=== PATIENT | male | born 1950 | race Caucasian/White ===

== ENCOUNTER 2017-11-21 16:00 | Outpatient (RCR) | payer MEDICARE, SELFPAY ==
[2017-11-21 16:22] LABS: Prothrombin Time Fingerstick 32.5 SEC (11.9-14.4)
== END 2017-12-06 23:59 ==
LOC: INT LAB 16:00
PROVIDERS: Family Provider Family Medicine Geriatric Medicine; PCP Family Medicine Geriatric Medicine; Visit Provider Internal Medicine Cardiovascular Disease
DX: I48.1 Persistent atrial fibrillation (principal)
CPT/HCPCS: 36416; 85610

== ENCOUNTER → 2017-12-12 09:43 | Outpatient (CLI) | payer MEDICARE, SELFPAY ==
[2017-12-12 09:12] VITALS: BP 140/84; BMI 40.6
[2017-12-12 11:41] LABS: AST(SGOT) 22 U/L (15-37); Alanine Aminotransfer ALT/SGPT 34 U/L (16-61); Albumin, Serum 3.6 g/dL (3.2-5.0); Alkaline Phosphatase 107 U/L (45-117); Bilirubin, Direct 0.21 mg/dL (0.00-0.30); Cholesterol 143 mg/dL (200); Globulin 3.5 g/dL (2.2-4.2); High Density Lipoprotein 30 mg/dL; Protein, Total 7.1 g/dL (6.4-8.2); Triglycerides 153 mg/dL; Very Low Density Lipoprotein 31 mg/dL (5-40)
== END ==
PROVIDERS: Family Provider Family Medicine Geriatric Medicine; PCP Family Medicine Geriatric Medicine; Visit Provider Internal Medicine Cardiovascular Disease
DX: I10 Essential (primary) hypertension (principal); I73.9 Peripheral vascular disease, unspecified
CPT/HCPCS: 36415; 80061; 80076

== ENCOUNTER → 2017-12-26 15:26 | Outpatient (CLI) | payer MEDICARE, SELFPAY ==
[2017-12-26 16:36] LABS: Absolute Neutrophil Count 4.7 X10^3/uL (2.0-7.7); Basophil# 0.04 X10^3/uL; Basophil% 0.4 % (0-1); Eosinophil# 0.38 X10^3/uL; Eosinophils% 4.2 % (0-5); Hematocrit 49.4 % (40-54); Hemoglobin 16.5 g/dl (13.0-16.5); Lymphocyte % 34.1 % (19-41); Mean Corp Hgb Conc 33.4 g/gl (32-36); Mean Corpuscular Hgb 29.6 pg (27.0-32.0); Mean Corpuscular Volume 88.5 fL (80-94); Mean Platelet Vol. 12.5 fl (6.2-12.0); Monocyte# 0.88 X10^3/uL; Monocyte% 9.7 % (0-10); Neutrophil # 4.66 X10^3/uL (2.7-7.7); Neutrophil % 51.2 % (47-70); Platelet Count 139 K/mm3 (150-450); RBC Distribution Width CV 14.9 % (11.6-14.6); RBC Distribution Width SD 47.9 fl (35.1-43.9); Red Blood Count 5.58 M/mm3 (4.6-6.2); White Blood Count 9.1 K/mm3 (4.4-11.0)
[2017-12-26 16:37] LABS: POSITIVE COUNT NO; POSITIVE DIFFERENTIAL NO; POSITIVE MORPHOLOGY NO
[2017-12-26 16:49] LABS: AST(SGOT) 20 U/L (15-37); Alanine Aminotransfer ALT/SGPT 38 U/L (16-61); Albumin, Serum 3.6 g/dL (3.2-5.0); Alkaline Phosphatase 115 U/L (45-117); Anion Gap 7 (5-15); BUN 17 mg/dL (7-18); BUN/Creat Ratio 13.8 RATIO (10-20); Calcium,Total 8.8 mg/dL (8.5-10.1); Chloride 102 mmol/L (98-107); Creatinine, Serum 1.23 mg/dL (0.70-1.30); EST Glomerular Filtration Rate 62 mL/min (>60); Est Glom Filt Rate - Afr Amer 75 mL/min (>60); Globulin 3.6 g/dL (2.2-4.2); Glucose 121 mg/dL (74-106); PSA,Total - Annual Screen 3.09 ng/mL (0.00-4.00); Potassium 3.4 mmol/L (3.5-5.1); Protein, Total 7.2 g/dL (6.4-8.2); Sodium Level 141 mmol/L (136-145); Thyroid Stim Hormone (TSH) 1.88 uIU/mL (0.358-3.74)
[2017-12-28 16:56] LABS: Hep C Antibodies <0.1 s/co ratio (0.0-0.9)
== END ==
PROVIDERS: Family Provider Family Medicine Geriatric Medicine; PCP Family Medicine Geriatric Medicine; Visit Provider Family Medicine Geriatric Medicine
DX: I10 Essential (primary) hypertension (principal); M10.9 Gout, unspecified; Z12.5 Encounter for screening for malignant neoplasm of prostate; Z13.89 Encounter for screening for other disorder
CPT/HCPCS: 36415; 80053; 84153; 84443; 84550; 85025; 86803; G0103

== ENCOUNTER → 2017-12-29 12:53 | Outpatient (CLI) | payer MEDICARE, SELFPAY ==
[2017-12-12 09:12] VITALS: BP 140/84; BMI 40.6
--- NOTE | 2017-12-29 12:55 | ECHOD_ITS ---
Reason For Study: Afib Procedure This was a 2D Doppler, Color Flow transthoracic echocardiogram. Exam performed in department. Left Ventricle Normal LV size. The estimated ejection fraction is 60 %. Left ventricular systolic function is normal. No evidence for diastolic dysfunction. No regional wall motion abnormalities noted. Right Ventricle Normal RV size. Normal systolic function. Atria The left atrium is severely enlarged. The right atrium is mildly enlarged. Mitral Valve Normal mitral valve. Mild (1+) eccentric mitral valve insufficiency. Tricuspid Valve Normal tricuspid valve. Mild (1+) tricuspid valve insufficiency. Pulmonary artery systolic pressure is 26 mmHg. Aortic Valve Trisinus/trileaflet aortic valve. Mild (1+) eccentric aortic valve insufficiency. Pulmonic Valve Normal pulmonic valve. Great Vessels Mildly dilated aortic root. The pulmonary artery is normal size. The inferior vena cava is not dilated. A possible thrombus is noted in IVC. Pericardium/Pleural No pericardial effusion. MMode/2D Measurements & Calculations LVIDd: 5.5 cm IVSd: 1.6 cm Ao root diam: 4.1 cm LVIDs: 3.6 cm LVPWd: 1.7 cm LA dimension: 5.4 cm RVDd: 3.5 cm FS: 35.1 % LAV(MOD-bp): 228.2 ml LA A4 area: 50.6 cm2 RA A4 area: 23.6 cm2 LAV(MOD-bp) Indexed: 87.1 ml/m2 LAV(MOD-sp2): 208.0 ml LAV(MOD-sp4): 232.6 ml Doppler Measurements & Calculations MV E max jeramie: 79.0 cm/sec Lat Peak E' Jeramie: 11.0 cm/sec Med Peak E' Jeramie: 7.2 cm/sec E/E' lat: 7.2 E/E' med: 10.9 Ao V2 max: 125.7 cm/sec LV V1 max: 103.2 cm/sec TR max jeramie: 232.5 cm/sec Ao max P.4 mmHg LV V1 max P.4 mmHg TR max P.7 mmHg Ao V2 mean: 92.1 cm/sec Ao mean P.7 mmHg Ao V2 VTI: 23.0 cm Interpretation Summary No evidence for diastolic dysfunction. Normal LV size. The estimated ejection fraction is 60 %. The left atrium is severely enlarged. Pulmonary artery systolic pressure is 26 mmHg. The inferior vena cava is not dilated A possible thrombus is noted in IVC- pt on anticoagulation Ordering Physician: [place] Referring Physician: Vasiliy Cantu Chi Performed By: Medina Carrera, KAYLA, RVT
== END ==
PROVIDERS: Family Provider Family Medicine Geriatric Medicine; PCP Family Medicine Geriatric Medicine; Visit Provider Internal Medicine Cardiovascular Disease
DX: I48.1 Persistent atrial fibrillation (principal)
CPT/HCPCS: 93306

== ENCOUNTER 2018-01-03 15:21 | Outpatient (RCR) | payer MEDICARE, SELFPAY ==
[2017-09-15 11:59] VITALS: BMI 38.5
[2017-09-18 19:40] VITALS: BP 176/102
[2018-01-03 15:36] LABS: Prothrombin Time Fingerstick 25.4 SEC (11.9-14.4)
== END 2018-01-03 23:59 ==
LOC: INT LAB 15:21
PROVIDERS: Family Provider Family Medicine Geriatric Medicine; PCP Family Medicine Geriatric Medicine; Visit Provider Internal Medicine Cardiovascular Disease
DX: I48.1 Persistent atrial fibrillation (principal)
CPT/HCPCS: 36416; 85610

== ENCOUNTER → 2018-01-15 15:54 | Outpatient (CLI) | payer MEDICARE, SELFPAY ==
[2018-01-15 17:20] LABS: Anion Gap 7 (5-15); BUN 19 mg/dL (7-18); BUN/Creat Ratio 15.1 RATIO (10-20); Calcium,Total 9.1 mg/dL (8.5-10.1); Chloride 102 mmol/L (98-107); Creatinine, Serum 1.26 mg/dL (0.70-1.30); EST Glomerular Filtration Rate 61 mL/min (>60); Est Glom Filt Rate - Afr Amer 73 mL/min (>60); Glucose 92 mg/dL (74-106); Potassium 3.5 mmol/L (3.5-5.1); Sodium Level 142 mmol/L (136-145)
== END ==
PROVIDERS: Family Provider Family Medicine Geriatric Medicine; PCP Family Medicine Geriatric Medicine; Visit Provider Family Medicine Geriatric Medicine
DX: E87.6 Hypokalemia (principal)
CPT/HCPCS: 36415; 80048

== ENCOUNTER 2018-01-18 10:06 | Outpatient (RCR) | payer MEDICARE, SELFPAY ==
[2018-01-18 10:36] LABS: Prothrombin Time Fingerstick 28.4 SEC (11.9-14.4)
== END 2018-02-03 23:59 ==
LOC: INT LAB 10:06
PROVIDERS: Family Provider Family Medicine Geriatric Medicine; PCP Family Medicine Geriatric Medicine; Visit Provider Internal Medicine Cardiovascular Disease
DX: I48.1 Persistent atrial fibrillation (principal)
CPT/HCPCS: 36416; 85610

== ENCOUNTER 2018-02-09 16:02 | Outpatient (RCR) | payer MEDICARE, SELFPAY ==
[2018-02-09 16:16] LABS: Prothrombin Time Fingerstick 28.7 SEC (11.9-14.4)
== END 2018-03-05 23:59 ==
LOC: INT LAB 16:02
PROVIDERS: Family Provider Family Medicine Geriatric Medicine; PCP Family Medicine Geriatric Medicine; Visit Provider Internal Medicine Cardiovascular Disease
DX: I48.1 Persistent atrial fibrillation (principal); I82.220 Acute embolism and thrombosis of inferior vena cava
CPT/HCPCS: 36416; 85610

== ENCOUNTER 2018-03-19 14:36 | Outpatient (RCR) | payer MEDICARE, SELFPAY ==
[2018-03-19 15:01] LABS: Prothrombin Time Fingerstick 21.5 SEC (11.9-14.4)
== END 2018-04-05 23:59 ==
LOC: INT LAB 14:36
PROVIDERS: Family Provider Family Medicine Geriatric Medicine; PCP Family Medicine Geriatric Medicine; Visit Provider Internal Medicine Cardiovascular Disease
DX: I48.91 Unspecified atrial fibrillation (principal); I82.220 Acute embolism and thrombosis of inferior vena cava
CPT/HCPCS: 36416; 85610

== ENCOUNTER → 2018-03-19 14:57 | Outpatient (CLI) | payer MEDICARE, SELFPAY ==
--- NOTE | 2018-03-19 15:05 | RAD_ITS ---
STUDY: X-RAY - LUMBAR SPINE REASON FOR EXAM: Male, 68 years old. Low back pain. TECHNIQUE: 3 view(s) of the lumbar spine were obtained. COMPARISON: None FINDINGS: Normal lumbar lordosis. There is no substantial scoliosis. There is a normal alignment of the vertebrae. There is multilevel endplate spondylosis of the lumbar vertebrae. There is multi-level degenerative disc disease with multi-level disc space narrowing. There is no demonstrated fracture. The soft tissue structures are unremarkable. RAD/Lumbar Spine 2 or 3 Views IMPRESSION: Degenerative changes of the spine, as detailed above. Electronically Signed: Bob Richards MD at 16:28 EDT , Service support ,
== END ==
PROVIDERS: Family Provider Family Medicine Geriatric Medicine; PCP Family Medicine Geriatric Medicine; Visit Provider Family Medicine Geriatric Medicine
DX: M54.5 Low back pain (principal); I48.91 Unspecified atrial fibrillation; I82.220 Acute embolism and thrombosis of inferior vena cava
CPT/HCPCS: 36416; 72100; 85610

== ENCOUNTER 2018-04-17 16:17 | Outpatient (RCR) | payer MEDICARE, SELFPAY ==
[2018-04-17 16:55] LABS: Prothrombin Time Fingerstick 33.9 SEC (11.9-14.4)
== END 2018-05-05 23:59 ==
LOC: INT LAB 16:17
PROVIDERS: Family Provider Family Medicine Geriatric Medicine; PCP Family Medicine Geriatric Medicine; Visit Provider Internal Medicine Cardiovascular Disease
DX: I48.1 Persistent atrial fibrillation (principal); I82.220 Acute embolism and thrombosis of inferior vena cava
CPT/HCPCS: 36416; 85610

== ENCOUNTER 2018-05-29 15:50 | Outpatient (RCR) | payer MEDICARE, SELFPAY ==
[2018-05-29 16:51] LABS: Prothrombin Time Fingerstick 33.3 SEC (11.9-14.4)
== END 2018-06-05 23:59 ==
LOC: INT LAB 15:50
PROVIDERS: Family Provider Family Medicine Geriatric Medicine; PCP Family Medicine Geriatric Medicine; Visit Provider Internal Medicine Cardiovascular Disease
DX: I48.1 Persistent atrial fibrillation (principal); I82.220 Acute embolism and thrombosis of inferior vena cava
CPT/HCPCS: 36416; 85610

== ENCOUNTER → 2018-06-19 13:50 | Outpatient (CLI) | payer MEDICARE, SELFPAY | PROVIDERS: Family Provider Family Medicine Geriatric Medicine; PCP Family Medicine Geriatric Medicine; Visit Provider Internal Medicine Cardiovascular Disease | DX: I48.2 Chronic atrial fibrillation (principal); I82.220 Acute embolism and thrombosis of inferior vena cava; Z79.01 Long term (current) use of 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s | CPT/HCPCS: 93306 ==

== ENCOUNTER 2018-07-02 15:36 | Outpatient (RCR) | payer MEDICARE, SELFPAY ==
[2018-07-02 17:26] LABS: Absolute Lymphocyte Count 2.09 X10^3/ul (0.83-4.51); Absolute Neutrophil Count 5.8 X10^3/uL (2.0-7.7); Basophil# 0.04 X10^3/uL; Basophil% 0.4 % (0-1); Eosinophil# 0.36 X10^3/uL; Eosinophils% 3.9 % (0-5); Hematocrit 50.3 % (40-54); Hemoglobin 16.7 g/dl (13.0-16.5); Lymphocyte # 2.09 X10^3/ul (4.0); Lymphocyte % 22.4 % (19-41); Mean Corp Hgb Conc 33.2 g/gl (32-36); Mean Corpuscular Hgb 30.1 pg (27.0-32.0); Mean Corpuscular Volume 90.8 fL (80-94); Mean Platelet Vol. 11.9 fl (6.2-12.0); Monocyte# 1.01 X10^3/uL; Monocyte% 10.8 % (0-10); Neutrophil % 62.1 % (47-70); Platelet Count 134 K/mm3 (150-450); RBC Distribution Width CV 14.7 % (11.6-14.6); RBC Distribution Width SD 48.9 fl (35.1-43.9); Red Blood Count 5.54 M/mm3 (4.6-6.2); White Blood Count 9.3 K/mm3 (4.4-11.0)
[2018-07-02 17:27] LABS: POSITIVE COUNT NO; POSITIVE DIFFERENTIAL NO; POSITIVE MORPHOLOGY NO
[2018-07-02 17:50] LABS: Vitamin D,25 Hydroxy 29.4 ng/mL (29.95-100.01)
[2018-07-02 17:53] LABS: ALB/GLOB Ratio 1.1 RATIO (0.9-2.4); AST(SGOT) 22 U/L (15-37); Alanine Aminotransfer ALT/SGPT 43 U/L (16-61); Albumin, Serum 3.8 g/dL (3.2-5.0); Alkaline Phosphatase 119 U/L (45-117); Anion Gap 9 (5-15); BUN 19 mg/dL (7-18); BUN/Creat Ratio 16.7 RATIO (10-20); Calcium,Total 9.1 mg/dL (8.5-10.1); Chloride 104 mmol/L (98-107); Creatinine, Serum 1.14 mg/dL (0.70-1.30); EST Glomerular Filtration Rate 68 mL/min (>60); Est Glom Filt Rate - Afr Amer 82 mL/min (>60); Globulin 3.6 g/dL (2.2-4.2); Glucose 74 mg/dL (74-106); Potassium 3.2 mmol/L (3.5-5.1); Protein, Total 7.4 g/dL (6.4-8.2); Sodium Level 141 mmol/L (136-145); Thyroid Stim Hormone (TSH) 1.35 uIU/mL (0.358-3.74); Uric Acid 5.7 mg/dL (3.5-7.2)
== END 2018-07-06 23:59 ==
LOC: INT LAB 15:36
PROVIDERS: Family Provider Family Medicine Geriatric Medicine; PCP Family Medicine Geriatric Medicine; Visit Provider Internal Medicine Cardiovascular Disease
DX: I48.91 Unspecified atrial fibrillation (principal); I82.220 Acute embolism and thrombosis of inferior vena cava; E55.9 Vitamin D deficiency, unspecified; I10 Essential (primary) hypertension; M10.9 Gout, unspecified
CPT/HCPCS: 36415; 36416; 80053; 82306; 84443; 84550; 85025; 85610

== ENCOUNTER → 2018-07-24 15:51 | Outpatient (CLI) | payer MEDICARE, SELFPAY ==
[2018-07-24 16:59] LABS: Anion Gap 9 (5-15); BUN 17 mg/dL (7-18); BUN/Creat Ratio 13.7 RATIO (10-20); Calcium,Total 9.1 mg/dL (8.5-10.1); Chloride 102 mmol/L (98-107); Creatinine, Serum 1.24 mg/dL (0.70-1.30); EST Glomerular Filtration Rate 62 mL/min (>60); Est Glom Filt Rate - Afr Amer 75 mL/min (>60); Glucose 66 mg/dL (74-106); Potassium 3.5 mmol/L (3.5-5.1); Sodium Level 142 mmol/L (136-145)
== END ==
PROVIDERS: Family Provider Family Medicine Geriatric Medicine; PCP Family Medicine Geriatric Medicine; Visit Provider Family Medicine Geriatric Medicine
DX: E87.6 Hypokalemia (principal)
CPT/HCPCS: 36415; 80048

== ENCOUNTER 2018-09-05 12:33 | Outpatient (RCR) | payer MEDICARE, SELFPAY ==
[2018-08-07 16:06] LABS: Prothrombin Time Fingerstick 39.2 SEC (11.9-14.4)
[2018-08-14 17:03] LABS: International Normalized Ratio 3.1
[2018-08-29 16:35] LABS: Prothrombin Time Fingerstick 42.1 SEC (11.9-14.4)
[2018-08-29 17:36] LABS: Prothrombin Time (Protime)PT. 30.9 SECONDS (11.7-14.9)
[2018-09-05 12:45] LABS: Prothrombin Time Fingerstick 31.3 SEC (11.9-14.4)
== END 2018-09-05 23:59 ==
LOC: INT LAB 12:33
PROVIDERS: Family Provider Family Medicine Geriatric Medicine; PCP Family Medicine Geriatric Medicine; Visit Provider Internal Medicine Cardiovascular Disease
DX: I48.91 Unspecified atrial fibrillation (principal); I82.220 Acute embolism and thrombosis of inferior vena cava; I10 Essential (primary) hypertension
CPT/HCPCS: 36415; 36416; 80048; 85610

== ENCOUNTER → 2018-09-05 13:10 | Outpatient (CLI) | payer MEDICARE, SELFPAY ==
[2018-09-05 15:02] LABS: Anion Gap 7 (5-15); BUN 19 mg/dL (7-18); BUN/Creat Ratio 15.6 RATIO (10-20); Calcium,Total 9.1 mg/dL (8.5-10.1); Chloride 103 mmol/L (98-107); Creatinine, Serum 1.22 mg/dL (0.70-1.30); EST Glomerular Filtration Rate 63 mL/min (>60); Est Glom Filt Rate - Afr Amer 76 mL/min (>60); Glucose 168 mg/dL (74-106); Potassium 3.6 mmol/L (3.5-5.1); Sodium Level 140 mmol/L (136-145)
== END ==
PROVIDERS: Family Provider Family Medicine Geriatric Medicine; PCP Family Medicine Geriatric Medicine; Visit Provider Family Medicine Geriatric Medicine
DX: I10 Essential (primary) hypertension (principal)
CPT/HCPCS: 36415; 36416; 80048; 85610

== ENCOUNTER 2018-10-31 16:21 | Outpatient (RCR) | payer MEDICARE, SELFPAY ==
[2018-10-12 17:01] LABS: Prothrombin Time Fingerstick 27.6 SEC (11.9-14.4)
[2018-10-31 16:46] LABS: Prothrombin Time Fingerstick 28.4 SEC (11.9-14.4)
== END 2018-11-05 23:59 ==
LOC: INT LAB 16:21
PROVIDERS: Family Provider Family Medicine Geriatric Medicine; PCP Family Medicine Geriatric Medicine; Referring Provider Internal Medicine Cardiovascular Disease; Visit Provider Internal Medicine Cardiovascular Disease
DX: I48.91 Unspecified atrial fibrillation (principal); I82.220 Acute embolism and thrombosis of inferior vena cava
CPT/HCPCS: 36416; 85610

== ENCOUNTER 2018-11-28 16:06 | Outpatient (RCR) | payer MEDICARE, SELFPAY ==
[2017-12-12 09:12] VITALS: BMI 40.6
[2018-11-29 08:46] LABS: Prothrombin Time Fingerstick 24.9 SEC (11.9-14.4)
--- OUTSIDE RECORDS SUMMARY | 2019-01-30 18:37 | XMS RPT_ITS ---
:1950 Author Organization OHIP Support Name Relationship Address Phone IRASEMA WINSTON Unavailable [address] + [place] [address] R Unavailable Unavailable Unavailable TISH, IRASEMA Unavailable Unavailable + TISH, IRASEMA Unavailable [address] + [place] [address] R Unavailable Unavailable Unavailable TISH, IRASEMA Unavailable [address] + [place] [address] R Unavailable Unavailable Unavailable TISH, IRASEMA Unavailable [address] + [place] [address] R Unavailable Unavailable Unavailable TISH, IRASEMA Unavailable [address] + [place] [address] R Unavailable Unavailable Unavailable TISH, IRASEMA Unavailable [address] + [place] [address] R Unavailable Unavailable Unavailable TISH, IRASEMA Unavailable [address] + [place] [address] R Unavailable Unavailable Unavailable TISH, IRASEMA Unavailable [address] + [place] [address] R Unavailable Unavailable Unavailable TISH, IRASEMA Unavailable [address] + [place] [address] R Unavailable Unavailable Unavailable TISH, IRASEMA Unavailable Unavailable + TISH IRASEMA Unavailable [address] + [place] [address] R Unavailable Unavailable Unavailable TISH, IRASEMA Unavailable [address] + [place] [address] R Unavailable Unavailable Unavailable TISH, IRASEMA Unavailable [address] + [place] [address] R Unavailable Unavailable Unavailable TISH, IRASEMA Unavailable [address] + [place] [address] R Unavailable Unavailable Unavailable TISH, IRASEMA Unavailable Unavailable + IRASEMA WINSTON Unavailable [address] + [place] [address] R Unavailable Unavailable Unavailable IRASEMA WINSTON Unavailable [address] + [place] [address] R Unavailable Unavailable Unavailable IRASEMA WINSTON Unavailable [address] + [place] [address] R Unavailable Unavailable Unavailable IRASEMA WINSTON Unavailable [address] + [place] [address] R Unavailable Unavailable Unavailable IRASEMA WINSTON Unavailable [address] + [place] [address] R Unavailable Unavailable Unavailable IRASEMA WINSTON Unavailable [address] + [place] [address] R Unavailable Unavailable Unavailable IRASEMA WINSTON Unavailable [address] + [place] [address] R Unavailable Unavailable Unavailable IRASEMA WINSTON Unavailable [address] + [place] [address] R Unavailable Unavailable Unavailable IRASEMA WINSTON Unavailable [address] + [place] [address] R Unavailable Unavailable Unavailable IRASEMA WINSTON Unavailable [address] + [place] [address] R Unavailable Unavailable Unavailable Care Team Providers Name Role Phone Karolina, Hankamer Attending Unavailable Karolina, Hankamer Referring Unavailable Pepe, Vasiliy Chi Primary Care Unavailable Karolina, Hankamer Attending Unavailable Pepe, Vasiliy Chi Referring Unavailable Pepe, Vasiliy Chi Primary Care Unavailable Karolina, Hankamer Attending Unavailable Karolina, Hankamer Referring Unavailable Pepe, Vasiliy Chi Primary Care Unavailable Karolina, Los Attending Unavailable Karolina, Hankamer Referring Unavailable Pepe, Vasiliy Chi Primary Care Unavailable Karolina, Los Attending Unavailable Karolina, Los Referring Unavailable Pepe, Vasiliy Chi Primary Care Unavailable Pepe, Vasiliy Chi Attending Unavailable Peep, Vasiliy Chi Primary Care Unavailable Pepe, Vasiliy Chi Attending Unavailable Pepe, Vasiliy Chi Primary Care Unavailable Madeline Iqbal Attending Unavailable Karolina, Los Attending Unavailable Karolina, Hankamer Referring Unavailable Pepe, Vasiliy Chi Primary Care Unavailable Karolina, Los Attending Unavailable Karolina, Hankamer Referring Unavailable Karolina, Hankamer Attending Unavailable Karolina, Los Referring Unavailable Pepe, Vasiliy Chi Primary Care Unavailable Karolina, Hankamer Attending Unavailable Karolina, Hankamer Referring Unavailable Pepe, Vasiliy Chi Primary Care Unavailable Pepe, Vasiliy Chi Attending Unavailable Pepe, Vasiliy Chi Referring Unavailable Pepe, Vasiliy Chi Primary Care Unavailable Karolina, Los Attending Unavailable Karolina, Hankamer Referring Unavailable Pepe, Vasiliy Chi Primary Care Unavailable Karolina, Hankamer Attending Unavailable Karolina, Hankamer Referring Unavailable Pepe, Vasiliy Chi Primary Care Unavailable Karolina, Hankamer Attending Unavailable Karolina, Los Referring Unavailable Pepe, Vasiliy Chi Primary Care Unavailable Karolina, Los Attending Unavailable Karolina, Los Referring Unavailable Pepe, Vasiliy Chi Primary Care Unavailable Karolina, Hankamer Attending Unavailable Karolina, Los Referring Unavailable Pepe, Vasiliy Chi Primary Care Unavailable Karolina, Hankamer Attending Unavailable Karolina, Los Referring Unavailable Pepe, Vasiliy Chi Attending Unavailable Pepe, Vasiliy Chi Primary Care Unavailable Pepe, Vasiliy Chi Attending Unavailable Pepe, Vasiliy Chi Primary Care Unavailable Pepe, Vasiliy Chi Attending Unavailable Karolina, Hankamer Attending Unavailable Karolina, Los Referring Unavailable Pepe, Vasiliy Chi Primary Care Unavailable PALAFOX, SELAM W Attending Unavailable PALAFOX, SELAM W Referring Unavailable *SELF, REFERRED Primary Care Unavailable PALAFOX, SELAM W Attending Unavailable *SELF, REFERRED Referring Unavailable *SELF, REFERRED Primary Care Unavailable PALAFOX, SELAM W Attending Unavailable PALAFOX, SELAM W Referring Unavailable *SELF, REFERRED Primary Care Unavailable PROBLEMS PROBLEMS DATE TYPE CONDITION / CODE ATTENDING STATUS SOURCE 11/28/2018 Unknown I48.91 - Karolina, Lso Active [place] Unspecified atrial Community fibrillation / Hospital I48.91(ICD-10) Repository 09/05/2018 Unknown I10 - Essential Pepe, Vasiliy Chi Active [place] (primary) Community hypertension / Hospital I10(ICD-10) Repository 07/07/2018 Unknown E55.9 - Vitamin D Karolina, Hankamer Active [facility] deficiency, Community unspecified / Hospital E55.9(ICD-10) Repository 06/06/2018 Unknown I48.1 - Persistent Karolina, Los Active [facility] atrial Community fibrillation / Hospital I48.1(ICD-10) Repository 03/19/2018 Unknown M54.5 - Low back Pepe, Vasiliy Chi Active [place] pain / Community M54.5(ICD-10) Hospital Repository 12/26/2017 Unknown M10.9 - Gout, Pepe, Vasiliy Chi Active [place] unspecified / Community M10.9(ICD-10) Hospital Repository 12/26/2017 Unknown Z12.5 - Encounter Pepe, Vasiliy Chi Active [place] for screening for Community malignant neoplasm Hospital of prostate / Repository Z12.5(ICD-10) 12/26/2017 Unknown Z13.89 - Encounter Pepe, Vasiliy Chi Active [facility] for screening for Community other disorder / Hospital Z13.89(ICD-10) Repository 12/12/2017 Unknown 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, Hankamer Active [facility]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 [address] PROTIME W/INR Collected: 10/31/2018 Status: F Source: [place] FINGERSTICK 4:34 PM [facility] [place] [place] REPOSITORY TYPE CODE TESTS RESULT OUT OF REFERENCE UNITS RANGE LAB L9200.1001 11.9-14.4 SEC High PROTIME ISTAT 28.4 Result Comment: Reference Range 11.9 - 14.4 LAB L9200.2000 Normal INR ISTAT 2.50 Result Comment: Critical Value > 3.5 Performed By: #### L9200.0000 #### [facility] [address] [facility] [place] [address] PROTIME W/INR Collected: 10/12/2018 Status: F Source: [place] FINGERSTICK 4:57 PM [facility] [place] [place] REPOSITORY TYPE CODE TESTS RESULT OUT OF REFERENCE UNITS RANGE LAB L9200.1001 11.9-14.4 SEC High PROTIME ISTAT 27.6 Result Comment: Reference Range 11.9 - 14.4 LAB L9200.2000 Normal INR ISTAT 2.40 Result Comment: Critical Value > 3.5 Performed By: #### L9200.0000 #### [facility] [address] [place] [address] BASIC METABOLIC Collected: 09/05/2018 Status: F Source: [facility] PROFILE (BMP) 1:11 PM [facility] [place], [place] REPOSITORY TYPE CODE TESTS RESULT OUT OF RANGE REFERENCE UNITS LAB L501.0100 74-106 mg/dL High GLU 168 Result Comment: Fasting Glucose result greater than or equal to 126 mg/dL suggests DIABETES MELLITUS per A.D.A. criteria. Please note revised GLUCOSE reference range effective 2017. LAB L501.1000 7-18 mg/dL High BUN 19 LAB L501.1100 0.70-1.30 mg/dL Normal CREAT,SERUM 1.22 Result Comment: The validity of the calculated GFR AND GFRAA in patients over 70 years has not been determined. Clinical correlation is essential. LAB L501.1110 >60 mL/min Normal EST GFR 63 Result Comment: Non- GFR Calc LAB L501.1115 >60 mL/min Normal EST GFR - AA 76 Result Comment: GFR Calc LAB L501.1300 10-20 RATIO Normal BUN/CRE 15.6 LAB L501.2200 8.5-10.1 mg/dL CA Normal 9.1 LAB L501.5300 136-145 mmol/L NA Normal 140 LAB L501.5600 3.5-5.1 mmol/L K Normal 3.6 LAB L501.5900 98-107 mmol/L CL Normal 103 LAB L501.6100 21.0-32.0 mmol/L Normal CO2 30.0 LAB L501.6200 5-15 Normal GAP 7 Performed By: #### L500.2500 #### [facility] [address] [place], [place], [address] PROTIME W/INR Collected: 09/05/2018 Status: F Source: [place] FINGERSTICK 12:41 PM [facility] [place] [place] REPOSITORY TYPE CODE TESTS RESULT OUT OF REFERENCE UNITS RANGE LAB L9200.1001 11.9-14.4 SEC High PROTIME ISTAT 31.3 Result Comment: Reference Range 11.9 - 14.4 LAB L9200.2000 Normal INR ISTAT 2.70 Result Comment: Critical Value > 3.5 Performed By: #### L9200.0000 #### [facility] [address] [facility] [place] [address] PROTHROMBIN TIME W/INR Collected: 08/29/2018 Status: F Source: [place] 4:29 PM [facility] [place] [place] REPOSITORY TYPE CODE TESTS RESULT OUT OF RANGE REFERENCE UNITS LAB L300.4150 11.7-14.9 SECONDS High PROTIME 30.9 LAB L300.4200 Normal INR 3.0 Performed By: #### L300.3900 #### [facility] [address] [place] [address]. [place], [address] PROTIME W/INR Collected: 08/29/2018 Status: F Source: [place] FINGER[place]ICK 4:24 PM [facility] [place] [place] REPOSITORY TYPE CODE TESTS RESULT OUT OF REFERENCE UNITS RANGE LAB L9200.1001 11.9-14.4 SEC High PROTIME ISTAT 42.1 Result Comment: Reference Range 11.9 - 14.4 LAB L9200.2000 High alert INR ISTAT 3.70 Result Comment: Critical Value > 3.5 Performed By: #### L9200.0000 #### [facility] [address] [place] [address]. [place] [address] PROTHROMBIN TIME W/INR Collected: 08/14/2018 Status: F Source: [place] 3:37 PM [facility] [place] [place] REPOSITORY TYPE CODE TESTS RESULT OUT OF RANGE REFERENCE UNITS LAB L300.4150 11.7-14.9 SECONDS High PROTIME 32.0 LAB L300.4200 Normal INR 3.1 Performed By: #### L300.3900 #### [facility] [facility] [place], [address] PROTIME W/INR Collected: 08/07/2018 Status: F Source: [place] FINGER[place] 3:49 PM [facility] [place] [place] REPOSITORY TYPE CODE TESTS RESULT OUT OF REFERENCE UNITS RANGE LAB L9200.1001 11.9-14.4 SEC High PROTIME ISTAT 39.2 Result Comment: Reference Range 11.9 - 14.4 LAB L9200.2000 Normal INR ISTAT 3.50 Result Comment: Critical Value > 3.5 Performed By: #### L9200.0000 #### [facility] [address] [place] [address] BASIC METABOLIC Collected: 07/24/2018 Status: F Source: [place] PROFILE (BMP) 3:52 PM [facility] [place] [place] REPOSITORY TYPE CODE TESTS RESULT OUT OF RANGE REFERENCE UNITS LAB L501.0100 74-106 mg/dL Low GLU 66 Result Comment: Please note revised GLUCOSE reference range effective 2017. LAB L501.1000 7-18 mg/dL Normal BUN 17 LAB L501.1100 0.70-1.30 mg/dL Normal CREAT,SERUM 1.24 Result Comment: The validity of the calculated GFR AND GFRAA in patients over 70 years has not been determined. Clinical correlation is essential. LAB L501.1110 >60 mL/min Normal EST GFR 62 Result Comment: Non- GFR Calc LAB L501.1115 >60 mL/min Normal EST GFR - AA 75 Result Comment: GFR Calc LAB L501.1300 10-20 RATIO Normal BUN/CRE 13.7 LAB L501.2200 8.5-10.1 mg/dL CA Normal 9.1 LAB L501.5300 136-145 mmol/L NA Normal 142 LAB L501.5600 3.5-5.1 mmol/L K Normal 3.5 LAB L501.5900 98-107 mmol/L CL Normal 102 LAB L501.6100 21.0-32.0 mmol/L Normal CO2 31.0 LAB L501.6200 5-15 Normal GAP 9 Performed By: #### L500.2500 #### [facility] [address] [place], [place], [address] CBC W/DIFF, AUTOMATED Collected: 07/02/2018 Status: F Source: [place] 4:53 PM [facility] [place] [place] REPOSITORY TYPE CODE TESTS RESULT OUT OF RANGE REFERENCE UNITS LAB L100.1000 4.4-11.0 K/mm3 Normal WBC 9.3 LAB L100.1200 4.6-6.2 M/mm3 Normal RBC 5.54 LAB L100.1300 13.0-16.5 g/dl High HGB 16.7 LAB L100.1400 40-54 % Normal HCT 50.3 LAB L100.1500 80-94 fL Normal MCV 90.8 LAB L100.1600 27.0-32.0 pg Normal MCH 30.1 LAB L100.1700 32-36 g/gl Normal MCHC 33.2 LAB L100.1810 11.6-14.6 % High RDW CV 14.7 LAB L100.1820 35.1-43.9 fl High RDW SD 48.9 LAB L100.1900 150-450 K/mm3 Low PLT 134 LAB L100.2000 6.2-12.0 fl Normal MPV 11.9 LAB L100.2100 47-70 % Normal NEUT% 62.1 LAB L100.2200 19-41 % Normal LY% 22.4 LAB L100.2300 0-10 % High MONO% 10.8 LAB L100.2400 0-5 % Normal EO% 3.9 LAB L100.2500 0-1 % Normal BASO% 0.4 LAB L100.2550 0.0-0.9 % Normal IM GRAN % 0.400 Result Comment: IG% - Immature Granulocytes (promyelocytes, myelocytes and metamyelocytes) > 1% indicates that a LEFT SHIFT is Present. LAB L100.2620 2.0-7.7 X10 3/uL Normal Absolute Neut 5.8 LAB L100.2720 0.83-4.51 X10 3/ul Normal Absolute Lymph 2.09 Performed By: #### L100.0100 #### [facility] [address] [place], [address] VITAMIN D,25 HYDROXY Collected: 07/02/2018 Status: F Source: [place] 4:53 PM [facility] [place] [place] REPOSITORY TYPE CODE TESTS RESULT OUT OF REFERENCE UNITS RANGE LAB L506.1000 29.95-100.01 ng/mL Low Vitamin D 29.4 25-OH Result Comment: Vitamin D 25(OH) Status Range Deficiency <20 ng/mL (50nmol/L) Insuffciency 20 - 30 ng/mL (50 - 75 nmol/L) Sufficiency 30 - 100 ng/mL (75 - 250 nmol/L) Toxicity >100 ng/mL (>250 nmol/L) Performed By: #### L506.1000 #### [facility] [address] [place], [address] COMPREHENSIVE METABOLIC Collected: 07/02/2018 Status: F Source: [place] MANN 4:53 PM [facility] [place] [place] REPOSITORY TYPE CODE TESTS RESULT OUT OF RANGE REFERENCE UNITS LAB L501.0100 74-106 mg/dL Normal GLU 74 Result Comment: Please note revised GLUCOSE reference range effective 2017. LAB L501.1000 7-18 mg/dL High BUN 19 LAB L501.1100 0.70-1.30 mg/dL Normal CREAT,SERUM 1.14 Result Comment: The validity of the calculated GFR AND GFRAA in patients over 70 years has not been determined. Clinical correlation is essential. LAB L501.1110 >60 mL/min Normal EST GFR 68 Result Comment: Non- GFR Calc LAB L501.1115 >60 mL/min Normal EST GFR - AA 82 Result Comment: GFR Calc LAB L501.1300 10-20 RATIO Normal BUN/CRE 16.7 LAB L501.1500 6.4-8.2 g/dL T Normal PROT 7.4 LAB L501.1800 3.2-5.0 g/dL Normal ALB 3.8 LAB L501.1950 2.2-4.2 g/dL Normal GLOB 3.6 LAB L501.2000 0.9-2.4 RATIO Normal A/G 1.1 LAB L501.2200 8.5-10.1 mg/dL CA Normal 9.1 LAB L501.4100 15-37 U/L Normal AST 22 LAB L501.4305 45-117 U/L High ALK P 119 LAB L501.4405 16-61 U/L Normal ALT 43 LAB L501.4600 0.20-1.00 mg/dL T Normal BILI 0.90 LAB L501.5300 136-145 mmol/L NA Normal 141 LAB L501.5600 3.5-5.1 mmol/L Low K 3.2 LAB L501.5900 98-107 mmol/L CL Normal 104 LAB L501.6100 21.0-32.0 mmol/L Normal CO2 28.0 LAB L501.6200 5-15 Normal GAP 9 Performed By: #### L500.4050, L501.1400, L501.9520 #### [facility] [address] [place], [address] URIC ACID Collected: 07/02/2018 Status: F Source: [place] 4:53 PM [facility] [place] [place] REPOSITORY TYPE CODE TESTS RESULT OUT OF RANGE REFERENCE UNITS LAB L501.1400 3.5-7.2 mg/dL Normal URIC 5.7 Result Comment: The drugs N-Acetylcysteine and Metamizole may falsely depress this assay. Performed By: #### L500.4050, L501.1400, L501.9520 #### [facility] [address] [place], [address] THYROID STIM HORMONE Collected: 07/02/2018 Status: F Source: [place] (TSH) 4:53 PM [facility] [place] [place] REPOSITORY TYPE CODE TESTS RESULT OUT OF RANGE REFERENCE UNITS LAB L501.9520 0.358-3.74 uIU/mL Normal TSH 1.35 Performed By: #### L500.4050, L501.1400, L501.9520 #### [facility] [place], [address] PROTIME W/INR Collected: 07/02/2018 Status: F Source: ANIA FINGERSTICK 3:45 PM [facility] [place] [place] REPOSITORY TYPE CODE TESTS RESULT OUT OF REFERENCE UNITS RANGE LAB L9200.1001 11.9-14.4 SEC High PROTIME ISTAT 34.0 Result Comment: Reference Range 11.9 - 14.4 LAB L9200.2000 Normal INR ISTAT 3.00 Result Comment: Critical Value > 3.5 Performed By: #### L9200.0000 #### [facility] [address] [place] [address] ECHOCARDIOGRAM COMPLETE Observed: 06/19/2018 Status: F Source: [place] 5:12 PM [facility] [place] [place] REPOSITORY [facility] Cardiovascular Services [address] [place], [place] [address] [address] Echo Complete 06/19/18 1353 MR#: [id number] Acct: [id number] Name: NARCISO WINSTON Rep #: [id number] : 1950 68 From: Los Turcios MD Attending Dr: Karolina WALDRON,Los Status: REG CLI Ordering Dr: Los Turcios MD Date: 06/19/18 Location: [facility] Sex: M C Admitted: Reason For Study: emboli Procedure This was a 2D Doppler, Color Flow transthoracic echocardiogram. The study was technically difficult. Exam performed in department. Left Ventricle Mildly dilated left ventricle. Left ventricular systolic function is normal. The estimated ejection fraction is 55 %. Unable to assess diastolic dysfunction due to arrhythmia. No regional wall motion abnormalities noted. Right Ventricle Normal RV size. Normal systolic function. Atria The left atrium is severely enlarged. The right atrium is moderately enlarged. Mitral Valve Normal mitral valve. Mild (1+) eccentric mitral valve insufficiency. Tricuspid Valve Normal tricuspid valve. Mild tricuspid valve insufficiency. Pulmonary artery systolic pressure is 30 mmHg. Aortic Valve Normal aortic valve. Trivial aortic valve insufficiency. Pulmonic Valve The pulmonic valve is not well visualized. Great Vessels Mildly dilated aortic root. The pulmonary artery is normal size. Normal inferior vena cava. cannot exclude small throbus improved from before. Pericardium/Pleural No pericardial effusion. MMode/2D Measurements AND Calculations LVIDd: 5.7 cm IVSd: 1.6 cm Ao root diam: 4.1 cm LVIDs: 3.9 cm LVPWd: 1.7 cm LA dimension: 5.7 cm RVDd: 3.9 cm FS: 31.3 % LAV(MOD-bp): 237.7 ml LA A4 area: 51.6 cm2 RA A4 area: 27.3 cm2 LAV(MOD-bp) Indexed: 90.8 ml/m2 LAV(MOD-sp2): 217.1 ml LAV(MOD-sp4): 257.1 ml Doppler Measurements AND Calculations MV E max jeramie: 77.0 cm/sec Ao V2 max: 127.4 cm/sec LV V1 max: 91.1 cm/sec Ao max P.5 mmHg LV V1 max P.3 mmHg PA V2 max: 75.4 cm/sec TR max jeramie: 260.7 cm/sec TR max P.2 mmHg Interpretation Summary Mildly dilated left ventricle. Left ventricular systolic function is normal. The estimated ejection fraction is 55 %. Unable to assess diastolic dysfunction due to arrhythmia. Mild tricuspid valve insufficiency. Pulmonary artery systolic pressure is 30 mmHg. Ordering Physician: Los Turcios Referring Physician: Vasiliy Cantu Chi Performed By: Katie Saunders, KAYLA, RVT 06/19/181710 Date Los Turcios MD CC: Los Turcios MD; Vasiliy Cantu MD Date Dictated: 06/19/18 1353 Date Transcribed: 06/19/181710 Wallpaperer: Signed PROTIME W/INR Collected: 05/29/2018 Status: F Source: [place]IA FINGERSTICK 4:11 PM [facility] [place] [place] REPOSITORY TYPE CODE TESTS RESULT OUT OF REFERENCE UNITS RANGE LAB L9200.1001 11.9-14.4 SEC High PROTIME ISTAT 33.3 Result Comment: Reference Range 11.9 - 14.4 LAB L9200.2000 Normal INR ISTAT 2.90 Result Comment: Critical Value > 3.5 Performed By: #### L9200.0000 #### [facility] [address] [place] [address] PROTIME W/INR Collected: 04/17/2018 Status: F Source: ANIA FINGERSTICK 4:28 PM [facility] [place] [place] REPOSITORY TYPE CODE TESTS RESULT OUT OF REFERENCE UNITS RANGE LAB L9200.1001 11.9-14.4 SEC High PROTIME ISTAT 33.9 Result Comment: Reference Range 11.9 - 14.4 LAB L9200.1999 Normal INR ISTAT 3.00 Result Comment: Critical Value > 3.5 Performed By: #### L9200.0000 #### [facility] [address] [place] [address] LUMBAR SPINE 2 OR 3 Observed: 03/19/2018 Status: F Source: ANIA VIEWS 3:00 PM [facility] [place] [place] REPOSITORY [facility] Imaging Services [address] [place] [address] Lumbar Spine 2 or 3 Views MR#: [id number] Acct: [id number] Name: NARCISO WINSTON Rep #: [id number] : 1950 M 68 From: Bob Richards MD PCP: Vasiliy Cantu MD, Chi Status: REG CLI Study: Lumbar Spine 2 or 3 Views Date of Exam: 03/19/18 Exam# [id number] Ordering Dr: Vasiliy Cantu MD STUDY: X-RAY - LUMBAR SPINE REASON FOR EXAM: Male, 68 years old. Low back pain. TECHNIQUE: 3 view(s) of the lumbar spine were obtained. COMPARISON: None FINDINGS: Normal lumbar lordosis. There is no substantial scoliosis. There is a normal alignment of the vertebrae. There is multilevel endplate spondylosis of the lumbar vertebrae. There is multi-level degenerative disc disease with multi-level disc space narrowing. There is no demonstrated fracture. The soft tissue structures are unremarkable. RAD/Lumbar Spine 2 or 3 Views IMPRESSION: Degenerative changes of the spine, as detailed above. Electronically Signed: Bob Richards MD at 16:28 EDT , Service support , CC: Vasiliy Cantu MD Wallpaperer: Signed PROTIME W/INR Collected: 03/19/2018 Status: F Source: ANIA FINGERSTICK 2:53 PM [facility] [place] [place] REPOSITORY TYPE CODE TESTS RESULT OUT OF REFERENCE UNITS RANGE LAB L9200.1001 11.9-14.4 SEC High PROTIME ISTAT 21.5 Result Comment: Reference Range 11.9 - 14.4 LAB L9200.2000 Normal INR ISTAT 1.80 Result Comment: Critical Value > 3.5 Performed By: #### L9200.0000 #### [facility] [address] [place] [address] PROTIME W/INR Collected: 02/09/2018 Status: F Source: ANIA FINGERSTICK 4:10 PM [facility] [place] [place] REPOSITORY TYPE CODE TESTS RESULT OUT OF REFERENCE UNITS RANGE LAB L9200.1001 11.9-14.4 SEC High PROTIME ISTAT 28.7 Result Comment: Reference Range 11.9 - 14.4 LAB L9200.2000 Normal INR ISTAT 2.50 Result Comment: Critical Value > 3.5 Performed By: #### L9200.0000 #### [facility] [address] [place] [address] PROTIME W/INR Collected: 01/18/2018 Status: F Source: ANIA FINGERSTICK 10:29 AM [facility] [place] [place] REPOSITORY TYPE CODE TESTS RESULT OUT OF REFERENCE UNITS RANGE LAB L9200.1001 11.9-14.4 SEC High PROTIME ISTAT 28.4 Result Comment: Reference Range 11.9 - 14.4 LAB L9200.2000 Normal INR ISTAT 2.50 Result Comment: Critical Value > 3.5 Performed By: #### L9200.0000 #### [facility] [address] [place], [place] [address] BASIC METABOLIC Collected: 01/15/2018 Status: F Source: ANIA PROFILE (BMP) 3:55 PM [facility] [place] [place] REPOSITORY TYPE CODE TESTS RESULT OUT OF RANGE REFERENCE UNITS LAB L501.0100 74-106 mg/dL Normal GLU 92 Result Comment: Please note revised GLUCOSE reference range effective 2017. LAB L501.1000 7-18 mg/dL High BUN 19 LAB L501.1100 0.70-1.30 mg/dL Normal CREAT,SERUM 1.26 Result Comment: The validity of the calculated GFR AND GFRAA in patients over 70 years has not been determined. Clinical correlation is essential. LAB L501.1110 >60 mL/min Normal EST GFR 61 Result Comment: Non- GFR Calc LAB L501.1115 >60 mL/min Normal EST GFR - AA 73 Result Comment: GFR Calc LAB L501.1300 10-20 RATIO Normal BUN/CRE 15.1 LAB L501.2200 8.5-10.1 mg/dL CA Normal 9.1 LAB L501.5300 136-145 mmol/L NA Normal 142 LAB L501.5600 3.5-5.1 mmol/L K Normal 3.5 LAB L501.5900 98-107 mmol/L CL Normal 102 LAB L501.6100 21.0-32.0 mmol/L High CO2 33.0 LAB L501.6200 5-15 Normal GAP 7 Performed By: #### L500.2500 #### [facility] [address] [place], [place], [address] PROTIME W/INR Collected: 01/03/2018 Status: F Source: [place] 3:32 PM [facility] [place], [place] REPOSITORY TYPE CODE TESTS RESULT OUT OF REFERENCE UNITS RANGE LAB L9200.1001 11.9-14.4 SEC High PROTIME ISTAT 25.4 Result Comment: Reference Range 11.9 - 14.4 LAB L9200.2000 Normal INR ISTAT 2.20 Result Comment: Critical Value > 3.5 Performed By: #### L9200.0000 #### [facility] Point of Care [address] [place] [address] ECHOCARDIOGRAM COMPLETE Observed: 01/01/2018 Status: F Source: [place] 8:46 AM [facility] [place] REPOSITORY [facility] Cardiovascular Services [address] [place] [address] Echo Complete 12/29/17 1300 MR#: [id number] Acct: [id number] Name: NARCISO WINSTON Rep #: [id number] : 1950 67 From: Los Turcios MD Attending Dr: Los Turcios MD Status: REG CLI Ordering Dr: Los Turcios MD Date: 12/29/17 Location: [facility] Sex: M C Admitted: Reason For Study: Afib Procedure This was a 2D Doppler, Color Flow transthoracic echocardiogram. Exam performed in department. Left Ventricle Normal LV size. The estimated ejection fraction is 60 %. Left ventricular systolic function is normal. No evidence for diastolic dysfunction. No regional wall motion abnormalities noted. Right Ventricle Normal RV size. Normal systolic function. Atria The left atrium is severely enlarged. The right atrium is mildly enlarged. Mitral Valve Normal mitral valve. Mild (1+) eccentric mitral valve insufficiency. Tricuspid Valve Normal tricuspid valve. Mild (1+) tricuspid valve insufficiency. Pulmonary artery systolic pressure is 26 mmHg. Aortic Valve Trisinus/trileaflet aortic valve. Mild (1+) eccentric aortic valve insufficiency. Pulmonic Valve Normal pulmonic valve. Great Vessels Mildly dilated aortic root. The pulmonary artery is normal size. The inferior vena cava is not dilated. A possible thrombus is noted in IVC. Pericardium/Pleural No pericardial effusion. MMode/2D Measurements AND Calculations LVIDd: 5.5 cm IVSd: 1.6 cm Ao root diam: 4.1 cm LVIDs: 3.6 cm LVPWd: 1.7 cm LA dimension: 5.4 cm RVDd: 3.5 cm FS: 35.1 % LAV(MOD-bp): 228.2 ml LA A4 area: 50.6 cm2 RA A4 area: 23.6 cm2 LAV(MOD-bp) Indexed: 87.1 ml/m2 LAV(MOD-sp2): 208.0 ml LAV(MOD-sp4): 232.6 ml Doppler Measurements AND Calculations MV E max jeramie: 79.0 cm/sec Lat Peak E' Jeramie: 11.0 cm/sec Med Peak E' Jeramie: 7.2 cm/sec E/E' lat: 7.2 E/E' med: 10.9 Ao V2 max: 125.7 cm/sec LV V1 max: 103.2 cm/sec TR max jeramie: 232.5 cm/sec Ao max P.4 mmHg LV V1 max P.4 mmHg TR max P.7 mmHg Ao V2 mean: 92.1 cm/sec Ao mean P.7 mmHg Ao V2 VTI: 23.0 cm Interpretation Summary No evidence for diastolic dysfunction. Normal LV size. The estimated ejection fraction is 60 %. The left atrium is severely enlarged. Pulmonary artery systolic pressure is 26 mmHg. The inferior vena cava is not dilated A possible thrombus is noted in IVC- pt on anticoagulation Ordering Physician: Los Turcios Referring Physician: Vasiliy Cantu Chi Performed By: Medina Carrera, KAYLA, RVT 01/01/18 0845 Date Los Turcios MD CC: Los Turcios MD; Vasiliy Cantu MD Date Dictated: 12/29/17 1300 Date Transcribed: 01/01/1845 Wallpaperer: Signed CNCO Observed: 12/27/2017 Status: COMPLETED Source: [place] 12:00 AM [facility] REPOSITORY Letter Text COLONOSCOPY-GOLYTELY NO SOLID FOOD THE DAY BEFORE THIS EXAM Appointment Date: 01/18/18 Facility: [facility]- [address] [place] [id number] Arrive At: 8:15 AM Special Instructions: N/A You must have a responsible adult to drive you home and assist you at home while you finish recovering from your sedation. Please bring only one person with you. 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 Arrive 30-45 minutes before your procedure time. Purchase at the Pharmacy: Fill prescription for Golytely and 4 Dulcolax tablets. THE DAY BEFORE YOUR EXAM: 1. FOLLOW A CLEAR LIQUID DIET ALL DAY. 2. At 1:00PM, take 4 Dulcolax tablets. 3. At 5:00PM, start drinking solution. Drink a total of eight 8 oz glasses, one every 15-20 minutes. Please put the rest of the solution in the refrigerator for tomorrow morning. THE DAY OF YOUR EXAM 1. At 5:00 AM (four hours before your procedure) : drink one 8 oz glass every 15-20 minutes. Drink a total of four 8 oz glasses. Discard the remainder of the solution. 2. DO NOT DRINK ANYTHING ELSE AFTER THIS STEP IS COMPLETED. Nothing by mouth including clear liquids, food, gum and hard candy. 5 DAYS BEFORE EXAM STOP TAKING ASPIRIN OR ASPIRIN CONTAINING PRODUCTS, VITAMIN E AND IRON, BLOOD THINNERS SUCH COUMADIN, PLAVIX, AGGRENOX. DIABETICS ONLY Take only 1/2 of your daily dose of insulin or tablets the day before your exam. Do not take any more of your diabetic medications until the procedure is over and you have resumed eating again. Drink regular liquids, not diabetic and monitor your sugar throughout the day you are on clear liquids. If your sugar gets too low, drink some apple juice. It is very important that you drink all of the solution that we tell you to drink, if you do not complete the prep, your procedure may be cancelled. Any questions, please call our office at [phone] Ext [phone] or [phone]. CBC W/DIFF, AUTOMATED Collected: 12/26/2017 Status: F Source: [place] 3:28 PM [facility] [place], [place] REPOSITORY TYPE CODE TESTS RESULT OUT OF RANGE REFERENCE UNITS LAB L100.1000 4.4-11.0 K/mm3 Normal WBC 9.1 LAB L100.1200 4.6-6.2 M/mm3 Normal RBC 5.58 LAB L100.1300 13.0-16.5 g/dl Normal HGB 16.5 LAB L100.1400 40-54 % Normal HCT 49.4 LAB L100.1500 80-94 fL Normal MCV 88.5 LAB L100.1600 27.0-32.0 pg Normal MCH 29.6 LAB L100.1700 32-36 g/gl Normal MCHC 33.4 LAB L100.1810 11.6-14.6 % High RDW CV 14.9 LAB L100.1820 35.1-43.9 fl High RDW SD 47.9 LAB L100.1900 150-450 K/mm3 Low PLT 139 LAB L100.2000 6.2-12.0 fl High MPV 12.5 LAB L100.2100 47-70 % Normal NEUT% 51.2 LAB L100.2200 19-41 % Normal LY% 34.1 LAB L100.2300 0-10 % Normal MONO% 9.7 LAB L100.2400 0-5 % Normal EO% 4.2 LAB L100.2500 0-1 % Normal BASO% 0.4 LAB L100.2550 0.0-0.9 % Normal IM GRAN % 0.400 Result Comment: IG% - Immature Granulocytes (promyelocytes, myelocytes and metamyelocytes) > 1% indicates that a LEFT SHIFT is Present. LAB L100.2620 2.0-7.7 X10 3/uL Normal Absolute Neut 4.7 LAB L100.2720 0.83-4.51 X10 3/ul Normal Absolute Lymph 3.10 Performed By: #### L100.0100 #### [facility] [address] [place], [address] COMPREHENSIVE METABOLIC Collected: 12/26/2017 Status: F Source: [place] 3:28 PM [facility] [place], [place] REPOSITORY TYPE CODE TESTS RESULT OUT OF RANGE REFERENCE UNITS LAB L501.0100 74-106 mg/dL High GLU 121 Result Comment: Fasting Glucose result from 100 to 125 mg/dL suggests IMPAIRED HOMEOSTASIS per A.D.A. criteria. Please note revised GLUCOSE reference range effective 2017. LAB L501.1000 7-18 mg/dL Normal BUN 17 LAB L501.1100 0.70-1.30 mg/dL Normal CREAT,SERUM 1.23 Result Comment: The validity of the calculated GFR AND GFRAA in patients over 70 years has not been determined. Clinical correlation is essential. LAB L501.1110 >60 mL/min Normal EST GFR 62 Result Comment: Non- GFR Calc LAB L501.1115 >60 mL/min Normal EST GFR - AA 75 Result Comment: GFR Calc LAB L501.1300 10-20 RATIO Normal BUN/CRE 13.8 LAB L501.1500 6.4-8.2 g/dL T Normal PROT 7.2 LAB L501.1800 3.2-5.0 g/dL Normal ALB 3.6 LAB L501.1950 2.2-4.2 g/dL Normal GLOB 3.6 LAB L501.2000 0.9-2.4 RATIO Normal A/G 1.0 LAB L501.2200 8.5-10.1 mg/dL CA Normal 8.8 LAB L501.4100 15-37 U/L Normal AST 20 LAB L501.4305 45-117 U/L Normal ALK P 115 LAB L501.4405 16-61 U/L Normal ALT 38 Result Comment: Please note revised ALT reference range effective 2017. LAB L501.4600 0.20-1.00 mg/dL Normal T BILI 0.80 LAB L501.5300 136-145 mmol/L Normal NA 141 LAB L501.5600 3.5-5.1 mmol/L Low K 3.4 LAB L501.5900 98-107 mmol/L Normal CL 102 LAB L501.6100 21.0-32.0 mmol/L Normal CO2 32.0 LAB L501.6200 5-15 Normal GAP 7 Performed By: #### L500.4050, L501.1400, L501.9520, L501.9910 #### [facility] [address] [place], [address] URIC ACID Collected: 12/26/2017 Status: F Source: [place] 3:28 PM [facility] [place] [place] REPOSITORY TYPE CODE TESTS RESULT OUT OF RANGE REFERENCE UNITS LAB L501.1400 3.5-7.2 mg/dL Normal URIC 6.0 Result Comment: The drugs N-Acetylcysteine and Metamizole may falsely depress this assay. Performed By: #### L500.4050, L501.1400, L501.9520, L501.9910 #### [facility] [address] [place], [address] THYROID STIM HORMONE Collected: 12/26/2017 Status: F Source: [place] (TSH) 3:28 PM [facility] [place], [place] REPOSITORY TYPE CODE TESTS RESULT OUT OF RANGE REFERENCE UNITS LAB L501.9520 0.358-3.74 uIU/mL Normal TSH 1.88 Performed By: #### L500.4050, L501.1400, L501.9520, L501.9910 #### [facility] [address] [facility] [place] [place], [address] PSA,TOTAL - ANNUAL Collected: 12/26/2017 Status: F Source: [place] 3:28 PM [facility] [place] REPOSITORY TYPE CODE TESTS RESULT OUT OF RANGE REFERENCE UNITS LAB L501.9910 0.00-4.00 ng/mL Normal PSA,TOT 3.09 SCREEN Result Comment: This test was performed using the TPSA assay method for the [employer] chemistry system. Values obtained with different assay methods cannot be used interchangably. When changing PSA assays in the course of monitoring a patient, additional sequential testing should be carried out to confirm baseline values. Performed By: #### L500.4050, L501.1400, L501.9520, L501.9910 #### [facility] [address] [place], [address] HEPATITIS C ANTIBODIES Collected: 12/26/2017 Status: F Source: [place] 3:28 PM [facility] [place] REPOSITORY TYPE CODE TESTS RESULT OUT OF RANGE REFERENCE UNITS LAB L3100.0650 0.0-0.9 s/co ratio Normal HEP C AB <0.1 Result Comment: Negative: < 0.8 Indeterminate: 0.8 - 0.9 Positive: > 0.9 The CDC recommends that a positive HCV antibody result be followed up with a HCV Nucleic Acid Amplification test (135919). Performed at: - [facility] [id number] [place] Looms: Lucian Garibay PhD, Phone: [phone] Performed By: #### L3100.0625 #### [facility] (refer to report for specific site) refer to report for address and phone number CARDIOLOGY VISIT Observed: 12/12/2017 Status: F Source: [place] 10:11 AM [facility] [place], [place] REPOSITORY [facility] [place] [address] [facility] [place] [address] OFFICE VISIT Date of Service: 12/12/17 MR#: [id number] Acct: [id number] Name: NARCISO WINSTON Rep #: [id number] : 1950 Provider: Los Turcios MD Age/Sex: 67/M Location[place] [facility] [place] Status: Signed [facility] Chief Complaint: Follow-up visit. Details: NARCISO WINSTON, is a 67 M who presents to the office today for a follow-up visit. He is a gentleman with a history of hypertension atrial for ablation chronic persistent sleep apnea and peripheral neuropathy. He tells me that he may also have some peripheral vascular disease and was seen by the vascular surgeon for this. He has not had any recent chest pain or shortness of breath or paroxysmal nocturnal dyspnea or pedal edema it is unclear whether his symptoms are related to claudication. He says that some of his leg symptoms are present all the time. He has been compliant with all his medications. He has not had any neck arm or jaw discomfort suggest angina. His physical exam today demonstrates clear lung cantu irregularly irregular heart rate and no pedal edema. Intake Vital Signs12/12/17 Height 6 ft 2 in 12/12/17 Weight: 316 lb 02/06/18 Body Mass Index (BMI) 40.6 12/12/17 Blood Pressure 140/84 Intake Visit Reasons: 6 M FU Is patient in pain?: No Allergies No Known Allergies Allergy (Verified 12/08/17 17:11) Medications Allopurinol 100 mg PO DAILY 09/15/17 [History Confirmed 12/08/17] Hydrochlorothiazide [Hctz] 25 mg PO DAILY 09/15/17 [History Confirmed 12/08/17] Lisinopril 20 mg PO DAILY 09/15/17 [History Confirmed 12/08/17] Clopidogrel Bisulfate [Plavix] 75 mg PO DAILY #30 tab 09/18/17 [Rx Confirmed 12/08/17] metoprolol succinate ER 100 mg tablet,extended release 24 hr 100 mg PO DAILY #90 tab 10/19/17 [Rx Confirmed 12/08/17] warfarin 1 mg tablet 1 mg PO .COMPLEX tab 12/08/17 [History Confirmed 12/08/17] warfarin 4 mg tablet 4 mg PO QDAY tab 12/08/17 [History Confirmed 12/08/17] Ejection fraction %: 50 to 54 (53% per echo 01/25/2010) [facility] Medical History Tobacco use disorder, continuous (Resolved) Hypertension (Chronic) Obstructive sleep apnea (Chronic) Venous insufficiency (Chronic) 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 (Chronic) 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) Atrial fibrillation (Chronic) Family History Father Parkinson's disease Mother Heart valve replacement surgery Brother Colon cancer Social History Smoking Status: Former smoker quit date: 09/06/17 ROS Const Const: Negative for body ache, fever(s), chills, night sweats, daytime sleepiness, difficulty sleeping, weight gain, weight loss, increased appetite, poor appetite, anorexia or other ENT ENT: Negative for balance problems Cardio Chest Pain: No Palpitations: Negative for Yes or No Edema: None Muscle aches with walking: None Resp Respiratory: Negative for SOB with activity, SOB at rest, SOB orthopnea\SOB lying down, Coughing up blood/hemoptysis, chest congestion, pain on inspiration, snoring, stridor, wheezing, crackles, paroxysmal nocturnal dyspnea or other GI GI: Negative nausea, vomiting, heartburn, constipation, belching, bloating, cramping, vomiting blood/hematemesis, bright, red blood in stools, black,tarry stools, loose stools, Difficulty Swallowing or other Musc Musc: Negative for muscle aches/ myalgia, muscle weakness, joint pain or balance problems Cardiology Exam Const Appearance: cooperative, healthy appearing, well developed, well groomed and no acute distress Nutritional Appearance: well nourished and average body habitus Orientation: alert, awake and oriented x3 Head Head: normal to inspection, normocephalic and atraumatic Ears: hearing grossly normal bilaterally and external ears normal Nose: external nose normal, nasal mucous membranes and turbinates normal, nares normal, septum normal, no nasal discharge Face and Sinus: face symmetric Mouth: oral mucosae normal, tongue normal, oropharynx normal and moist mucous membranes Teeth and gingiva: dentition normal Throat: posterior oropharynx normal, tonsils normal and uvula midline Eyes General: appearance normal, both eyes and all related structures Eyelids: eyelids normal Conjunctivae: conjunctivae normal Pupils: PERRL, normal by confrontation and accommodation normal EOM: EOM intact bilaterally Neck Neck: normal visual inspection, trachea midline and no JVD JVD: +5 Carotids: normal carotid upstroke and bounding pulses Chest Chest inspection: normal inspection of the chest, symmetric chest movement and normal respiratory effort Auscultation: Bilateral: Clear to Auscultation Cardio Palpation: normal PMI Rhythm: irregular rhythm Heart sounds: S1 normal and S2 normal GI GI: normal to inspection, soft, no hepatosplenomegaly and bowel sounds present Neuro General: alert, awake, oriented x3, no focal sensory deficit, gait normal and moves all extremities Skin Skin: no rashes or lesions noted Extremities Pulses: Normal: Right Femoral Pulse, Left Femoral Pulse, Right Dorsalis Pedis Pulse, Left Dorsalis Pedis Pulse, Right Posterior Tibial Pulse, Left Posterior Tibial Pulse, Right Radial Pulse, Left Radial Pulse Lower Extremity Edema: None: Bilateral Musculoskel Musculoskeletal: No joint tenderness Psych Psychological: normal affect Assessment AND Plan 1. Persistent atrial fibrillation I48.1 Plan He does have chronic persistent atrial fibrillation with a controlled ventricular response rate. He is on a beta-alexandra for the rate control as well as anticoagulation with Coumadin maintaining an INR of 2-3 he has also been put on clopidogrel by the vascular surgeon and we have to be careful that he does not have any bleeding episodes long-term. His last echocardiogram was almost 8 years ago and I would recommend that we repeat his echocardiogram to reassess his left ventricular function. Orders Orders: 2. Essential hypertension I10 Plan He does have a history of hypertension which appears to be well controlled at this particular time he remains on the beta-alexandra as well as the HENRY inhibitor and diuretic. Recent chemistry profile demonstrated a normal creatinine with a creatinine clearance of 60. Orders Orders: 3. 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 I73.9 Plan He does have evidence of peripheral vascular disease alongside his neuropathy. My recommendation is for him to continue following up with a vascular surgeon. A lipid profile should also be obtained as he may need optimization and the addition of a statin if that is the case. Thank you for allowing me to participate in the care of your patient. 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) Coding Level of Care Code Off vis,est,level 3 Diagnoses Persistent atrial fibrillation I48.1 Atrial fibrillation type: persistent Essential hypertension I10 Hypertension type: essential hypertension 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 I73.9 Coding Level of Care Code Off vis,est,level 3 Diagnoses Persistent atrial fibrillation I48.1 Atrial fibrillation type: persistent Essential hypertension I10 Hypertension type: essential hypertension 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 I73.9 12/12/17 1011 <Electronically signed by Los Turicos MD> Date Los Turcios MD Cosigner Signature: Date (if applicable) CC: LIVER PROFILE Collected: 12/12/2017 Status: F Source: [place] 9:51 AM [facility] [place] [place] REPOSITORY TYPE CODE TESTS RESULT OUT OF RANGE REFERENCE UNITS LAB L501.1500 6.4-8.2 g/dL Normal T PROT 7.1 LAB L501.1800 3.2-5.0 g/dL Normal ALB 3.6 LAB L501.1950 2.2-4.2 g/dL Normal GLOB 3.5 LAB L501.4100 15-37 U/L Normal AST 22 LAB L501.4305 45-117 U/L Normal ALK P 107 LAB L501.4405 16-61 U/L Normal ALT 34 Result Comment: Please note revised ALT reference range effective 2017. LAB L501.4600 0.20-1.00 mg/dL Normal T BILI 0.70 LAB L501.4700 0.00-0.30 mg/dL Normal D BILI 0.21 Performed By: #### L500.3400, L500.4100 #### [facility] [address] [facility] [place], [place], [id number] LIPID PROFILE Collected: 12/12/2017 Status: F Source: [place] 9:51 AM [facility] [place] [place] REPOSITORY TYPE CODE TESTS RESULT OUT OF RANGE REFERENCE UNITS LAB L501.4900 200 mg/dL Normal CHOL 143 Result Comment: <200 mg/dL Desirable 200-240 mg/dL Borderline >240 mg/dL High Risk LAB L501.5000 mg/dL Normal TRIG 153 Result Comment: The drugs N-Acetylcysteine and Metamizole may falsely depress this assay. Serum Triglycerides Reference Interval Normal <150 mg/dL Borderline high 150 - 199 mg/dL High 200 - 499 mg/dL Very High > or = 500 mg/dL LAB L501.6400 mg/dL Low HDL 30 Result Comment: The drugs N-Acetylcysteine and Metamizole may falsely depress this assay. Reference Range HDL <40 mg/dL Low HDL Cholesterol HDL >or= 60 mg/dL High HDL Cholesterol LAB L501.6500 0-130 mg/dL Normal LDL 82 LAB L501.6600 5-40 mg/dL Normal VLDL 31 Performed By: #### L500.3400, L500.4100 #### [facility] [address] [facility] [place], [place], [id number] ALLERGIES ALLERGIES DATE TYPE / CODE NAME / CODE REACTION SEVERITY SOURCE 12/08/2017 Drug No Known Unknown [facility] Allergy/4160 Allergies/F00 Hospital 11423(SNOMED 9358092(RXNOR Repository CT M) ENCOUNTERS ENCOUNTERS ADMIT/DISCHARGE ACCOUNT ADMITTING ENCOUNTER LOCATION SOURCE NUMBER CLASS 11/28/2018 [id number] Ambulatory [facility] Hospital ing:INT LAB Repository 11/14/2018 [id number] Ambulatory [address] [place] [address] Repository 10/31/2018/11/05/20 [id number] [facility] [address] [facility] Repository 09/05/2018 [id number] Ambulatory [facility] Hospital ing:POLAB3 Repository 09/05/2018/09/05/20 [id number] Ambulatory [address] [facility] Hospital ing:INT LAB Repository 08/29/2018 [id number] Ambulatory BMSBuilding:B Ania [facility] Repository 07/24/2018 [id number] Ambulatory [facility] Hospital ing:POLAB3 Repository 07/02/2018/07/06/20 [id number] Ambulatory [address] [facility] Hospital ing:INT LAB Repository 06/19/2018 [id number] Ambulatory [facility] Hospital ing:[facility] Repository 06/19/2018 [id number] Ambulatory BMSBuilding:[facility] Repository 06/18/2018 [id number] Ambulatory [address] [place] [address] Repository 05/29/2018/06/05/20 [id number] Ambulatory [address] [facility] Hospital ing:INT LAB Repository 04/17/2018/05/05/20 [id number] Ambulatory [address] [facility] Hospital ing:INT LAB Repository 03/19/2018 [id number] Ambulatory [facility] Hospital ing:RAD Repository 03/19/2018/04/05/20 [id number] Ambulatory [address] [facility] Hospital ing:INT LAB Repository 02/12/2018 [id number] Ambulatory [address] [place] [address] Repository 02/09/2018/03/05/20 [id number] Ambulatory [address] [facility] Hospital ing:INT LAB Repository 01/18/2018/02/04/20 [id number] Ambulatory [address] ing:INT LAB Repository 01/15/2018 [id number] Ambulatory [facility] ing:LAB.FUTUR Repository E 01/03/2018 [id number] Ambulatory BMSBuilding:B [facility] Repository 01/03/2018/01/03/20 [id number] Ambulatory [address] ing:INT LAB Repository 12/29/2017 [id number] Ambulatory [facility] ing:CVS Repository 12/29/2017 [id number] Ambulatory BMSBuilding:W Ania [facility] Repository 12/26/2017 [id number] [facility] ing:POLAB3 Repository 12/12/2017 [id number] [facility] ing:LAB Repository 12/12/2017/12/12/19 [id number] Ambulatory BMSBuilding:B Ania [address] [facility] Repository PAYERS PAYERS ENCOUNTER GUARANTOR PAYER SUBSCRIBER SOURCE 11/28/[id number] Insurance:[place] [facility] [place]: [id number] [facility] [address]Aup: 330 [id number] Repository [phone] () Date:[id number] [address]WO: 11/28/2018 Secondary NOT GIVENUNK Ania Insurance:SELF PAY [facility] Number: Effective Repository Date:2018-11-06 11/14/2018 NARCISO Ambrocio [facility] NARCISO [facility] FOYDOB: Insurance:AetnaPolicy FOYDOB: [facility] Number: [id number] Repository MACIEL [id number] [place], [place] Date:Plan Name:[place], [place] [address]Nsj: [phone]: (PT) [phone] () 10/31/2018 [id number] Insurance:AETNA [facility]: [id number] [facility] 15887Pui: (330) [id number] Repository [phone] (HP) Date:0346-00-22UJ [address] [place] [address]UQ: 10/31/2018 Secondary NOT GIVENUNK [place] Insurance:SELF PAY [facility] Number: Effective Repository Date:2018-09-06 09/05/2018 NARCISO Ambrocio [id number] Insurance:AETNA [facility]DOB[facility] Number: [id number] Hospital 66204Isv: (330) [id number] Repository [phone] (HP) Date:9580-90-30TB [address], [place] [address]QG: 09/05/2018 Secondary NOT GIVENUNK [place] Insurance:SELF PAY [facility] Number: Effective Repository Date:2018-08-08 09/05/2018 NARCISO Ambrocio [id number] Insurance:AETNA [facility]OB[facility]: [id number] Hospital 733[address]Lkd: (330) [id number] Repository [phone] () Date:2644-48-51CK [address], [place] [address]TI: 09/05/2018 Secondary NOT GIVENUNK [place] Insurance:SELF PAY [facility] Number: Effective Repository Date:2018-07-07 08/29/2018 NARCISO GAMINGY[address] Insurance:AETNA [facility]: [id number] Hospital 70371Bue: (330) [id number] Repository [phone] (HP) Date:3518-98-78OC [address], [place] [address]SD: 08/29/2018 Secondary NOT GIVENUNK [place] Insurance:SELF PAY [facility] Number: Effective Repository Date:2018-08-29 07/24/2018 NARCISO GAMINGY[address] Insurance:AETNA [facility]: [id number] Hospital 57790Scv: (944) [id number] Repository [phone] () Date:3062-74-39ST [address], [place] [address]WM: 07/24/2018 Secondary NOT GIVENUNK [place] Insurance:SELF PAY [facility] Number: Effective Repository Date:2018-07-19 07/02/2018 NARCISO GAMINGY187 [address] [place] Insurance:AETNA [facility]DOB[facility]: [id number] Hospital 00178Wtc: (330) [id number] Repository [phone] () Date:7048-70-00AQ [address]X[place], [place] [address]YW: 07/02/2018 Secondary NOT GIVENUNK [place] Insurance:SELF PAY [facility] Number: Effective Repository Date:2018-06-06 06/19/2018 NARCISO GAMINGY[address] Insurance:AETNA [facility]DOB[facility]: [id number] Hospital 51930Ohq: (330) [id number] Repository [phone] () Date:9621-48-26UC [address], [place] [address]BI: 06/19/2018 Secondary NOT GIVENUNK [place] Insurance:SELF PAY [facility] Number: Effective Repository Date:2018-06-06 06/19/2018 NARCISO GAMINGY187 [address] [place] Insurance:AETNA [facility] Number: [id number] Hospital 17817Pbc: (330) [id number] Repository [phone] () Date:7155-36-79IU [address]QL[place], [place] [address]AI: 06/19/2018 Secondary NOT GIVENUNK [place] Insurance:SELF PAY [facility] Number: Effective Repository Date:2018-06-19 06/18/2018 NARCISO Ambrocio Primary NARCISO Ambrocio [place] FOYDOB: Insurance:AetnaPolicy FOYDOB: [facility] Number: [id number] Repository [id number] [place], [place] Date:Plan Name:[place], [place] [address]Tdq: [phone]: [phone] () 05/29/2018 NARCISO GAMINGY[address] Insurance:[place]ETNA [place] [facility] [place]: [id number] Hospital [address]Nri: 330 [id number] Repository [phone] () Date:6586-97-27LZ [address], [place] [address]OQ: 05/29/2018 Secondary NOT GIVENUNK [place] Insurance:SELF PAY [facility] Number: Effective Repository Date:2018-05-06 04/17/2018 NARCISO GAMINGY[address] Insurance:AETNA FOYDOB[place] [facility] Number: [id number] Hospital [address]Pux: 330 [id number] Repository [phone] () Date:1280-83-40YP [address], [place] [address]LF: 04/17/2018 Secondary NOT GIVENUNK [place] Insurance:SELF PAY [facility] Number: Effective Repository Date:2018-04-06 03/19/2018 NARCISO GAMINGY[address] Insurance:AETNA [place]YDOB[place] [facility] Number: [id number] Hospital [address]Loj: 330 [id number] Repository [phone] (HP) Date:6253-21-62WL [address], [place] [address]YN: 03/19/2018 Secondary NOT GIVENUNK [place] Insurance:SELF PAY [facility] Number: Effective Repository Date:2018-03-19 03/19/2018 NARCISO Ambrocio [id number] Insurance:AETNA [facility] Number: [id number] Hospital 23667Ekl: (355) [id number] Repository [phone] () Date:5548-44-66GL [address], [place] [address]YT: 03/19/2018 Secondary NOT GIVENUNK [place] Insurance:SELF PAY [facility] Number: Effective Repository Date:2018-03-06 02/12/2018 NARCISO Ambrocio [place] FOYDOB: Insurance:AetnaPolicy FOYDOB: [facility] Number: [id number] Repository FULTS [id number] [place], [place] Date:Plan Name:[place], [place] [address]Noc: [phone]: [phone] (HP) 02/09/2018 NARCISO GAMINGY[address] Insurance:AETNA [place] [facility] Number: [id number] Hospital [address]1432Rrr: 330 [id number] Repository [phone] () Date:2046-87-50XG [address] [place] [address]CD: 02/09/2018 Secondary NOT GIVENUNK [place] Insurance:SELF PAY [facility] Number: Effective Repository Date:2018-02-04 01/18/2018 NARCISO GAMINGY[address] Insurance:AETNA FOYDOB: [facility] Number: [id number] Hospital [address]47[address]Ycx: (330) [id number] Repository [phone] (HP) Date:9943-48-31FS [address], [place] [address]YD: 01/18/2018 Secondary NOT GIVENUNK [place] Insurance:SELF PAY [facility] Number: Effective Repository Date:2018-01-04 01/15/2018 NARCISO GAMINGY187 [address] Jorge S [place] Insurance:AETNA [facility]DOB: [facility]: [id number] Hospital [address]Wnz: (330) [id number] Repository [phone] (HP) Date:5621-78-89TT [address], [place] [address]PJ: 01/15/2018 Secondary NOT GIVENUNK [place] Insurance:SELF PAY [facility] Number: Effective Repository Date:2017-12-29 01/03/2018 NARCISO GAMINGY187 [address] Jorge S [place] Insurance:AETNA [facility]: [id number] [facility] [address]26[address]Wco: (330) [id number] Repository [phone] () Date:4432-87-92KB [address], [place] [address]TH: 01/03/2018 Secondary NOT GIVENUNK [place] Insurance:SELF PAY [facility] Number: Effective Repository Date:2018-01-03 01/03/2018 NARCISO GAMINGY187 [address] Jorge S [place] Insurance:AETNA [facility]DOB[facility]: [id number] Hospital 301[address]Wtr: (330) [id number] Repository [phone] () Date:0303-21-25QK [address], [place] [address]SS: 01/03/2018 Secondary NOT GIVENUNK [place] Insurance:SELF PAY [facility] Number: Effective Repository Date:2017-12-07 12/29/2017 NARCISO Ambrocio [id number] [address] [place] Insurance:AETNA [facility] Number: [id number] Hospital 66695Gxb: (330) [id number] Repository [phone] (HP) Date:7853-32-60OW [address]JS[place], [place] [address]SO: 12/29/2017 Secondary NOT GIVENUNK [place] Insurance:SELF PAY [facility] Number: Effective Repository Date:2017-12-12 12/29/2017 NARCISO GAMINGY187 [address] Jones [place] Insurance:AETNA [place]YDOB[place] [facility] [place]: [id number] Hospital [address]26[address]Dmw: (330) [id number] Repository [phone] (HP) Date:5140-98-12WS [address], [place] [address]TF: 12/29/2017 Secondary NOT GIVENUNK [place] Insurance:SELF PAY [facility] Number: Effective Repository Date:2017-12-29 12/26/2017 NARCISO GAMINGY187 [address] Jones [place] Insurance:AETNA [place]YD[place] [facility] Number: [id number] Hospital [address]45[address]Kxr: (330) [id number] Repository [phone] (HP) Date:3088-13-44KF [address], [place] [address]VD: 12/26/2017 Secondary NOT GIVENUNK [place] Insurance:SELF PAY [facility] Number: Effective Repository Date:2017-12-26 12/12/2017 NARCISO GAMINGY187 [address] Jones [place] Insurance:AETNA [facility]YDOB[facility] Number: [id number] Hospital 315[address]Pry: (330) [id number] Repository [phone] (HP) Date:4941-44-91NB [address], [place] [address]FQ: 12/12/2017 Secondary NOT GIVENUNK [place] Insurance:SELF PAY [facility] Number: Effective Repository Date:2017-12-12 12/12/2017 NARCISO Ambrocio [id number] Insurance:AETNA [facility]: [id number] Hospital [address]Tee: (904) [id number] Repository [phone] () Date:1184-02-31CS [address] [address]KD: 12/12/2017 Secondary NOT GIVENUNK [place] Insurance:SELF PAY [facility] Number: Effective Repository Date:2017-10-12
== END 2018-12-06 23:59 ==
LOC: INT LAB 16:06
PROVIDERS: Family Provider Family Medicine Geriatric Medicine; PCP Family Medicine Geriatric Medicine; Referring Provider Internal Medicine Cardiovascular Disease; Visit Provider Internal Medicine Cardiovascular Disease
DX: I48.91 Unspecified atrial fibrillation (principal); I82.220 Acute embolism and thrombosis of inferior vena cava
CPT/HCPCS: 36416; 85610

== ENCOUNTER 2018-12-20 11:56 | Outpatient (RCR) | payer MEDICARE, SELFPAY ==
[2017-12-12 09:12] VITALS: BMI 40.6
[2018-12-10 15:36] LABS: Prothrombin Time Fingerstick 35.8 SEC (11.9-14.4)
[2018-12-20 12:11] LABS: Prothrombin Time Fingerstick 30.5 SEC (11.9-14.4)
== END 2019-01-03 23:59 ==
LOC: INT LAB 11:56
PROVIDERS: Family Provider Family Medicine Geriatric Medicine; PCP Family Medicine Geriatric Medicine; Referring Provider Internal Medicine Cardiovascular Disease; Visit Provider Internal Medicine Cardiovascular Disease
DX: I48.91 Unspecified atrial fibrillation (principal); I82.220 Acute embolism and thrombosis of inferior vena cava
CPT/HCPCS: 36416; 85610

== ENCOUNTER → 2018-12-27 15:13 | Outpatient (CLI) | payer MEDICARE, SELFPAY ==
[2018-12-20 14:47] VITALS: BMI 42.3
[2018-12-27 17:31] LABS: Anion Gap 5 (5-15); BUN 27 mg/dL (7-18); BUN/Creat Ratio 21.8 RATIO (10-20); Calcium,Total 8.9 mg/dL (8.5-10.1); Chloride 105 mmol/L (98-107); Creatinine, Serum 1.24 mg/dL (0.70-1.30); EST Glomerular Filtration Rate 62 mL/min (>60); Est Glom Filt Rate - Afr Amer 74 mL/min (>60); Glucose 46 mg/dL (74-106); Potassium 3.9 mmol/L (3.5-5.1); Sodium Level 140 mmol/L (136-145)
== END ==
PROVIDERS: Family Provider Family Medicine Geriatric Medicine; PCP Family Medicine Geriatric Medicine; Referring Provider Internal Medicine Cardiovascular Disease; Visit Provider Internal Medicine Cardiovascular Disease
DX: I10 Essential (primary) hypertension (principal); I48.2 Chronic atrial fibrillation; R60.9 Edema, unspecified; R06.9 Unspecified abnormalities of breathing
CPT/HCPCS: 36415; 80048

== ENCOUNTER 2019-01-14 15:00 | Outpatient (RCR) | payer MEDICARE, SELFPAY ==
[2018-12-20 11:09] VITALS: BMI 42.3
[2018-12-20 14:47] VITALS: BMI 42.3
--- NOTE | 2018-12-25 14:50 | HP.PTEVAL ---
Patient's Visit Information NARCISO WINSTON is a 68 year old M referred to Physical Therapy by Kimmy Goddard DC with a diagnosis of INTERVERTBRAL DISC DEGENERATION LUMBAR,SEGMENTAL AND SOMATIC DYSFUNCTION. Date of Evaluation: 12/25/18 Physical Therapist: Mansoor Romero PT, Cert MDT, OCS - Visit Plan Frequency: 2x /Week Duration: 3 Weeks Plan: POSTURAL EX,DLS PROGRAM,LE FLEXABLITY - Subjective Findings: This 68 y/o male presents to physical therapy with back pain. Patient had low back couple weeks lifted snowblower out of truck. Seen Dr Goddard ,did x-rays and adjustments which aleviated pain right away. Then recommended PT .Spencer Parathesia/tingling -. Bowel/bladder -. Intially ,aggraveting factors moving bending. Intially,seen Family Dr tried predisone and injections which didnt help. Patient has had h/o back pain in past. Patient sleeping okay.Patient intial symptoms affect QOL and function. VOCATION: retired. SOCAIL: - Objective POSTURE: mild foward posture ,slight thoracic scoliosis. NEURO: denies parathesia/tingling ,reflexes intact 2/3 L3-4,L4-5,L5-S1. SYMMTRIES : align. PALAPTION: unremrkable. MMT: quads/hams 4/5,hip flexion 4/5,ankle 5/5. FLEXABLITY: hams min tight,piriformis min tight. LUMBAR ROM: flexion min loss with decrease curve reversal,extension min loss,side glides min/mod loss. TRANSVERSE ABDOMINALS : fair activation - Special Tests L/S Slump test left side: Negative L/S Slump test right side: Negative L/S Left Straight Leg Raise: Negative L/S Right Straight Leg Raise: Negative Lumbar Standing: Flexion - Mechanical Response: No effect Lumbar Standing: Flexion - Symptoms During Testing: No effect Lumbar Standing: Flexion - Symptoms After Testing: No effect Lumbar Standing: Extension - Mechanical Response: No effect Lumbar Standing: Extension - Symptoms During Testing: No effect Lumbar Standing: Extension - Symptoms After Testing: No effect Lumbar Standing: Right Side Glides - Mechanical Response: No effect Lumbar Standing: Right Side [place] - Symptoms During Testing: No effect Lumbar Standing: Right Side [place] - Symptoms After Testing: No effect Lumbar Standing: Left Side [place] - Symptoms During Testing: No effect Lumbar Standing: Left Side [place] - Symptoms After Testing: No effect - Goals Goal 1:: Independant with HEP. Goal Time Frame: 2-4 Weeks Goal 2:: Independant with posture/body mechanics 90% of the time. Goal Time Frame: 2-4 Weeks Goal 3:: Patient to improve lumbar ROM for function of recovery Goal Time Frame: 2-4 Weeks Goal 4:: Patient to improve lumbar ROM for function of recovery Goal Time Frame: 2-4 Weeks Goal 5:: Patient to omprove TORRIE back score by 5 points or greaster to QOL.. Goal Time Frame: 2-4 Weeks - Rehabilitation Potential Physical Therapy Diagnosis: This patient has had lumbar pain with decrease core strength ,decrease posture and ,decrease moblity of spine,thus benifit from PT Rehabilitation Potential: Good - Anticipated Interventions Patient/Client Instruction: Educate patient on: Condition, Plan of Care For the Purpose of:: To decrease pain, To increase ROM, To improve muscle performance and motor function, To increase tolerance to activity/condition/position, To improve ability of physical actions for home/community/work/leisure, To improve health of tissue, To decrease soft tissue restriction, To increase flexibility/ROM, To improve ability to perform tasks related to life management Therapeutic Exercise to Include: Strength training, Body mechanics, Postural training, Flexibilty training, Dynamic Lumbar Stabilization For the Purpose of:: To decrease pain, To increase ROM, To improve muscle performance and motor function, To increase tolerance to activity/condition/position, To improve ability of physical actions for home/community/work/leisure, To improve health of tissue, To decrease soft tissue restriction, To increase flexibility/ROM, To reduce risk of recurrence, To improve ability to perform tasks related to life management Thank you for the opportunity to evaluate your patient. For Medicare and Medicare HMO plans, please review the plan of care and approve it. It will need to be FAXED BACK to us at [phone] for Medicare purposes. For Medicare only, by signing this I certify the plan of care. Please let me know if there are questions or concerns regarding this plan of care. Physician Signature: Date:
--- NOTE | 2019-06-03 11:41 | HP.PTDCSUM ---
HP - PT D/C Summary It has been my pleasure to treat NARCISO WINSTON under orders from Kimmy Goddard DC, for the diagnosis of INTERVERTBRAL DISC DEGENERATION LUMBAR,SEGMENTAL AND SOMATIC DYSFUNCTION for a total of 7 visit(s). Discharge Date: 01/14/19 Please see the following information for a summary of their discharge status. - Subjective Subjective: Doing well.. No problem with my ADL/function housework - Pain Bilateral Back Pain Intensity (Out of 10): 1 Bilateral Knee Pain Intensity (Out of 10): 1 - Overall Improvement % Improvement: 80 - Objective Objective/Function: POSTURE: mild foward posture. GAIT: normal evelyn. MMT: 4/5 hip/knees/ankle. -SLR. FLEXABLITY: hams min - Goals Goal 1:: Independant with HEP. Goal Progress: Goal Met Goal 2:: Independant with posture/body mechanics 90% of the time. Goal Progress: Goal Met Goal 3:: Patient to improve lumbar ROM for function of recovery Goal Progress: Goal Met Goal 4:: Patient to improve lumbar ROM for function of recovery Goal Progress: Goal Met Goal 5:: Patient to omprove TORRIE back score by 5 points or greaster to QOL.. Goal Progress: Goal Met - Plan Plan: D/C TO HEP - D/C Information Discharge Comments: HEP If there are questions or concerns regarding this patient's physical therapy, please feel free to call me at [phone]. Thank you for the referral of this patient. Sincerely, Mansoor Romero, PT, Cert MDT, OCS
== END 2019-01-14 19:00 | disposition home or self-care (01) ==
LOC: PT 15:00
PROVIDERS: Family Provider Family Medicine Geriatric Medicine; PCP Family Medicine Geriatric Medicine; Referring Provider Chiropractor; Visit Provider Chiropractor
DX: M51.36 Other intervertebral disc degeneration, lumbar region (principal); M99.05 Segmental and somatic dysfunction of pelvic region; M99.03 Segmental and somatic dysfunction of lumbar region
CPT/HCPCS: 97110; 97162

== ENCOUNTER 2019-01-31 11:04 | Outpatient (RCR) | payer MEDICARE, SELFPAY ==
[2019-01-04 00:43] VITALS: BMI 40.6
[2019-01-07 16:09] VITALS: BMI 40.6
[2019-01-17 13:30] LABS: Prothrombin Time Fingerstick 24.1 SEC (11.9-14.4)
[2019-01-31 11:34] LABS: International Normalized Ratio 2.7; Prothrombin Time (Protime)PT. 28.4 SECONDS (11.7-14.9)
[2019-01-31 11:59] LABS: AST(SGOT) 22 U/L (15-37); Alanine Aminotransfer ALT/SGPT 40 U/L (16-61); Albumin, Serum 3.7 g/dL (3.2-5.0); Alkaline Phosphatase 110 U/L (45-117); Bilirubin, Direct 0.14 mg/dL (0.00-0.30); Cholesterol 153 mg/dL (200); Globulin 3.5 g/dL (2.2-4.2); High Density Lipoprotein 37 mg/dL; Protein, Total 7.2 g/dL (6.4-8.2); Triglycerides 107 mg/dL; Very Low Density Lipoprotein 21 mg/dL (5-40)
== END 2019-02-03 23:59 ==
LOC: INT LAB 11:04
PROVIDERS: Family Provider Family Medicine Geriatric Medicine; PCP Family Medicine Geriatric Medicine; Referring Provider Internal Medicine Cardiovascular Disease; Visit Provider Internal Medicine Cardiovascular Disease
DX: I48.91 Unspecified atrial fibrillation (principal); I82.220 Acute embolism and thrombosis of inferior vena cava; E78.5 Hyperlipidemia, unspecified
CPT/HCPCS: 36415; 36416; 80061; 80076; 85610

== ENCOUNTER 2019-04-03 15:49 | Outpatient (RCR) | payer MEDICARE, SELFPAY ==
[2019-01-07 16:09] VITALS: BMI 40.6
[2019-02-13 14:15] VITALS: BMI 40.6
[2019-04-03 16:16] LABS: Prothrombin Time Fingerstick 25.3 SEC (11.9-14.4)
== END 2019-04-03 16:49 | disposition home or self-care (01) ==
LOC: LAB 15:49
PROVIDERS: Family Provider Family Medicine Geriatric Medicine; PCP Family Medicine Geriatric Medicine; Referring Provider Internal Medicine Cardiovascular Disease; Visit Provider Internal Medicine Cardiovascular Disease
DX: I48.91 Unspecified atrial fibrillation (principal); I82.220 Acute embolism and thrombosis of inferior vena cava
CPT/HCPCS: 36416; 85610

== ENCOUNTER 2019-06-03 16:32 | Outpatient (RCR) | payer MEDICARE, SELFPAY ==
[2019-02-13 14:15] VITALS: BMI 40.6
[2019-05-15 14:24] VITALS: BMI 40.6
[2019-05-20 14:01] LABS: Prothrombin Time Fingerstick 25.7 SEC (11.9-14.4)
[2019-06-03 16:46] LABS: Prothrombin Time Fingerstick 25.8 SEC (11.9-14.4)
== END 2019-06-05 16:15 | disposition home or self-care (01) ==
LOC: LAB 16:32
PROVIDERS: Family Provider Family Medicine Geriatric Medicine; PCP Family Medicine Geriatric Medicine; Referring Provider Internal Medicine Cardiovascular Disease; Visit Provider Internal Medicine Cardiovascular Disease
DX: I48.2 Chronic atrial fibrillation (principal); I82.220 Acute embolism and thrombosis of inferior vena cava; Z79.01 Long term (current) use of 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s
CPT/HCPCS: 36416; 85610

== ENCOUNTER 2019-06-20 14:28 | Outpatient (RCR) | payer MEDICARE, SELFPAY ==
[2019-05-15 14:24] VITALS: BMI 40.6
[2019-06-12 13:05] VITALS: BMI 41.4
[2019-06-20 17:10] LABS: Prothrombin Time Fingerstick 29.5 SEC (11.9-14.4)
== END 2019-06-20 16:00 | disposition home or self-care (01) ==
LOC: LAB 14:28
PROVIDERS: Family Provider Family Medicine Geriatric Medicine; PCP Family Medicine Geriatric Medicine; Referring Provider Internal Medicine Cardiovascular Disease; Visit Provider Internal Medicine Cardiovascular Disease
DX: I48.2 Chronic atrial fibrillation (principal); I82.220 Acute embolism and thrombosis of inferior vena cava; Z79.01 Long term (current) use of 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s
CPT/HCPCS: 36416; 85610

== ENCOUNTER 2019-07-22 15:35 | Outpatient (RCR) | payer MEDICARE, SELFPAY ==
[2019-06-12 13:05] VITALS: BMI 41.4
[2019-07-22 15:57] LABS: Prothrombin Time Fingerstick 39.5 SEC (11.9-14.4)
[2019-07-22 16:08] LABS: International Normalized Ratio 2.4; Prothrombin Time (Protime)PT. 26.5 SECONDS (11.7-14.9)
== END 2019-07-22 17:00 | disposition home or self-care (01) ==
LOC: LAB 15:35
PROVIDERS: Family Provider Family Medicine Geriatric Medicine; PCP Family Medicine Geriatric Medicine; Referring Provider Internal Medicine Cardiovascular Disease; Visit Provider Internal Medicine Cardiovascular Disease
DX: I48.2 Chronic atrial fibrillation (principal); I82.220 Acute embolism and thrombosis of inferior vena cava; Z79.01 Long term (current) use of 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s
CPT/HCPCS: 36415; 36416; 85610

== ENCOUNTER 2019-08-19 13:37 | Outpatient (RCR) | payer MEDICARE, SELFPAY ==
[2019-06-12 13:05] VITALS: BMI 41.4
[2019-08-19 14:31] LABS: International Normalized Ratio 3.1; Prothrombin Time (Protime)PT. 32.4 SECONDS (11.7-14.9)
[2019-08-19 14:51] LABS: Anion Gap 4 (5-15); BUN 20 mg/dL (7-18); BUN/Creat Ratio 14.1 RATIO (10-20); Calcium,Total 8.9 mg/dL (8.5-10.1); Chloride 107 mmol/L (98-107); Creatinine, Serum 1.42 mg/dL (0.70-1.30); EST Glomerular Filtration Rate 53 mL/min (>60); Est Glom Filt Rate - Afr Amer 64 mL/min (>60); Glucose 71 mg/dL (74-106); Potassium 4.3 mmol/L (3.5-5.1); Sodium Level 142 mmol/L (136-145)
== END 2019-08-19 18:00 | disposition home or self-care (01) ==
LOC: LAB 13:37
PROVIDERS: Family Provider Internal Medicine; PCP Internal Medicine; Referring Provider Internal Medicine Cardiovascular Disease; Visit Provider Internal Medicine Cardiovascular Disease
DX: I48.20 Chronic atrial fibrillation, unspecified (principal); I82.220 Acute embolism and thrombosis of inferior vena cava; Z79.01 Long term (current) use of 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s
CPT/HCPCS: 36415; 80048; 85610

== ENCOUNTER → 2019-08-22 | Outpatient (CLI) | payer MEDICARE, SELFPAY ==
[2019-08-22 15:51] VITALS: BMI 41.4
[2019-08-23 10:30] LABS: Bacteria 0 SEEN /hpf (None Seen); Mucous, Urine 0 SEEN /hpf (<or=2+); Red Blood Cells-Urine 0 SEEN /hpf (0-5)
[2019-08-23 12:47] LABS: Color, Urine Yellow (Yellow); Glucose, Dipstick Normal (Normal); Ketone-Dipstick 5 mg/dl (Negative); Leukocyte Esterase-Dipstick 25 /ul (Negative); Nitrite-Dipstick Negative (Negative); Occult Blood-Urine Negative /ul (Negative); Protein-Dipstick Negative (Negative); Urine Bilirubin Dipstick Negative (Negative); Urine Clarity Sl. Cloudy (Clear); Urine Urobilinogen Normal (Normal)
[2019-08-23 13:07] LABS: Squamous Epithelial Cells - UA 0-5 SEEN /hpf (0-5); White Blood Cells 0-5 SEEN /hpf (0-5)
== END | disposition home or self-care (01) ==
LOC: BIMLAB 08-23 10:29
PROVIDERS: Family Provider Internal Medicine; PCP Internal Medicine; Visit Provider Internal Medicine
DX: R35.0 Frequency of micturition (principal)
CPT/HCPCS: 81001

== ENCOUNTER 2019-09-11 15:59 | Outpatient (RCR) | payer MEDICARE, SELFPAY ==
[2019-08-27 14:29] VITALS: BMI 41.4
[2019-09-11 16:51] LABS: Prothrombin Time Fingerstick 32.5 SEC (11.9-14.4)
== END 2019-09-11 18:00 | disposition home or self-care (01) ==
LOC: LAB 15:59
PROVIDERS: Family Provider Internal Medicine; PCP Internal Medicine; Referring Provider Internal Medicine Cardiovascular Disease; Visit Provider Internal Medicine Cardiovascular Disease
DX: I48.20 Chronic atrial fibrillation, unspecified (principal); Z79.01 Long term (current) use of 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s; Z86.711 Personal history of pulmonary embolism
CPT/HCPCS: 36416; 85610

== ENCOUNTER → 2019-10-11 11:33 | Outpatient (CLI) | payer MEDICARE, SELFPAY ==
[2019-10-11 11:26] VITALS: BMI 42.8
--- NOTE | 2019-10-11 11:35 | RAD_ITS ---
STUDY: X-RAY - RIGHT KNEE REASON FOR EXAM: Male, 69 years old. Pain TECHNIQUE: 4 view(s) of the knee. COMPARISON: None. FINDINGS: There is demineralization of the visualized distal femur. There is demineralization of the tibia and fibula. Normal proximal tibiofibular articulation. There is moderate degenerative arthrosis of the medial femorotibial compartment with moderate joint space narrowing. There is mild degenerative arthrosis of the lateral femorotibial compartment. There is moderate degenerative arthrosis of the patellofemoral articulation. There is mild soft tissue edema about the medial knee. RAD/Knee 4 or More Views IMPRESSION: Moderate to severe arthrosis of the right knee. No visualized acute fracture. Electronically Signed: Sherley Gray MD at 9:32 EST Tel , Service support ,
== END ==
PROVIDERS: Family Provider Internal Medicine; PCP Internal Medicine; Referring Provider Orthopaedic Surgery; Visit Provider Orthopaedic Surgery
DX: M25.561 Pain in right knee (principal)
CPT/HCPCS: 73564

== ENCOUNTER 2019-10-17 16:07 | Outpatient (RCR) | payer MEDICARE, SELFPAY ==
[2019-09-30 15:07] VITALS: BMI 42.3
[2019-10-11 11:26] VITALS: BMI 42.8
[2019-10-17 17:18] LABS: Prothrombin Time (Protime)PT. 36.6 SECONDS (11.7-14.9)
[2019-10-17 17:52] LABS: International Normalized Ratio 3.7
== END 2019-10-17 18:00 | disposition home or self-care (01) ==
LOC: LAB 16:07
PROVIDERS: Family Provider Internal Medicine; PCP Internal Medicine; Referring Provider Internal Medicine Cardiovascular Disease; Visit Provider Internal Medicine Cardiovascular Disease
DX: I48.20 Chronic atrial fibrillation, unspecified (principal); Z79.01 Long term (current) use of 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s; Z86.711 Personal history of pulmonary embolism
CPT/HCPCS: 36415; 36416; 85610

== ENCOUNTER 2019-11-11 16:10 | Outpatient (RCR) | payer MEDICARE, SELFPAY ==
[2019-10-11 11:26] VITALS: BMI 42.8
[2019-11-11 16:51] LABS: Prothrombin Time Fingerstick 30.6 SEC (11.9-14.4)
== END 2019-11-11 18:00 | disposition home or self-care (01) ==
LOC: LAB 16:10
PROVIDERS: Family Provider Internal Medicine; PCP Internal Medicine; Referring Provider Internal Medicine Cardiovascular Disease; Visit Provider Internal Medicine Cardiovascular Disease
DX: I48.20 Chronic atrial fibrillation, unspecified (principal); Z79.01 Long term (current) use of 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s; Z86.718 Personal history of other venous thrombosis and embolism
CPT/HCPCS: 36416; 85610

== ENCOUNTER → 2019-11-18 10:49 | Outpatient (CLI) | payer MEDICARE, SELFPAY ==
[2019-10-11 11:26] VITALS: BMI 42.8
[2019-11-18 13:02] LABS: Absolute Lymphocyte Count 2.08 X10^3/uL (0.83-4.51); Absolute Neutrophil Count 6.5 X10^3/uL (2.0-7.7); Basophil# 0.05 X10^3/uL; Basophil% 0.5 % (0-1); Hematocrit 50.3 % (40-54); Hemoglobin 16.1 g/dL (13.0-16.5); Lymphocyte # 2.08 X10^3/ul (4.0); Lymphocyte % 20.7 % (19-41); Mean Corpuscular Hgb 29.3 pg (27.0-32.0); Mean Corpuscular Volume 91.5 fL (80-94); Mean Platelet Vol. 12.2 fl (6.2-12.0); Monocyte# 1.06 X10^3/uL; Monocyte% 10.5 % (0-10); NRBC Flagged by Analyzer 0 % (0-5); Neutrophil % 64.5 % (47-70); Platelet Count 149 K/mm3 (150-450); RBC Distribution Width CV 13.4 % (11.6-14.6); RBC Distribution Width SD 45.4 fl (35.1-43.9); White Blood Count 10.1 K/mm3 (4.4-11.0)
[2019-11-18 13:14] LABS: PSA,Total - Annual Screen 4.54 ng/mL (0.00-4.00)
== END ==
PROVIDERS: Family Provider Internal Medicine; PCP Internal Medicine; Visit Provider Internal Medicine
DX: N40.0 Benign prostatic hyperplasia without lower urinary tract symptoms (principal); G47.33 Obstructive sleep apnea (adult) (pediatric); Z12.5 Encounter for screening for malignant neoplasm of prostate
CPT/HCPCS: 36415; 84153; 85025; G0103

== ENCOUNTER 2019-12-23 15:47 | Outpatient (RCR) | payer MEDICARE, SELFPAY ==
[2019-11-20 13:13] VITALS: BMI 42.8
[2019-12-09 16:36] LABS: Prothrombin Time Fingerstick 47.4 SEC (11.9-14.4)
[2019-12-09 16:54] LABS: International Normalized Ratio 2.4; Prothrombin Time (Protime)PT. 25.8 SECONDS (11.7-14.9)
[2019-12-24 10:21] LABS: Prothrombin Time Fingerstick 22.5 SEC (11.9-14.4)
== END 2019-12-23 18:00 | disposition home or self-care (01) ==
LOC: LAB 15:47
PROVIDERS: Family Provider Internal Medicine; PCP Internal Medicine; Referring Provider Internal Medicine Cardiovascular Disease; Visit Provider Internal Medicine Cardiovascular Disease
DX: I48.20 Chronic atrial fibrillation, unspecified (principal); Z79.01 Long term (current) use of 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s; Z86.718 Personal history of other venous thrombosis and embolism
CPT/HCPCS: 36415; 36416; 85610

== ENCOUNTER 2020-01-24 16:10 | Outpatient (RCR) | payer MEDICARE, SELFPAY ==
[2019-12-11 14:24] VITALS: BMI 42.8
[2020-01-07 14:05] VITALS: BMI 42.8
== END 2020-01-24 18:00 | disposition home or self-care (01) ==
LOC: LAB 16:10
PROVIDERS: Family Provider Internal Medicine; PCP Internal Medicine; Referring Provider Internal Medicine Cardiovascular Disease; Visit Provider Internal Medicine Cardiovascular Disease
DX: I48.20 Chronic atrial fibrillation, unspecified (principal); Z79.01 Long term (current) use of 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s; Z86.718 Personal history of other venous thrombosis and embolism
CPT/HCPCS: 36416; 85610

== ENCOUNTER 2020-02-26 14:33 | Outpatient (RCR) | payer MEDICARE, SELFPAY ==
[2020-01-07 14:05] VITALS: BMI 42.8
[2020-02-26 15:00] LABS: Prothrombin Time Fingerstick 33.9 SEC (11.9-14.4)
== END 2020-03-05 18:00 | disposition home or self-care (01) ==
LOC: LAB 14:33
PROVIDERS: Family Provider Internal Medicine; PCP Internal Medicine; Referring Provider Internal Medicine Cardiovascular Disease; Visit Provider Internal Medicine Cardiovascular Disease
DX: I82.220 Acute embolism and thrombosis of inferior vena cava (principal); I48.20 Chronic atrial fibrillation, unspecified; Z79.01 Long term (current) use of 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s
CPT/HCPCS: 36416; 85610

== ENCOUNTER 2020-03-06 15:00 | Outpatient (RCR) | payer MEDICARE, SELFPAY ==
[2019-12-11 14:24] VITALS: BMI 42.8
[2020-01-07 14:05] VITALS: BMI 42.8
--- NOTE | 2020-01-13 09:53 | HP.PTEVAL_ITS ---
Patient's Visit Information NARCISO WINSTON is a 69 year old M referred to Physical Therapy by Kimmy Goddard DC with a diagnosis of Intervertebral disc degeneration. Date of Evaluation: 01/07/20 Physical Therapist: Bull Baker DPT - Visit Plan Frequency: 2x /Week Duration: 4-6 Weeks Plan: Start with DN to lumbar erector spinea to reduce muscle tension, REIL. Once symptoms have reduced add in core stability and HS/hip flexor stretching. - Subjective Subjective: Pt. is here today for his initial evaluation with diagnosis fof Intervertebral disc degneration. Pt. reports having pain for a few weeks to a month now. Pt. did have an episode of back pain ~1 year ago. Pt. had increased pain after lifting a a heavy object at home. Pt. had good relief after chiro care. Pt. has attempted chiro care recently with difficulty to adjust. Pt. denies N/T, pain only in lumbar spine, no radicular symptoms. Xrays- no fx noted. Pt. reports having increased pain with prolonged sitting, walking, and lifting. 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 Pt. reports being less active since retiring. Pt. is hopeful to reduce symptoms in order ot get back to all recreational activities without limitations. - Pain Lumbar spine Pain Intensity (Out of 10): 3 Pain Intensity Range: 1, 7 - Objective POSTURE: Pt. is over wt. pt. has general flexed posture, anterior tilt of his pelvis. PALPATION: Pt. has increased tenderness at lumbar paraspinals, L2-L5 with spring testing, hypomobility noted. NEURO: normal throughout sensation, normal DTR of BLEs. ROM: Lumbar spine- flexion min loss increase NW, extension min/mod loss increase NW, SB to R mod loss increase NW increase NW, SB L min loss NE, rotation R min/mod loss increae NW, rotation L min loss NE. HS tightness and hip flexor tightness bilaterally. MMT: Pt. has poor core strength, BLE strenght- 4+/5 throughout; increased pain with hip flexor testing. GAIT: Pt. has general flexed posture in stance, increased lateral hip sway with gait, no antalgic pattern noted. STAIRS: increase in symptoms with ascending, increased flexed posture. - Special Tests L/S Slump test left side: Negative L/S Slump test right side: Negative L/S Left Straight Leg Raise: Negative L/S Right Straight Leg Raise: Negative Lumbar Standing: Flexion - Mechanical Response: No effect Lumbar Standing: Flexion - Symptoms During Testing: Increases Lumbar Standing: Flexion - Symptoms After Testing: Worse Lumbar Standing: Extension - Mechanical Response: No effect Lumbar Standing: Extension - Symptoms During Testing: Decreases Lumbar Standing: Extension - Symptoms After Testing: Better Lumbar Lying: Flexion - Mechanical Response: No effect Lumbar Lying: Flexion - Symptoms During Testing: No effect Lumbar Lying: Flexion - Symptoms After Testing: No effect Lumbar Lying: Extension - Mechanical Response: No effect Lumbar Lying: Extension - Symptoms During Testing: Decreases Lumbar Lying: Extension - Symptoms After Testing: Better - Goals Goal 1:: LTG: Pt. to be I with HEP. Goal Time Frame: 4-6 Weeks Goal 2:: STG: Pt. to sleep throughout the night without increase in symptoms. Goal Time Frame: 2-4 Weeks Goal 3:: LTG: Pt. to have increased lumbar ROM by 25% in all directions. Goal Time Frame: 4-6 Weeks Goal 4:: LTG: Pt. to have increased core and BLE strength by 1/2 grade throughout effected musculature. 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 Goal Time Frame: 4-6 Weeks Goal 6:: LTG: Pt. to ambulate unlimited distances without increase in symptoms. Goal Time Frame: 4-6 Weeks - Rehabilitation Potential Physical Therapy Diagnosis: Pt. has signs and symptoms consistent with IVDD. Pt. has signs and symptoms consistent with lumbar disc derragement Pt. would benefit from PT to reduce muscle tension of lumbar spine, increase lumbar ROM, and priogress core stability. Rehabilitation Potential: Excellent - Anticipated Interventions Patient/Client Instruction: Educate patient on: Condition, Plan of Care, Risk Factors, Benefits of Fitness Program For the Purpose of:: To improve decision making, To facilitate caregiver knowledge, To improve self management, To prevent re-injury, To improve ability to perform tasks related to life management, To improve tolerance to ADL's Therapeutic Exercise to Include: Strength training, Power training, Body mechanics, Postural training, Flexibilty training, Gait and locomotor training, Passive ROM, Active ROM, Dynamic Lumbar Stabilization, Alex Exercises For the Purpose of:: To decrease pain, To increase ROM, To improve nutrient delivery to tissue, To increase oxygenation perfusion, To improve muscle performance and motor function, To improve ability to perform ADL's, To improve gait and locomotor functions, To improve health of tissue, To decrease soft tissue restriction Manual Therapy Techniques to Include: Mobilization, Passive ROM, Functional dry needling, Soft tissue mobilization For the Purpose of:: To decrease pain, To decrease swelling/inflammation, To increase ROM, To improve nutrient delivery to tissue, To increase oxygenation perfusion, To improve muscle performance and motor function Thank you for the opportunity to evaluate your patient. For Medicare and Medicare HMO plans, please review the plan of care and approve it. It will need to be FAXED BACK to us at [phone] for Medicare purposes. For Medicare only, by signing this I certify the plan of care. Please let me know if there are questions or concerns regarding this plan of care. Physician Signature: Date:
--- NOTE | 2020-07-28 12:40 | HP.PT.NRP ---
NARCISO WINSTON was seen in my office for initial evaluation on 01/07/20. The following Plan of Care was established for this patient: Initial Frequency: 2x /Week Initial Duration: 4-6 Weeks Patient/Client Instruction: Educate patient on: Condition, Plan of Care, Risk Factors, Benefits of Fitness Program For the Purpose of:: To improve decision making, To facilitate caregiver knowledge, To improve self management, To prevent re-injury, To improve ability to perform tasks related to life management, To improve tolerance to ADL's Therapeutic Exercise to Include: Strength training, Power training, Body mechanics, Postural training, Flexibilty training, Gait and locomotor training, Passive ROM, Active ROM, Dynamic Lumbar Stabilization, Alex Exercises For the Purpose of:: To decrease pain, To increase ROM, To improve nutrient delivery to tissue, To increase oxygenation perfusion, To improve muscle performance and motor function, To improve ability to perform ADL's, To improve gait and locomotor functions, To improve health of tissue, To decrease soft tissue restriction Manual Therapy Techniques to Include: Mobilization, Passive ROM, Functional dry needling, Soft tissue mobilization For the Purpose of:: To decrease pain, To decrease swelling/inflammation, To increase ROM, To improve nutrient delivery to tissue, To increase oxygenation perfusion, To improve muscle performance and motor function This patient was last seen in our office 03/06/20. Pertinent comments regarding their Physical therapy will appear below: Pt. was seen for his low back pain in PT. Pt. was doing well at his last visit. Pt. has not been seen in several months and will be DC from PT at this point intime. At this point I will be discontinuing this patient from physical therapy. I would be happy to see this patient again in the future if found appropriate by the physician. Thank you! Bull Baker, ZACARIAST
== END 2020-03-06 19:00 | disposition home or self-care (01) ==
LOC: PT 15:00
PROVIDERS: PCP Internal Medicine; Referring Provider Chiropractor; Visit Provider Chiropractor
DX: M51.36 Other intervertebral disc degeneration, lumbar region (principal)
CPT/HCPCS: 97110; 97161

== ENCOUNTER 2020-03-25 15:03 | Outpatient (RCR) | payer MEDICARE, SELFPAY ==
[2020-01-07 14:05] VITALS: BMI 42.8
[2020-03-25 15:15] LABS: Prothrombin Time Fingerstick 33.1 SEC (11.9-14.4)
== END 2020-03-25 18:00 | disposition home or self-care (01) ==
LOC: LAB 15:03
PROVIDERS: Family Provider Internal Medicine; PCP Internal Medicine; Referring Provider Internal Medicine Cardiovascular Disease; Visit Provider Internal Medicine Cardiovascular Disease
DX: I48.20 Chronic atrial fibrillation, unspecified (principal); Z79.01 Long term (current) use of 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s
CPT/HCPCS: 36416; 85610

== ENCOUNTER → 2020-04-23 | Outpatient (CLI) | payer MEDICARE, SELFPAY ==
[2020-04-23 13:57] VITALS: BMI 42.8
[2020-04-23 17:20] LABS: Hemoglobin A1c 5.9 % (3.8-5.6)
[2020-04-23 17:22] LABS: ALB/GLOB Ratio 1.1 RATIO (0.9-2.4); AST(SGOT) 14 U/L (15-37); Alanine Aminotransfer ALT/SGPT 25 U/L (16-61); Albumin, Serum 3.7 g/dL (3.2-5.0); Alkaline Phosphatase 84 U/L (45-117); Anion Gap 4 (5-15); BUN 28 mg/dL (7-18); BUN/Creat Ratio 18.8 RATIO (10-20); Calcium,Total 9.1 mg/dL (8.5-10.1); Chloride 108 mmol/L (98-107); Cholesterol 153 mg/dL (200); Creatinine, Serum 1.49 mg/dL (0.70-1.30); EST Glomerular Filtration Rate 50 mL/min (>60); Est Glom Filt Rate - Afr Amer 60 mL/min (>60); Globulin 3.4 g/dL (2.2-4.2); Glucose 93 mg/dL (74-106); High Density Lipoprotein 28 mg/dL; Potassium 4.1 mmol/L (3.5-5.1); Protein, Total 7.1 g/dL (6.4-8.2); Sodium Level 143 mmol/L (136-145); Triglycerides 190 mg/dL; Very Low Density Lipoprotein 38 mg/dL (5-40)
[2020-04-23 17:25] LABS: Vitamin B12 412 pg/mL (211-911)
== END | disposition home or self-care (01) ==
LOC: BIMLAB 14:39
PROVIDERS: PCP Internal Medicine; Referring Provider Internal Medicine; Visit Provider Internal Medicine
DX: I10 Essential (primary) hypertension (principal); R73.9 Hyperglycemia, unspecified; G62.9 Polyneuropathy, unspecified
CPT/HCPCS: 36415; 80053; 80061; 82607; 83036

== ENCOUNTER 2020-05-05 13:30 | Outpatient (RCR) | payer MEDICARE, SELFPAY ==
[2020-01-07 14:05] VITALS: BMI 42.8
[2020-04-21 15:36] LABS: Prothrombin Time Fingerstick 37.2 SEC (11.9-14.4)
[2020-05-05 13:50] LABS: Prothrombin Time Fingerstick 32.5 SEC (11.9-14.4)
== END 2020-05-05 18:00 | disposition home or self-care (01) ==
LOC: LAB 13:30
PROVIDERS: Family Provider Internal Medicine; PCP Internal Medicine; Referring Provider Internal Medicine Cardiovascular Disease; Visit Provider Internal Medicine Cardiovascular Disease
DX: I48.20 Chronic atrial fibrillation, unspecified (principal); Z79.01 Long term (current) use of 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s
CPT/HCPCS: 36416; 85610

== ENCOUNTER → 2020-05-05 | Outpatient (CLI) | payer MEDICARE, SELFPAY ==
[2020-04-23 13:57] VITALS: BMI 42.8
--- NOTE | 2020-05-05 12:51 | ART_ITS ---
Reason For Study: Claudication Procedure A bilateral lower extremity continuous wave Doppler with analog waveform analysis,segmental pressures,and ankle brachial indexes without exercise. Left Segmental Pressures Left brachial= 102mmHg. Left posterior tibial artery = 101mmHg. Left dorsalis pedis artery = 72mmHg. Left digit = 50 mmHg. The left dorsalis pedis waveforms are monophasic. The left posterior tibial artery waveforms are biphasic. Right Segmental Pressures Right brachial= 102mmHg. Right posterior tibial artery = 68mmHg. Right dorsalis pedis artery = 79mmHg. Right digit = 48 mmHg. The right dorsalis pedis waveforms are monophasic. The right posterior tibial artery waveforms are monophasic. Indices The right ankle brachial index by the dorsalis pedis is 0.77. The right ankle brachial index by the posterior tibial artery is 0.67. The right digital-brachial index is 0.47. The left ankle brachial index by the dorsalis pedis is 0.71. The left ankle brachial index by the posterior tibial artery is 0.99. The left digital-brachial index is 0.49. Interpretation Summary Moderately severe right lower extremity arterial occlusive disease based upon resting ankle-brachial indices. Abnormal right digital brachial indices. Monophasic right posterior tibial and dorsalis pedis Doppler waveforms suggest possibility of more severe level of disease Moderately severe left lower extremity arterial occlusive disease based upon ankle-brachial indices and abnormal Doppler waveforms. Abnormal left digital brachial indices Ordering Physician: Carline Ramirez Referring Physician: Carline Ramirez Performed By: Olga Bergman RVT
== END | disposition home or self-care (01) ==
LOC: CVS 12:51
PROVIDERS: PCP Internal Medicine; Referring Provider Internal Medicine; Visit Provider Internal Medicine
DX: I73.9 Peripheral vascular disease, unspecified (principal)
CPT/HCPCS: 36416; 85610; 93922

== ENCOUNTER 2020-06-09 15:59 | Outpatient (RCR) | payer MEDICARE, SELFPAY ==
[2020-04-23 13:57] VITALS: BMI 42.8
[2020-06-09 16:11] LABS: Prothrombin Time Fingerstick 32.6 SEC (11.9-14.4)
== END 2020-06-09 23:59 | disposition home or self-care (01) ==
LOC: LAB 15:59
PROVIDERS: Family Provider Internal Medicine; PCP Internal Medicine; Referring Provider Internal Medicine Cardiovascular Disease; Visit Provider Internal Medicine Cardiovascular Disease
DX: I48.20 Chronic atrial fibrillation, unspecified (principal); Z79.01 Long term (current) use of 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s
CPT/HCPCS: 36416; 85610

== ENCOUNTER → 2020-06-27 | Outpatient (CLI) | payer MEDICARE, SELFPAY ==
[2020-04-23 13:57] VITALS: BMI 42.8
[2020-06-12 10:08] VITALS: BMI 42.8
--- NOTE | 2020-06-27 15:00 | NEURO_ITS ---
NCS and/or EMG Patient Report Ordering Doctor: Carline Ramirez DATE OF SERVICE: 06/27/20 Indication: Bilateral lower extremity pain and paresthesias for the last ~10 years following and episode of frostbite. Evaluate for peripheral polyneuropathy. Findings: Nerve conduction studies were performed in the right and left lower extremities. The right peroneal motor study recording the extensor digitorum brevis showed a slightly reduced amplitude, normal distal latency and normal conduction velocity. No conduction block or focal slowing was present across the fibular neck. The right peroneal motor study recording the tibialis anterior showed a normal amplitude and conduction velocity. No conduction block or focal slowing was present across the fibular neck. The right tibial motor study recording the abductor hallucis brevis showed a reduced amplitude, normal distal latency and normal conduction velocity. Right sural sensory response showed an absent response. Right superficial peroneal sensory response showed an absent response. The left peroneal motor study recording the extensor digitorum brevis showed a slightly reduced amplitude, normal distal latency and normal conduction velocity. No conduction block or focal slowing was present across the fibular neck. The left peroneal motor study recording the tibialis anterior showed a normal amplitude and conduction velocity. No conduction block or focal slowing was present across the fibular neck. The left tibial motor study recording the abductor hallucis brevis showed a reduced amplitude, normal distal latency and normal conduction velocity. Left sural sensory response showed an absent response. Left superficial peroneal sensory response showed an absent response. The left radial sensory response recording the dorsum of the hand demonstrated a mildly reduced amplitude, normal peak latency and slightly reduced conduction velocity. Needle EMG of the left lower extremity alone was performed given the patient's symmetric symptoms and increased risk of bleeding/infection (lower extremity edema and being on therapeutic anticoagulation. No denervation was present in any muscle. In left lower extremity there was a length-dependent pattern of reinnervation. Distal muscles revealed large amplitude, long duration, mildly polyphasic motor units with diminished recruitment. Similar, but more subtle changes were noted in proximal muscles. Impression: This is an abnormal study. There is electrophysiologic evidence of a length depe ndent, chronic, axonal, sensorimotor peripheral polyneuropathy. There is no active denervation in distal muscles to suggest ongoing nerve degeneration. Please note, due to the inability to needle the lumbar paraspinal muscles (anticoagulated) a superimposed L5/S1 radiculopathy cannot be entirely excluded by this examination. David Diop D.O.
== END | disposition home or self-care (01) ==
LOC: PSN 11:55
PROVIDERS: PCP Internal Medicine; Referring Provider Internal Medicine; Visit Provider Internal Medicine
DX: G62.9 Polyneuropathy, unspecified (principal); M79.671 Pain in right foot; M79.672 Pain in left foot
CPT/HCPCS: 95886; 95911

== ENCOUNTER → 2020-06-30 | Outpatient (CLI) | payer MEDICARE, SELFPAY ==
[2020-06-12 10:08] VITALS: BMI 42.8
--- NOTE | 2020-06-30 12:43 | ADU_ITS ---
Reason For Study: Atherosclerosis Right Velocities Left Velocities Ext. Iliac Artery, dist = 58 cm./sec. Ext Iliac Artery, dist = 83 cm./sec. Common Femoral Artery, mid = 39.3 cm./sec. Common Femoral Artery, mid = 70.8 cm./sec. Supf Femoral Artery, prox = 67.6 cm./sec. Supf. Femoral Artery, prox = 55.4 cm./sec. Supf Femoral Artery, mid = 62 cm./sec. Supf. Femoral Artery, mid = 90.6 cm./sec. Supf Femoral Artery, dist. = 69.5 cm./sec. Supf. Femoral Artery, dist = 56.3 cm./sec. Profunda Femoral Artery = 57.2 cm./sec. Profunda Femoral Artery = 36.5 cm./sec. Popliteal Artery, prox. = 45 cm./sec. Popliteal Artery, proximal, = 68.6 cm./sec. Popliteal Artery, mid = 58.2 cm./sec. Popliteal Artery, mid = 40.2 cm./sec. Popliteal Artery, dist = 48.7 cm./sec. Popliteal Artery, distal = 41.2 cm./sec. Post. Tibial Artery, prox = 56.3 cm./sec. Post. Tibial Artery, prox = 68.6 cm./sec. Post. Tibial Artery, mid = 61 cm./sec. Post Tibial Artery, mid = 50.6 cm./sec. Post. Tibial Artery, dist = 54.4 cm./sec. Post Tibial Artery, dist. = 58.2 cm./sec. Peroneal Artery, prox = 59.1 cm./sec. Peroneal Artery, prox = 60.1 cm./sec. Peroneal Artery, mid = 63.9 cm./sec. Peroneal Artery,dist. = 41.2 cm./sec. Peroneal Artery,dist = 45.9 cm./sec. Ant Tibial Artery, mid = 24.2 cm./sec. Ant. Tibial Artery, prox = 119.8 cm./sec. Ant. Tibial Artery, distal = 177.6 cm./sec. Ant. Tibial Artery, mid = 54.4 cm./sec. Unable to demonstrate flow in the LOLA prox. Ant. Tibial Artery, dist = 42.1 cm./sec. Unable to visualize peroneal artery mid. Procedure Exam performed in department. Interpretation Summary Right leg with no significant stenosis. Left leg no stenosis into tibials where there is occlussion anterior tibial and peroneal artery. Ordering Physician: Minh Jarquin Referring Physician: Carline Ramirez Performed By: Olga Bergman RVT
--- NOTE | 2020-06-30 12:43 | VDLE_ITS ---
Reason For Study: Pain/Swelling RIGHT LEFT CFV is compressible, spontaneous, phasic, CFV is compressible, spontaneous, phasic, competent and demonstrates normal competent, and demonstrates normal augmentation. augmentation. FV is compressible, spontaneous, phasic, FV is compressible, spontaneous, phasic, competent and demonstrates normal competent and demonstrates normal augmentation. augmentation. POP V is compressible, spontaneous, phasic, POP V is compressible, spontaneous, phasic, competent and demonstrates normal competent and demonstrates normal augmentation. augmentation. T/P Trunk is compressible. T/P Trunk is compressible. PTV is compressible. PTV is compressible. RT PerV is compressible. LT PerV is compressible. SFJ is competent and measures 0.84 x 0.89 cm. SFJ is competent and measures 0.98 x 1.00 cm. GSV proximal thigh measures 0.49 x 0.55 cm. GSV proximal thigh measures 0.56 x 0.58 cm. GSV above knee is competent. GSV above knee is INCOMPETENT for greater GSV at knee measures 0.45 x 0.48 cm. than 0.5 seconds. GSV below knee is INCOMPETENT for greater GSV at knee measures 0.39 x 0.40 cm. than 0.5 seconds. GSV below knee is competent. SSV at junction is competent and measures SSV at junction is competent and measures 0.45 x 0.46 cm. 0.36 x 0.35 cm. Procedure Exam performed in department. A preliminary report was called and/or faxed to [facility]. Interpretation Summary Bilateral no DVT or SVt. Right GSV reflux below knee. Left GSV reflux throughout and 6mm. Ordering Physician: Minh Jarquin Referring Physician: Carline Ramirez Performed By: Olga Bergman RVT
--- NOTE | 2020-06-30 12:44 | ART_ITS ---
Reason For Study: Atherosclerosis Procedure A bilateral lower extremity continuous wave Doppler with analog waveform analysis and ankle brachial indexes. Left Segmental Pressures Left brachial= 122mmHg. Left posterior tibial artery = 89mmHg. Left dorsalis pedis artery = 99mmHg. Left digit = 41 mmHg. The left dorsalis pedis waveforms are monophasic. The left posterior tibial artery waveforms are biphasic. Right Segmental Pressures Right brachial= 117mmHg. Right posterior tibial artery = 89mmHg. Right dorsalis pedis artery = 91mmHg. Right digit = 40 mmHg. The right dorsalis pedis waveforms are monophasic. The right posterior tibial artery waveforms are monophasic. Indices The right ankle brachial index by the dorsalis pedis is 0.75. The right ankle brachial index by the posterior tibial artery is 0.73. The right digital-brachial index is 0.33. The left ankle brachial index by the dorsalis pedis is 0.81. The left ankle brachial index by the posterior tibial artery is 0.73. The left digital-brachial index is 0.34. Interpretation Summary Bilateral biphasic flow and moderate disease with FANI 0.75 and 0.81. DBI 0.33 and 0.34. Ordering Physician: Minh Jarquin Referring Physician: Carline Ramirez Performed By: Olga Bergman RVT and Student
== END | disposition home or self-care (01) ==
LOC: CVS 12:41
PROVIDERS: PCP Internal Medicine; Referring Provider Surgery Vascular Surgery; Visit Provider Surgery Vascular Surgery
DX: M79.89 Other specified soft tissue disorders (principal); M79.606 Pain in leg, unspecified; M79.605 Pain in left leg; I70.213 Atherosclerosis of native arteries of extremities with intermittent claudication, bilateral legs
CPT/HCPCS: 93922; 93925; 93970

== ENCOUNTER 2020-07-21 15:31 | Outpatient (RCR) | payer MEDICARE, SELFPAY ==
[2020-07-15 11:42] VITALS: BMI 42.8
[2020-07-21 15:41] LABS: Prothrombin Time Fingerstick 33.6 SEC (11.9-14.4)
== END 2020-07-21 18:00 | disposition home or self-care (01) ==
LOC: LAB 15:31
PROVIDERS: Family Provider Internal Medicine; PCP Internal Medicine; Referring Provider Internal Medicine Cardiovascular Disease; Visit Provider Internal Medicine Cardiovascular Disease
DX: I48.20 Chronic atrial fibrillation, unspecified (principal); Z79.01 Long term (current) use of 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s
CPT/HCPCS: 36416; 85610

== ENCOUNTER → 2020-08-12 | Outpatient (CLI) | payer MEDICARE, SELFPAY ==
[2020-07-15 11:42] VITALS: BMI 42.8
--- NOTE | 2020-08-12 14:53 | CT_ITS ---
STUDY: CTA OF THE ABDOMINAL AORTA AND BILATERAL LOWER EXTREMITIES REASON FOR EXAM: Male, 70 years old. 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 Axial images and MIP images were reconstructed from the axial data set. Post-processing of the angiographic images was performed, with multiplanar reformation and 3D reconstruction. Individualized dose optimization techniques were used for this CT. TECHNICAL QUALITY: Good COMPARISON: None. Descriptors of Narrowing: None (0%) Mild (< 50%) Moderate (50-70%) Severe (70-90%) Subtotal/Total Occlusion (90-100%) Non-Evaluable (technically non-diagnostic FINDINGS: Abdominal aorta: Mild atherosclerosis without aneurysm, dissection or significant stenosis. Celiac and superior mesenteric arteries: No demonstrated narrowing. Inferior mesenteric artery: No demonstrated narrowing. Right renal artery(arteries): 2 right renal arteries are widely patent. Left renal artery(arteries): No demonstrated narrowing. Right common iliac artery: Atherosclerosis and tortuosity without hemodynamically significant stenosis. Right external iliac artery: Atherosclerosis and tortuosity without hemodynamically significant stenosis. Right internal iliac artery: No demonstrated narrowing. Left common iliac artery: Atherosclerosis and tortuosity without hemodynamically significant stenosis. Left external iliac artery: Atherosclerosis and tortuosity without hemodynamically significant stenosis. Left internal iliac artery: No demonstrated narrowing. RIGHT LOWER EXTREMITY Right common femoral artery: Atherosclerosis and tortuosity without hemodynamically significant stenosis. Right profundus femoris: No demonstrated narrowing. Right superficial femoral: Atherosclerosis and tortuosity without hemodynamically significant stenosis. There is mild narrowing of the distal SFA. Right popliteal artery: There is mild diffuse narrowing. Right tibioperoneal trunk: No demonstrated narrowing. Right anterior tibial artery: Patent at its origin with multifocal moderate severe narrowing in the mid arterial segment. The dorsalis pedis arteries patent. Right posterior tibial artery: Patent in the proximal and mid segments with occlusion just above the ankle and appears to reconstitute by collateralization. Right peroneal artery: No demonstrated narrowing. LEFT LOWER EXTREMITY Left common femoral artery: Atherosclerosis and tortuosity without hemodynamically significant stenosis. Left profundus femoris: No demonstrated narrowing. Left superficial femoral: There is mild diffuse narrowing. Left popliteal artery: There is mild diffuse narrowing. Left tibioperoneal trunk: No demonstrated narrowing. Left anterior tibial artery: There is severe diffuse narrowing, with visualization of the vessel to the proximal calf. Left posterior tibial artery: Patent to the distal calf with apparent occlusion just above the ankle and reconstitution through collateral flow. Left peroneal artery: No demonstrated narrowing. Visualized liver is unremarkable. Spleen, pancreas are normal. There are gallstones layering dependently in the gallbladder lumen. No retroperitoneal adenopathy. There is small cortical cysts of the bilateral kidneys, simple. Benign, incidental finding; no specific imaging workup recommended according to current ACR guidelines. Small bowel and colon are unremarkable except for diverticular changes of the colon. Urinary bladder is not well-distended but there appears to be wall thickening. Prostate is enlarged. No pelvic free fluid or adenopathy. Degenerative changes of the lumbar spine present. There is a small osteochondroma of the proximal tibia but without significant mass effect. Degenerative changes of the left more than right knee and bilateral hips. CT/CTA Abd w/Runoff W/WO Contrast IMPRESSION: 1. No significant arterial inflow stenosis. Mild atherosclerotic disease of the bilateral femoral and popliteal arteries without hemodynamically significant stenosis. 2. Infrapopliteal dominant arterial atherosclerotic disease particularly involving the bilateral anterior tibial arteries. Peroneal arteries are dominant supply of the bilateral lower extremities with high-grade stenoses/occlusion distal bilateral posterior tibial arteries with collateral reconstitution of flow. 3. Cholelithiasis. 4. Prostatomegaly. 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 Electronically Signed: Rupesh Butts MD (Brooks) at 10:24 EDT , Service support ,
[2020-08-12 15:11] LABS: CREATININE FINGERSTICK 1.1 mg/dL (0.70-1.30); EGFR FINGERSTICK > 60.0000 mL/min (>60)
== END | disposition home or self-care (01) ==
LOC: CT 14:50
PROVIDERS: PCP Internal Medicine; Referring Provider Surgery Vascular Surgery; Visit Provider Surgery Vascular Surgery
DX: I70.213 Atherosclerosis of native arteries of extremities with intermittent claudication, bilateral legs (principal)
CPT/HCPCS: 75635; Q9967

== ENCOUNTER 2020-08-25 13:47 | Outpatient (RCR) | payer MEDICARE, SELFPAY ==
[2020-07-15 11:42] VITALS: BMI 42.8
[2020-08-25 14:06] LABS: Prothrombin Time Fingerstick 33.1 SEC (11.9-14.4)
== END 2020-08-25 18:00 | disposition home or self-care (01) ==
LOC: LAB 13:47
PROVIDERS: Family Provider Internal Medicine; PCP Internal Medicine; Referring Provider Internal Medicine Cardiovascular Disease; Visit Provider Internal Medicine Cardiovascular Disease
DX: I48.20 Chronic atrial fibrillation, unspecified (principal); Z79.01 Long term (current) use of 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s
CPT/HCPCS: 36416; 85610

== ENCOUNTER 2020-09-29 15:28 | Outpatient (RCR) | payer MEDICARE, SELFPAY ==
[2020-07-15 11:42] VITALS: BMI 42.8
[2020-09-29 15:07] VITALS: BMI 40.8
[2020-09-29 16:59] LABS: International Normalized Ratio 2.8; Prothrombin Time (Protime)PT. 29.3 SECONDS (11.7-14.9)
[2020-09-29 17:03] LABS: Uric Acid 8.4 mg/dL (3.5-7.2)
== END 2020-10-05 23:59 ==
LOC: BIMLAB 15:28
PROVIDERS: Internal Medicine; Family Provider Internal Medicine; PCP Internal Medicine; Referring Provider Internal Medicine Cardiovascular Disease; Visit Provider Internal Medicine Cardiovascular Disease
DX: I48.20 Chronic atrial fibrillation, unspecified (principal); Z79.01 Long term (current) use of 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s
CPT/HCPCS: 36415; 84550; 85610

== ENCOUNTER 2020-10-13 15:29 | Outpatient (RCR) | payer MEDICARE, SELFPAY ==
[2020-10-13 14:35] VITALS: BMI 42.0
[2020-10-13 17:20] LABS: Prothrombin Time (Protime)PT. 39.1 SECONDS (11.7-14.9)
[2020-10-13 17:21] LABS: Anion Gap 6 (5-15); BUN 27 mg/dL (7-18); BUN/Creat Ratio 21.4 RATIO (10-20); Calcium,Total 9.2 mg/dL (8.5-10.1); Chloride 105 mmol/L (98-107); Creatinine, Serum 1.26 mg/dL (0.70-1.30); EST Glomerular Filtration Rate 60 mL/min (>60); Est Glom Filt Rate - Afr Amer 73 mL/min (>60); Glucose 56 mg/dL (74-106); Potassium 4.3 mmol/L (3.5-5.1); Sodium Level 138 mmol/L (136-145)
== END 2020-11-05 23:59 ==
LOC: BIMLAB 15:29
PROVIDERS: Family Provider Internal Medicine; PCP Internal Medicine; Referring Provider Internal Medicine Cardiovascular Disease; Visit Provider Internal Medicine Cardiovascular Disease
DX: I48.20 Chronic atrial fibrillation, unspecified (principal); Z79.01 Long term (current) use of 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s; I10 Essential (primary) hypertension; M10.9 Gout, unspecified
CPT/HCPCS: 36415; 80048; 84550; 85610

== ENCOUNTER 2020-11-10 13:34 | Outpatient (RCR) | payer MEDICARE, SELFPAY ==
[2020-11-10 14:40] LABS: International Normalized Ratio 2.9; Prothrombin Time (Protime)PT. 29.7 SECONDS (11.7-14.9)
[2020-11-10 15:00] LABS: Anion Gap 4 (5-15); BUN 27 mg/dL (7-18); BUN/Creat Ratio 18.6 RATIO (10-20); Calcium,Total 9.2 mg/dL (8.5-10.1); Chloride 105 mmol/L (98-107); Creatinine, Serum 1.45 mg/dL (0.70-1.30); EST Glomerular Filtration Rate 51 mL/min (>60); Est Glom Filt Rate - Afr Amer 62 mL/min (>60); Glucose 110 mg/dL (74-106); Potassium 4.3 mmol/L (3.5-5.1); Sodium Level 139 mmol/L (136-145)
== END 2020-11-10 18:00 | disposition home or self-care (01) ==
LOC: LAB 13:34
PROVIDERS: Family Provider Internal Medicine; PCP Internal Medicine; Referring Provider Internal Medicine Cardiovascular Disease; Visit Provider Internal Medicine Cardiovascular Disease
DX: I48.20 Chronic atrial fibrillation, unspecified (principal); Z79.01 Long term (current) use of 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s; I10 Essential (primary) hypertension
CPT/HCPCS: 36415; 80048; 85610

== ENCOUNTER 2020-12-17 16:08 | Outpatient (RCR) | payer MEDICARE, SELFPAY ==
[2020-11-17 14:39] VITALS: BMI 43.5
[2020-12-17 16:30] LABS: Prothrombin Time Fingerstick 34.1 SEC (11.9-14.4)
== END 2020-12-17 18:00 | disposition home or self-care (01) ==
LOC: LAB 16:08
PROVIDERS: Family Provider Internal Medicine; PCP Internal Medicine; Referring Provider Internal Medicine Cardiovascular Disease; Visit Provider Internal Medicine Cardiovascular Disease
DX: I48.20 Chronic atrial fibrillation, unspecified (principal); Z79.01 Long term (current) use of 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s
CPT/HCPCS: 36416; 85610

== ENCOUNTER 2021-01-19 15:46 | Outpatient (RCR) | payer MEDICARE, SELFPAY ==
[2020-11-17 14:39] VITALS: BMI 43.5
[2021-01-19 15:10] VITALS: BMI 43.5
[2021-01-19 17:11] LABS: Anion Gap 6 (5-15); BUN 25 mg/dL (7-18); BUN/Creat Ratio 17.7 RATIO (10-20); Calcium,Total 9.3 mg/dL (8.5-10.1); Chloride 107 mmol/L (98-107); Creatinine, Serum 1.41 mg/dL (0.70-1.30); EST Glomerular Filtration Rate 53 mL/min (>60); Est Glom Filt Rate - Afr Amer 64 mL/min (>60); Glucose 118 mg/dL (74-106); Potassium 4.2 mmol/L (3.5-5.1); Sodium Level 140 mmol/L (136-145)
[2021-01-19 17:18] LABS: International Normalized Ratio 2.8; Prothrombin Time (Protime)PT. 28.9 SECONDS (11.7-14.9)
== END 2021-02-03 23:59 ==
LOC: BIMLAB 15:46
PROVIDERS: Family Provider Internal Medicine; PCP Internal Medicine; Referring Provider Internal Medicine Cardiovascular Disease; Visit Provider Internal Medicine Cardiovascular Disease
DX: Z79.01 Long term (current) use of 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s (principal); I48.20 Chronic atrial fibrillation, unspecified
CPT/HCPCS: 36415; 80048; 84550; 85610

== ENCOUNTER 2021-02-26 13:14 | Outpatient (RCR) | payer MEDICARE, SELFPAY ==
[2021-02-26 13:54] LABS: International Normalized Ratio 3.1; Prothrombin Time (Protime)PT. 31.1 SECONDS (11.7-14.9)
[2021-02-26 14:04] LABS: Anion Gap 3 (5-15); BUN 23 mg/dL (7-18); BUN/Creat Ratio 17.4 RATIO (10-20); Calcium,Total 9.2 mg/dL (8.5-10.1); Chloride 106 mmol/L (98-107); Creatinine, Serum 1.32 mg/dL (0.70-1.30); EST Glomerular Filtration Rate 57 mL/min (>60); Est Glom Filt Rate - Afr Amer 69 mL/min (>60); Glucose 143 mg/dL (74-106); Sodium Level 139 mmol/L (136-145)
== END 2021-02-26 18:00 | disposition home or self-care (01) ==
LOC: LAB 13:14
PROVIDERS: Family Provider Internal Medicine; PCP Internal Medicine; Referring Provider Internal Medicine Cardiovascular Disease; Visit Provider Internal Medicine Cardiovascular Disease
DX: I48.20 Chronic atrial fibrillation, unspecified (principal); Z79.01 Long term (current) use of 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s
CPT/HCPCS: 36415; 80048; 85610

== ENCOUNTER 2021-03-23 13:53 | Outpatient (RCR) | payer MEDICARE, SELFPAY ==
[2021-03-23 14:06] LABS: INR Fingerstick 2.7
== END 2021-03-23 18:00 | disposition home or self-care (01) ==
LOC: LAB 13:53
PROVIDERS: Family Provider Internal Medicine; PCP Internal Medicine; Referring Provider Internal Medicine Cardiovascular Disease; Visit Provider Internal Medicine Cardiovascular Disease
DX: I48.20 Chronic atrial fibrillation, unspecified (principal); Z79.01 Long term (current) use of 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s
CPT/HCPCS: 36416; 85610

== ENCOUNTER 2021-05-26 16:26 | Outpatient (RCR) | payer MEDICARE, SELFPAY ==
[2021-03-23 14:31] VITALS: BMI 43.7
[2021-04-20 14:09] VITALS: BMI 44.0
[2021-05-27 10:26] LABS: INR Fingerstick 2.7; Prothrombin Time Fingerstick 30.5 SEC (11.9-14.4)
== END 2021-05-26 18:00 | disposition home or self-care (01) ==
LOC: LAB 16:26
PROVIDERS: Family Provider Internal Medicine; PCP Internal Medicine; Referring Provider Internal Medicine Cardiovascular Disease; Visit Provider Internal Medicine Cardiovascular Disease
DX: I48.20 Chronic atrial fibrillation, unspecified (principal); Z79.01 Long term (current) use of 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s
CPT/HCPCS: 36416; 85610

== ENCOUNTER 2021-06-04 14:30 | Outpatient (RCR) | payer MEDICARE, SELFPAY ==
--- NOTE | 2021-03-18 14:21 | HP.PTEVAL_ITS ---
Patient's Visit Information NARCISO WINSTON is a 71 year old M referred to Physical Therapy by Dr. Demario Brooks MD with a diagnosis of B knee OA. Date of Evaluation: 03/18/21 Physical Therapist: Juan Majano DPT, OCS, CSCS - Visit Plan Frequency: 3x /Week Duration: 4-6 Weeks Plan: 3x/week for 4-6 weeks, start with pool therapy for knee ROM increasing flexion, stretch quads and HS, strengthen hips and knees and calorie burning. may progress to land as needed once I with water. - Subjective Has bone on bone in both knees R>L. Years of abuse adn history of some arthroscpies. Gained a lot of weight over the years. R knee worse with act ivity standing and weight bearing up to 10/10 . L knee 8/10. 0 10 at rest B. Sleep is OK. Retired. Spends day with [employer] shuttling around and doing mowing adn weeding. Has to take breaks due to pain, recently got riding mower which helps. Uses knee pads. Has neuropathy in boht feet. Maybe due to frostbite. Basic ADLs are done oK, may need breaks. Has steps whcih are painful on the knees but I. Hobbies include biking but it does hurt knees. Enjoys hiking but limited. Not skiied in a few years. Can be imbalanced upon arising but no other balance problems and no falls. - Pain R knee Pain Intensity (Out of 10): 0 Pain Intensity Range: 0, 10 L knee Pain Intensity (Out of 10): 0 Pain Intensity Range: 0, 8 - Objective Walks with stiff knees but I. Trasnfers I with UE. Steps reciprocally with rails and puls forward vs shifting weight. Knee AROM R 0-98 adn L 0-102. Hip aROM, ext to 0 and abd to 22. MAx tight quadsa nd HS at -45 90/90. Also prone knee flexion to 90 B. Weakness in hip ext adn abd at 3+/5 B. flexion 4- B. knee ext 4 B adn HSC 4- B. Not much pain with resisted testing. ankles 5/5 strength adn WFL ROM. refexes 2/3 patella and achilles. Sensation LE WNL to gross light touch, has discoloration from mid shins down with pitting edema slightly B LE. - Goals Goal 1:: Pt I appropr Pool/gym ex for weight loss and knee pain management Goal Time Frame: 4-6 Weeks Goal 2:: Pt feel 50% better overall in knee pain to 5/10 at worst. Goal Time Frame: 4-6 Weeks Goal 3:: LEFS 45/80 Goal Time Frame: 4-6 Weeks Goal 4:: Walk community without increased pain. Goal Time Frame: 4-6 Weeks Goal 5:: Prepare pt with strength, weight loss and flex for possible eventual TKAs Goal Time Frame: 6-8 Weeks - Rehabilitation Potential Physical Therapy Diagnosis: B Knee OA Rehabilitation Potential: Good - Anticipated Interventions Patient/Client Instruction: Educate patient on: Condition For the Purpose of:: To decrease pain, To increase ROM, To improve muscle performance and motor function Therapeutic Exercise to Include: Strength training, Flexibilty training, Gait and locomotor training, Passive ROM, Active ROM Comment: calorie burning. For the Purpose of:: To decrease pain, To increase ROM, To improve muscle performance and motor function, To increase tolerance to activity/condition/position, To improve ability of physical actions for home/community/work/leisure Thank you for the opportunity to evaluate your patient. For Medicare and Medicare HMO plans, please review the plan of care and approve it. It will need to be FAXED BACK to us at [phone] for Medicare purposes. For Medicare only, by signing this I certify the plan of care. Please let me know if there are questions or concerns regarding this plan of care. Physician Signature: Date:
--- NOTE | 2021-04-09 14:28 | HP.PTREVAL_ITS ---
Dr. Demario Brooks MD, It has been my pleasure to treat NARCISO WINSTON over the last 9 visits for B knee OA. Please see the progress note below for an update on the physical therapy plan of care! Subjective: Water ex going well. Knee pain is 3/10 whcih is about the same as when he started PT. Will f/u with doctor in May. Objective/Function: Gait is good today after water session, nueropathic gait pattern but bending knees well and no antalgia. Pt does not think we hav ebeen aggressive enough with ex of strength adn calorie burn in water, to focussed on minutia according to him, not feeling much different overall but does admit to improved pain and less stiffness after warer session. Agreeable to cotninue in water 3 more weeks. Great emphasis today on exit strategy of continued water or possibly progression to gym or home ex depending on tolerance. Plan Plan: Appropriate to continue in water for aggressive strength posture adn LE and calorie burning. Exit strategy to I in community pool 0or gym/home ex. Goals Goal 1:: Pt I appropr Pool/gym ex for weight loss and knee pain management Goal Time Frame: 4-6 Weeks Goal Progress: Progressing Goal 2:: Pt feel 50% better overall in knee pain to 5/10 at worst. Goal Time Frame: 4-6 Weeks Goal Progress: approp Goal 3:: LEFS 45/80 Goal Time Frame: 4-6 Weeks Goal 4:: Walk community without increased pain. Goal Time Frame: 4-6 Weeks Goal 5:: Prepare pt with strength, weight loss and flex for possible eventual TKAs Goal Time Frame: 6-8 Weeks Goal Progress: slow progression Anticipated Interventions Patient/Client Instruction: Educate patient on: Condition For the Purpose of:: To decrease pain, To increase ROM, To improve muscle performance and motor function Therapeutic Exercise to Include: Strength training, Flexibilty training, Gait and locomotor training, Passive ROM, Active ROM Comment: calorie burning. For the Purpose of:: To decrease pain, To increase ROM, To improve muscle performance and motor function, To increase tolerance to ac tivity/condition/position, To improve ability of physical actions for home/community/work/leisure Please do not hesitate to contact me at [phone] by phone or if you have questions or concerns regarding this new plan of care! Sincerely, Juan Majano, DPT, OCS, CSCS
--- NOTE | 2021-05-13 15:06 | HP.PTREVAL ---
Dr. Demario Brooks MD, It has been my pleasure to treat NARCISO WINSTON over the last 16 visits for B knee OA. Please see the progress note below for an update on the physical therapy plan of care! Subjective: Still wants more cardio, can do that in the pool himself now but wants land ex. L knee 4-5/10 in am and R knee to 5/10 more consistently. They hurt more later in the day if he is on them alot. To doctor in 8 weeks. No injections offered. Has had them in the past without results. No pain at rest. Not stretching at home. Objective/Function: 0-110 aROM B knees with 0 ext lag. Slow movement and walking but no antalgia or pain with amb today. steps hurt 5-6 /10 moreso descending adn needs both UE. Overall pt pain about the same, still feels like needs more calorie burning. Willing to continue in pool on own and wants to progress to land ex. Has bike at home Plan Plan: 3x/week for 3-4 weeks for land based teach strength LE, strength posture on machines adn elevate HR to aniceto calories(make sure patient gets heart rate up to around 120 if possible sporadically and then lower, intervals). Pt to do stretching at hoe and pool silver sneakers 2x/week on his own. Says he is willing to work hard. Goals approp and questionable to fair prognosis for tolerance at knees. Goals Goal 1:: Pt I appropr Pool/gym ex for weight loss and knee pain management Goal Time Frame: 4-6 Weeks Goal Progress: Progressing,a pprop gym Goal 2:: Pt feel 50% better overall in knee pain to 5/10 at worst. Goal Time Frame: 4-6 Weeks Goal Progress: not improving. Goal 3:: LEFS 45/80 Goal Time Frame: 4-6 Weeks Goal Progress: slow if at all. Goal 4:: Walk community without increased pain. Goal Time Frame: 4-6 Weeks Goal Progress: not yet., approp. Goal 5:: Prepare pt with strength, weight loss and flex for possible eventual TKAs Goal Time Frame: 6-8 Weeks Goal Progress: pool. needs land. Anticipated Interventions Patient/Client Instruction: Educate patient on: Condition For the Purpose of:: To decrease pain, To increase ROM, To improve muscle performance and motor function Therapeutic Exercise to Include: Strength training, Flexibilty training, Gait and locomotor training, Passive ROM, Active ROM Comment: calorie burning. For the Purpose of:: To decrease pain, To increase ROM, To improve muscle performance and motor function, To increase tolerance to activity/condition/position, To improve ability of physical actions for home/community/work/leisure Please do not hesitate to contact me at [phone] by phone or if you have questions or concerns regarding this new plan of care! Sincerely, Juan Majano, DPT, OCS, CSCS
--- NOTE | 2021-06-04 15:24 | HP.PTDCSUM_ITS ---
It has been my pleasure to treat NARCISO WINSTON referred by Dr. Demario Brooks MD, with the diagnosis of B knee OA for a total of 24 visit(s). Discharge Date: 06/04/21 Please see the following information for a summary of their discharge status. Subjective: Going the right way. Knees don't hurt as bad. Still gets pain 5- 6/10 with WB or standing too much. Will continue aa silver sneakers member. No longer doing pool exercise. No f/u with Dr. Brooks until july. Using cart to lean on in store. R knee Pain Intensity (Out of 10): 6 L knee Pain Intensity (Out of 10): 6 Lumbar Spine Pain Intensity (Out of 10): Unrated Ankles Pain Intensity (Out of 10): Unrated % Improvement: 60 Objective/Function: goals met except LEFS, pt doing well with gym ex tolerating better than expected and ready to cotniune on his own. Gait is stiff but not painful or antalgic today. Goal 1:: Pt I appropr Pool/gym ex for weight loss and knee pain management Goal Progress: Goal Met Goal 2:: Pt feel 50% better overall in knee pain to 5/10 at worst. Goal Progress: Goal Met Goal 3:: LEFS 45/80 Goal Progress: Progressing slow Goal 4:: Walk community without increased pain. Goal Progress: Goal Met Goal 5:: Prepare pt with strength, weight loss and flex for possible eventual TKAs Goal Progress: continue I. Plan: d/c to [facility] Discharge Comments: Pt justin paolo gym ex on his own 3x/week and contact doctor if problems arise. If there are questions or concerns regarding this patient's physical therapy, please feel free to call me at [phone]. Thank you for the referral of this patient. Sincerely, Juan Majano, DPT, OCS, CSCS Balance/Gait/Functional tests - Balance/Special Test Scores Lower Extremity Functional Score: 36
== END 2021-06-04 19:00 | disposition home or self-care (01) ==
LOC: PT 14:30
PROVIDERS: PCP Internal Medicine; Referring Provider Specialist; Visit Provider Specialist
DX: M17.0 Bilateral primary osteoarthritis of knee (principal); E66.8 Other obesity
CPT/HCPCS: 97110; 97113; 97161; 97164; 97530

== ENCOUNTER 2021-07-01 16:09 | Outpatient (RCR) | payer MEDICARE, SELFPAY ==
[2021-04-20 14:09] VITALS: BMI 44.0
[2021-07-01 16:21] LABS: INR Fingerstick 2.5
== END 2021-07-01 18:00 | disposition home or self-care (01) ==
LOC: LAB 16:09
PROVIDERS: Family Provider Internal Medicine; PCP Internal Medicine; Referring Provider Internal Medicine Cardiovascular Disease; Visit Provider Internal Medicine Cardiovascular Disease
DX: I48.11 Longstanding persistent atrial fibrillation (principal); Z79.01 Long term (current) use of 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s
CPT/HCPCS: 36416; 85610

== ENCOUNTER 2021-08-09 15:04 | Outpatient (RCR) | payer MEDICARE, SELFPAY ==
[2021-07-06 20:00] VITALS: BMI 44.0
[2021-08-11 11:45] LABS: INR Fingerstick 2.8; Prothrombin Time Fingerstick 30.8 SEC (11.9-14.4)
== END 2021-09-05 03:32 | disposition home or self-care (01) ==
LOC: LAB 15:04
PROVIDERS: Family Provider Internal Medicine; PCP Internal Medicine; Referring Provider Internal Medicine Cardiovascular Disease; Visit Provider Internal Medicine Cardiovascular Disease
DX: I48.11 Longstanding persistent atrial fibrillation (principal); Z79.01 Long term (current) use of 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s
CPT/HCPCS: 36416; 85610

== ENCOUNTER 2021-09-20 16:24 | Outpatient (RCR) | payer MEDICARE, SELFPAY ==
[2021-09-05 03:32] VITALS: BMI 44.0
[2021-09-20 16:40] LABS: INR Fingerstick 3.1; Prothrombin Time Fingerstick 34.3 SEC (11.9-14.4)
== END 2021-10-05 18:00 | disposition home or self-care (01) ==
LOC: LAB 16:24
PROVIDERS: Family Provider Internal Medicine; PCP Internal Medicine; Referring Provider Internal Medicine Cardiovascular Disease; Visit Provider Internal Medicine Cardiovascular Disease
DX: I48.11 Longstanding persistent atrial fibrillation (principal); Z79.01 Long term (current) use of 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s
CPT/HCPCS: 36416; 85610

== ENCOUNTER 2021-10-19 15:51 | Outpatient (RCR) | payer MEDICARE, SELFPAY ==
[2021-10-06 02:12] VITALS: BMI 44.0
[2021-10-20 14:56] LABS: INR Fingerstick 3.4; Prothrombin Time Fingerstick 37.1 SEC (11.9-14.4)
== END 2021-11-06 18:00 | disposition home or self-care (01) ==
LOC: LAB 15:51
PROVIDERS: Family Provider Internal Medicine; PCP Internal Medicine; Referring Provider Internal Medicine Cardiovascular Disease; Visit Provider Internal Medicine Cardiovascular Disease
DX: I48.11 Longstanding persistent atrial fibrillation (principal); Z79.01 Long term (current) use of 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s
CPT/HCPCS: 36416; 85610

== ENCOUNTER → 2021-10-20 13:30 | Outpatient (CLI) | payer MEDICARE, SELFPAY ==
[2021-10-20 15:17] LABS: Absolute Lymphocyte Count 2.19 X10^3/uL (0.83-4.51); Absolute Neutrophil Count 5.4 X10^3/uL (2.0-7.7); Basophil# 0.05 X10^3/uL; Basophil% 0.6 % (0-1); Eosinophil# 0.38 X10^3/uL; Eosinophils% 4.3 % (0-5); Hematocrit 46.7 % (40-54); Hemoglobin 15.3 g/dL (13.0-16.5); Lymphocyte # 2.19 X10^3/ul (0.83-4.51); Lymphocyte % 24.6 % (19-41); Mean Corp Hgb Conc 32.8 g/dL (32-36); Mean Corpuscular Hgb 30.4 pg (27.0-32.0); Mean Corpuscular Volume 92.7 fL (80-94); Mean Platelet Vol. 11.9 fl (6.2-12.0); Monocyte# 0.82 X10^3/uL; Monocyte% 9.2 % (0-10); NRBC Flagged by Analyzer 0 % (0-5); Neutrophil # 5.38 X10^3/uL (2.7-7.7); Neutrophil % 60.4 % (47-70); Platelet Count 171 K/mm3 (150-450); RBC Distribution Width CV 14.7 % (11.6-14.6); RBC Distribution Width SD 50.5 fl (35.1-43.9); Red Blood Count 5.04 M/mm3 (4.6-6.2); White Blood Count 8.9 K/mm3 (4.4-11.0)
[2021-10-20 15:48] LABS: ALB/GLOB Ratio 0.9 RATIO (0.9-2.4); AST(SGOT) 14 U/L (15-37); Alanine Aminotransfer ALT/SGPT 32 U/L (16-61); Albumin, Serum 3.5 g/dL (3.2-5.0); Alkaline Phosphatase 95 U/L (45-117); Anion Gap 7 (5-15); BUN 24 mg/dL (7-18); BUN/Creat Ratio 16.9 RATIO (10-20); Calcium,Total 8.9 mg/dL (8.5-10.1); Chloride 104 mmol/L (98-107); Creatinine, Serum 1.42 mg/dL (0.70-1.30); EST Glomerular Filtration Rate 52 mL/min (>60); Est Glom Filt Rate - Afr Amer 63 mL/min (>60); Globulin 3.7 g/dL (2.2-4.2); Glucose 163 mg/dL (74-106); Potassium 4.5 mmol/L (3.5-5.1); Protein, Total 7.2 g/dL (6.4-8.2); Sodium Level 137 mmol/L (136-145)
[2021-10-20 15:56] LABS: Hemoglobin A1c 5.7 % (3.8-5.6)
== END ==
PROVIDERS: PCP Internal Medicine; Visit Provider Internal Medicine
DX: I10 Essential (primary) hypertension (principal); Z79.01 Long term (current) use of 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s; R73.03 Prediabetes
CPT/HCPCS: 36415; 80053; 83036; 85025

== ENCOUNTER → 2021-10-28 13:40 | Outpatient (CLI) | payer MEDICARE, SELFPAY ==
--- NOTE | 2021-10-28 13:43 | ART_ITS ---
Reason For Study: claudication Procedure A bilateral lower extremity continuous wave Doppler with analog waveform analysis and ankle brachial indexes. Left Segmental Pressures Left brachial= 107mmHg. Left posterior tibial artery = 70mmHg. Left dorsalis pedis artery = 90mmHg. Left digit = 33 mmHg. Right Segmental Pressures Right brachial= 112mmHg. Right posterior tibial artery = 79mmHg. Right dorsalis pedis artery = 89mmHg. Right digit = 27 mmHg. The right dorsalis pedis waveforms are monophasic. The right posterior tibial artery waveforms are monophasic. Indices The right ankle brachial index by the dorsalis pedis is .79. The right ankle brachial index by the posterior tibial artery is .71. The right digital-brachial index is .24. The left ankle brachial index by the posterior tibial artery is .63. The left ankle brachial index by the dorsalis pedis is .8. The left digital-brachial index is .29. VL/Ankle Brachial Index Interpretation Summary Bilateral mild to moderate occlusive disease with an FANI 0.79 and 0.8. Bilatera l monophasic flow. Digit brachial index 0.24 and 0.29. Ordering Physician: Minh Jarquin Referring Physician: Minh Jarquin Performed By: Rogelio Berkowitz RVT
== END ==
PROVIDERS: PCP Internal Medicine; Referring Provider Surgery Vascular Surgery; Visit Provider Surgery Vascular Surgery
DX: I70.213 Atherosclerosis of native arteries of extremities with intermittent claudication, bilateral legs (principal)
CPT/HCPCS: 93922

== ENCOUNTER 2021-11-24 10:15 | Outpatient (RCR) | payer MEDICARE, SELFPAY ==
[2021-11-07 04:00] VITALS: BMI 44.0
[2021-11-24 10:25] LABS: INR Fingerstick 2.5; Prothrombin Time Fingerstick 28.9 SEC (11.9-14.4)
== END 2021-12-06 18:00 | disposition home or self-care (01) ==
LOC: LAB 10:15
PROVIDERS: Family Provider Internal Medicine; PCP Internal Medicine; Referring Provider Internal Medicine Cardiovascular Disease; Visit Provider Internal Medicine Cardiovascular Disease
DX: I48.11 Longstanding persistent atrial fibrillation (principal); Z79.01 Long term (current) use of 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s
CPT/HCPCS: 36416; 85610

== ENCOUNTER 2022-01-03 16:07 | Outpatient (RCR) | payer MEDICARE, SELFPAY ==
[2021-12-06 22:47] VITALS: BMI 44.0
[2022-01-03 16:56] LABS: Prothrombin Time Fingerstick 33.7 SEC (11.9-14.4)
== END 2022-01-03 18:00 | disposition home or self-care (01) ==
LOC: LAB 16:07
PROVIDERS: Family Provider Internal Medicine; PCP Internal Medicine; Referring Provider Internal Medicine Cardiovascular Disease; Visit Provider Internal Medicine Cardiovascular Disease
DX: I48.11 Longstanding persistent atrial fibrillation (principal); Z79.01 Long term (current) use of 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s
CPT/HCPCS: 36416; 85610

== ENCOUNTER 2022-02-02 13:52 | Outpatient (RCR) | payer MEDICARE, SELFPAY ==
[2022-01-04 09:31] VITALS: BMI 44.0
[2022-02-02 14:11] LABS: INR Fingerstick 2.8; Prothrombin Time Fingerstick 31.7 SEC (11.7-14.9)
== END 2022-02-03 18:00 | disposition home or self-care (01) ==
LOC: LAB 13:52
PROVIDERS: Family Provider Internal Medicine; PCP Internal Medicine; Referring Provider Internal Medicine Cardiovascular Disease; Visit Provider Internal Medicine Cardiovascular Disease
DX: I48.11 Longstanding persistent atrial fibrillation (principal); Z79.01 Long term (current) use of 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s
CPT/HCPCS: 36416; 85610

== ENCOUNTER 2022-03-07 15:07 | Outpatient (RCR) | payer MEDICARE, SELFPAY ==
[2022-02-04 01:33] VITALS: BMI 44.0
[2022-03-07 15:21] LABS: INR Fingerstick 2.5; Prothrombin Time Fingerstick 28.5 SEC (11.7-14.9)
== END 2022-03-07 18:00 | disposition home or self-care (01) ==
LOC: LAB 15:07
PROVIDERS: Family Provider Internal Medicine; PCP Internal Medicine; Referring Provider Internal Medicine Cardiovascular Disease; Visit Provider Internal Medicine Cardiovascular Disease
DX: I48.11 Longstanding persistent atrial fibrillation (principal); Z79.01 Long term (current) use of 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s
CPT/HCPCS: 36416; 85610

== ENCOUNTER → 2022-03-17 | Outpatient (CLI) | payer MEDICARE, SELFPAY ==
[2022-03-17 15:57] LABS: Absolute Neutrophil Count 4.9 X10^3/uL (2.0-7.7); Basophil# 0.06 X10^3/uL; Basophil% 0.7 % (0-1); Eosinophil# 0.33 X10^3/uL; Eosinophils% 3.9 % (0-5); Hematocrit 49.6 % (40-54); Hemoglobin 16.1 g/dL (13.0-16.5); Lymphocyte % 25.1 % (19-41); Mean Corp Hgb Conc 32.5 g/dL (32-36); Mean Corpuscular Hgb 29.9 pg (27.0-32.0); Mean Corpuscular Volume 92.2 fL (80-94); Monocyte# 0.88 X10^3/uL; Monocyte% 10.5 % (0-10); NRBC Flagged by Analyzer 0 % (0-5); Neutrophil # 4.91 X10^3/uL (2.7-7.7); Neutrophil % 58.8 % (47-70); Platelet Count 158 K/mm3 (150-450); RBC Distribution Width CV 14.6 % (11.6-14.6); RBC Distribution Width SD 49.8 fl (35.1-43.9); Red Blood Count 5.38 M/mm3 (4.6-6.2); White Blood Count 8.4 K/mm3 (4.4-11.0)
[2022-03-17 16:18] LABS: Anion Gap 5 (5-15); BUN 29 mg/dL (7-18); BUN/Creat Ratio 20.6 RATIO (10-20); Calcium,Total 9.6 mg/dL (8.5-10.1); Chloride 104 mmol/L (98-107); Creatinine, Serum 1.41 mg/dL (0.70-1.30); EST Glomerular Filtration Rate 53 mL/min (>60); Est Glom Filt Rate - Afr Amer 64 mL/min (>60); Glucose 149 mg/dL (74-106); Potassium 3.8 mmol/L (3.5-5.1); Sodium Level 138 mmol/L (136-145)
== END | disposition home or self-care (01) ==
LOC: LAB 13:54
PROVIDERS: PCP Internal Medicine; Referring Provider Nurse Practitioner Gerontology; Visit Provider Nurse Practitioner Gerontology
DX: R53.83 Other fatigue (principal); Z79.01 Long term (current) use of 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s
CPT/HCPCS: 36415; 80048; 84443; 85025

== ENCOUNTER 2022-04-07 16:34 | Outpatient (RCR) | payer MEDICARE, SELFPAY ==
[2022-04-05 20:30] VITALS: BMI 44.0
[2022-04-07 16:45] LABS: INR Fingerstick 2.5; Prothrombin Time Fingerstick 28.7 SEC (11.7-14.9)
== END 2022-04-07 23:59 | disposition home or self-care (01) ==
LOC: LAB 16:34
PROVIDERS: Family Provider Internal Medicine; PCP Internal Medicine; Referring Provider Internal Medicine Cardiovascular Disease; Visit Provider Internal Medicine Cardiovascular Disease
DX: I48.11 Longstanding persistent atrial fibrillation (principal); Z79.01 Long term (current) use of 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s
CPT/HCPCS: 36416; 85610

== ENCOUNTER → 2022-04-08 | Outpatient (CLI) | payer MEDICARE, SELFPAY ==
--- NOTE | 2022-04-08 09:35 | HEM_PTH ---
PATIENT: NARCISO WINSTON LOC: [facility] U#:[id number] AGE/SX: 72/M ROOM: RE04/08/[address]: Dr. José Miguel Boyce MD : 1950 BED: DIS: 04/08/2022 SPEC #: [id number] RECD: 04/08/22 11:45 STATUS: CATALINA CHYNA #: [id number] [place]: 04/08/22 09:[address]: José Miguel Boyce DEPT: SURGICAL PATHOLOGY RECD BY: Martha Solomon ENTERED: 04/08/22 13:09 SP TYPE: HEMORRHOID OTHR DR: Dr. Carline Ramirez MD Tissues: HEMORRHOIDS Procedures: Surgery Specimen Level III HEADER OPERATION: Hemorrhoidectomy PRE-OP DIAGNOSIS: Thrombosed hemorrhoid TISSUE SUBMITTED: Hemorrhoid tissue MICROSCOPIC DIAGNOSIS Hemorrhoid tissue, hemorrhoidectomy: Submucosal vascular ectasia and thrombosis consistent with hemorrhoids. AM:ravin 04/11/2022 MICROSCOPIC DESCRIPTION Slides are reviewed. GROSS DESCRIPTION Received in fixative is one container labeled with the patient's name and designated hemorrhoid. The specimen consists of multiple irregular fragments of pink-wright mucosa with hemorrhagic submucosal tissue that in aggregate measure 3 x 2.5 x 0.2 cm. The specimen is totally submitted in one cassette. / AM:ravin 04/08/2022 TC:5 CPT: 72128
== END | disposition home or self-care (01) ==
LOC: LABSPEC 12:17
PROVIDERS: PCP Internal Medicine; Visit Provider Surgery
DX: K64.5 Perianal venous thrombosis (principal)
CPT/HCPCS: 88304

== ENCOUNTER → 2022-04-20 | Outpatient (CLI) | payer MEDICARE, SELFPAY ==
[2022-04-20 15:21] LABS: Cholesterol 137 mg/dL (200); High Density Lipoprotein 31 mg/dL; PSA,Total - Annual Screen 4.09 ng/mL (0.00-4.00); Triglycerides 164 mg/dL; Very Low Density Lipoprotein 33 mg/dL (5-40)
== END | disposition home or self-care (01) ==
LOC: BIMLAB 13:02
PROVIDERS: PCP Internal Medicine; Referring Provider Internal Medicine; Visit Provider Internal Medicine
DX: I10 Essential (primary) hypertension (principal); N40.0 Benign prostatic hyperplasia without lower urinary tract symptoms; M1A.9XX0 Chronic gout, unspecified, without tophus (tophi); Z12.5 Encounter for screening for malignant neoplasm of prostate
CPT/HCPCS: 36415; 80061; 84153; 84550; G0103

== ENCOUNTER 2022-05-11 14:46 | Outpatient (RCR) | payer MEDICARE, SELFPAY ==
[2022-05-06 06:50] VITALS: BMI 44.0
[2022-05-11 17:06] LABS: International Normalized Ratio 2.4; Prothrombin Time (Protime)PT. 25.6 SECONDS (11.7-14.9)
== END 2022-06-05 02:08 | disposition home or self-care (01) ==
LOC: LAB 14:46
PROVIDERS: Family Provider Internal Medicine; PCP Internal Medicine; Referring Provider Internal Medicine Cardiovascular Disease; Visit Provider Internal Medicine Cardiovascular Disease
DX: I48.11 Longstanding persistent atrial fibrillation (principal); Z79.01 Long term (current) use of 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s
CPT/HCPCS: 36415; 85610

== ENCOUNTER 2022-06-16 13:30 | Outpatient (RCR) | payer MEDICARE, SELFPAY ==
[2022-06-05 02:08] VITALS: BMI 44.0
[2022-06-16 15:13] LABS: International Normalized Ratio 2.8; Prothrombin Time (Protime)PT. 29.3 SECONDS (11.7-14.9)
== END 2022-07-06 23:59 ==
LOC: BIMLAB 13:30
PROVIDERS: Family Provider Internal Medicine; PCP Internal Medicine; Referring Provider Internal Medicine Cardiovascular Disease; Visit Provider Internal Medicine Cardiovascular Disease
DX: I48.11 Longstanding persistent atrial fibrillation (principal); Z79.01 Long term (current) use of 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s
CPT/HCPCS: 36415; 85610

== ENCOUNTER 2022-07-21 16:28 | Outpatient (RCR) | payer MEDICARE, SELFPAY ==
[2022-07-07 00:10] VITALS: BMI 44.0
[2022-07-21 16:41] LABS: INR Fingerstick 3.1; Prothrombin Time Fingerstick 35.3 SEC (11.7-14.9)
== END 2022-07-21 18:00 | disposition home or self-care (01) ==
LOC: LAB 16:28
PROVIDERS: Family Provider Internal Medicine; PCP Internal Medicine; Referring Provider Internal Medicine Cardiovascular Disease; Visit Provider Internal Medicine Cardiovascular Disease
DX: I48.11 Longstanding persistent atrial fibrillation (principal); Z79.01 Long term (current) use of 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s
CPT/HCPCS: 36416; 85610

== ENCOUNTER 2022-08-22 14:01 | Outpatient (RCR) | payer MEDICARE, SELFPAY ==
[2022-08-05 20:36] VITALS: BMI 44.0
[2022-08-22 15:29] LABS: International Normalized Ratio 2.9; Prothrombin Time (Protime)PT. 29.8 SECONDS (11.7-14.9)
== END 2022-09-05 23:59 ==
LOC: BIMLAB 14:01
PROVIDERS: Family Provider Internal Medicine; PCP Internal Medicine; Referring Provider Internal Medicine Cardiovascular Disease; Visit Provider Internal Medicine Cardiovascular Disease
DX: I48.11 Longstanding persistent atrial fibrillation (principal); Z79.01 Long term (current) use of 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s
CPT/HCPCS: 36415; 85610

== ENCOUNTER 2022-09-30 16:22 | Outpatient (RCR) | payer MEDICARE, SELFPAY ==
[2022-09-06 00:09] VITALS: BMI 44.0
[2022-10-03 11:31] LABS: INR Fingerstick 2.4; Prothrombin Time Fingerstick 27.9 SEC (11.7-14.9)
== END 2022-10-05 18:00 | disposition home or self-care (01) ==
LOC: LAB 16:22
PROVIDERS: Family Provider Internal Medicine; PCP Internal Medicine; Referring Provider Internal Medicine Cardiovascular Disease; Visit Provider Internal Medicine Cardiovascular Disease
DX: I48.11 Longstanding persistent atrial fibrillation (principal); Z79.01 Long term (current) use of 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s
CPT/HCPCS: 36416; 85610

== ENCOUNTER → 2022-10-12 | Outpatient (CLI) | payer MEDICARE, SELFPAY ==
--- NOTE | 2022-10-12 12:56 | ECHOD_ITS ---
Reason For Study: AFIB/FLUTTER Procedure This was a 2D Doppler, Color Flow transthoracic echocardiogram. The study was technically difficult. Due to body habitus. Exam performed in department. Left Ventricle Normal LV size. Left ventricular systolic function is normal. The estimated ejection fraction is 55 %. No regional wall motion abnormalities noted. Right Ventricle Moderately dilated right ventricle. Mild to moderate global right ventricular systolic dysfunction. Atria The left atrium is severely enlarged. The right atrium is moderately enlarged. Tricuspid Valve Normal tricuspid valve. Mild tricuspid valve insufficiency. Pulmonary artery systolic pressure is 28 mmHg. Great Vessels Mildly dilated aortic root. The pulmonary artery is normal size. Inferior vena cava collapse with respiration. Pericardium/Pleural No pericardial effusion. MMode/2D Measurements & Calculations LVIDd: 5.4 cm IVSd: 1.1 cm Ao root diam: 4.1 cm LVIDs: 3.1 cm LVPWd: 1.2 cm RVDd: 3.5 cm FS: 42.3 % LAV(MOD-bp): 183.1 ml LA dimension(2D): 5.3 cm LA A4 area: 42.3 cm2 LAV(MOD-bp) Indexed: 67.9 ml/m2 LAV(MOD-sp2): 188.6 ml LAV(MOD-sp4): 175.2 ml RA A4 area: 36.1 cm2 Doppler Measurements & Calculations MV E max bina: 71.4 cm/sec Ao V2 max: 96.0 cm/sec LV V1 max: 63.5 cm/sec Ao max P.7 mmHg LV V1 max P.6 mmHg PA V2 max: 67.9 cm/sec TR max bina: 241.5 cm/sec TR max P.4 mmHg ECHO/Echo Complete Interpretation Summary Normal LV size. Left ventricular systolic function is normal. The estimated ejection fraction is 55 %. Mildly dilated aortic root. The left atrium is severely enlarged. The right atrium is moderately enlarged. Pulmonary artery systolic pressure is 28 mmHg. Ordering Physician: [place] Referring Physician: Carline Ramirez Performed By: Katie Saunders, RDCS, RVT
== END | disposition home or self-care (01) ==
LOC: CVS 12:55
PROVIDERS: PCP Internal Medicine; Referring Provider Internal Medicine Cardiovascular Disease; Visit Provider Internal Medicine Cardiovascular Disease
DX: I48.11 Longstanding persistent atrial fibrillation (principal)
CPT/HCPCS: 93306

== ENCOUNTER 2022-11-03 14:19 | Outpatient (RCR) | payer MEDICARE, SELFPAY ==
[2022-10-05 22:55] VITALS: BMI 44.0
[2022-11-03 14:36] LABS: INR Fingerstick 2.6; Prothrombin Time Fingerstick 30.3 SEC (11.7-14.9)
== END 2022-11-03 18:00 | disposition home or self-care (01) ==
LOC: LAB 14:19
PROVIDERS: Family Provider Internal Medicine; PCP Internal Medicine; Referring Provider Internal Medicine Cardiovascular Disease; Visit Provider Internal Medicine Cardiovascular Disease
DX: I48.11 Longstanding persistent atrial fibrillation (principal); Z79.01 Long term (current) use of 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s
CPT/HCPCS: 36416; 85610

== ENCOUNTER → 2022-11-03 | Outpatient (CLI) | payer MEDICARE, SELFPAY ==
--- NOTE | 2022-11-03 13:41 | ART_ITS ---
Reason For Study: ATHEROSCLEROSIS Procedure A bilateral lower extremity continuous wave Doppler with analog waveform analysis and ankle brachial indexes. Left Segmental Pressures Left brachial= 107mmHg. Left posterior tibial artery = 88mmHg. Left dorsalis pedis artery = 87mmHg. Left digit = 54 mmHg. The left posterior tibial artery waveforms are monophasic. The left dorsalis pedis waveforms are monophasic. Right Segmental Pressures Right brachial= 105mmHg. Right posterior tibial artery = 62mmHg. Right dorsalis pedis artery = 76mmHg. Right digit = 43 mmHg. The right posterior tibial artery waveforms are monophasic. The right dorsalis pedis waveforms are monophasic. Indices The right ankle brachial index by the posterior tibial artery is 0.58. The right ankle brachial index by the dorsalis pedis is 0.71. The right digital-brachial index is 0.40. The left ankle brachial index by the posterior tibial artery is 0.82. The left ankle brachial index by the dorsalis pedis is 0.81. The left digital-brachial index is 0.50. VL/Ankle Brachial Index Interpretation Summary Bilateral mild occlussive disease with FANI 0.71 and 0.82 and small vessel disea se with DBI 0.4 and 0.5. Ordering Physician: Minh Jarquin Referring Physician: Carline Ramirez Performed By: Power Plasencia RVT
== END | disposition home or self-care (01) ==
LOC: CVS 13:39
PROVIDERS: PCP Internal Medicine; Referring Provider Surgery Vascular Surgery; Visit Provider Surgery Vascular Surgery
DX: I70.213 Atherosclerosis of native arteries of extremities with intermittent claudication, bilateral legs (principal); I48.11 Longstanding persistent atrial fibrillation; Z79.01 Long term (current) use of 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s
CPT/HCPCS: 36416; 85610; 93922

== ENCOUNTER → 2022-11-04 | Outpatient (CLI) | payer MEDICARE, SELFPAY ==
[2022-11-04 12:28] LABS: Absolute Lymphocyte Count 2.13 X10^3/uL (0.83-4.51); Absolute Neutrophil Count 4.7 X10^3/uL (2.0-7.7); Basophil# 0.05 X10^3/uL; Basophil% 0.6 % (0-1); Eosinophil# 0.29 X10^3/uL; Eosinophils% 3.6 % (0-5); Hematocrit 48.3 % (40-54); Hemoglobin 15.8 g/dL (13.0-16.5); Lymphocyte # 2.13 X10^3/ul (0.83-4.51); Lymphocyte % 26.1 % (19-41); Mean Corp Hgb Conc 32.7 g/dL (32-36); Mean Corpuscular Hgb 30.3 pg (27.0-32.0); Mean Corpuscular Volume 92.7 fL (80-94); Monocyte# 0.89 X10^3/uL; Monocyte% 10.9 % (0-10); NRBC Flagged by Analyzer 0 % (0-5); Neutrophil # 4.73 X10^3/uL (2.7-7.7); Neutrophil % 57.9 % (47-70); Platelet Count 160 K/mm3 (150-450); RBC Distribution Width CV 14.2 % (11.6-14.6); RBC Distribution Width SD 48.5 fl (35.1-43.9); Red Blood Count 5.21 M/mm3 (4.6-6.2); White Blood Count 8.2 K/mm3 (4.4-11.0)
[2022-11-04 12:54] LABS: AST(SGOT) 15 U/L (15-37); Alanine Aminotransfer ALT/SGPT 30 U/L (16-61); Albumin, Serum 3.7 g/dL (3.2-5.0); Alkaline Phosphatase 76 U/L (45-117); Anion Gap 4 (5-15); BUN 28 mg/dL (7-18); BUN/Creat Ratio 18.5 RATIO (10-20); Calcium,Total 9.2 mg/dL (8.5-10.1); Chloride 104 mmol/L (98-107); Creatinine, Serum 1.51 mg/dL (0.70-1.30); EST Glomerular Filtration Rate 48 mL/min (>60); Est Glom Filt Rate - Afr Amer 59 mL/min (>60); Globulin 3.6 g/dL (2.2-4.2); Glucose 116 mg/dL (74-106); Protein, Total 7.3 g/dL (6.4-8.2); Sodium Level 139 mmol/L (136-145)
[2022-11-08 10:05] LABS: Hemoglobin A1c 5.9 % (3.8-5.6)
== END | disposition home or self-care (01) ==
LOC: BIMLAB 11:34
PROVIDERS: PCP Internal Medicine; Referring Provider Internal Medicine; Visit Provider Internal Medicine
DX: R73.03 Prediabetes (principal)
CPT/HCPCS: 36415; 80053; 83036; 85025

== ENCOUNTER 2022-12-13 07:18 | Day surgery (SDC) | payer MEDICARE, SELFPAY ==
[2022-12-13] VITALS (7 sets, daily range): BP systolic 66–95; BP diastolic 41–57; PULSE 65–68; RESP 14–16; TEMP 36.2–36.6; O2SAT 95–96; BMI 42.5
--- NOTE | 2022-12-13 | COLBX_PTH ---
PATIENT: NARCISO WINSTON LOC: [facility] U#:[id number] AGE/SX: 72/M ROOM: RE12/13/[address]: Dr. José Miguel Boyce MD : 1950 BED: DIS: 12/13/2022 SPEC #: [id number] RECD: 12/13/22 12:30 STATUS: CATALINA CHYNA #: [id number] [place]: 12/13/22 00:[address]: José Miguel Boyce DEPT: SURGICAL PATHOLOGY RECD BY: Cecil Ayala ENTERED: 12/13/22 12:31 SP TYPE: COLON BX OTHR DR: Dr. Carline Ramirez MD Tissues: A - Ascending colon B - Transverse colon C - Descending colon D - Sigmoid colon biopsy E - Sigmoid colon biopsy F - Rectum, NOS Procedures: Surgery Specimen Level IV HEADER OPERATION: Colonoscopy (MAC) with biopsies, polypectomy and clip PRE-OP DIAGNOSIS: Rectal bleeding; history of colonic polyps; family history colon cancer TISSUE SUBMITTED: A ? Ascending colon polyp biopsy, B ? Mid transverse colon polyp biopsy, C ? Descending colon polyp, D ? Proximal sigmoid colon polyp, E ? Distal sigmoid polyp, F ? Rectum polyp biopsy MICROSCOPIC DIAGNOSIS A ? Ascending colon polyp, biopsy: Fragments of tubular adenoma. B ? Mid transverse colon polyp, biopsy: Consistent with inflammatory polyp. C ? Descending colon polyp, biopsy: Hyperplastic polyp. D ? Proximal sigmoid colon polyp, biopsy: Hyperplastic polyp. E ? Distal sigmoid polyp, biopsy: Hyperplastic polyp. F ? Rectum polyp biopsy: Consistent with benign mucosal polyp. SJ 12/14/22 MICROSCOPIC DESCRIPTION Slides are reviewed. GROSS DESCRIPTION A. Received is one container labeled with the patient name and designated ascending colon. The specimen consists of two irregular fragments of light wright soft tissue that in aggregate measure 0.6 x 0.3 x 0.1 cm. The specimen is totally submitted in one cassette. B: Received is one container labeled with the patient name and designated mid transverse colon. The specimen consists of two irregular fragments of light wright soft tissue that in aggregate measure 0.6 x 0.3 x 0.1 cm. The specimen is totally submitted in one cassette. C. Received is one container labeled with the patient name and designated descending colon. The specimen consists of one wright-pink polyp that measures 0.7 x 0.7 x 0.3 cm. The specimen is totally submitted in one cassette. D. Received is one container labeled with the patient name and designated proximal sigmoid colon. The specimen consists of one wright-pink polyp that measures 1.0 x 0.5 x 0.3 cm. The specimen is totally submitted in one cassette. E. Received is one container labeled with the patient name and designated distal sigmoid polyp. The specimen consists of one wright-pink polyp that measures 0.5 x 0.5 x 0.2 cm. The specimen is totally submitted in one cassette. F. Received is one container labeled with the patient name and designated rectum polyp. The specimen consists of one irregular fragment of light wright soft tissue that measures 0.3 x 0.3 x 0.1 cm. The specimen is totally submitted in one cassette. /AM:katharina 12/14/2022 TC:1 CPT: 90777 x6
--- NOTE | 2022-12-13 07:30 | PCM.HP.BLA ---
History and Physical Date of Admission: 12/13/22 Visit Reasons:?Blood In Stool/C Chief Complaint: blood in stool Is patient in pain?: No Allergies No Known Allergies Allergy (Verified 11/28/22 13:09) Medications metoprolol succinate 100 mg tablet,extended release 24 hr 100 mg PO BID #180 tabs 03/17/22 [Rx Confirmed 11/28/22] colchicine 0.6 mg tablet 0.3 mg PO PRN 04/18/22 [History Confirmed 11/28/22] lisinopril 20 mg tablet 10 mg PO DAILY 04/18/22 [History Confirmed 11/28/22] allopurinol 300 mg tablet 300 mg PO DAILY #90 tabs 04/19/22 [Rx Confirmed 11/28/22] amlodipine 10 mg tablet 10 mg PO DAILY #90 tabs 05/03/22 [Rx Confirmed 11/28/22] hydrochlorothiazide 25 mg tablet 25 mg PO DAILY #90 tabs 08/01/22 [Rx Confirmed 11/28/22] spironolactone 25 mg tablet 25 mg PO DAILY #90 tabs 08/01/22 [Rx Confirmed 11/28/22] amitriptyline 25 mg tablet 25 mg PO QHS #90 tabs 11/21/22 [Rx Confirmed 11/28/22] warfarin 4 mg tablet 4 mg PO .daily #90 tabs 11/21/22 [Rx Confirmed 11/28/22] PFSH Medical History?(Updated 11/28/22 @ 05:[address] José Miguel Boyce MD) Borderline type 2 diabetes mellitus BPH (benign prostatic hyperplasia) 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 Colon cancer screening Essential (primary) hypertension GI bleed Gout Inferior vena caval thrombosis Left bundle branch block (LBBB) longterm current use of 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 Longstanding persistent atrial fibrillation Neuropathy Obstructive sleep apnea Segmental and somatic dysfunction of cervical region Segmental and somatic dysfunction of lumbar region Segmental and somatic dysfunction of pelvic region Segmental and somatic dysfunction of thoracic region Tobacco use disorder, continuous Venous insufficiency Surgical History? History of arthroscopic knee surgery History of colonoscopy Family History? Father Parkinson's diseaseMother Heart valve replacement surgeryBrother Colon cancer Social History? Smoking Status:? Former smoker quit date: 09/06/17 alcohol intake:? current alcohol intake frequency: a few times a week Alcohol type: beer substance use type:? marijuana caffeine:? Yes (Occasional) what type of physical activity do you participate in:? bicycling frequency:? other HPI HPI HPI: 72-year-old gentleman.? I saw him April 08, 2022 regarding a thrombosed external hemorrhoid. He has had a past history of a anal fissurectomy and hemorrhoidectomy as well as a personal history of colon polyps.? He has IVC filter in place with inferior vena cava thrombosis and venous insufficiency and chronic warfarin anticoagulation.? At the time of his previous visit his body weight was 330 pounds with a BMI of 42.4.? We were able to care for him with complete excision of an extensive area of hemorrhoidal thrombosis in the office.? Conservative measures were recommended.? He is now referred by primary care physician Dr. Carline Ramirez for surgical consultation regarding rectal bleeding and a written copy of my surgical consult and recommendations will return to her.? Patient has a family history of colon cancer in his brother.? The patient's most recent colonoscopy was 2013.? As noted he is on Coumadin with an INR at that time was 2.6. Patient just prior to had an episode of rectal bleeding.? It was painless. He has a family history with a brother who had colon cancer.? The patient's most recent colonoscopy was performed through the [facility] on March 05, 2019.? The patient had an 8 mm polyp in the descending colon and a 5 mm polyp in the colon and a 3 mm polyp in the rectum tubular adenoma and tubular adenoma and hyperplastic polyp. Hot snare polypectomy was required for 2 those.? He has had previous polyps as well. He otherwise says his health looks been relatively stable.? His body weight does limit a lot of his activity ROS General General: Yes weight change and fatigue HEENT HEENT: No difficulty swallowing, eye injury, eye surgery, swollen glands or hoarseness Endo Endocrine: No thyroid disease, diabetes mellitus, thyroid cancer, Hair loss, heat intolerance or cold intolerance Skin Skin: Yes changing moles; No rash Musc Musculoskeletal: Yes back problems, arthritis and gout Cardio Cardiovascular: Yes atrial fibrillation and high blood pressure; No murmur, pacemaker, heart disease, heart attack, heart stent, palpitations, shortness of breat with exertion or chest pain Psych Psychiatric: Yes depression; No anxiety or hearing voices Resp Respiratory: Yes shortness of breath, Yes sleep apnea, No cough, No COPD, No asthma, No emphysema and No wheezing Gastro Gastrointestinal: No abdominal pain, No nausea or vomiting, No diarrhea, No constipation, Yes blood in stool, No acid reflux, Yes hemorrhoids, No ulcers, No gallbladder problem and No black,tarry stools Bruno Hematologic: Yes blood thinners Neuro Neurologic: Yes numbness and Yes tingling Exam Const General: cooperative, comfortable and no acute distress Nutritional Appearance: obese HENMT Head: normal to inspection Eyes General: appearance normal, both eyes and all related structures Resp Effort & Inspection: normal respiratory effort Auscultation: clear to auscultation bilaterally Cardio Other: Irregular GI Other: Body habitus prohibits palpation of internal organs, nontender, normal bowel sounds Skin Other: Bilateral lower extremities demonstrate hyperpigmentation and nonpitting edema Neuro General: patient alert and patient awake Extrem General: no calf tenderness Psych Appearance: grossly normal Assessment and Plan Assessment and Plan (1) Rectal bleeding: ?Status:?Acute (2) Personal history of colonic polyps: ?Status:?Acute (3) Family history of colon cancer: ?Status:?Acute Plan Family history of colon cancer in her brother who is possibly age 50.? Episode of rectal bleeding.? Personal history of colon polyps and personal history of anal fissure.? I have assisted him with a thrombosed external hemorrhoid. I propose for him a colonoscopy with possible biopsy or polypectomy as indicated.? We will have him hold his Coumadin for 2 days.? He is aware of the technique, benefit, risk of alternatives.? We will perform this with monitored anesthesia care.? Very careful inspection of the anal rectal area will be pursued. I have briefly discussed with the patient that I do not think that a PPH stapled hemorrhoidopexy would be a good procedure for him.? We will need to investigate whether he might be a candidate for surgical hemorrhoidectomy however again based upon his body habitus this might not be a galicia procedure either.? We will make recommendations at the conclusion of the colonoscopy. He is aware of technique, benefit, risk of alternatives.? I appreciate the ongoing opportunity of assisting with the surgical care. Copy: Dr. Carline Boyce M.D., F.A.C.S I have examined the patient and the H&P has been reviewed. There are no clinical changes since date of exam. José Miguel Boyce M.D., F.A.C.S.
[2022-12-13] MEDS: Lactated Ringers 1,000 ML 15 ML IV (08:16)
[2022-12-13] MEDS: 0.9% Saline Lock 10 ML Syringe IV (09:06)
--- NOTE | 2022-12-13 09:26 | OP.COLON_ITS ---
Patient Name: Vidal Conway Procedure Date: 12/13/2022 8:37 AM Date of : 1950 Age: 72 Procedure: Colonoscopy Indications: High risk colon cancer surveillance: Personal history of colonic polyps Providers: José Miguel Boyce MD Referring MD: José Miguel Boyce MD Medicines: See the Anesthesia note for documentation of the administered medications Patient Profile: Last Colonoscopy: 2018. Complications: No immediate complications. Procedure: Pre-Anesthesia Assessment: - Prior to the procedure, a History and Physical was performed, and patient medications and allergies were reviewed. The patient's tolerance of previous anesthesia was also reviewed. The risks and benefits of the procedure and the sedation options and risks were discussed with the patient. All questions were answered, and informed consent was obtained. Prior Anticoagulants: The patient has taken Coumadin (warfarin), last dose was 3 days prior to procedure. ASA Grade Assessment: III - A patient with severe systemic disease. After reviewing the risks and benefits, the patient was deemed in satisfactory condition to undergo the procedure. After I obtained informed consent, the scope was passed under direct vision. Throughout the procedure, the patient's blood pressure, pulse, and oxygen saturations were monitored continuously. The adult colonoscope was introduced through the anus and advanced to the cecum, identified by appendiceal orifice and ileocecal valve. The colonoscopy was performed without difficulty. The patient tolerated the procedure well. The quality of the bowel preparation was adequate to identify polyps. The ileocecal valve was photographed. Scope In: 8:47:05 AM Scope Withdrawal Time 0 hours 24 minutes 37 seconds Scope Out: 9:16:18 AM Total Procedure Duration Time 0 hours 29 minutes 13 seconds Findings: Hemorrhoids were found on perianal exam. A 3 mm polyp was found in the mid ascending colon. The polyp was sessile. The polyp was removed with a cold biopsy forceps. Resection and retrieval were complete. A 3 mm polyp was found in the mid transverse colon. The polyp was sessile. The polyp was removed with a cold biopsy forceps. Resection and retrieval were complete. A 9 mm polyp was found in the mid descending colon. The polyp was sessile. The polyp was removed with a hot snare. The polyp was removed with a saline injection-lift technique using a hot snare. Resection and retrieval were complete. To prevent bleeding post-intervention, one hemostatic clip was successfully placed. There was no bleeding at the end of the procedure. A 5 mm polyp was found in the proximal sigmoid colon. The polyp was sessile. The polyp was removed with a hot snare. Resection and retrieval were complete. To prevent bleeding post-intervention, one hemostatic clip was successfully placed. There was no bleeding at the end of the procedure. A 3 mm polyp was found in the distal sigmoid colon. The polyp was sessile. The polyp was removed with a cold biopsy forceps. Resection and retrieval were complete. A 4 mm polyp was found in the rectum. The polyp was sessile. The polyp was removed with a cold biopsy forceps. Resection and retrieval were complete. Impression: - Hemorrhoids found on perianal exam. - One 3 mm polyp in the mid ascending colon, removed with a cold biopsy forceps. Resected and retrieved. - One 3 mm polyp in the mid transverse colon, removed with a cold biopsy forceps. Resected and retrieved. - One 9 mm polyp in the mid descending colon, removed with a hot snare and removed using injection-lift and a hot snare. Resected and retrieved. Clip was placed. - One 5 mm polyp in the proximal sigmoid colon, removed with a hot snare. Resected and retrieved. Clip was placed. - One 3 mm polyp in the distal sigmoid colon, removed with a cold biopsy forceps. Resected and retrieved. - One 4 mm polyp in the rectum, removed with a cold biopsy forceps. Resected and retrieved. Recommendation: - Discharge patient to home. - Resume previous diet. - Continue present medications. - Repeat colonoscopy in 3 years for surveillance. - Telephone my office for pathology results in 1 week. Resume coumadin tomorrow if no bleeding Procedure Code(s): --- Professional --- 12312, Colonoscopy, flexible; with removal of tumor(s), polyp(s), or other lesion(s) by snare technique 34263, 59, Colonoscopy, flexible; with biopsy, single or multiple 99193, Colonoscopy, flexible; with directed submucosal injection(s), any substance Diagnosis Code(s): --- Professional --- Z86.010, Personal history of colonic polyps K64.9, Unspecified hemorrhoids D12.2, Benign neoplasm of ascending colon D12.3, Benign neoplasm of transverse colon (hepatic flexure or splenic flexure) D12.4, Benign neoplasm of descending colon D12.5, Benign neoplasm of sigmoid colon K62.1, Rectal polyp CPT copyright 2017 [employer]. All rights reserved. The codes documented in this report are preliminary and upon color blender review may be revised to meet current compliance requirements. José Miguel Boyce MD 12/13/2022 9:26:14 AM This report has been signed electronically. Number of Addenda: 0 Note Initiated On: 12/13/2022 8:37 AM
--- NOTE | 2022-12-13 09:27 | OP.CCLET_ITS ---
12/13/2022 Carline Ramirez MD [address] [place] [address] [place] [address] Re : Colonoscopy procedure for Vidal Conway Dear Dr. Ramirez This procedure was performed on Tuesday, December 13, 2022. My impressions and recommendations are as follows: Impressions : - Hemorrhoids found on perianal exam. - One 3 mm polyp in the mid ascending colon, removed with a cold biopsy forceps. Resected and retrieved. - One 3 mm polyp in the mid transverse colon, removed with a cold biopsy forceps. Resected and retrieved. - One 9 mm polyp in the mid descending colon, removed with a hot snare and removed using injection-lift and a hot snare. Resected and retrieved. Clip was placed. - One 5 mm polyp in the proximal sigmoid colon, removed with a hot snare. Resected and retrieved. Clip was placed. - One 3 mm polyp in the distal sigmoid colon, removed with a cold biopsy forceps. Resected and retrieved. - One 4 mm polyp in the rectum, removed with a cold biopsy forceps. Resected and retrieved. Recommendations : - Discharge patient to home. - Resume previous diet. - Continue present medications. - Repeat colonoscopy in 3 years for surveillance. - Telephone my office for pathology results in 1 week. Resume coumadin tomorrow if no bleeding My findings are described in the full procedure note, which is enclosed. If I can be of further assistance, please feel free to contact me at Doctor phone number(s): Work: . Sincerely, José Miguel Boyce MD 12/13/2022 9:26:14 AM This report has been signed electronically.
== END 2022-12-13 10:26 | disposition home or self-care (01) ==
LOC: EN 07:25 → AC 07:28
PROVIDERS: PCP Internal Medicine; Referring Provider Surgery; Visit Provider Surgery
PROC: 0DJD8ZZ Inspection of Lower Intestinal Tract, Via Natural or Artificial Opening Endoscopic (ICD-10-PCS; CPT 45378; principal; 2022-12-13 08:25)
DX: Z12.11 Encounter for screening for malignant neoplasm of colon (principal); I48.11 Longstanding persistent atrial fibrillation; Z86.718 Personal history of other venous thrombosis and embolism; Z87.19 Personal history of other diseases of the digestive system; Z87.891 Personal history of nicotine dependence; Z86.010 Personal history of colon polyps; I87.2 Venous insufficiency (chronic) (peripheral); Z79.01 Long term (current) use of 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s; K62.1 Rectal polyp; D12.2 Benign neoplasm of ascending colon; K64.4 Residual hemorrhoidal skin tags; I10 Essential (primary) hypertension; Z79.899 Other long term (current) drug therapy
CPT/HCPCS: 45380; 45385; 45381; 88305; J7120; A4216; J2405

== ENCOUNTER 2022-12-19 16:05 | Outpatient (RCR) | payer MEDICARE, SELFPAY ==
[2022-11-06 00:51] VITALS: BMI 44.0
[2022-12-19 16:15] LABS: INR Fingerstick 2.3; Prothrombin Time Fingerstick 26.4 SEC (11.7-14.9)
== END 2022-12-19 18:00 | disposition home or self-care (01) ==
LOC: LAB 16:05
PROVIDERS: Family Provider Internal Medicine; PCP Internal Medicine; Referring Provider Internal Medicine Cardiovascular Disease; Visit Provider Internal Medicine Cardiovascular Disease
DX: I48.11 Longstanding persistent atrial fibrillation (principal); Z79.01 Long term (current) use of 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s
CPT/HCPCS: 36416; 85610

== ENCOUNTER 2023-01-24 16:21 | Outpatient (RCR) | payer MEDICARE, SELFPAY ==
[2023-01-03 19:56] VITALS: BMI 44.0
[2023-01-24 16:30] LABS: Prothrombin Time Fingerstick 31.8 SEC (11.7-14.9)
== END 2023-02-03 21:43 | disposition home or self-care (01) ==
LOC: LAB 16:21
PROVIDERS: Family Provider Internal Medicine; PCP Internal Medicine; Referring Provider Internal Medicine Cardiovascular Disease; Visit Provider Internal Medicine Cardiovascular Disease
DX: I48.11 Longstanding persistent atrial fibrillation (principal); Z79.01 Long term (current) use of 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s
CPT/HCPCS: 36416; 85610

== ENCOUNTER 2023-02-28 15:32 | Outpatient (RCR) | payer MEDICARE, SELFPAY ==
[2023-02-03 21:43] VITALS: BMI 44.0
[2023-02-28 16:42] LABS: International Normalized Ratio 2.6; Prothrombin Time (Protime)PT. 27.8 SECONDS (11.7-14.9)
== END 2023-03-05 23:59 ==
LOC: BIMLAB 15:32
PROVIDERS: Family Provider Internal Medicine; PCP Internal Medicine; Referring Provider Internal Medicine Cardiovascular Disease; Visit Provider Internal Medicine Cardiovascular Disease
DX: I48.11 Longstanding persistent atrial fibrillation (principal); Z79.01 Long term (current) use of 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s
CPT/HCPCS: 36415; 85610

== ENCOUNTER 2023-03-29 13:07 | Outpatient (RCR) | payer MEDICARE, SELFPAY ==
[2023-03-06 00:11] VITALS: BMI 44.0
[2023-03-29 15:31] LABS: International Normalized Ratio 2.3; Prothrombin Time (Protime)PT. 25.1 SECONDS (11.7-14.9)
[2023-03-29 15:37] LABS: AST(SGOT) 17 U/L (15-37); Alanine Aminotransfer ALT/SGPT 31 U/L (16-61); Albumin, Serum 3.9 g/dL (3.2-5.0); Alkaline Phosphatase 94 U/L (45-117); Bilirubin, Direct 0.23 mg/dL (0.00-0.30); Cholesterol 104 mg/dL (200); High Density Lipoprotein 32 mg/dL; Protein, Total 7.9 g/dL (6.4-8.2); Triglycerides 128 mg/dL; Very Low Density Lipoprotein 26 mg/dL (5-40)
== END 2023-04-05 23:59 ==
LOC: BIMLAB 13:07
PROVIDERS: Family Provider Internal Medicine; PCP Internal Medicine; Referring Provider Internal Medicine Cardiovascular Disease; Visit Provider Internal Medicine Cardiovascular Disease
DX: I48.11 Longstanding persistent atrial fibrillation (principal); Z79.01 Long term (current) use of 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s
CPT/HCPCS: 36415; 80061; 80076; 85610

== ENCOUNTER 2023-05-02 16:04 | Outpatient (RCR) | payer MEDICARE, SELFPAY ==
[2023-04-06 00:16] VITALS: BMI 44.0
[2023-05-02 16:56] LABS: International Normalized Ratio 2.4; Prothrombin Time (Protime)PT. 26.5 SECONDS (11.7-14.9)
== END 2023-05-05 23:59 ==
LOC: BIMLAB 16:04
PROVIDERS: Family Provider Internal Medicine; PCP Internal Medicine; Referring Provider Internal Medicine Cardiovascular Disease; Visit Provider Internal Medicine Cardiovascular Disease
DX: I48.11 Longstanding persistent atrial fibrillation (principal); Z79.01 Long term (current) use of 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s
CPT/HCPCS: 36415; 85610

== ENCOUNTER → 2023-05-11 | Outpatient (CLI) | payer MEDICARE, SELFPAY ==
[2023-05-11 15:10] LABS: Absolute Lymphocyte Count 1.99 X10^3/uL (0.83-4.51); Absolute Neutrophil Count 5.3 X10^3/uL (2.0-7.7); Basophil# 0.09 X10^3/uL; Basophil% 1.1 % (0-1); Eosinophil# 0.39 X10^3/uL; Eosinophils% 4.6 % (0-5); Hematocrit 49.2 % (40-54); Hemoglobin 16.3 g/dL (13.0-16.5); Lymphocyte # 1.99 X10^3/ul (0.83-4.51); Lymphocyte % 23.2 % (19-41); Mean Corp Hgb Conc 33.1 g/dL (32-36); Mean Corpuscular Hgb 30.8 pg (27.0-32.0); Mean Platelet Vol. 12.3 fl (6.2-12.0); Monocyte# 0.73 X10^3/uL; Monocyte% 8.5 % (0-10); NRBC Flagged by Analyzer 0 % (0-5); Neutrophil # 5.25 X10^3/uL (2.7-7.7); Neutrophil % 61.2 % (47-70); Platelet Count 144 K/mm3 (150-450); RBC Distribution Width CV 14.6 % (11.6-14.6); RBC Distribution Width SD 50.1 fl (35.1-43.9); Red Blood Count 5.29 M/mm3 (4.6-6.2); White Blood Count 8.6 K/mm3 (4.4-11.0)
[2023-05-11 15:12] LABS: Bacteria 0 SEEN /hpf (None Seen); Mucous, Urine 0 SEEN /hpf (<or=2+); Red Blood Cells-Urine 0 SEEN /hpf (0-5); Squamous Epithelial Cells - UA 0 SEEN /hpf (0-5)
[2023-05-11 15:49] LABS: ALB/GLOB Ratio 0.9 RATIO (0.9-2.4); AST(SGOT) 17 U/L (15-37); Alanine Aminotransfer ALT/SGPT 27 U/L (16-61); Albumin, Serum 3.4 g/dL (3.2-5.0); Alkaline Phosphatase 97 U/L (45-117); Anion Gap 6 (5-15); BUN 21 mg/dL (7-18); BUN/Creat Ratio 13.8 RATIO (10-20); Calcium,Total 9.2 mg/dL (8.5-10.1); Chloride 104 mmol/L (98-107); Creatinine, Serum 1.52 mg/dL (0.70-1.30); EST Glomerular Filtration Rate 48 mL/min (>60); Est Glom Filt Rate - Afr Amer 58 mL/min (>60); Globulin 3.9 g/dL (2.2-4.2); Glucose 215 mg/dL (74-106); PSA,Total - Annual Screen 5.09 ng/mL (0.00-4.00); Protein, Total 7.3 g/dL (6.4-8.2); Sodium Level 137 mmol/L (136-145); Thyroid Stim Hormone (TSH) 1.31 uIU/mL (0.358-3.74)
[2023-05-11 16:44] LABS: Color, Urine Yellow (Yellow); Glucose, Dipstick Normal (Normal); Ketone-Dipstick 5 mg/dl (Negative); Leukocyte Esterase-Dipstick 500 /ul (Negative); Nitrite-Dipstick Negative (Negative); Occult Blood-Urine 10 /ul (Negative); Protein-Dipstick 15 mg/dl (Negative); Urine Bilirubin Dipstick Negative (Negative); Urine Clarity Sl. Cloudy (Clear); Urine Urobilinogen Normal (Normal)
[2023-05-11 17:04] LABS: White Blood Cells 0-5 SEEN /hpf (0-5)
== END | disposition home or self-care (01) ==
LOC: BIMLAB 14:41
PROVIDERS: PCP Internal Medicine; Visit Provider Internal Medicine
DX: N40.0 Benign prostatic hyperplasia without lower urinary tract symptoms (principal); I10 Essential (primary) hypertension; R53.82 Chronic fatigue, unspecified
CPT/HCPCS: 36415; 80053; 81001; 84153; 84439; 84443; 85025; G0103

== ENCOUNTER 2023-06-05 14:55 | Outpatient (RCR) | payer MEDICARE, SELFPAY ==
[2023-05-06 00:39] VITALS: BMI 44.0
[2023-06-05 17:05] LABS: International Normalized Ratio 2.5; Prothrombin Time (Protime)PT. 27.5 SECONDS (11.7-14.9)
== END 2023-06-05 23:59 ==
LOC: BIMLAB 14:55
PROVIDERS: Family Provider Internal Medicine; PCP Internal Medicine; Referring Provider Internal Medicine Cardiovascular Disease; Visit Provider Internal Medicine Cardiovascular Disease
DX: I48.11 Longstanding persistent atrial fibrillation (principal); Z79.01 Long term (current) use of 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s
CPT/HCPCS: 36415; 85610

== ENCOUNTER 2023-06-10 14:12 | Emergency (ER) | payer MEDICARE, SELFPAY ==
[2023-06-10 14:13] VITALS: BP 112/75; PULSE 87; RESP 14; TEMP 36.3; O2SAT 97; BMI 42.4
--- NOTE | 2023-06-10 14:46 | EX.ED.GENINJ ---
HPI <DERIK Gonzalez - Last Filed: 06/10/23 16:13> History of Present Illness Chief Complaint: Laceration Narrative Narrative: Patient was trimming trees and a log on the ground rolled that had a small piece sticking out that lacerated his left lower leg. Bleeding was controlled at home with a towel and tape. He is on warfarin for history of A-fib. Last tetanus unknown. PFSH <DERIK Gonzalez - Last Filed: 06/10/23 16:13> [facility] Medical History (Updated 06/10/23 @ 15:35 by DERIK Gonzalez) Alcohol use Arthritis Back pain Borderline type 2 diabetes mellitus BPH (benign prostatic hyperplasia) Cardiology follow-up encounter Chronic fatigue 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 Colon cancer screening CPAP (continuous positive airway pressure) dependence Essential (primary) hypertension Former smoker GI bleed Gout High cholesterol History of atrial fibrillation History of echocardiogram History of edema History of stress test Hypertension Inferior vena caval thrombosis Injury of head and neck Left bundle branch block (LBBB) snf current use of 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 Longstanding persistent atrial fibrillation Loss of hearing Neuropathy Obstructive sleep apnea PVD (peripheral vascular disease) Segmental and somatic dysfunction of cervical region Segmental and somatic dysfunction of lumbar region Segmental and somatic dysfunction of pelvic region Segmental and somatic dysfunction of thoracic region Shortness of breath on exertion Tobacco use disorder, continuous Venous insufficiency Home Medications colchicine (gout) 0.6 mg tablet 0.3 mg PO PRN PRN BP 04/18/22 [History Last Taken Unknown] spironolactone 25 mg tablet 25 mg PO DAILY #90 tabs 08/01/22 [Rx Last Taken Unknown] amitriptyline 25 mg tablet 25 mg PO QHS #90 tabs 11/21/22 [Rx Last Taken Unknown] atorvastatin 10 mg tablet 10 mg PO QHS #90 tabs 11/30/22 [Rx Last Taken Unknown] warfarin 4 mg tablet 4 mg PO DAILY 12/08/22 [History Last Taken 12/10/22] metoprolol succinate 100 mg tablet,extended release 24 hr 100 mg PO DAILY #90 tabs 04/05/23 [Rx Last Taken Unknown] allopurinol 300 mg tablet 300 mg PO DAILY #90 tabs 04/26/23 [Rx Last Taken Unknown] lisinopril 20 mg tablet See Rx Instructions .Route .COMPLEX 05/11/23 [History Last Taken Unknown] tamsulosin 0.4 mg capsule 0.4 mg PO QHS #60 caps 05/11/23 [Rx Last Taken Unknown] Allergy/AdvReac Type Severity Reaction Status Date / Time No Known Allergies Allergy Verified 05/11/23 14:04 Family History Father Parkinson's disease Mother Heart valve replacement surgery Brother Colon cancer Surgical History History of arthroscopic knee surgery History of colonoscopy Social History Smoking Status: Former smoker quit date: 09/06/17 alcohol intake: current alcohol intake frequency: a few times a week Alcohol type: beer substance use type: marijuana caffeine: Yes (Occasional) what type of physical activity do you participate in: bicycling frequency: other ROS <DERIK Gonzalez - Last Filed: 06/10/23 16:13> ROS ED ROS Narrative Neuro: Negative for motor/sensory dysfunction. Skin: Positive for wound. Musc: Negative for joint pain, swelling. EXAM <DERIK Gonzalez - Last Filed: 06/10/23 16:13> Physical Exam Narrative Exam Narrative: CONST: Patient sitting in no acute distress. EYES: Normal inspection. NECK: Normal inspection. RESP: No respiratory distress, CTAB. CVS: Regular rate and rhythm, no murmur, no gallop. SKIN: 9 cm length laceration left luz, open to level of subcutaneous tissue and fascia. No bleeding or foreign body. EXTREMITIES: Normal appearance, 2+ DP pulses. NEURO: Oriented x4. PSYCH: Normal affect. Const Vital Signs: 06/10/23 14:13 Temperature 97.4 F L Temperature Source Temporal Pulse Rate 87 Respiratory Rate 14 Blood Pressure 112/75 Blood Pressure Mean 87 Pulse Ox 97 Oxygen Delivery Method Room Air <Dr. Ulises Pringle DO - Last Filed: 06/10/23 16:38> Physical Exam Const Vital Signs: 06/10/23 14:13 Temperature 97.4 F L Temperature Source Temporal Pulse Rate 87 Respiratory Rate 14 Blood Pressure 112/75 Blood Pressure Mean 87 Pulse Ox 97 Oxygen Delivery Method Room Air MDM <DEIRK Gonzalez - Last Filed: 06/10/23 16:13> MDM MDM Narrative Medical decision making narrative: Patient has 9 cm gaping laceration on his left luz from a log. The top portion of the laceration appears to have the skin avulsed and its to the level of the subcutaneous fat and fascia. Bleeding has stopped and extremity is neurovascularly intact. I anesthetized the wound with 1% lidocaine and thoroughly irrigated with 500 cc of sterile saline. It was prepped and draped in sterile condition and closed (see procedure note). Tetanus updated. Patient given return precautions and I discussed activity modification as it is at high risk of dehiscence. I provided a plastic surgery referral and he was discharged in stable condition. Procedure note: Left leg prepped and draped condition. I placed a total of 7 horizontal mattress sutures and 2 simple interrupted sutures of 4-0 Ethilon. Ther lower portion was approximated and the upper portion where there is a skin avulsion was more loosely approximated since it is under high tension and would not fully come together. Wound was dressed with bacitracin and a bandage. <Dr. Ulises Pringle, DO - Last Filed: 06/10/23 16:38> [facility] MDM Narrative Medical decision making narrative: Patient has 9 cm gaping laceration on his left luz from a log. The top portion of the laceration appears to have the skin avulsed and its to the level of the subcutaneous fat and fascia. Bleeding has stopped and extremity is neurovascularly intact. I anesthetized the wound with 1% lidocaine and thoroughly irrigated with 500 cc of sterile saline. It was prepped and draped in sterile condition and closed (see procedure note). Tetanus updated. Patient given return precautions and I discussed activity modification as it is at high risk of dehiscence. I provided a plastic surgery referral and he was discharged in stable condition. Procedure note: Left leg prepped and draped condition. I placed a total of 7 horizontal mattress sutures and 2 simple interrupted sutures of 4-0 Ethilon. Ther lower portion was approximated and the upper portion where there is a skin avulsion was more loosely approximated since it is under high tension and would not fully come together. Wound was dressed with bacitracin and a bandage. This patient was seen with a PA/MAINTENANCE ENGINEER [employer] Individually assessed they patient including history and physical. I have reviewed everything on the chart that is available and agree with the documentation provided by the PA/MAINTENANCE [employer] including discussion about the assessment, treatment plan, discussion, and return precautions. Patient would like to gain laceration to the lower leg from log. Bleeding is controlled. There is some avulsion of some of the skin. Wound was thoroughly cleaned and excised sutured using horizontal sutures. It was approximated as well as possible. See procedure note. Dressings were applied and he is given. Plastic surgery for follow-up Discharge Plan Triage Chief Complaint: Laceration ED Midlevel Provider: Galina Saldaña ED Provider: Ulises Pringle Dx/Rx/DC Orders Clinical Impression: Laceration of left leg Instructions: ED Laceration Extremity Prescriptions: No Action colchicine (gout) 0.6 mg tablet 0.3 mg PO PRN PRN (Reason: BP) Patient Comments: take 2 tablets by mouth then 1 tablet 1 hour LATER FOR ACUTE FLAIR then take 1 tablet twice a day metoprolol succinate 100 mg tablet extended release 24 hr 100 mg PO DAILY Qty: 90 3RF lisinopril 20 mg tablet See Rx Instructions .ROUTE .COMPLEX Dose Instruction: TAKE 1 TABLET TWICE A DAY Rx Instructions: TAKE 1 TABLET DAILY tamsulosin 0.4 mg capsule 0.4 mg PO QHS Qty: 60 1RF warfarin 4 mg tablet 4 mg PO DAILY Protocol: Dose Management Condition: Monday Dose/Route: 4 mg Instruction: 1 x 4 mg tablet Condition: Monday Dose/Route: 4 mg Instruction: 1 x 4 mg tablet Condition: Monday Dose/Route: 4 mg Instruction: 1 x 4 mg tablet Condition: Monday Dose/Route: 4 mg Instruction: 1 x 4 mg tablet Condition: Dose/Route: 4 mg Instruction: 1 x 4 mg tablet Condition: Monday Dose/Route: 4 mg Instruction: 1 x 4 mg tablet Condition: Monday Dose/Route: 4 mg Instruction: 1 x 4 mg tablet Protocol Text: Adjustment Start Date: Monday06/07/23 INR Value: 2.5 INR Date: 06/05/23 Recheck Date: 07/05/23 spironolactone 25 mg tablet 25 mg PO DAILY Qty: 90 3RF amitriptyline 25 mg tablet 25 mg PO QHS Qty: 90 3RF atorvastatin 10 mg tablet 10 mg PO QHS Qty: 90 3RF allopurinol 300 mg tablet 300 mg PO DAILY Qty: 90 3RF Primary Care Provider: Carline Ramirez Referrals: Carline Ramirez MD [Primary Care Provider] - Yoli Person MD [Med Staff - Active Staff] - Activity Restrictions/Additional Instructions: Keep clean and covered and have stitches removed in 2 weeks. If any signs of infection develop be evaluated immediately. The wound is under high tension so please do not stress the area with increased activity. I recommend following up with a plastic surgeon and I provided her number above. Disposition Disposition: Home, Self Care Discharge Date/Time: 06/10/23 16:13
[2023-06-10] MEDS: Diphth,Pertuss(Acell),Tet Vac 0.5 ML Vial IM (14:56)
[2023-06-10] MEDS: Lidocaine 1% (20 ml mdv) 20 ML Vial INFILT (14:56)
== END 2023-06-10 16:13 | disposition home or self-care (01) ==
PROVIDERS: Emergency Provider Student in an Organized Health Care Education/Training Program; PCP Internal Medicine; Visit Provider Student in an Organized Health Care Education/Training Program
DX: S81.812A Laceration without foreign body, left lower leg, initial encounter (principal); I48.91 Unspecified atrial fibrillation; E78.00 Pure hypercholesterolemia, unspecified; Z87.891 Personal history of nicotine dependence; I10 Essential (primary) hypertension; W26.8XXA Contact with other sharp object(s), not elsewhere classified, initial encounter; Z79.01 Long term (current) use of 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s; Z23 Encounter for immunization
CPT/HCPCS: 12034; 90471; 90715; 99283

== ENCOUNTER 2023-07-03 14:07 | Outpatient (RCR) | payer MEDICARE, SELFPAY ==
[2023-06-06 00:13] VITALS: BMI 44.0
[2023-07-03 15:42] LABS: International Normalized Ratio 2.1; Prothrombin Time (Protime)PT. 23.4 SECONDS (11.7-14.9)
[2023-07-03 16:29] LABS: Hemoglobin A1c 5.8 % (3.8-5.6)
[2023-07-03 16:30] LABS: Anion Gap 6 (5-15); BUN 21 mg/dL (7-18); BUN/Creat Ratio 14.6 RATIO (10-20); Calcium,Total 9.3 mg/dL (8.5-10.1); Chloride 104 mmol/L (98-107); Creatinine, Serum 1.44 mg/dL (0.70-1.30); EST Glomerular Filtration Rate 51 mL/min (>60); Est Glom Filt Rate - Afr Amer 62 mL/min (>60); Glucose 206 mg/dL (74-106); Potassium 3.5 mmol/L (3.5-5.1); Sodium Level 138 mmol/L (136-145)
== END 2023-07-06 23:59 ==
LOC: BIMLAB 14:07
PROVIDERS: Physician Assistant Medical; Family Provider Internal Medicine; PCP Internal Medicine; Referring Provider Internal Medicine Cardiovascular Disease; Visit Provider Internal Medicine Cardiovascular Disease
DX: I48.11 Longstanding persistent atrial fibrillation (principal); Z79.01 Long term (current) use of 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s; R53.82 Chronic fatigue, unspecified; R73.03 Prediabetes; N28.9 Disorder of kidney and ureter, unspecified; N40.1 Benign prostatic hyperplasia with lower urinary tract symptoms; R39.14 Feeling of incomplete bladder emptying
CPT/HCPCS: 36415; 80048; 83036; 84153; 85610

== ENCOUNTER 2023-07-06 10:45 | Outpatient (RCR) | payer MEDICARE, SELFPAY ==
[2023-06-15 11:25] VITALS: BP 127/85; PULSE 85; RESP 18; TEMP 35.7; BMI 42.3
--- NOTE | 2023-06-15 12:48 | PCM.WC.HP ---
History of Present Illness Date of Service: 06/15/23 Chief Complaint: Leg wound History of Wound: Mr. Conway is a 73-year-old well-known to me. Seen in the office yesterday and was advised that he come to the wound center for wound care. Wound breakdown following suturing at the ER on Monday. Elier noted during his office visit yesterday and the recommendation was made for him to come to the wound center. Did not dress wound as recommended yesterday. Some pain but not significant pain. No fever, chills or otherwise feeling of unwell. 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 of 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 Longstanding persistent atrial fibrillation Loss of hearing Neuropathy Obstructive sleep apnea PVD (peripheral vascular disease) Segmental and somatic dysfunction of cervical region Segmental and somatic dysfunction of lumbar region Segmental and somatic dysfunction of pelvic region Segmental and somatic dysfunction of thoracic region Shortness of breath on exertion Tobacco use disorder, continuous Venous insufficiency Home Medications colchicine (gout) 0.6 mg tablet 0.3 mg PO PRN PRN BP 04/18/22 [History Last Taken Unknown] spironolactone 25 mg tablet 25 mg PO DAILY #90 tabs 08/01/22 [Rx Last Taken Unknown] amitriptyline 25 mg tablet 25 mg PO QHS #90 tabs 11/21/22 [Rx Last Taken Unknown] atorvastatin 10 mg tablet 10 mg PO QHS #90 tabs 11/30/22 [Rx Last Taken Unknown] warfarin 4 mg tablet 4 mg PO DAILY 12/08/22 [History Last Taken 12/10/22] metoprolol succinate 100 mg tablet,extended release 24 hr 100 mg PO DAILY #90 tabs 04/05/23 [Rx Last Taken Unknown] allopurinol 300 mg tablet 300 mg PO DAILY #90 tabs 04/26/23 [Rx Last Taken Unknown] lisinopril 20 mg tablet See Rx Instructions .Route .COMPLEX 05/11/23 [History Last Taken Unknown] tamsulosin 0.4 mg capsule 0.4 mg PO QHS #60 caps 05/11/23 [Rx Last Taken Unknown] cephalexin 500 mg capsule 500 mg PO TID #21 caps 06/14/23 [Rx Last Taken Unknown] doxycycline monohydrate 100 mg capsule 100 mg PO BID #14 caps 06/14/23 [Rx Last Taken Unknown] Allergy/AdvReac Type Severity Reaction Status Date / Time No Known Allergies Allergy Verified 06/14/23 11:12 Family History Father Parkinson's disease Mother Heart valve replacement surgery Brother Colon cancer Surgical History History of arthroscopic knee surgery History of colonoscopy Social History Smoking Status: Former smoker quit date: 09/06/17 alcohol intake: current alcohol intake frequency: a few times a week Alcohol type: beer substance use type: marijuana caffeine: Yes (Occasional) what type of physical activity do you participate in: bicycling frequency: other ROS Constitutional Constitutional: Denies body ache(s), change in weight, fatigue, frequent falls, headache(s), increased appetite, lethargy, malaise or night sweats Eyes Eyes: Denies bloody eye, blurry vision, change in eye color, change in vision, decreased night vision, discongugate gaze, double vision or dry eyes ENT HEENT: Denies dysphagia, ear discharge, epistaxis, facial pain, foreign body in nose, halitosis, headache(s) or hearing loss Cardiovascular Cardiovascular: Reports edema; Denies abdominal edema, clubbing, cold extremities, diaphoresis, dyspnea at rest or fatigue Respiratory/Chest Respiratory/Chest: Denies difficulty clearing secretions, dry cough, hemoptysis, hoarseness, inability to speak or mouth breathing Gastrointestinal Gastrointestinal: Denies change in bowel habits, chewing difficulty, coffee ground emesis, constipation, early satiety or excessive flatus Genitourinary Genitourinary: Denies abdominal discomfort, flank pain or low back pain Musculoskeletal Musculoskeletal: Denies deformity, difficulty walking, extremity pain, joint stiffness, loss of height, muscle weakness or myalgias Integumentary Integumentary: Reports skin ulcer; Denies changing lesions, erythema, hirsutism, jaundice, nail changes or pruritus Neurologic Neurologic: Denies behavior changes, burning sensations, confusion, disequilibrium, frequent falls or memory loss Psychiatric Psychiatric: Denies behavioral changes, difficulty concentrating, hallucinations, memory loss, mood swings, panic attacks or paranoia Endocrine Endocrinology: Denies cold intolerance, deepening of the voice, excessive sweating, increase in ring/shoe/hat size, palpitations or polydipsia Allergic/Immunologic Allergic/Immunologic: Denies itchy eyes, lip swelling, throat swelling, tongue swelling, wheezing or asthma Vital Signs Vital Signs Vital Signs: 06/15/23 11:25 Temperature 96.3 F L Temperature Source Temporal Pulse Rate 85 Respiratory Rate 18 Blood Pressure 127/85 H Blood Pressure Mean 99 Blood Pressure Source Monitor Blood Pressure Position Sitting Blood Pressure Location Left Arm Weight Weight: 330 lb Body Mass Index (BMI) 42.3 Physical Exam Const alert, oriented x3 and no apparent distress General Appearance: cooperative, comfortable and well kempt HEENT normocephalic, head/scalp atraumatic and hearing grossly normal bilaterally Neck full ROM and supple General: normal visual inspection Resp normal respiratory effort and normal air movement Effort and Inspection: able to speak in complete sentences Cardio regular rate, regular rhythm, S1 normal heart sound and S2 normal heart sound GI soft to palpation and non-tender Extremity General Extremity: edema Skin Wounds: wounds noted Neuro oriented x3, CN's II-XII intact bilaterally, moves all extremities and no focal motor deficits Psych mental status grossly normal, thought process normal, cooperative and affect normal Debridement Note Debridement Note Post-Debridement Measurements and Additional Note: Post-Debridement Measurements/Treatment - Nurse 1 - General Ulcer Assessment Start: 06/15/23 11:25 Freq: Status: Active Protocol: MILANA Activity Type Activity Date Activity User E-sign Co-sign Detail Recorded Client Recorded Date Recorded By Document 06/15/23 11:25 SRINATH [id number] 06/15/23 11:37 SRINATH 06/15/23 11:25 - Today's Visit Information Type of service Initial Visit Arrival Mode Ambulatory Patient Identification Verified (Name & Yes ) Patient Requires Transmission-Based No Precautions Height and Weight Height 6 ft 2 in Weight 330 lb Weight in Pounds 330.0 lbs Weight Measurement Method Estimated by Patient Body Mass Index (BMI) 42.3 BMI Classification Obese BSA - Jose Daniel 2.69 Vital Signs Temperature (97.8 F-99.1 F) 96.3 F L Temperature Source Temporal Pulse Rate (60-100) 85 Pulse Location Monitor Respiratory Rate (12-18) 18 Respiratory rate source Observation Blood Pressure (90/60-120/80) 127/85 H Blood Pressure Mean 99 Source Monitor Position Sitting Blood Pressure Location Left Arm History Since Last Visit- (Skip if this is Patient's initial visit) Left Footwear Regular Shoe Right Footwear Regular Shoe Pain Scale: 0-10 Numeric Is Patient Pain Free? Yes Communication Assessment Preferred language Turkish Harness Cutter Required No Able to Read Yes Able to Write Yes Communication Tools None Caregiver Communication Skills No Impairment Impairment Right Hearing Abillity Normal Left Hearing Abillity Normal Visual Assistive Devices None Teaching Assessment Preferences Verbal,Written, Audio/Visual, Demonstration Barriers to Learning None Readiness To Learn Excellent Willingness to Engage in Self Management High Activies Readiness to Engage in Self Management High Activities Anxiety Level Calm Cooperation Cooperative Perception Coherent Interest in Health Problem Asks Questions Education Importance Acknowledges Need Does Patient Smoke tobacco or other No substances Smoking Status Former smoker Is Patient Diabetic No Functional Assessment Recent Decline in Ability to Perform Denies Any Declines Culture/Catholic/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 Auto Transport Driver to contact place of confucianism No Teaching: Wound Center Skin Care -Person Taught Patient -Teaching Method Discussion, Demonstration -Response to teaching Return demonstration, Verbalize understanding [facility] Orientation/ Contacting Physician -Person Taught Patient -Teaching Method Discussion, Demonstration -Response to teaching Return demonstration, Verbalize understanding - Nurse 1 - General Ulcer Measurement Start: 06/15/23 11:25 Freq: Status: Active Protocol: Activity Type Activity Date Activity User E-sign Co-sign Detail Recorded Client Recorded Date Recorded By Document 06/15/23 11:25 SRINATH [id number] 06/15/23 11:37 SRINATH 06/15/23 11:25 Wound Center Nurse 1 1-left leg -Combined with other wound No -Current Size (cm) - Length 9.0 -Current Size (cm) - Width 1.5 -Current Size (cm) - Depth 0.1 -Total Square Cm 13.50 -Photo Taken Yes -Epithelialization Small 1-33% -Tunneling No -Undermining/Tunneling No -Circular Undermining No -Exudate Amt Small -Exudate Type Serosanguineous -Wound Margin Flat & Intact -Granulation Amt Medium (34-66%) -Granulation Quality Red -Slough/Fibrin Yes -Necrosis Amt Small (1-33%) -Necrotic Tissue Type Adherent Slough -Structure Exposed N/A -Texture (Radha-wound Skin Appearance) Assessed, Localized Edema -Moisture (Radha-wound Skin Appearance) Assessed,Dry/ Scaly -Color (Radha-wound Skin Appearance) Assessed, Hemosiderin Staining -Temperature (Radha-wound Skin No Abnormality Appearance) (Pt Warm) -Tenderness on Palpation (Radha-wound No Skin Appearance) -Ulcer Cleansing Rinsed/ Irrigated with Saline -Foul Odor after Cleansing No -Anesthetic Used 5% Lidocaine Gel Lower Limb Edema Present Yes Left Calf (cm) 42.5 Left Ankle (cm) 28.3 WC - Nurse 2 - General Ulcer CM Notes Start: 06/15/23 11:25 Freq: Status: Active Protocol: Activity Type Activity Date Activity User E-sign Co-sign Detail Recorded Client Recorded Date Recorded By Document 06/15/23 11:44 MW [id number] 06/15/23 11:50 MW 06/15/23 11:44 Wound Center Nurse 2 1-left leg -Time 11:44 -Correct Patient Yes -Correct Side, Site, Position Yes -Correct Procedure Yes -Procedure Performed Yes -Type of Procedure Debridement -Clinical Debridement Subcutaneous -Tissue Removed Subcutaneous -Post Debridement (cm) - Length 6.8 -Post Debridement (cm) - Width 1.5 -Post Debridement (cm) - Depth 0.2 -Total Square (Post) (cm) 10.20 -Area of Debridement (cm) - Length 6.8 -Area of Debridement (cm) - Width 1.5 -Total Square (Area) (cm) 10.20 -Tunneling No -Undermining/Tunneling No -Circular Undermining No -Wound/Ulcer Outcome Not Healed -Ulcer Cleansing Rinsed/ Irrigated with Saline -Foul Odor after Cleansing No -Bioengineered Tissue No -Bleeding Controlled with Pressure -Treatment Response Procedure Tolerated Well -Offloading No -Debridement - Subq, 1st 20sq cm Yes Pain Scale: 0-10 Numeric Is Patient Pain Free? Yes - Nurse 3 - General Ulcer D/C NN Start: 06/15/23 11:25 Freq: Status: Active Protocol: Activity Type Activity Date Activity User E-sign Co-sign Detail Recorded Client Recorded Date Recorded By Document 06/15/23 12:01 [facility] [id number] 06/15/23 12:01 [facility] 06/15/23 12:01 Wound Care Center Nurse 3 1-left leg -Ulcer Cleansing Rinsed/ Irrigated with Saline -Foul Odor after Cleansing No -Primary Dressing Applied Aquacel Extra, Mepilex Border -Aquacel Extra 1 -Mepilex Border 3 Left -Tubular Bandage Single Layer -Size of Tubigrip Used Size D -Size D ($) 2 Treatment Response Procedure Tolerated Well Pain Scale: 0-10 Numeric Is Patient Pain Free? Yes WC - Visit Discharge Discharge Condition Stable Ambulatory Status Ambulatory Transportation Private Auto Charges/Coding Visit Charges Office Visits / Consults: 16693 OV L3 Est Procedures Integumentary [id number]: [id number] Soumya subq tissue 20 sq cm/< Assessment/Plan Assessment/Plan (1) Laceration of left leg: CODE(S): S81.812A - Laceration without foreign body, left lower leg, initial encounter QUALIFIERS: Encounter type: subsequent encounter Qualified Code(s): S81.812D - Laceration without foreign body, left lower leg, subsequent encounter (2) Edema of both lower extremities due to peripheral venous insufficiency: CODE(S): I87.2 - Venous insufficiency (chronic) (peripheral) PLAN: Plan Debridement done as documented above, procedure was well-tolerated. Aquacel extra, cover with Adaptic and gauze over top. Single-layer Tubigrip for edema management. Currently on antibiotics, complete same. Leg elevation, exercise as tolerated and compliance with compression very strongly recommended. Continue other chronic wound care as previously discussed. His questions were answered and he was advised to let us know if he has any further questions or concerns. Follow-up at the wound center in 2 weeks or sooner if needed. This note was generated with datapine dictation software. It may contain incorrect words, spelling, and punctuation that were not noted in checking the note before signing.
[2023-06-29 11:02] VITALS: BP 139/82; PULSE 85; RESP 18; TEMP 36.4; BMI 42.3
--- NOTE | 2023-06-29 11:44 | PN.PCM_ITS ---
History of Present Illness Date of Service: 06/29/23 Chief Complaint: Leg wound History of Wound: Mr. Conway is a 73-year-old well-known to me. Seen in the office yesterday and was advised that he come to the wound center for wound care. Wound breakdown following suturing at the ER on Monday. Slough noted during his office visit yesterday and the recommendation was made for him to come to the wound center. Did not dress wound as recommended yesterday. Some pain but not significant pain. No fever, chills or otherwise feeling of unwell. Progress of Wound: Prior wound area improved however new wound breakdown in area previously held by sutures. Objective Data Objective Data Vital Signs: Vital Signs Temp Pulse Resp BP 97.5 F L 85 18 139/82 H 06/29/23 11:02 06/29/23 11:02 06/29/23 11:02 06/29/23 11:02 Weight: 330 lb Body Mass Index (BMI) 42.3 Charges/Coding Procedures Integumentary 111xxx-113xx: 36390 Soumya subq tissue 20 sq cm/< Physical Exam Const alert, oriented x3 and no apparent distress General Appearance: cooperative, comfortable and well kempt HEENT normocephalic, head/scalp atraumatic and hearing grossly normal bilaterally Neck full ROM and supple General: normal visual inspection Resp normal respiratory effort Effort and Inspection: able to speak in complete sentences GI soft to palpation and non-tender Extremity General Extremity: edema Skin Wounds: wounds noted Neuro oriented x3, CN's II-XII intact bilaterally, moves all extremities and no focal motor deficits Psych mental status grossly normal, thought process normal, cooperative and affect normal Debridement Note Debridement Note Wound debrided: Left lower extremity Type of Debridement: Excisional debridement Anesthesia Used: 5% Lidocaine Gel Depth: Down to and including healthy tissue and in the subcutaneous layer Percentage of wound debrided: 100 Instrument Used: 5mm curette Tissue Removed: Slough and devitalized tissue Severity: Fat Layer Exposed Amount of bleeding with debridement: Mild Bleeding Controlled with: Pressure Patient tolerated procedure: Patient tolerated procedure well Post-Debridement Measurements and Additional Note: Post-Debridement Measurements/Treatment LEONIE - Nurse 1 - General Ulcer Assessment Start: 06/15/23 11:25 Freq: Status: Active Protocol: MILANA Activity Type Activity Date Activity User E-sign Co-sign Detail Recorded Client Recorded Date Recorded By Document 06/15/23 11:25 JF [id number] 06/15/23 11:37 JF Document 06/29/23 11:02 RB [id number] 06/29/23 11:06 RB 06/15/23 06/29/23 11:25 11:02 WC - Today's Visit Information Type of service Initial Visit Follow-up Visit (Physician/[employer] SALESPERSON ) Arrival Mode Ambulatory Ambulatory Transfer Assistance None Patient Identification Verified (Name & Yes Yes ) Patient Requires Transmission-Based No No Precautions Height and Weight Height 6 ft 2 in Weight 330 lb Weight in Pounds 330.0 lbs Weight Measurement Method Estimated by Patient Body Mass Index (BMI) 42.3 42.3 BMI Classification Obese Obese BSA - Jose Daniel 2.69 Vital Signs Temperature (97.8 F-99.1 F) 96.3 F L 97.5 F L Temperature Source Temporal Temporal Pulse Rate (60-100) 85 85 Pulse Location Monitor Monitor Respiratory Rate (12-18) 18 18 Respiratory rate source Observation Observation Blood Pressure (90/60-120/80) 127/85 H 139/82 H Blood Pressure Mean (mm Hg) 99 101 Source Monitor Monitor Position Sitting Semi-Fowlers Blood Pressure Location Left Arm Left Arm History Since Last Visit- (Skip if this is Patient's initial visit) Have you changed medications since your No last visit? Any new allergies or adverse reactions No Had a fall/change in ADL's that may No increase risk of falls Signs or symptoms of abuse and/or No neglect since last visit Have you been in the hospital since your No last visit? Has dressing in place as prescribed Yes Has compression in place as prescribed Yes Has offloadiing in place as prescribed No Experienced any changes in pain level or No management Left Footwear Regular Shoe Right Footwear Regular Shoe Pain Scale: 0-10 Numeric Is Patient Pain Free? Yes Yes Communication Assessment Preferred language [place] Certified Nurse Required No Able to Read Yes Able to Write Yes Communication Tools None Caregiver Communication Skills No Impairment Impairment Right Hearing Abillity Normal Left Hearing Abillity Normal Visual Assistive Devices None Teaching Assessment Preferences Verbal,Written, Audio/Visual, Demonstration Barriers to Learning None Readiness To Learn Excellent Willingness to Engage in Self Management High Activies Readiness to Engage in Self Management High Activities Anxiety Level Calm Cooperation Cooperative Perception Coherent Interest in Health Problem Asks Questions Education Importance Acknowledges Need Does Patient Smoke tobacco or other No substances Smoking Status Former smoker Is Patient Diabetic No Functional Assessment Recent Decline in Ability to Perform Denies Any Declines Culture/Jew/Chemical Sprayer Cultural/Jew Needs that may affect No Treatment Plan Would you allow our hospital mobile sales assistant to No meet you for the purpose of spiritual/ emotional support? Chemical Sprayer to contact place of catholic No Teaching: Wound Center Skin Care -Person Taught Patient -Teaching Method Discussion, Demonstration -Response to teaching Return demonstration, Verbalize understanding [facility] Orientation/ Contacting Physician -Person Taught Patient -Teaching Method Discussion, Demonstration -Response to teaching Return demonstration, Verbalize understanding - Nurse 1 - General Ulcer Measurement Start: 06/15/23 11:25 Freq: Status: Active Protocol: Activity Type Activity Date Activity User E-sign Co-sign Detail Recorded Client Recorded Date Recorded By Document 06/15/23 11:25 JF [id number] 06/15/23 11:37 JF Document 06/29/23 11:02 RB [id number] 06/29/23 11:06 RB Edit Result 06/29/23 11:02 RB (1) [id number] 06/29/23 11:27 RB (1) Lower Limb Edema Present => Yes Left Calf (cm) => 41.5 Left Ankle (cm) => 27.5 06/15/23 06/29/23 11:25 11:02 Wound Center Nurse 1 1-left leg -Combined with other wound No No -Current Size (cm) - Length 9.0 7.3 -Current Size (cm) - Width 1.5 1.7 -Current Size (cm) - Depth 0.1 0.2 -Total Square Cm 13.50 12.41 -Photo Taken Yes Yes -Epithelialization Small 1-33% -Tunneling No No -Undermining/Tunneling No No -Circular Undermining No No -Exudate Amt Small Medium -Exudate Type Serosanguineous Serosanguineous -Wound Margin Flat & Intact Distinct, Outline Attached -Granulation Amt Medium (34-66%) Medium (34-66%) -Granulation Quality Red [place] -Slough/Fibrin Yes Yes -Necrosis Amt Small (1-33%) Medium (34-66%) -Necrotic Tissue Type Adherent Slough Adherent Slough -Structure Exposed N/A N/A -Texture (Radha-wound Skin Appearance) Assessed, Assessed Localized Edema -Moisture (Radha-wound Skin Appearance) Assessed,Dry/ Assessed Scaly -Color (Radha-wound Skin Appearance) Assessed, Assessed Hemosiderin Staining -Temperature (Radha-wound Skin No Abnormality No Abnormality Appearance) (Pt Warm) (Pt Warm) -Tenderness on Palpation (Radha-wound No No Skin Appearance) -Ulcer Cleansing Rinsed/ Wound Cleanser Irrigated with Saline -Foul Odor after Cleansing No No -Anesthetic Used 5% Lidocaine 4% Lidocaine Gel Solution -Wound Comment(s) 3 incisional sutures intact Lower Limb Edema Present Yes Yes Left Calf (cm) 42.5 41.5 Left Ankle (cm) 28.3 27.5 WC - Nurse 2 - General Ulcer CM Notes Start: 06/15/23 11:25 Freq: Status: Active Protocol: Activity Type Activity Date Activity User E-sign Co-sign Detail Recorded Client Recorded Date Recorded By Document 06/15/23 11:44 MW [id number] 06/15/23 11:50 MW Document 06/29/23 11:18 MW Desktop 06/29/23 11:24 MW 06/15/23 06/29/23 11:44 11:18 Wound Center Nurse 2 1-left leg -Time 11:44 11:19 -Correct Patient Yes Yes -Correct Side, Site, Position Yes Yes -Correct Procedure Yes Yes -Procedure Performed Yes Yes -Type of Procedure Debridement Debridement -Clinical Debridement Subcutaneous Subcutaneous -Tissue Removed Subcutaneous Subcutaneous -Post Debridement (cm) - Length 6.8 7.5 -Post Debridement (cm) - Width 1.5 1.5 -Post Debridement (cm) - Depth 0.2 0.2 -Total Square (Post) (cm) 10.20 11.25 -Area of Debridement (cm) - Length 6.8 7.5 -Area of Debridement (cm) - Width 1.5 1.5 -Total Square (Area) (cm) 10.20 11.25 -Tunneling No No -Undermining/Tunneling No No -Circular Undermining No No -Wound/Ulcer Outcome Not Healed Not Healed -Ulcer Cleansing Rinsed/ Rinsed/ Irrigated with Irrigated with Saline Saline -Foul Odor after Cleansing No No -Bioengineered Tissue No No -Bleeding Controlled with Pressure Pressure -Treatment Response Procedure Procedure Tolerated Well Tolerated Well -Offloading No No -Debridement - Subq, 1st 20sq cm Yes Yes Pain Scale: 0-10 Numeric Is Patient Pain Free? Yes Yes - Nurse 3 - General Ulcer D/C NN Start: 06/15/23 11:25 Freq: Status: Active Protocol: Activity Type Activity Date Activity User E-sign Co-sign Detail Recorded Client Recorded Date Recorded By Document 06/15/23 12:01 [facility] [id number] 06/15/23 12:01 [facility] 06/15/23 12:01 Wound Care Center Nurse 3 1-left leg -Ulcer Cleansing Rinsed/ Irrigated with Saline -Foul Odor after Cleansing No -Primary Dressing Applied Aquacel Extra, Mepilex Border -Aquacel Extra 1 -Mepilex Border 3 Left -Tubular Bandage Single Layer -Size of Tubigrip Used Size D -Size D ($) 2 Treatment Response Procedure Tolerated Well Pain Scale: 0-10 Numeric Is Patient Pain Free? Yes - Visit Discharge Discharge Condition Stable Ambulatory Status Ambulatory Transportation Private Auto Assessment/Plan Assessment/Plan (1) Laceration of left leg: CODE(S): S81.812A - Laceration without foreign body, left lower leg, initial encounter QUALIFIERS: Encounter type: subsequent encounter Qualified Code(s): S81.812D - Laceration without foreign body, left lower leg, subsequent encounter (2) Edema of both lower extremities due to peripheral venous insufficiency: CODE(S): I87.2 - Venous insufficiency (chronic) (peripheral) PLAN: Plan Debridement done as documented above, procedure was well-tolerated. Continue Aquacel extra, cover with Adaptic and gauze over top. Single-layer Tubigrip for edema management. Leg elevation, exercise as tolerated and compliance with compression very strongly recommended. Continue other chronic wound care as previously discussed. His questions were answered and he was advised to let us know if he has any further questions or concerns. Follow-up at the wound center in 1 week or sooner if needed. This note was generated with [employer] software. It may contain incorrect words, spelling, and punctuation that were not noted in checking the note before signing.
[2023-07-06 11:11] VITALS: BP 132/71; PULSE 86; RESP 18; TEMP 35.9; BMI 42.3
--- NOTE | 2023-07-06 13:03 | PCM.WC.PN ---
History of Present Illness Date of Service: 07/06/23 Chief Complaint: Leg wound History of Wound: Mr. Conway is a 73-year-old well-known to me. Seen in the office yesterday and was advised that he come to the wound center for wound care. Wound breakdown following suturing at the ER on Monday. Slough noted during his office visit yesterday and the recommendation was made for him to come to the wound center. Did not dress wound as recommended yesterday. Some pain but not significant pain. No fever, chills or otherwise feeling of unwell. Progress of Wound: Improving. No new concerns at this time. Objective Data Objective Data Vital Signs: Vital Signs Temp Pulse Resp BP 96.7 F L 86 18 132/71 H 07/06/23 11:11 07/06/23 11:11 07/06/23 11:11 07/06/23 11:11 Weight: 330 lb Body Mass Index (BMI) 42.3 Charges/Coding Procedures Integumentary 111xxx-113xx: 16497 Soumya subq tissue 20 sq cm/< Physical Exam Const alert, oriented x3 and no apparent distress General Appearance: cooperative, comfortable and well kempt HEENT normocephalic, head/scalp atraumatic and hearing grossly normal bilaterally Neck full ROM and supple General: normal visual inspection Resp normal respiratory effort Effort and Inspection: able to speak in complete sentences GI soft to palpation and non-tender Extremity General Extremity: edema Skin Wounds: wounds noted Neuro oriented x3, CN's II-XII intact bilaterally, moves all extremities and no focal motor deficits Psych mental status grossly normal, thought process normal, cooperative and affect normal Debridement Note Debridement Note Wound debrided: Left lower extremity Type of Debridement: Excisional debridement Anesthesia Used: 5% Lidocaine Gel Depth: Down to and including healthy tissue and in the subcutaneous layer Percentage of wound debrided: 100 Instrument Used: 5mm curette Tissue Removed: Slough and devitalized tissue Severity: Fat Layer Exposed Amount of bleeding with debridement: Mild Bleeding Controlled with: Pressure Patient tolerated procedure: Patient tolerated procedure well Post-Debridement Measurements and Additional Note: Post-Debridement Measurements/Treatment LEONIE - Nurse 1 - General Ulcer Assessment Start: 06/15/23 11:25 Freq: Status: Active Protocol: MILANA Activity Type Activity Date Activity User E-sign Co-sign Detail Recorded Client Recorded Date Recorded By Document 06/15/23 11:25 JF [id number] 06/15/23 11:37 JF Document 06/29/23 11:02 RB [id number] 06/29/23 11:06 RB Document 07/06/23 11:11 RB [id number] 07/06/23 11:14 RB 06/15/23 06/29/23 07/06/23 11:25 11:02 11:11 WC - Today's Visit Information Type of service Initial Visit Follow-up Visit Follow-up Visit (Physician/KEY WORKER (Physician/KEY WORKER ) ) Arrival Mode Ambulatory Ambulatory Ambulatory Transfer Assistance None None Patient Identification Verified (Name & Yes Yes Yes ) Patient Requires Transmission-Based No No No Precautions Height and Weight Height 6 ft 2 in Weight 330 lb Weight in Pounds 330.0 lbs Weight Measurement Method Estimated by Patient Body Mass Index (BMI) 42.3 42.3 42.3 BMI Classification Obese Obese Obese BSA - Jose Daniel 2.69 Vital Signs Temperature (97.8 F-99.1 F) 96.3 F L 97.5 F L 96.7 F L Temperature Source Temporal Temporal Temporal Pulse Rate (60-100) 85 85 86 Pulse Location Monitor Monitor Monitor Respiratory Rate (12-18) 18 18 18 Respiratory rate source Observation Observation Observation Blood Pressure (90/60-120/80) 127/85 H 139/82 H 132/71 H Blood Pressure Mean (mm Hg) 99 101 91 Source Monitor Monitor Monitor Position Sitting Semi-Fowlers Semi-Fowlers Blood Pressure Location Left Arm Left Arm Left Arm History Since Last Visit- (Skip if this is Patient's initial visit) Have you changed medications since your No last visit? Any new allergies or adverse reactions No Had a fall/change in ADL's that may No increase risk of falls Signs or symptoms of abuse and/or No neglect since last visit Have you been in the hospital since your No last visit? Has dressing in place as prescribed Yes Has compression in place as prescribed Yes Has offloadiing in place as prescribed No Experienced any changes in pain level or No management Left Footwear Regular Shoe Right Footwear Regular Shoe Pain Scale: 0-10 Numeric Is Patient Pain Free? Yes Yes Yes Communication Assessment Preferred language Bulgarian Digital Marketing Analyst Required No Able to Read Yes Able to Write Yes Communication Tools None Caregiver Communication Skills No Impairment Impairment Right Hearing Abillity Normal Left Hearing Abillity Normal Visual Assistive Devices None Teaching Assessment Preferences Verbal,Written, Audio/Visual, Demonstration Barriers to Learning None Readiness To Learn Excellent Willingness to Engage in Self Management High Activies Readiness to Engage in Self Management High Activities Anxiety Level Calm Cooperation Cooperative Perception Coherent Interest in Health Problem Asks Questions Education Importance Acknowledges Need Does Patient Smoke tobacco or other No substances Smoking Status Former smoker Is Patient Diabetic No Functional Assessment Recent Decline in Ability to Perform Denies Any Declines Culture/Gnosticism/Ada Accommodation Consultant Cultural/Gnosticism Needs that may affect No Treatment Plan Would you allow our [facility] information writer to No meet you for the purpose of spiritual/ emotional support? Ada Accommodation Consultant to contact place of adventism No Teaching: Wound Center Skin Care -Person Taught Patient -Teaching Method Discussion, Demonstration -Response to teaching Return demonstration, Verbalize understanding [facility] Orientation/ Contacting Physician -Person Taught Patient -Teaching Method Discussion, Demonstration -Response to teaching Return demonstration, Verbalize understanding - Nurse 1 - General Ulcer Measurement Start: 06/15/23 11:25 Freq: Status: Active Protocol: Activity Type Activity Date Activity User E-sign Co-sign Detail Recorded Client Recorded Date Recorded By Document 06/15/23 11:25 [id number] 06/15/23 11:37 Document 06/29/23 11:02 RB [id number] 06/29/23 11:06 RB Edit Result 06/29/23 11:02 RB (1) [id number] 06/29/23 11:27 RB Document 07/06/23 11:11 RB [id number] 07/06/23 11:14 RB (1) Lower Limb Edema Present => Yes Left Calf (cm) => 41.5 Left Ankle (cm) => 27.5 06/15/23 06/29/23 07/06/23 11:25 11:02 11:11 Wound Center Nurse 1 1-left leg -Combined with other wound No No No -Current Size (cm) - Length 9.0 7.3 7.2 -Current Size (cm) - Width 1.5 1.7 1.3 -Current Size (cm) - Depth 0.1 0.2 0.2 -Total Square Cm 13.50 12.41 9.36 -Photo Taken Yes Yes -Epithelialization Small 1-33% -Tunneling No No No -Undermining/Tunneling No No No -Circular Undermining No No No -Exudate Amt Small Medium Medium -Exudate Type Serosanguineous Serosanguineous Serosanguineous -Wound Margin Flat & Intact Distinct, Distinct, Outline Outline Attached Attached -Granulation Amt Medium (34-66%) Medium (34-66%) Medium (34-66%) -Granulation Quality [place] -Slough/Fibrin Yes Yes Yes -Necrosis Amt Small (1-33%) Medium (34-66%) Medium (34-66%) -Necrotic Tissue Type Adherent Slough Adherent Slough Adherent Slough -Structure Exposed N/A N/A N/A -Texture (Radha-wound Skin Appearance) Assessed, Assessed Assessed Localized Edema -Moisture (Radha-wound Skin Appearance) Assessed,Dry/ Assessed Assessed Scaly -Color (Radha-wound Skin Appearance) Assessed, Assessed Assessed Hemosiderin Staining -Temperature (Radha-wound Skin No Abnormality No Abnormality No Abnormality Appearance) (Pt Warm) (Pt Warm) (Pt Warm) -Tenderness on Palpation (Radha-wound No No No Skin Appearance) -Ulcer Cleansing Rinsed/ Wound Cleanser Wound Cleanser Irrigated with Saline -Foul Odor after Cleansing No No No -Anesthetic Used 5% Lidocaine 4% Lidocaine 5% Lidocaine Gel Solution Gel -Wound Comment(s) 3 incisional sutures intact Lower Limb Edema Present Yes Yes Yes Left Calf (cm) 42.5 41.5 48.3 Left Ankle (cm) 28.3 27.5 28.3 WC - Nurse 2 - General Ulcer CM Notes Start: 06/15/23 11:25 Freq: Status: Active Protocol: Activity Type Activity Date Activity User E-sign Co-sign Detail Recorded Client Recorded Date Recorded By Document 06/15/23 11:44 MW [id number] 06/15/23 11:50 MW Document 06/29/23 11:18 MW Desktop 06/29/23 11:24 MW Document 07/06/23 11:20 RB [id number] 07/06/23 11:22 RB 06/15/23 06/29/23 07/06/23 11:44 11:18 11:20 Wound Center Nurse 2 1-left leg -Time 11:44 11:19 11:20 -Correct Patient Yes Yes Yes -Correct Side, Site, Position Yes Yes Yes -Correct Procedure Yes Yes Yes -Procedure Performed Yes Yes Yes -Type of Procedure Debridement Debridement Debridement -Clinical Debridement Subcutaneous Subcutaneous Subcutaneous -Tissue Removed Subcutaneous Subcutaneous Subcutaneous -Post Debridement (cm) - Length 6.8 7.5 7.0 -Post Debridement (cm) - Width 1.5 1.5 1.4 -Post Debridement (cm) - Depth 0.2 0.2 0.2 -Total Square (Post) (cm) 10.20 11.25 9.80 -Area of Debridement (cm) - Length 6.8 7.5 7.0 -Area of Debridement (cm) - Width 1.5 1.5 1.4 -Total Square (Area) (cm) 10.20 11.25 9.80 -Tunneling No No No -Undermining/Tunneling No No No -Circular Undermining No No No -Wound/Ulcer Outcome Not Healed Not Healed Not Healed -Ulcer Cleansing Rinsed/ Rinsed/ Rinsed/ Irrigated with Irrigated with Irrigated with Saline Saline Saline -Foul Odor after Cleansing No No No -Bioengineered Tissue No No No -Bleeding Controlled with Pressure Pressure Pressure -Treatment Response Procedure Procedure Procedure Tolerated Well Tolerated Well Tolerated Well -Offloading No No No -Debridement - Subq, 1st 20sq cm Yes Yes Yes Pain Scale: 0-10 Numeric Is Patient Pain Free? Yes Yes Yes WC - Nurse 3 - General Ulcer D/C NN Start: 06/15/23 11:25 Freq: Status: Active Protocol: Activity Type Activity Date Activity User E-sign Co-sign Detail Recorded Client Recorded Date Recorded By Document 06/15/23 12:01 [facility] [id number] 06/15/23 12:01 [facility] Document 06/29/23 11:45 RB [id number] 06/29/23 11:48 RB Document 07/06/23 11:33 [facility] [id number] 07/06/23 11:34 [facility] 06/15/23 06/29/23 07/06/23 12:01 11:45 11:33 Wound Care Center Nurse 3 1-left leg -Ulcer Cleansing Rinsed/ Rinsed/ Rinsed/ Irrigated with Irrigated with Irrigated with Saline Saline Saline -Foul Odor after Cleansing No No -Primary Dressing Applied Aquacel Extra, Aquacel Extra, Aquacel Extra, Mepilex Border Mepilex Border, Mepilex Border NonAdherent Contact Layer -Aquacel Extra 1 1 1 -Mepilex Border 3 1 1 Left -Tubular Bandage Single Layer Single Layer Single Layer -Size of Tubigrip Used Size D Size D Size D -Size D ($) 2 1 1 Treatment Response Procedure Procedure Procedure Tolerated Well Tolerated Well Tolerated Well Pain Scale: 0-10 Numeric Is Patient Pain Free? Yes Yes Yes Teaching: Wound Center Dressing Your Wound -Person Taught Patient,Family -Teaching Method Discussion, Demonstration -Response to teaching Verbalize understanding WC - Visit Discharge Discharge Condition Stable Stable Stable Ambulatory Status Ambulatory Ambulatory Ambulatory Transportation Private Auto Private Auto Private Auto Accompanied by Medication Reconcilliation completed & No provided to patient/care provider Clinical Summary of Care Provided Yes Assessment/Plan Assessment/Plan (1) Laceration of left leg: CODE(S): S81.812A - Laceration without foreign body, left lower leg, initial encounter QUALIFIERS: Encounter type: subsequent encounter Qualified Code(s): S81.812D - Laceration without foreign body, left lower leg, subsequent encounter (2) Edema of both lower extremities due to peripheral venous insufficiency: CODE(S): I87.2 - Venous insufficiency (chronic) (peripheral) PLAN: Plan Debridement done as documented above, procedure was well-tolerated. Improving. Continue Aquacel extra, cover with Adaptic and gauze over top. Single-layer Tubigrip for edema management. Leg elevation, exercise as tolerated and compliance with compression very strongly recommended. Continue other chronic wound care as previously discussed. His questions were answered and he was advised to let us know if he has any further questions or concerns. Follow-up at the wound center in 1 week or sooner if needed. This note was generated with [employer] dictation software. It may contain incorrect words, spelling, and punctuation that were not noted in checking the note before signing.
== END 2023-07-06 23:59 | disposition home or self-care (01) ==
LOC: WC 10:45
PROVIDERS: PCP Internal Medicine; Referring Provider Internal Medicine; Visit Provider Internal Medicine
DX: S81.812A Laceration without foreign body, left lower leg, initial encounter (principal); R60.0 Localized edema; I87.2 Venous insufficiency (chronic) (peripheral); Z87.891 Personal history of nicotine dependence
CPT/HCPCS: 11042; 99203; G0463

== ENCOUNTER 2023-08-03 10:30 | Outpatient (RCR) | payer MEDICARE, SELFPAY ==
[2023-07-07 00:41] VITALS: BP 132/71; PULSE 86; RESP 18; TEMP 35.9; BMI 42.3
[2023-07-13 10:50] VITALS: BP 123/84; PULSE 78; RESP 16; TEMP 36; BMI 42.3
--- NOTE | 2023-07-13 12:39 | PCM.WC.PN ---
History of Present Illness Date of Service: 07/13/23 Chief Complaint: Leg wound History of Wound: Mr. Conway is a 73-year-old well-known to me. Seen in the office yesterday and was advised that he come to the wound center for wound care. Wound breakdown following suturing at the ER on Monday. Slough noted during his office visit yesterday and the recommendation was made for him to come to the wound center. Did not dress wound as recommended yesterday. Some pain but not significant pain. No fever, chills or otherwise feeling of unwell. Progress of Wound: No new concerns at this time. Improving. Objective Data Objective Data Vital Signs: Vital Signs Temp Pulse Resp BP O2 Del Method 96.8 F L 78 16 123/84 H Room Air 07/13/23 10:50 07/13/23 10:50 07/13/23 10:50 07/13/23 10:50 07/13/23 10:50 Oxygen Delivery Method Room Air Weight: 330 lb Body Mass Index (BMI) 42.3 Charges/Coding Procedures Integumentary 111xxx-113xx: 48842 Soumya subq tissue 20 sq cm/< Physical Exam Const alert, oriented x3 and no apparent distress General Appearance: cooperative, comfortable and well kempt HEENT normocephalic, head/scalp atraumatic and hearing grossly normal bilaterally Neck full ROM and supple General: normal visual inspection Resp normal respiratory effort Effort and Inspection: able to speak in complete sentences Extremity General Extremity: edema Skin Wounds: wounds noted Neuro oriented x3, CN's II-XII intact bilaterally, moves all extremities and no focal motor deficits Psych mental status grossly normal, thought process normal, cooperative and affect normal Debridement Note Debridement Note Wound debrided: Left lower extremity Type of Debridement: Excisional debridement Anesthesia Used: 5% Lidocaine Gel Depth: Down to and including healthy tissue and in the subcutaneous layer Percentage of wound debrided: 100 Instrument Used: 5mm curette Tissue Removed: Slough and devitalized tissue Severity: Fat Layer Exposed Amount of bleeding with debridement: Mild Bleeding Controlled with: Pressure Patient tolerated procedure: Patient tolerated procedure well Post-Debridement Measurements and Additional Note: Post-Debridement Measurements/Treatment LEONIE - Nurse 1 - General Ulcer Assessment Start: 07/13/23 10:49 Freq: Status: Active Protocol: MILANA Activity Type Activity Date Activity User E-sign Co-sign Detail Recorded Client Recorded Date Recorded By Document 07/13/23 10:50 [facility] [id number] 07/13/23 10:59 [facility] 07/13/23 10:50 - Today's Visit Information Type of service 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 ) Arrival Mode Ambulatory Transfer Assistance None Accompanied by Patient Identification Verified (Name & Yes ) Patient Requires Transmission-Based No Precautions Height and Weight Body Mass Index (BMI) 42.3 BMI Classification Obese Vital Signs Temperature (97.8 F-99.1 F) 96.8 F L Temperature Source Temporal Pulse Rate (60-100) 78 Pulse Location Monitor Respiratory Rate (12-18) 16 Respiratory rate source Observation Oxygen Delivery Method Room Air Blood Pressure (90/60-120/80) 123/84 H Blood Pressure Mean (mm Hg) 97 Source Monitor Position Sitting Blood Pressure Location Left Arm History Since Last Visit- (Skip if this is Patient's initial visit) Have you changed medications since your No last visit? Any new allergies or adverse reactions No Had a fall/change in ADL's that may No increase risk of falls Signs or symptoms of abuse and/or No neglect since last visit Have you been in the hospital since your No last visit? Has dressing in place as prescribed Yes Has compression in place as prescribed Yes Has offloadiing in place as prescribed N/A Experienced any changes in pain level or No management Left Footwear Regular Shoe Right Footwear Regular Shoe Pain Scale: 0-10 Numeric Is Patient Pain Free? Yes - Nurse 1 - General Ulcer Measurement Start: 07/13/23 10:49 Freq: Status: Active Protocol: Activity Type Activity Date Activity User E-sign Co-sign Detail Recorded Client Recorded Date Recorded By Document 07/13/23 10:50 [facility] [id number] 07/13/23 10:59 [facility] 07/13/23 10:50 Wound Center Nurse 1 1-left leg -Combined with other wound No -Current Size (cm) - Length 8.3 -Current Size (cm) - Width 1.1 -Current Size (cm) - Depth 0.3 -Total Square Cm 9.13 -Date of Last Picture (Recall this 07/13/23 field) -Photo Taken Yes -Epithelialization Small 1-33% -Tunneling No -Undermining/Tunneling No -Circular Undermining No -Exudate Amt Medium -Exudate Type Serosanguineous -Wound Margin Distinct, Outline Attached -Granulation Amt Large (67-100%) -Granulation Quality Red -Slough/Fibrin Yes -Necrosis Amt Small (1-33%) -Necrotic Tissue Type Adherent Slough -Texture (Radha-wound Skin Appearance) Assessed -Moisture (Radha-wound Skin Appearance) Assessed, Maceration,Dry/ Scaly -Color (Radha-wound Skin Appearance) Assessed -Temperature (Radha-wound Skin No Abnormality Appearance) (Pt Warm) -Tenderness on Palpation (Radha-wound No Skin Appearance) -Ulcer Cleansing Rinsed/ Irrigated with Saline -Foul Odor after Cleansing No -Anesthetic Used 4% Lidocaine Solution Lower Limb Edema Present Yes Left Calf (cm) 40.9 Left Ankle (cm) 27.2 WC - Nurse 2 - General Ulcer CM Notes Start: 07/13/23 10:49 Freq: Status: Active Protocol: Activity Type Activity Date Activity User E-sign Co-sign Detail Recorded Client Recorded Date Recorded By Document 07/13/23 11:37 [id number] 07/13/23 11:39 07/13/23 11:37 Wound Center Nurse 2 1-left leg -Time 11:38 -Correct Patient Yes -Correct Side, Site, Position Yes -Correct Procedure Yes -Procedure Performed Yes -Type of Procedure Debridement -Clinical Debridement Subcutaneous -Tissue Removed Subcutaneous -Post Debridement (cm) - Length 6 -Post Debridement (cm) - Width 1 -Post Debridement (cm) - Depth 0.2 -Total Square (Post) (cm) 6 -Area of Debridement (cm) - Length 6 -Area of Debridement (cm) - Width 1 -Total Square (Area) (cm) 6 -Tunneling No -Undermining/Tunneling No -Circular Undermining No -Wound/Ulcer Outcome Not Healed -Ulcer Cleansing Rinsed/ Irrigated with Saline -Foul Odor after Cleansing No -Bioengineered Tissue No -Bleeding Controlled with Pressure -Treatment Response Procedure Tolerated Well -Offloading No -Debridement - Subq, 1st 20sq cm Yes Pain Scale: 0-10 Numeric Is Patient Pain Free? Yes WC - Nurse 3 - General Ulcer D/C NN Start: 07/13/23 10:49 Freq: Status: Active Protocol: Activity Type Activity Date Activity User E-sign Co-sign Detail Recorded Client Recorded Date Recorded By Document 07/13/23 11:53 [id number] 07/13/23 11:54 RB 07/13/23 11:53 Wound Care Center Nurse 3 1-left leg -Primary Dressing Applied Aquacel Extra, Mepilex Border, NonAdherent Contact Layer -Aquacel Extra 1 -Mepilex Border 1 Left -Tubular Bandage Single Layer -Size of Tubigrip Used Size D -Size D ($) 1 Treatment Response Procedure Tolerated Well Pain Scale: 0-10 Numeric Is Patient Pain Free? Yes WC - Visit Discharge Discharge Condition Stable Ambulatory Status Ambulatory Transportation Private Auto Medication Reconcilliation completed & No provided to patient/care provider Clinical Summary of Care Provided Yes Assessment/Plan Assessment/Plan (1) Laceration of left leg: CODE(S): S81.812A - Laceration without foreign body, left lower leg, initial encounter QUALIFIERS: Encounter type: subsequent encounter Qualified Code(s): S81.812D - Laceration without foreign body, left lower leg, subsequent encounter (2) Edema of both lower extremities due to peripheral venous insufficiency: CODE(S): I87.2 - Venous insufficiency (chronic) (peripheral) PLAN: Plan Debridement done as documented above, procedure was well-tolerated. Improving. Continue Aquacel extra, cover with Adaptic and gauze over top. Single-layer Tubigrip for edema management. Leg elevation, exercise as tolerated and compliance with compression very strongly recommended. Continue other chronic wound care as previously discussed. His questions were answered and he was advised to let us know if he has any further questions or concerns. Follow-up at the wound center in 1 week or sooner if needed. This note was generated with [employer] software. It may contain incorrect words, spelling, and punctuation that were not noted in checking the note before signing.
[2023-07-20 08:50] VITALS: BP 117/60; PULSE 75; RESP 18; TEMP 35.4; BMI 42.3
--- NOTE | 2023-07-20 11:52 | PCM.WC.PN ---
History of Present Illness Date of Service: 07/20/23 Chief Complaint: Leg wound History of Wound: Mr. Conway is a 73-year-old well-known to me. Seen in the office yesterday and was advised that he come to the wound center for wound care. Wound breakdown following suturing at the ER on Monday. Slough noted during his office visit yesterday and the recommendation was made for him to come to the wound center. Did not dress wound as recommended yesterday. Some pain but not significant pain. No fever, chills or otherwise feeling of unwell. Progress of Wound: No new concerns at this time. Improving. Objective Data Objective Data Vital Signs: Vital Signs Temp Pulse Resp BP O2 Del Method 95.8 F L 75 18 117/60 Room Air 07/20/23 08:50 07/20/23 08:50 07/20/23 08:50 07/20/23 08:50 07/13/23 10:50 Oxygen Delivery Method Room Air Weight: 330 lb Body Mass Index (BMI) 42.3 Charges/Coding Procedures Integumentary 111xxx-113xx: 41391 Soumya subq tissue 20 sq cm/< Physical Exam Const alert, oriented x3 and no apparent distress General Appearance: cooperative, comfortable and well kempt HEENT normocephalic, head/scalp atraumatic and hearing grossly normal bilaterally Neck full ROM and supple General: normal visual inspection Resp normal respiratory effort Effort and Inspection: able to speak in complete sentences Extremity General Extremity: edema Skin Wounds: wounds noted Neuro oriented x3, CN's II-XII intact bilaterally, moves all extremities and no focal motor deficits Psych mental status grossly normal, thought process normal, cooperative and affect normal Debridement Note Debridement Note Wound debrided: Left lower extremity Type of Debridement: Excisional debridement Anesthesia Used: 5% Lidocaine Gel Depth: Down to and including healthy tissue and in the subcutaneous layer Percentage of wound debrided: 100 Instrument Used: 5mm curette Tissue Removed: Slough and devitalized tissue Severity: Fat Layer Exposed Amount of bleeding with debridement: Mild Bleeding Controlled with: Pressure Patient tolerated procedure: Patient tolerated procedure well Post-Debridement Measurements and Additional Note: Post-Debridement Measurements/Treatment LEONIE - Nurse 1 - General Ulcer Assessment Start: 07/13/23 10:49 Freq: Status: Active Protocol: MILANA Activity Type Activity Date Activity User E-sign Co-sign Detail Recorded Client Recorded Date Recorded By Document 07/13/23 10:50 [facility] [id number] 07/13/23 10:59 [facility] Document 07/20/23 08:50 RB [id number] 07/20/23 08:53 RB 07/13/23 07/20/23 10:50 08:50 - Today's Visit Information Type of service Follow-up Visit 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 ) ) Arrival Mode Ambulatory Ambulatory Transfer Assistance None None Accompanied by Patient Identification Verified (Name & Yes Yes ) Patient Requires Transmission-Based No No Precautions Height and Weight Body Mass Index (BMI) 42.3 42.3 BMI Classification Obese Obese Vital Signs Temperature (97.8 F-99.1 F) 96.8 F L 95.8 F L Temperature Source Temporal Temporal Pulse Rate (60-100) 78 75 Pulse Location Monitor Monitor Respiratory Rate (12-18) 16 18 Respiratory rate source Observation Observation Oxygen Delivery Method Room Air Blood Pressure (90/60-120/80) 123/84 H 117/60 Blood Pressure Mean (mm Hg) 97 79 Source Monitor Monitor Position Sitting Semi-Fowlers Blood Pressure Location Left Arm Left Arm History Since Last Visit- (Skip if this is Patient's initial visit) Have you changed medications since your No No last visit? Any new allergies or adverse reactions No No Had a fall/change in ADL's that may No No increase risk of falls Signs or symptoms of abuse and/or No No neglect since last visit Have you been in the hospital since your No No last visit? Has dressing in place as prescribed Yes Yes Has compression in place as prescribed Yes No Has offloadiing in place as prescribed N/A No Experienced any changes in pain level or No No management Left Footwear Regular Shoe Right Footwear Regular Shoe Pain Scale: 0-10 Numeric Is Patient Pain Free? Yes Yes - Nurse 1 - General Ulcer Measurement Start: 07/13/23 10:49 Freq: Status: Active Protocol: Activity Type Activity Date Activity User E-sign Co-sign Detail Recorded Client Recorded Date Recorded By Document 07/13/23 10:50 [facility] [id number] 07/13/23 10:59 [facility] Document 07/20/23 08:50 RB [id number] 07/20/23 08:53 RB 07/13/23 07/20/23 10:50 08:50 Wound Center Nurse 1 1-left leg -Combined with other wound No No -Current Size (cm) - Length 8.3 5.5 -Current Size (cm) - Width 1.1 1 -Current Size (cm) - Depth 0.3 0.1 -Total Square Cm 9.13 5.5 -Date of Last Picture (Recall this 07/13/23 field) -Photo Taken Yes Yes -Epithelialization Small 1-33% -Tunneling No No -Undermining/Tunneling No No -Circular Undermining No No -Exudate Amt Medium Medium -Exudate Type Serosanguineous Serosanguineous -Wound Margin Distinct, Distinct, Outline Outline Attached Attached -Granulation Amt Large (67-100%) Medium (34-66%) -Granulation Quality [place] -Slough/Fibrin Yes Yes -Necrosis Amt Small (1-33%) Medium (34-66%) -Necrotic Tissue Type Adherent Slough Adherent Slough -Structure Exposed N/A -Texture (Radha-wound Skin Appearance) Assessed Assessed -Moisture (Radha-wound Skin Appearance) Assessed, Assessed Maceration,Dry/ Scaly -Color (Radha-wound Skin Appearance) Assessed Assessed -Temperature (Radha-wound Skin No Abnormality No Abnormality Appearance) (Pt Warm) (Pt Warm) -Tenderness on Palpation (Radha-wound No No Skin Appearance) -Ulcer Cleansing Rinsed/ Wound Cleanser Irrigated with Saline -Foul Odor after Cleansing No No -Anesthetic Used 4% Lidocaine 5% Lidocaine Solution Gel Lower Limb Edema Present Yes Left Calf (cm) 40.9 41.5 Left Ankle (cm) 27.2 27.5 WC - Nurse 2 - General Ulcer CM Notes Start: 07/13/23 10:49 Freq: Status: Active Protocol: Activity Type Activity Date Activity User E-sign Co-sign Detail Recorded Client Recorded Date Recorded By Document 07/13/23 11:37 SRINATH [id number] 07/13/23 11:39 JF Document 07/20/23 09:17 SRINATH [id number] 07/20/23 09:18 JF 07/13/23 07/20/23 11:37 09:17 Wound Center Nurse 2 1-left leg -Time 11:38 09:18 -Correct Patient Yes Yes -Correct Side, Site, Position Yes Yes -Correct Procedure Yes Yes -Procedure Performed Yes Yes -Type of Procedure Debridement Debridement -Clinical Debridement Subcutaneous Subcutaneous -Tissue Removed Subcutaneous Subcutaneous -Post Debridement (cm) - Length 6 5.4 -Post Debridement (cm) - Width 1 0.9 -Post Debridement (cm) - Depth 0.2 0.1 -Total Square (Post) (cm) 6 4.86 -Area of Debridement (cm) - Length 6 5.4 -Area of Debridement (cm) - Width 1 0.9 -Total Square (Area) (cm) 6 4.86 -Tunneling No No -Undermining/Tunneling No No -Circular Undermining No No -Wound/Ulcer Outcome Not Healed Not Healed -Ulcer Cleansing Rinsed/ Rinsed/ Irrigated with Irrigated with Saline Saline -Foul Odor after Cleansing No No -Bioengineered Tissue No No -Bleeding Controlled with Pressure Pressure -Treatment Response Procedure Procedure Tolerated Well Tolerated Well -Offloading No No -Debridement - Subq, 1st 20sq cm Yes Yes Pain Scale: 0-10 Numeric Is Patient Pain Free? Yes Yes - Nurse 3 - General Ulcer D/C NN Start: 07/13/23 10:49 Freq: Status: Active Protocol: Activity Type Activity Date Activity User E-sign Co-sign Detail Recorded Client Recorded Date Recorded By Document 07/13/23 11:53 RB [id number] 07/13/23 11:54 RB Document 07/20/23 09:26 RB [id number] 07/20/23 09:27 RB 07/13/23 07/20/23 11:53 09:26 Wound Care Center Nurse 3 1-left leg -Ulcer Cleansing Rinsed/ Irrigated with Saline -Primary Dressing Applied Aquacel Extra, Aquacel Extra, Mepilex Border, Mepilex Border, NonAdherent NonAdherent Contact Layer Contact Layer -Aquacel Extra 1 1 -Mepilex Border 1 1 Left -Tubular Bandage Single Layer Single Layer -Size of Tubigrip Used Size D Size D -Size D ($) 1 1 Treatment Response Procedure Procedure Tolerated Well Tolerated Well Pain Scale: 0-10 Numeric Is Patient Pain Free? Yes Yes Teaching: Wound Center Compression Wraps & Stockings -Person Taught Patient -Teaching Method Discussion, Demonstration -Response to teaching Verbalize understanding - Visit Discharge Discharge Condition Stable Stable Ambulatory Status Ambulatory Ambulatory Transportation Private Auto Private Auto Medication Reconcilliation completed & No No provided to patient/care provider Clinical Summary of Care Provided Yes Yes Assessment/Plan Assessment/Plan (1) Laceration of left leg: CODE(S): S81.812A - Laceration without foreign body, left lower leg, initial encounter QUALIFIERS: Encounter type: subsequent encounter Qualified Code(s): S81.812D - Laceration without foreign body, left lower leg, subsequent encounter (2) Edema of both lower extremities due to peripheral venous insufficiency: CODE(S): I87.2 - Venous insufficiency (chronic) (peripheral) PLAN: Plan Debridement done as documented above, procedure was well-tolerated. Improving. Continue Aquacel extra, cover with Adaptic and gauze over top. Single-layer Tubigrip for edema management. Leg elevation, exercise as tolerated and compliance with compression very strongly recommended. Continue other chronic wound care as previously discussed. His questions were answered and he was advised to let us know if he has any further questions or concerns. Follow-up at the wound center in 2 weeks or sooner if needed. This note was generated with [employer] dictation software. It may contain incorrect words, spelling, and punctuation that were not noted in checking the note before signing.
[2023-08-03 10:35] VITALS: BP 130/85; PULSE 83; RESP 16; TEMP 35.7; BMI 42.3
--- NOTE | 2023-08-03 13:45 | PCM.WC.PN ---
History of Present Illness Date of Service: 08/03/23 Chief Complaint: Leg wound History of Wound: Mr. Conway is a 73-year-old well-known to me. Seen in the office yesterday and was advised that he come to the wound center for wound care. Wound breakdown following suturing at the ER on Monday. Slough noted during his office visit yesterday and the recommendation was made for him to come to the wound center. Did not dress wound as recommended yesterday. Some pain but not significant pain. No fever, chills or otherwise feeling of unwell. Progress of Wound: No new concerns at this time. Improving. Objective Data Objective Data Vital Signs: Vital Signs Temp Pulse Resp BP O2 Del Method 96.2 F L 83 16 130/85 H Room Air 08/03/23 10:35 08/03/23 10:35 08/03/23 10:35 08/03/23 10:35 08/03/23 10:35 Oxygen Delivery Method Room Air Weight: 330 lb Body Mass Index (BMI) 42.3 Charges/Coding Procedures Integumentary 111xxx-113xx: 84221 Soumya subq tissue 20 sq cm/< Physical Exam Const alert, oriented x3 and no apparent distress General Appearance: cooperative, comfortable and well kempt HEENT normocephalic, head/scalp atraumatic and hearing grossly normal bilaterally Neck full ROM and supple General: normal visual inspection Resp normal respiratory effort Effort and Inspection: able to speak in complete sentences Extremity General Extremity: edema Skin Wounds: wounds noted Neuro oriented x3, CN's II-XII intact bilaterally, moves all extremities and no focal motor deficits Psych mental status grossly normal, thought process normal, cooperative and affect normal Debridement Note Debridement Note Wound debrided: Left lower extremity Type of Debridement: Excisional debridement Anesthesia Used: 5% Lidocaine Gel Depth: Down to and including healthy tissue and in the subcutaneous layer Percentage of wound debrided: 100 Instrument Used: 5mm curette Tissue Removed: Slough and devitalized tissue Severity: Fat Layer Exposed Amount of bleeding with debridement: Mild Bleeding Controlled with: Pressure Patient tolerated procedure: Patient tolerated procedure well Post-Debridement Measurements and Additional Note: Post-Debridement Measurements/Treatment LEONIE - Nurse 1 - General Ulcer Assessment Start: 07/13/23 10:49 Freq: Status: Active Protocol: MILANA Activity Type Activity Date Activity User E-sign Co-sign Detail Recorded Client Recorded Date Recorded By Document 07/13/23 10:50 [facility] [id number] 07/13/23 10:59 BM Document 07/20/23 08:50 RB [id number] 07/20/23 08:53 RB Document 08/03/23 10:35 [facility] Desktop 08/03/23 10:41 BM 07/13/23 07/20/23 08/03/23 10:50 08:50 10:35 - Today's Visit Information Type of service Follow-up Visit Follow-up Visit Follow-up Visit (Physician/CUTTING MACHINE FIXER (Physician/CUTTING MACHINE FIXER (Physician/CUTTING MACHINE FIXER ) ) ) Arrival Mode Ambulatory Ambulatory Ambulatory Transfer Assistance None None None Accompanied by Patient Identification Verified (Name & Yes Yes Yes ) Patient Requires Transmission-Based No No No Precautions Height and Weight Body Mass Index (BMI) 42.3 42.3 42.3 BMI Classification Obese Obese Obese Vital Signs Temperature (97.8 F-99.1 F) 96.8 F L 95.8 F L 96.2 F L Temperature Source Temporal Temporal Temporal Pulse Rate (60-100) 78 75 83 Pulse Location Monitor Monitor Monitor Respiratory Rate (12-18) 16 18 16 Respiratory rate source Observation Observation Observation Oxygen Delivery Method Room Air Room Air Blood Pressure (90/60-120/80) 123/84 H 117/60 130/85 H Blood Pressure Mean (mm Hg) 97 79 100 Source Monitor Monitor Monitor Position Sitting Semi-Fowlers Sitting Blood Pressure Location Left Arm Left Arm Left Arm History Since Last Visit- (Skip if this is Patient's initial visit) Have you changed medications since your No No No last visit? Any new allergies or adverse reactions No No No Had a fall/change in ADL's that may No No No increase risk of falls Signs or symptoms of abuse and/or No No No neglect since last visit Have you been in the hospital since your No No No last visit? Has dressing in place as prescribed Yes Yes Yes Has compression in place as prescribed Yes No No Has offloadiing in place as prescribed N/A No N/A Experienced any changes in pain level or No No No management Left Footwear Regular Shoe Regular Shoe Right Footwear Regular Shoe Regular Shoe Pain Scale: 0-10 Numeric Is Patient Pain Free? Yes Yes Yes - Nurse 1 - General Ulcer Measurement Start: 07/13/23 10:49 Freq: Status: Active Protocol: Activity Type Activity Date Activity User E-sign Co-sign Detail Recorded Client Recorded Date Recorded By Document 07/13/23 10:50 [facility] [id number] 07/13/23 10:59 BM Document 07/20/23 08:50 RB [id number] 07/20/23 08:53 RB Document 08/03/23 10:35 [facility] Desktop 08/03/23 10:41 BM 07/13/23 07/20/23 08/03/23 10:50 08:50 10:35 Wound Center Nurse 1 1-left leg -Combined with other wound No No No -Current Size (cm) - Length 8.3 5.5 4.1 -Current Size (cm) - Width 1.1 1 0.6 -Current Size (cm) - Depth 0.3 0.1 0.2 -Total Square Cm 9.13 5.5 2.46 -Date of Last Picture (Recall this 07/13/23 field) -Photo Taken Yes Yes No -Epithelialization Small 1-33% Small 1-33% -Tunneling No No No -Undermining/Tunneling No No No -Circular Undermining No No No -Exudate Amt Medium Medium Medium -Exudate Type Serosanguineous Serosanguineous Serosanguineous -Wound Margin Distinct, Distinct, Distinct, Outline Outline Outline Attached Attached Attached -Granulation Amt Large (67-100%) Medium (34-66%) Large (67-100%) -Granulation Quality [place] Red -Slough/Fibrin Yes Yes Yes -Necrosis Amt Small (1-33%) Medium (34-66%) Small (1-33%) -Necrotic Tissue Type Adherent Slough Adherent Slough Adherent Slough -Structure Exposed N/A -Texture (Radha-wound Skin Appearance) Assessed Assessed Assessed, Scarring -Moisture (Radha-wound Skin Appearance) Assessed, Assessed Assessed Maceration,Dry/ Scaly -Color (Radha-wound Skin Appearance) Assessed Assessed Assessed -Temperature (Radha-wound Skin No Abnormality No Abnormality No Abnormality Appearance) (Pt Warm) (Pt Warm) (Pt Warm) -Tenderness on Palpation (Radha-wound No No No Skin Appearance) -Ulcer Cleansing Rinsed/ Wound Cleanser Rinsed/ Irrigated with Irrigated with Saline Saline -Foul Odor after Cleansing No No No -Anesthetic Used 4% Lidocaine 5% Lidocaine 5% Lidocaine Solution Gel Gel Lower Limb Edema Present Yes Yes Right Calf (cm) 40.3 Right Ankle (cm) 28.6 Left Calf (cm) 40.9 41.5 Left Ankle (cm) 27.2 27.5 WC - Nurse 2 - General Ulcer CM Notes Start: 07/13/23 10:49 Freq: Status: Active Protocol: Activity Type Activity Date Activity User E-sign Co-sign Detail Recorded Client Recorded Date Recorded By Document 07/13/23 11:37 [id number] 07/13/23 11:39 Document 07/20/23 09:17 [id number] 07/20/23 09:18 Document 08/03/23 11:06 Desktop 08/03/23 11:08 07/13/23 07/20/23 08/03/23 11:37 09:17 11:06 Wound Center Nurse 2 1-left leg -Time 11:38 09:18 11:06 -Correct Patient Yes Yes Yes -Correct Side, Site, Position Yes Yes Yes -Correct Procedure Yes Yes Yes -Procedure Performed Yes Yes Yes -Type of Procedure Debridement Debridement Debridement -Clinical Debridement Subcutaneous Subcutaneous Subcutaneous -Tissue Removed Subcutaneous Subcutaneous Subcutaneous -Post Debridement (cm) - Length 6 5.4 4.2 -Post Debridement (cm) - Width 1 0.9 0.8 -Post Debridement (cm) - Depth 0.2 0.1 0.1 -Total Square (Post) (cm) 6 4.86 3.36 -Area of Debridement (cm) - Length 6 5.4 4.2 -Area of Debridement (cm) - Width 1 0.9 0.8 -Total Square (Area) (cm) 6 4.86 3.36 -Tunneling No No No -Undermining/Tunneling No No No -Circular Undermining No No -Wound/Ulcer Outcome Not Healed Not Healed Not Healed -Ulcer Cleansing Rinsed/ Rinsed/ Rinsed/ Irrigated with Irrigated with Irrigated with Saline Saline Saline -Foul Odor after Cleansing No No No -Bioengineered Tissue No No No -Bleeding Controlled with Pressure Pressure Pressure -Treatment Response Procedure Procedure Tolerated Well Tolerated Well -Offloading No No -Debridement - Subq, 1st 20sq cm Yes Yes Yes -Debridement, SubQ, ea addt'l 20sq cm 1 or part thereof Pain Scale: 0-10 Numeric Is Patient Pain Free? Yes Yes Yes - Nurse 3 - General Ulcer D/C NN Start: 07/13/23 10:49 Freq: Status: Active Protocol: Activity Type Activity Date Activity User E-sign Co-sign Detail Recorded Client Recorded Date Recorded By Document 07/13/23 11:53 RB [id number] 07/13/23 11:54 RB Document 07/20/23 09:26 RB [id number] 07/20/23 09:27 RB 07/13/23 07/20/23 11:53 09:26 Wound Care Center Nurse 3 1-left leg -Ulcer Cleansing Rinsed/ Irrigated with Saline -Primary Dressing Applied Aquacel Extra, Aquacel Extra, Mepilex Border, Mepilex Border, NonAdherent NonAdherent Contact Layer Contact Layer -Aquacel Extra 1 1 -Mepilex Border 1 1 Left -Tubular Bandage Single Layer Single Layer -Size of Tubigrip Used Size D Size D -Size D ($) 1 1 Treatment Response Procedure Procedure Tolerated Well Tolerated Well Pain Scale: 0-10 Numeric Is Patient Pain Free? Yes Yes Teaching: Wound Center Compression Wraps & Stockings -Person Taught Patient -Teaching Method Discussion, Demonstration -Response to teaching Verbalize understanding WC - Visit Discharge Discharge Condition Stable Stable Ambulatory Status Ambulatory Ambulatory Transportation Private Auto Private Auto Medication Reconcilliation completed & No No provided to patient/care provider Clinical Summary of Care Provided Yes Yes Assessment/Plan Assessment/Plan (1) Laceration of left lower extremity: CODE(S): S81.812A - Laceration without foreign body, left lower leg, initial encounter QUALIFIERS: Encounter type: subsequent encounter Qualified Code(s): S81.812D - Laceration without foreign body, left lower leg, subsequent encounter (2) Edema of both lower extremities due to peripheral venous insufficiency: CODE(S): I87.2 - Venous insufficiency (chronic) (peripheral) PLAN: Plan Debridement done as documented above, procedure was well-tolerated. Improving. Continue Aquacel extra, cover with Adaptic and gauze over top. Single-layer Tubigrip for edema management. Leg elevation, exercise as tolerated and compliance with compression very strongly recommended. Continue other chronic wound care as previously discussed. His questions were answered and he was advised to let us know if he has any further questions or concerns. Follow-up at the wound center in 2 weeks or sooner if needed. This note was generated with [employer] dictation software. It may contain incorrect words, spelling, and punctuation that were not noted in checking the note before signing.
== END 2023-08-05 23:59 | disposition home or self-care (01) ==
LOC: WC 10:30
PROVIDERS: PCP Internal Medicine; Referring Provider Internal Medicine; Visit Provider Internal Medicine
DX: S81.812A Laceration without foreign body, left lower leg, initial encounter (principal); I87.2 Venous insufficiency (chronic) (peripheral)
CPT/HCPCS: 11042; 11045

== ENCOUNTER 2023-08-03 11:26 | Outpatient (RCR) | payer MEDICARE, SELFPAY ==
[2023-07-07 00:10] VITALS: BMI 44.0
[2023-08-03 12:06] LABS: International Normalized Ratio 2.8; Prothrombin Time (Protime)PT. 29.9 SECONDS (11.7-14.9)
== END 2023-08-05 23:59 ==
LOC: BIMLAB 11:26
PROVIDERS: Family Provider Internal Medicine; PCP Internal Medicine; Referring Provider Internal Medicine Cardiovascular Disease; Visit Provider Internal Medicine Cardiovascular Disease
DX: I48.11 Longstanding persistent atrial fibrillation (principal); Z79.01 Long term (current) use of 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s; S81.812A Laceration without foreign body, left lower leg, initial encounter; I87.2 Venous insufficiency (chronic) (peripheral)
CPT/HCPCS: 11042; 11045; 36415; 85610

== ENCOUNTER → 2023-08-08 | Outpatient (CLI) | payer MEDICARE, SELFPAY ==
[2023-08-10 13:07] LABS: PSA, Free % 20.7 % (.)
== END | disposition home or self-care (01) ==
LOC: BIMLAB 15:18
PROVIDERS: PCP Internal Medicine; Visit Provider Urology
DX: R97.20 Elevated prostate specific antigen [PSA] (principal)
CPT/HCPCS: 36415; 84153; 84154

== ENCOUNTER 2023-08-31 10:30 | Outpatient (RCR) | payer MEDICARE, SELFPAY ==
[2023-08-06 00:25] VITALS: BP 130/85; PULSE 83; RESP 16; TEMP 35.7; BMI 42.3
[2023-08-17 10:26] VITALS: BP 114/58; PULSE 85; RESP 16; TEMP 36.1; BMI 42.3
--- NOTE | 2023-08-17 11:40 | PN.PCM_ITS ---
History of Present Illness Date of Service: 08/17/23 Chief Complaint: Leg wound History of Wound: Mr. Conway is a 73-year-old well-known to me. Seen in the office yesterday and was advised that he come to the wound center for wound care. Wound breakdown following suturing at the ER on Monday. Slough noted during his office visit yesterday and the recommendation was made for him to come to the wound center. Did not dress wound as recommended yesterday. Some pain but not significant pain. No fever, chills or otherwise feeling of unwell. Progress of Wound: Improving. No new concerns at this time. Objective Data Objective Data Vital Signs: Vital Signs Temp Pulse Resp BP 96.9 F L 85 16 114/58 L 08/17/23 10:08/17/23 10:08/17/23 10:08/17/23 10: Weight: 330 lb Body Mass Index (BMI) 42.3 Charges/Coding Procedures Integumentary 111xxx-113xx: 17775 Soumya subq tissue 20 sq cm/< Physical Exam Const alert, oriented x3 and no apparent distress General Appearance: cooperative, comfortable and well kempt HEENT normocephalic, head/scalp atraumatic and hearing grossly normal bilaterally Neck full ROM and supple General: normal visual inspection Resp normal respiratory effort Effort and Inspection: able to speak in complete sentences Extremity General Extremity: edema Skin Wounds: wounds noted Neuro oriented x3, CN's II-XII intact bilaterally, moves all extremities and no focal motor deficits Psych mental status grossly normal, thought process normal, cooperative and affect normal Debridement Note Debridement Note Wound debrided: Left lower extremity Type of Debridement: Excisional debridement Anesthesia Used: 5% Lidocaine Gel Depth: Down to and including healthy tissue and in the subcutaneous layer Percentage of wound debrided: 100 Instrument Used: 5mm curette Tissue Removed: Slough and devitalized tissue Severity: Fat Layer Exposed Amount of bleeding with debridement: Mild Bleeding Controlled with: Pressure Patient tolerated procedure: Patient tolerated procedure well Post-Debridement Measurements and Additional Note: Post-Debridement Measurements/Treatment LEONIE - Nurse 1 - General Ulcer Assessment Start: 08/17/23 10:26 Freq: Status: Active Protocol: MILANA Activity Type Activity Date Activity User E-sign Co-sign Detail Recorded Client Recorded Date Recorded By Document 08/17/23 10:26 [facility] [employer] 08/17/23 10:32 08/17/23 10:26 - Today's Visit Information Type of service Follow-up Visit (Physician/MANAGER OPERATING ) Arrival Mode Ambulatory Patient Identification Verified (Name & Yes ) Patient Requires Transmission-Based No Precautions Height and Weight Body Mass Index (BMI) 42.3 BMI Classification Obese Vital Signs Temperature (97.8 F-99.1 F) 96.9 F L Temperature Source Temporal Pulse Rate (60-100) 85 Pulse Location Monitor Respiratory Rate (12-18) 16 Respiratory rate source Observation Blood Pressure (90/60-120/80) 114/58 L Blood Pressure Mean (mm Hg) 76 Source Monitor Position Semi-Fowlers Blood Pressure Location Left Arm History Since Last Visit- (Skip if this is Patient's initial visit) Have you changed medications since your No last visit? Any new allergies or adverse reactions No Have you been in the hospital since your No last visit? Has dressing in place as prescribed Yes Has compression in place as prescribed N/A Has offloadiing in place as prescribed N/A Experienced any changes in pain level or No management Left Footwear Regular Shoe Right Footwear Regular Shoe Pain Scale: 0-10 Numeric Is Patient Pain Free? Yes - Nurse 1 - General Ulcer Measurement Start: 08/17/23 10:26 Freq: Status: Active Protocol: Activity Type Activity Date Activity User E-sign Co-sign Detail Recorded Client Recorded Date Recorded By Document 08/17/23 10:26 [employer] 08/17/23 10:32 08/17/23 10:26 Wound Center Nurse 1 1-left leg -Combined with other wound No -Current Size (cm) - Length 3.3 -Current Size (cm) - Width 0.6 -Current Size (cm) - Depth 0.1 -Total Square Cm 1.98 -Photo Taken No -Epithelialization Small 1-33% -Tunneling No -Undermining/Tunneling No -Circular Undermining No -Exudate Amt Small -Exudate Type Serosanguineous -Wound Margin Flat & Intact -Granulation Amt Large (67-100%) -Granulation Quality Red -Slough/Fibrin Yes -Necrosis Amt Small (1-33%) -Necrotic Tissue Type Adherent Slough -Structure Exposed N/A -Texture (Radha-wound Skin Appearance) Assessed, Localized Edema -Moisture (Radha-wound Skin Appearance) Assessed,Dry/ Scaly -Color (Radha-wound Skin Appearance) Assessed -Temperature (Radha-wound Skin No Abnormality Appearance) (Pt Warm) -Tenderness on Palpation (Radha-wound No Skin Appearance) -Ulcer Cleansing Rinsed/ Irrigated with Saline -Foul Odor after Cleansing No -Anesthetic Used 5% Lidocaine Gel Lower Limb Edema Present Yes Left Calf (cm) 42.3 Left Ankle (cm) 29.2 WC - Nurse 2 - General Ulcer CM Notes Start: 08/17/23 10:26 Freq: Status: Active Protocol: Activity Type Activity Date Activity User E-sign Co-sign Detail Recorded Client Recorded Date Recorded By Document 08/17/23 10:38 [facility] Desktop 08/17/23 10:40 GM 08/17/23 10:38 Wound Center Nurse 2 1-left leg -Time 10:38 -Correct Patient Yes -Correct Side, Site, Position Yes -Correct Procedure Yes -Procedure Performed Yes -Type of Procedure Debridement -Clinical Debridement Subcutaneous -Tissue Removed Subcutaneous -Post Debridement (cm) - Length 3.0 -Post Debridement (cm) - Width 0.5 -Post Debridement (cm) - Depth 0.1 -Total Square (Post) (cm) 1.50 -Area of Debridement (cm) - Length 3.0 -Area of Debridement (cm) - Width 0.5 -Total Square (Area) (cm) 1.50 -Tunneling No -Undermining/Tunneling No -Circular Undermining No -Wound/Ulcer Outcome Not Healed -Ulcer Cleansing Rinsed/ Irrigated with Saline -Foul Odor after Cleansing No -Bioengineered Tissue No -Bleeding Controlled with Pressure -Treatment Response Procedure Tolerated Well -Debridement - Subq, 1st 20sq cm Yes Pain Scale: 0-10 Numeric Is Patient Pain Free? Yes - Nurse 3 - General Ulcer D/C NN Start: 08/17/23 10:26 Freq: Status: Active Protocol: Activity Type Activity Date Activity User E-sign Co-sign Detail Recorded Client Recorded Date Recorded By Document 08/17/23 10:54 [facility] Desktop 08/17/23 10:55 [facility] 08/17/23 10:54 Wound Care Center Nurse 3 1-left leg -Ulcer Cleansing Rinsed/ Irrigated with Saline -Foul Odor after Cleansing No -Primary Dressing Applied Aquacel Extra, Mepilex Border, NonAdherent Contact Layer -Aquacel Extra 1 -Mepilex Border 1 Left -Other PT WILL APPLY OWN TUBI WHEN RETURNS HOME Treatment Response Procedure Tolerated Well Pain Scale: 0-10 Numeric Is Patient Pain Free? Yes Assessment/Plan Assessment/Plan (1) Laceration of left lower extremity: CODE(S): S81.812A - Laceration without foreign body, left lower leg, initial encounter QUALIFIERS: Encounter type: subsequent encounter Qualified Code(s): S81.812D - Laceration without foreign body, left lower leg, subsequent encounter (2) Edema of both lower extremities due to peripheral venous insufficiency: CODE(S): I87.2 - Venous insufficiency (chronic) (peripheral) PLAN: Plan Debridement done as documented above, procedure was well-tolerated. Improving. Continue Aquacel extra, cover with Adaptic and gauze over top. Single-layer Tubigrip for edema management. Leg elevation, exercise as tolerated and compliance with compression very strongly recommended. Continue other chronic wound care as previously discussed. His questions were answered and he was advised to let us know if he has any further questions or concerns. Follow-up at the wound center in 2 weeks or sooner if needed. This note was generated with [employer] dictation software. It may contain incorrect words, spelling, and punctuation that were not noted in checking the note before signing.
[2023-08-31 10:28] VITALS: BP 120/71; PULSE 76; RESP 16; TEMP 35.9; BMI 42.3
--- NOTE | 2023-08-31 12:46 | PN.PCM_ITS ---
History of Present Illness Date of Service: 08/31/23 Chief Complaint: Leg wound History of Wound: Mr. Conway is a 73-year-old well-known to me. Seen in the office yesterday and was advised that he come to the wound center for wound care. Wound breakdown following suturing at the ER on Monday. Slough noted during his office visit yesterday and the recommendation was made for him to come to the wound center. Did not dress wound as recommended yesterday. Some pain but not significant pain. No fever, chills or otherwise feeling of unwell. Progress of Wound: No new concerns at this time. Minimal change since last visit. Objective Data Objective Data Vital Signs: Vital Signs Temp Pulse Resp BP O2 Del Method 96.7 F L 76 16 120/71 Room Air 08/31/23 10:28 08/31/23 10:28 08/31/23 10:28 08/31/23 10:28 08/31/23 10:28 Oxygen Delivery Method Room Air Weight: 330 lb Body Mass Index (BMI) 42.3 Charges/Coding Procedures Integumentary 111xxx-113xx: 75823 Soumya subq tissue 20 sq cm/< Physical Exam Const alert, oriented x3 and no apparent distress General Appearance: cooperative, comfortable and well kempt HEENT normocephalic, head/scalp atraumatic and hearing grossly normal bilaterally Neck full ROM and supple General: normal visual inspection Resp normal respiratory effort Effort and Inspection: able to speak in complete sentences Extremity General Extremity: edema Skin Wounds: wounds noted Neuro oriented x3, CN's II-XII intact bilaterally, moves all extremities and no focal motor deficits Psych mental status grossly normal, thought process normal, cooperative and affect normal Debridement Note Debridement Note Wound debrided: Left lower extremity Type of Debridement: Excisional debridement Anesthesia Used: 5% Lidocaine Gel Depth: Down to and including healthy tissue and in the subcutaneous layer Percentage of wound debrided: 100 Instrument Used: 3mm curette Tissue Removed: Slough and devitalized tissue Severity: Fat Layer Exposed Amount of bleeding with debridement: Mild Bleeding Controlled with: Pressure Patient tolerated procedure: Patient tolerated procedure well Post-Debridement Measurements and Additional Note: Post-Debridement Measurements/Treatment LEONIE - Nurse 1 - General Ulcer Assessment Start: 08/17/23 10:26 Freq: Status: Active Protocol: WC.LOWEXT Activity Type Activity Date Activity User E-sign Co-sign Detail Recorded Client Recorded Date Recorded By Document 08/17/23 10:26 Desktop 08/17/23 10:32 Document 08/31/23 10:28 [facility] Desktop 08/31/23 10:31 F 08/17/23 08/31/23 10:26 10:28 - Today's Visit Information Type of service Follow-up Visit Follow-up Visit (Physician/PEDIATRIC PHYSICAL THERAPIST (Physician/PEDIATRIC PHYSICAL THERAPIST ) ) Arrival Mode Ambulatory Ambulatory Transfer Assistance None Patient Identification Verified (Name & Yes Yes ) Patient Requires Transmission-Based No No Precautions Height and Weight Body Mass Index (BMI) 42.3 42.3 BMI Classification Obese Obese Vital Signs Temperature (97.8 F-99.1 F) 96.9 F L 96.7 F L Temperature Source Temporal Temporal Pulse Rate (60-100) 85 76 Pulse Location Monitor Monitor Respiratory Rate (12-18) 16 16 Respiratory rate source Observation Observation Oxygen Delivery Method Room Air Blood Pressure (90/60-120/80) 114/58 L 120/71 Blood Pressure Mean (mm Hg) 76 87 Source Monitor Monitor Position Semi-Fowlers Sitting Blood Pressure Location Left Arm Left Arm History Since Last Visit- (Skip if this is Patient's initial visit) Have you changed medications since your No No last visit? Any new allergies or adverse reactions No No Had a fall/change in ADL's that may No increase risk of falls Signs or symptoms of abuse and/or No neglect since last visit Have you been in the hospital since your No No last visit? Has dressing in place as prescribed Yes Yes Has compression in place as prescribed N/A Yes Has offloadiing in place as prescribed N/A N/A Experienced any changes in pain level or No No management Left Footwear Regular Shoe Regular Shoe Right Footwear Regular Shoe Regular Shoe Pain Scale: 0-10 Numeric Is Patient Pain Free? Yes Yes - Nurse 1 - General Ulcer Measurement Start: 08/17/23 10:26 Freq: Status: Active Protocol: Activity Type Activity Date Activity User E-sign Co-sign Detail Recorded Client Recorded Date Recorded By Document 08/17/23 10:26 Desktop 08/17/23 10:32 Document 08/31/23 10:28 [facility] Desktop 10/26/23 10:31 BMF 08/17/23 08/31/23 10:26 10:28 Wound Center Nurse 1 1-left leg -Combined with other wound No No -Current Size (cm) - Length 3.3 2.8 -Current Size (cm) - Width 0.6 0.3 -Current Size (cm) - Depth 0.1 0.2 -Total Square Cm 1.98 0.84 -Photo Taken No No -Epithelialization Small 1-33% Small 1-33% -Tunneling No No -Undermining/Tunneling No No -Circular Undermining No No -Exudate Amt Small Medium -Exudate Type Serosanguineous Serosanguineous -Wound Margin Flat & Intact Distinct, Outline Attached -Granulation Amt Large (67-100%) Medium (34-66%) -Granulation Quality Red Red -Slough/Fibrin Yes Yes -Necrosis Amt Small (1-33%) Medium (34-66%) -Necrotic Tissue Type Adherent Slough Eschar -Structure Exposed N/A -Texture (Radha-wound Skin Appearance) Assessed, Assessed, Localized Edema Scarring -Moisture (Radha-wound Skin Appearance) Assessed,Dry/ Assessed,Dry/ Scaly Scaly -Color (Radha-wound Skin Appearance) Assessed Assessed -Temperature (Radha-wound Skin No Abnormality No Abnormality Appearance) (Pt Warm) (Pt Warm) -Tenderness on Palpation (Radha-wound No No Skin Appearance) -Ulcer Cleansing Rinsed/ Rinsed/ Irrigated with Irrigated with Saline Saline -Foul Odor after Cleansing No No -Anesthetic Used 5% Lidocaine 5% Lidocaine Gel Gel Lower Limb Edema Present Yes Left Calf (cm) 42.3 Left Ankle (cm) 29.2 WC - Nurse 2 - General Ulcer CM Notes Start: 08/17/23 10:26 Freq: Status: Active Protocol: Activity Type Activity Date Activity User E-sign Co-sign Detail Recorded Client Recorded Date Recorded By Document 08/17/23 10:38 GM Desktop 08/17/23 10:40 GM Document 08/31/23 11:02 GM Desktop 08/31/23 11:07 08/17/23 08/31/23 10:38 11:02 Wound Center Nurse 2 1-left leg -Time 10:38 11:03 -Correct Patient Yes Yes -Correct Side, Site, Position Yes Yes -Correct Procedure Yes Yes -Procedure Performed Yes Yes -Type of Procedure Debridement Debridement -Clinical Debridement Subcutaneous Subcutaneous -Tissue Removed Subcutaneous Subcutaneous -Post Debridement (cm) - Length 3.0 3.0 -Post Debridement (cm) - Width 0.5 0.4 -Post Debridement (cm) - Depth 0.1 0.1 -Total Square (Post) (cm) 1.50 1.20 -Area of Debridement (cm) - Length 3.0 3.0 -Area of Debridement (cm) - Width 0.5 0.4 -Total Square (Area) (cm) 1.50 1.20 -Tunneling No No -Undermining/Tunneling No No -Circular Undermining No No -Wound/Ulcer Outcome Not Healed Not Healed -Ulcer Cleansing Rinsed/ Rinsed/ Irrigated with Irrigated with Saline Saline -Foul Odor after Cleansing No No -Bioengineered Tissue No No -Bleeding Controlled with Pressure Pressure -Treatment Response Procedure Procedure Tolerated Well Tolerated Well -Debridement - Subq, 1st 20sq cm Yes Yes Pain Scale: 0-10 Numeric Is Patient Pain Free? Yes Yes - Nurse 3 - General Ulcer D/C NN Start: 08/17/23 10:26 Freq: Status: Active Protocol: Activity Type Activity Date Activity User E-sign Co-sign Detail Recorded Client Recorded Date Recorded By Document 08/17/23 10:54 [facility] Desktop 08/17/23 10:55 [facility] Document 08/31/23 11:13 Laptop 08/31/23 11:15 08/17/23 08/31/23 10:54 11:13 Wound Care Center Nurse 3 1-left leg -Ulcer Cleansing Rinsed/ Rinsed/ Irrigated with Irrigated with Saline Saline -Foul Odor after Cleansing No No -Primary Dressing Applied Aquacel Extra, Mepilex Border, Mepilex Border, Promogran NonAdherent Contact Layer -Aquacel Extra 1 -Mepilex Border 1 1 -Promogran 1 Left -Other PT WILL APPLY OWN TUBI WHEN RETURNS HOME Treatment Response Procedure Tolerated Well Pain Scale: 0-10 Numeric Is Patient Pain Free? Yes Yes - Visit Discharge Discharge Condition Stable Ambulatory Status Ambulatory Transportation Private Auto Medication Reconcilliation completed & Yes provided to patient/care provider Clinical Summary of Care Provided Yes Notes: Patient denied a new tubigrip today but did not have one on him. Encouraged him to let us give him a new one and apply it since he has no other compression. He states he will go home and put one of his tubigrips on himself. I educated him about the importance of compression therapy for wound healing. He verbalized understanding. Assessment/Plan Assessment/Plan (1) Laceration of left lower extremity: CODE(S): S81.812A - Laceration without foreign body, left lower leg, initial encounter QUALIFIERS: Encounter type: subsequent encounter Qualified Code(s): S81.812D - Laceration without foreign body, left lower leg, subsequent encounter (2) Edema of both lower extremities due to peripheral venous insufficiency: CODE(S): I87.2 - Venous insufficiency (chronic) (peripheral) PLAN: Plan Debridement done as documented above, procedure was well-tolerated. Stable. No significant change. Switch to Promogran daily. Cover with adaptic and foam dressing. Single-layer Tubigrip for edema management. Leg elevation, exercise as tolerated and compliance with compression very strongly recommended. Continue other chronic wound care as previously discussed. His questions were answered and he was advised to let us know if he has any further questions or concerns. Follow-up at the wound center in 1 week or sooner if needed. This note was generated with [employer] dictation software. It may contain incorrect words, spelling, and punctuation that were not noted in checking the note before signing.
== END 2023-09-05 23:59 | disposition home or self-care (01) ==
LOC: WC 10:30
PROVIDERS: PCP Internal Medicine; Referring Provider Internal Medicine; Visit Provider Internal Medicine
DX: I87.2 Venous insufficiency (chronic) (peripheral) (principal); S81.812D Laceration without foreign body, left lower leg, subsequent encounter
CPT/HCPCS: 11042

== ENCOUNTER 2023-09-21 10:45 | Outpatient (RCR) | payer MEDICARE, SELFPAY ==
[2023-09-06 00:42] VITALS: BP 120/71; PULSE 76; RESP 16; TEMP 35.9; BMI 42.3
[2023-09-07 10:58] VITALS: BP 113/67; PULSE 81; RESP 18; TEMP 35.6; BMI 42.3
--- NOTE | 2023-09-07 12:04 | PCM.WC.PN ---
History of Present Illness Date of Service: 09/07/23 Chief Complaint: Leg wound History of Wound: Mr. Conway is a 73-year-old well-known to me. Seen in the office yesterday and was advised that he come to the wound center for wound care. Wound breakdown following suturing at the ER on Monday. Slough noted during his office visit yesterday and the recommendation was made for him to come to the wound center. Did not dress wound as recommended yesterday. Some pain but not significant pain. No fever, chills or otherwise feeling of unwell. Progress of Wound: Increased lower extremity edema. Wound with some improvement. Objective Data Objective Data Vital Signs: Vital Signs Temp Pulse Resp BP O2 Del Method 96.1 F L 81 18 113/67 Room Air 09/07/23 10:58 09/07/23 10:58 09/07/23 10:58 09/07/23 10:58 09/07/23 10:58 Oxygen Delivery Method Room Air Weight: 330 lb Body Mass Index (BMI) 42.3 Charges/Coding Procedures Integumentary 111xxx-113xx: 19358 Soumya subq tissue 20 sq cm/< Physical Exam Const alert, oriented x3 and no apparent distress General Appearance: cooperative, comfortable and well kempt HEENT normocephalic, head/scalp atraumatic and hearing grossly normal bilaterally Neck full ROM and supple General: normal visual inspection Resp normal respiratory effort Effort and Inspection: able to speak in complete sentences Extremity General Extremity: edema Skin Wounds: wounds noted Neuro oriented x3, CN's II-XII intact bilaterally, moves all extremities and no focal motor deficits Psych mental status grossly normal, thought process normal, cooperative and affect normal Debridement Note Debridement Note Wound debrided: Left lower extremity Type of Debridement: Excisional debridement Anesthesia Used: 5% Lidocaine Gel Depth: Down to and including healthy tissue and in the subcutaneous layer Percentage of wound debrided: 100 Instrument Used: 3mm curette Tissue Removed: Slough and devitalized tissue Severity: Fat Layer Exposed Amount of bleeding with debridement: Mild Bleeding Controlled with: Pressure Patient tolerated procedure: Patient tolerated procedure well Post-Debridement Measurements and Additional Note: Post-Debridement Measurements/Treatment LEONIE - Nurse 1 - General Ulcer Assessment Start: 09/07/23 10:53 Freq: Status: Active Protocol: MILANA Activity Type Activity Date Activity User E-sign Co-sign Detail Recorded Client Recorded Date Recorded By Document 09/07/23 10:58 [email or web address] 09/07/23 11:06 KW 09/07/23 10:58 WC - Today's Visit Information Type of service Follow-up Visit (Physician/PROSPECT MANAGER ) Arrival Mode Ambulatory Patient Identification Verified (Name & Yes ) Height and Weight Body Mass Index (BMI) 42.3 BMI Classification Obese Vital Signs Temperature (97.8 F-99.1 F) 96.1 F L Temperature Source Temporal Pulse Rate (60-100) 81 Pulse Location Monitor Respiratory Rate (12-18) 18 Respiratory rate source Observation Oxygen Delivery Method Room Air Blood Pressure (90/60-120/80) 113/67 Blood Pressure Mean (mm Hg) 82 Source Monitor Position Semi-Fowlers Blood Pressure Location Left Arm History Since Last Visit- (Skip if this is Patient's initial visit) Have you changed medications since your No last visit? Any new allergies or adverse reactions No Had a fall/change in ADL's that may No increase risk of falls Signs or symptoms of abuse and/or No neglect since last visit Have you been in the hospital since your No last visit? Has dressing in place as prescribed Yes Has compression in place as prescribed No Has offloadiing in place as prescribed No Experienced any changes in pain level or No management Left Footwear Regular Shoe Right Footwear Regular Shoe Pain Scale: 0-10 Numeric Is Patient Pain Free? Yes - Nurse 1 - General Ulcer Measurement Start: 09/07/23 10:53 Freq: Status: Active Protocol: Activity Type Activity Date Activity User E-sign Co-sign Detail Recorded Client Recorded Date Recorded By Document 09/07/23 10:58 [employer] 09/07/23 11:06 KW 09/07/23 10:58 Wound Center Nurse 1 1-left leg -Current Size (cm) - Length 6 -Current Size (cm) - Width 3.1 -Current Size (cm) - Depth 0.1 -Total Square Cm 18.6 -Exudate Amt Small -Exudate Type Serosanguineous -Wound Margin Distinct, Outline Attached -Granulation Amt Medium (34-66%) -Granulation Quality Red -Texture (Radha-wound Skin Appearance) Assessed -Moisture (Radha-wound Skin Appearance) Assessed -Color (Radha-wound Skin Appearance) Assessed, Hemosiderin Staining -Temperature (Radha-wound Skin No Abnormality Appearance) (Pt Warm) -Ulcer Cleansing Rinsed/ Irrigated with Saline -Foul Odor after Cleansing No -Anesthetic Used 5% Lidocaine Gel -Wound Comment(s) scabbed area with possible new opened area near wound. Clustered together. Left Calf (cm) 42.5 Left Ankle (cm) 28.8 - Nurse 2 - General Ulcer CM Notes Start: 09/07/23 10:53 Freq: Status: Active Protocol: Activity Type Activity Date Activity User E-sign Co-sign Detail Recorded Client Recorded Date Recorded By Document 09/07/23 11:16 GM Desktop 09/07/23 11:19 09/07/23 11:16 Wound Center Nurse 2 1-left leg -Time 11:18 -Correct Patient Yes -Correct Side, Site, Position Yes -Correct Procedure Yes -Procedure Performed Yes -Type of Procedure Debridement -Clinical Debridement Subcutaneous -Tissue Removed Subcutaneous -Post Debridement (cm) - Length 2.5 -Post Debridement (cm) - Width 0.2 -Post Debridement (cm) - Depth 0.1 -Total Square (Post) (cm) 0.50 -Area of Debridement (cm) - Length 0.2 -Tunneling No -Undermining/Tunneling No -Circular Undermining No -Wound/Ulcer Outcome Not Healed -Ulcer Cleansing Rinsed/ Irrigated with Saline -Foul Odor after Cleansing No -Bioengineered Tissue No -Bleeding Controlled with Pressure -Treatment Response Procedure Tolerated Well -Debridement - Subq, 1st 20sq cm Yes Pain Scale: 0-10 Numeric Is Patient Pain Free? Yes - Nurse 3 - General Ulcer D/C NN Start: 09/07/23 10:53 Freq: Status: Active Protocol: Activity Type Activity Date Activity User E-sign Co-sign Detail Recorded Client Recorded Date Recorded By Document 09/07/23 11:27 DL Desktop 09/07/23 11:28 DL 09/07/23 11:27 Wound Care Center Nurse 3 1-left leg -Ulcer Cleansing Rinsed/ Irrigated with Saline -Foul Odor after Cleansing No -Primary Dressing Applied Mepilex Border, Promogran -Other Covering adaptic -Mepilex Border 1 -Promogran 1 Left -Other tubigrip D Treatment Response Procedure Tolerated Well Pain Scale: 0-10 Numeric Is Patient Pain Free? Yes - Visit Discharge Discharge Condition Stable Ambulatory Status Ambulatory Transportation Private Auto Assessment/Plan Assessment/Plan (1) Laceration of left lower extremity: CODE(S): S81.812A - Laceration without foreign body, left lower leg, initial encounter QUALIFIERS: Encounter type: subsequent encounter Qualified Code(s): S81.812D - Laceration without foreign body, left lower leg, subsequent encounter (2) Edema of both lower extremities due to peripheral venous insufficiency: CODE(S): I87.2 - Venous insufficiency (chronic) (peripheral) PLAN: Plan Debridement done as documented above, procedure was well-tolerated. Some improvement noted. Continue Promogran daily. Cover with adaptic and foam dressing. Double layer Tubigrip for edema management. Leg elevation, exercise as tolerated and compliance with compression very strongly recommended. Continue other chronic wound care as previously discussed. His questions were answered and he was advised to let us know if he has any further questions or concerns. Follow-up at the wound center in 2 weeks or sooner if needed. This note was generated with [employer] dictation software. It may contain incorrect words, spelling, and punctuation that were not noted in checking the note before signing.
[2023-09-21 10:54] VITALS: BP 116/88; PULSE 83; RESP 16; TEMP 36.2; BMI 42.3
--- NOTE | 2023-09-21 11:43 | PCM.WC.PN ---
History of Present Illness Date of Service: 09/21/23 Chief Complaint: Leg wound History of Wound: Mr. Conway is a 73-year-old well-known to me. Seen in the office yesterday and was advised that he come to the wound center for wound care. Wound breakdown following suturing at the ER on Monday. Slough noted during his office visit yesterday and the recommendation was made for him to come to the wound center. Did not dress wound as recommended yesterday. Some pain but not significant pain. No fever, chills or otherwise feeling of unwell. Progress of Wound: Healed. No new concerns at this time. Objective Data Objective Data Vital Signs: Vital Signs Temp Pulse Resp BP O2 Del Method 97.2 F L 83 16 116/88 H Room Air 09/21/23 10:54 09/21/23 10:54 09/21/23 10:54 09/21/23 10:54 09/21/23 10:54 Oxygen Delivery Method Room Air Weight: 330 lb Body Mass Index (BMI) 42.3 Charges/Coding Visit Charges Office Visits / Consults: 37842 OV L3 Est Physical Exam Const alert, oriented x3 and no apparent distress General Appearance: cooperative, comfortable and well kempt HEENT normocephalic, head/scalp atraumatic and hearing grossly normal bilaterally Neck full ROM and supple General: normal visual inspection Resp normal respiratory effort Effort and Inspection: able to speak in complete sentences Extremity General Extremity: edema Neuro oriented x3, CN's II-XII intact bilaterally, moves all extremities and no focal motor deficits Psych mental status grossly normal, thought process normal, cooperative and affect normal Debridement Note Debridement Note Post-Debridement Measurements and Additional Note: Post-Debridement Measurements/Treatment - Nurse 1 - General Ulcer Assessment Start: 09/07/23 10:53 Freq: Status: Active Protocol: LEONIE.CATY Activity Type Activity Date Activity User E-sign Co-sign Detail Recorded Client Recorded Date Recorded By Document 09/07/23 10:58 KW Desktop 09/07/23 11:06 KW Document 09/21/23 10:54 BM Desktop 09/21/23 11:00 BMF 09/07/23 09/21/23 10:58 10:54 - Today's Visit Information Type of service Follow-up Visit Follow-up Visit (Physician/STAFF DEVELOPMENT NURSE (Physician/STAFF DEVELOPMENT NURSE ) ) Arrival Mode Ambulatory Ambulatory Transfer Assistance None Accompanied by Patient Identification Verified (Name & Yes No ) Patient Requires Transmission-Based No Precautions Height and Weight Body Mass Index (BMI) 42.3 42.3 BMI Classification Obese Obese Vital Signs Temperature (97.8 F-99.1 F) 96.1 F L 97.2 F L Temperature Source Temporal Temporal Pulse Rate (60-100) 81 83 Pulse Location Monitor Monitor Respiratory Rate (12-18) 18 16 Respiratory rate source Observation Observation Oxygen Delivery Method Room Air Room Air Blood Pressure (90/60-120/80) 113/67 116/88 H Blood Pressure Mean (mm Hg) 82 97 Source Monitor Monitor Position Semi-Fowlers Sitting Blood Pressure Location Left Arm Right Arm History Since Last Visit- (Skip if this is Patient's initial visit) Have you changed medications since your No No last visit? Any new allergies or adverse reactions No No Had a fall/change in ADL's that may No No increase risk of falls Signs or symptoms of abuse and/or No No neglect since last visit Have you been in the hospital since your No No last visit? Has dressing in place as prescribed Yes No Has compression in place as prescribed No No Has offloadiing in place as prescribed No N/A Experienced any changes in pain level or No No management Left Footwear Regular Shoe Regular Shoe Right Footwear Regular Shoe Regular Shoe Pain Scale: 0-10 Numeric Is Patient Pain Free? Yes Yes WC - Nurse 1 - General Ulcer Measurement Start: 09/07/23 10:53 Freq: Status: Active Protocol: Activity Type Activity Date Activity User E-sign Co-sign Detail Recorded Client Recorded Date Recorded By Document 09/07/23 10:58 KW Desktop 09/07/23 11:06 KW Document 09/21/23 10:54 [facility] Desktop 09/21/23 11:00 BM 09/07/23 09/21/23 10:58 10:54 Wound Center Nurse 1 1-left leg -Combined with other wound No -Current Size (cm) - Length 6 0.1 -Current Size (cm) - Width 3.1 0.1 -Current Size (cm) - Depth 0.1 0.1 -Total Square Cm 18.6 0.01 -Date of Last Picture (Recall this 09/21/23 field) -Photo Taken Yes -Epithelialization Large 67-100% -Exudate Amt Small -Exudate Type Serosanguineous -Wound Margin Distinct, Outline Attached -Granulation Amt Medium (34-66%) -Granulation Quality Red -Texture (Radha-wound Skin Appearance) Assessed Assessed, Scarring -Moisture (Radha-wound Skin Appearance) Assessed Assessed,Dry/ Scaly -Color (Radha-wound Skin Appearance) Assessed, Assessed Hemosiderin Staining -Temperature (Radha-wound Skin No Abnormality No Abnormality Appearance) (Pt Warm) (Pt Warm) -Tenderness on Palpation (Radha-wound No Skin Appearance) -Ulcer Cleansing Rinsed/ Rinsed/ Irrigated with Irrigated with Saline Saline -Foul Odor after Cleansing No No -Anesthetic Used 5% Lidocaine 5% Lidocaine Gel Gel -Wound Comment(s) scabbed area with possible new opened area near wound. Clustered together. Left Calf (cm) 42.5 Left Ankle (cm) 28.8 WC - Nurse 2 - General Ulcer CM Notes Start: 09/07/23 10:53 Freq: Status: Active Protocol: Activity Type Activity Date Activity User E-sign Co-sign Detail Recorded Client Recorded Date Recorded By Document 09/07/23 11:16 GM Desktop 09/07/23 11:19 GM Document 09/21/23 11:17 GM Desktop 09/21/23 11:18 09/07/23 09/21/23 11:16 11:17 Wound Center Nurse 2 1-left leg -Time 11:18 11:17 -Correct Patient Yes Yes -Correct Side, Site, Position Yes -Correct Procedure Yes -Procedure Performed Yes -Type of Procedure Debridement -Clinical Debridement Subcutaneous -Tissue Removed Subcutaneous -Post Debridement (cm) - Length 2.5 -Post Debridement (cm) - Width 0.2 -Post Debridement (cm) - Depth 0.1 -Total Square (Post) (cm) 0.50 -Area of Debridement (cm) - Length 0.2 -Tunneling No -Undermining/Tunneling No -Circular Undermining No -Wound/Ulcer Outcome Not Healed Healed- Epithelialized -Ulcer Cleansing Rinsed/ Irrigated with Saline -Foul Odor after Cleansing No -Bioengineered Tissue No -Bleeding Controlled with Pressure -Treatment Response Procedure Tolerated Well -Debridement - Subq, 1st 20sq cm Yes Pain Scale: 0-10 Numeric Is Patient Pain Free? Yes Yes WC - Nurse 3 - General Ulcer D/C NN Start: 09/07/23 10:53 Freq: Status: Active Protocol: Activity Type Activity Date Activity User E-sign Co-sign Detail Recorded Client Recorded Date Recorded By Document 09/07/23 11:27 DL Desktop 09/07/23 11:28 DL 09/07/23 11:27 Wound Care Center Nurse 3 1-left leg -Ulcer Cleansing Rinsed/ Irrigated with Saline -Foul Odor after Cleansing No -Primary Dressing Applied Mepilex Border, Promogran -Other Covering adaptic -Mepilex Border 1 -Promogran 1 Left -Other tubigrip D Treatment Response Procedure Tolerated Well Pain Scale: 0-10 Numeric Is Patient Pain Free? Yes WC - Visit Discharge Discharge Condition Stable Ambulatory Status Ambulatory Transportation Private Auto Assessment/Plan Assessment/Plan (1) Laceration of left lower extremity: CODE(S): S81.812A - Laceration without foreign body, left lower leg, initial encounter QUALIFIERS: Encounter type: subsequent encounter Qualified Code(s): S81.812D - Laceration without foreign body, left lower leg, subsequent encounter (2) Edema of both lower extremities due to peripheral venous insufficiency: CODE(S): I87.2 - Venous insufficiency (chronic) (peripheral) PLAN: Plan Healed. No debridement completed today. Adaptic daily for 2 weeks and then stop. Compression indefinitely. Leg elevation, exercise as tolerated and compliance with compression very strongly recommended. He was advised to call with any questions or concerns, he voiced understanding. Discharge from the wound clinic. This note was generated with [employer] dictation software. It may contain incorrect words, spelling, and punctuation that were not noted in checking the note before signing.
== END 2023-10-05 23:59 | disposition home or self-care (01) ==
LOC: WC 10:45
PROVIDERS: PCP Internal Medicine; Referring Provider Internal Medicine; Visit Provider Internal Medicine
DX: R60.0 Localized edema (principal); I87.2 Venous insufficiency (chronic) (peripheral); S81.812D Laceration without foreign body, left lower leg, subsequent encounter
CPT/HCPCS: 11042; 99213; G0463

== ENCOUNTER 2023-10-02 13:26 | Outpatient (RCR) | payer MEDICARE, SELFPAY ==
[2023-08-06 00:12] VITALS: BMI 44.0
[2023-10-02 15:26] LABS: International Normalized Ratio 2.6; Prothrombin Time (Protime)PT. 28.2 SECONDS (11.7-14.9)
[2023-10-02 15:33] LABS: AST(SGOT) 17 U/L (15-37); Alanine Aminotransfer ALT/SGPT 31 U/L (16-61); Albumin, Serum 3.6 g/dL (3.2-5.0); Alkaline Phosphatase 105 U/L (45-117); Bilirubin, Direct 0.22 mg/dL (0.00-0.30); Cholesterol 91 mg/dL (200); Globulin 3.6 g/dL (2.2-4.2); High Density Lipoprotein 35 mg/dL; Protein, Total 7.2 g/dL (6.4-8.2); Triglycerides 104 mg/dL; Very Low Density Lipoprotein 21 mg/dL (5-40)
== END 2023-10-05 23:59 ==
LOC: BIMLAB 13:26
PROVIDERS: Family Provider Internal Medicine; PCP Internal Medicine; Referring Provider Internal Medicine Cardiovascular Disease; Visit Provider Internal Medicine Cardiovascular Disease
DX: I48.11 Longstanding persistent atrial fibrillation (principal); Z79.01 Long term (current) use of 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s; E78.00 Pure hypercholesterolemia, unspecified
CPT/HCPCS: 36415; 80061; 80076; 85610

== ENCOUNTER → 2023-10-09 | Outpatient (CLI) | payer MEDICARE, SELFPAY ==
--- NOTE | 2023-10-09 14:45 | ART_ITS ---
Reason For Study: Atherosclerosis w/ Claudication Procedure A bilateral lower extremity continuous wave Doppler with analog waveform analysis and ankle brachial indexes. Left Segmental Pressures Left brachial= 119mmHg. Left posterior tibial artery = 65mmHg. Left dorsalis pedis artery = 74mmHg. Left digit = 56 mmHg. Right Segmental Pressures Right brachial= 103mmHg. Right posterior tibial artery = 62mmHg. Right dorsalis pedis artery = 73mmHg. Right digit = 39 mmHg. Indices The right ankle brachial index by the posterior tibial artery is 0.52. The right ankle brachial index by the dorsalis pedis is 0.61. The right digital-brachial index is 0.33. The left ankle brachial index by the posterior tibial artery is 0.55. The left ankle brachial index by the dorsalis pedis is 0.62. The left digital-brachial index is 0.47. VL/Ankle Brachial Index Interpretation Summary Bilateral moderate occlusive disease at rest. Ordering Physician: Minh Jarquin Referring Physician: Carline Ramirez Performed By: Medina Carrera RDCS/RVT
== END | disposition home or self-care (01) ==
LOC: CVS 14:43
PROVIDERS: PCP Internal Medicine; Referring Provider Surgery Vascular Surgery; Visit Provider Surgery Vascular Surgery
DX: I70.213 Atherosclerosis of native arteries of extremities with intermittent claudication, bilateral legs (principal)
CPT/HCPCS: 93922

== ENCOUNTER 2023-11-07 15:50 | Outpatient (RCR) | payer MEDICARE, SELFPAY ==
[2023-11-07 17:14] LABS: International Normalized Ratio 2.3; Prothrombin Time (Protime)PT. 25.6 SECONDS (11.7-14.9)
--- OUTSIDE RECORDS SUMMARY | 2023-11-07 18:13 | XMS RPT_ITS | CCD ---
Author Name Unknown Address [address] [facility] [address] [place] [address] Organization [facility] Care Team Providers Care Home Demonstrator Name Role Phone PALAFOXSUSAN COFFEYTIS W Unavailable Unavailable PALAFOX, SELAM W Unavailable Unavailable *SELF, REFERRED Unavailable Unavailable PALAFOX, SELAM W Unavailable Unavailable *SELF, REFERRED Unavailable Unavailable *SELF, REFERRED Unavailable Unavailable PALAFOX, SELAM W Unavailable Unavailable PALAFOX, SELAM W Unavailable Unavailable *SELF, REFERRED Unavailable Unavailable Results Test Name Value Interpretation Reference Range Facil ity Encounters Encounter Date Encounter Type Care Provider Facility Start: 11-14-2018 Patient encounter procedure SELAM PALAFOX Facility:[id number] Start: 06-18-2018 Patient encounter procedure SELAM PALAFOX Facility:[id number] Start: 02-12-2018 Patient encounter procedure SELAM PALAFOX Facility:[id number] Payers Date Payer Category Payer Unknown [id number] 2.16. [id number] 1950 Unknown [id number] 2.16. [id number] 1950 Unknown [id number] 2.16. [id number] Private Health Insurance [facility] [id number] Summary Purpose Family History No Family History Records FoundNo Family History Records Found Advance Directives No Advanced Directives Records FoundNo Advanced Directives Records Found Additional Source Comments (unrecognized sect ion and content) No Status Records FoundNo Status Records Found INFORMATION SOURCE (unrecogn ized section and content) DATE CREATED AUTHOR AUTHOR'S JOANIE ATION 03/28/2019 [facility] FOR RECORDS PERTAINING TO PATIENTS WHO ARE OR HAVE BEEN ENROLLED IN A CHEMICAL DEPENDENCY/SUBSTANCEABUSE PROGRAM, SOME INFORMATION MAY BE OMITTED. This clinical summary was aggregated from multiple sources. Caution should be exercised in using it in the provision of clinical care. This summary normalizes information from multiple sources, and as a consequence, information in this document may materially change the coding, format and clinical context of patient data. In addition, data may be omitted in some cases. CLINICAL DECISIONS SHOULD BE BASED ON THE PRIMARY CLINICAL RECORDS. [facility]. provides no warranty or guarantee of the accuracy or completeness of information in this document.
== END 2023-12-06 23:59 ==
LOC: BIMLAB 15:50
PROVIDERS: PCP Internal Medicine; Visit Provider Internal Medicine
DX: Z79.01 Long term (current) use of 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s (principal); I48.11 Longstanding persistent atrial fibrillation
CPT/HCPCS: 36415; 85610

== ENCOUNTER 2023-12-26 13:31 | Outpatient (RCR) | payer MEDICARE, SELFPAY ==
[2023-12-26 15:35] LABS: International Normalized Ratio 2.7; Prothrombin Time (Protime)PT. 28.7 SECONDS (11.7-14.9)
== END 2024-01-04 23:59 ==
LOC: BIMLAB 13:31
PROVIDERS: PCP Internal Medicine; Visit Provider Internal Medicine Cardiovascular Disease
DX: I48.11 Longstanding persistent atrial fibrillation (principal); Z79.01 Long term (current) use of 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s
CPT/HCPCS: 36415; 85610

== ENCOUNTER → 2024-01-12 | Outpatient (CLI) | payer MEDICARE, SELFPAY ==
--- NOTE | 2024-01-12 13:13 | MRI_ITS ---
HISTORY: neurogenic claudication, low back pain. TECHNIQUE: Multiplanar and multisequence MR images of the lumbar spine were obtained without intravenous contrast. 156 images. COMPARISON: XR 03/19/2018. FINDINGS: VERTEBRAE: Vertebral body heights maintained. Degenerative bone marrow endplate changes of L1-2, L4-5, and L5-S1. ALIGNMENT: No anterior or posterior subluxation. CONUS: Normal morphology and position of the conus medullaris at the lower L1 level. INTERVERTEBRAL DISCS: T12-L1: No significant signal abnormality, posterior disc protrusion, central canal stenosis, or foraminal narrowing based on the sagittal images. L1-2: Mild posterior disc bulge osteophyte complex with facet arthropathy resulting in minimal narrowing of the thecal sac and mild bilateral foraminal narrowing. L2-3: Mild disc bulge with facet arthropathy resulting in mild central canal stenosis, mild right, and mild-moderate left foraminal narrowing with left L2 nerve root abutment. L3-4: Very mild disc bulge and moderate facet arthropathy superimposed on a developmentally narrow spinal canal resulting in mild central canal stenosis and moderate bilateral foraminal narrowing. L4-5, L5-S1: Very mild disc bulge and mild facet arthropathy resulting in moderate bilateral foraminal narrowing. No significant central canal stenosis. SOFT TISSUES: Posterior subcutaneous edema noted. MRI/Spine Lumbar (Routine) IMPRESSION: Mild multilevel degenerative disc disease with facet arthropathy resulting in mild lumbar spinal canal stenosis and moderate bilateral foraminal narrowing as above. Electronically Signed: Kayla Chung MD at 12:56 EST ,
--- OUTSIDE RECORDS SUMMARY | 2024-01-12 13:35 | XMS RPT_ITS | CCD ---
Author Name Unknown Address [address] [facility] [address] [place] [address] Organization [facility] Care Team Providers Care Marshmallow Maker Name Role Phone SUSAN PALAFOXTIS W Unavailable Unavailable PALAFOX, SELAM W Unavailable [...] Facility:[id number] Payers Date Payer Category Payer Unknown [id number] [id number]. [id number] 1950 Unknown [id number] [id number]. [id number] 1950 Unknown [id number] [id number]. [id number] Private Health Insurance [facility] [id number] Summary Purpose Family History No Family History Records FoundNo Family History Records Found Advance Directives No Advanced Directives Records FoundNo Advanced Directives Records Found Additional Source Comments (unrecognized sect ion and content) No Status Records FoundNo Status Records Found INFORMATION SOURCE (unrecogn ized section and content) DATE CREATED AUTHOR AUTHOR'S JOANIE ATION 03/28/2019 [facility] FOR RECORDS PERTAINING TO PATIENTS WHO [...] BE BASED ON THE PRIMARY CLINICAL RECORDS. [facility]. provides no warranty or guarantee of the accuracy or completeness of information in this document.
== END | disposition home or self-care (01) ==
LOC: MRI 13:07
PROVIDERS: PCP Internal Medicine; Referring Provider Physical Medicine & Rehabilitation; Visit Provider Physical Medicine & Rehabilitation
DX: M54.40 Lumbago with sciatica, unspecified side (principal)
CPT/HCPCS: 72148

== ENCOUNTER 2024-01-17 14:43 | Outpatient (RCR) | payer MEDICARE, SELFPAY ==
[2024-01-17 17:00] LABS: Absolute Lymphocyte Count 1.97 X10^3/uL (0.83-4.51); Absolute Neutrophil Count 4.8 X10^3/uL (2.0-7.7); Basophil# 0.06 X10^3/uL; Basophil% 0.7 % (0-1); Eosinophil# 0.33 X10^3/uL; Eosinophils% 4.1 % (0-5); Hematocrit 50.2 % (40-54); Hemoglobin 15.9 g/dL (13.0-16.5); Lymphocyte # 1.97 X10^3/ul (0.83-4.51); Lymphocyte % 24.3 % (19-41); Mean Corp Hgb Conc 31.7 g/dL (32-36); Mean Corpuscular Hgb 29.2 pg (27.0-32.0); Mean Corpuscular Volume 92.1 fL (80-94); Mean Platelet Vol. 12.4 fl (6.2-12.0); Monocyte# 0.85 X10^3/uL; Monocyte% 10.5 % (0-10); NRBC Flagged by Analyzer 0 % (0-5); Neutrophil # 4.83 X10^3/uL (2.7-7.7); Neutrophil % 59.4 % (47-70); Platelet Count 145 K/mm3 (150-450); RBC Distribution Width CV 14.9 % (11.6-14.6); RBC Distribution Width SD 50.1 fl (35.1-43.9); Red Blood Count 5.45 M/mm3 (4.6-6.2); White Blood Count 8.1 K/mm3 (4.4-11.0)
[2024-01-17 17:06] LABS: International Normalized Ratio 2.3
[2024-01-17 17:13] LABS: AST(SGOT) 16 U/L (15-37); Alanine Aminotransfer ALT/SGPT 29 U/L (16-61); Albumin, Serum 3.6 g/dL (3.2-5.0); Alkaline Phosphatase 108 U/L (45-117); Anion Gap 9 (5-15); BUN 18 mg/dL (7-18); BUN/Creat Ratio 11.3 RATIO (10-20); Calcium,Total 9.4 mg/dL (8.5-10.1); Chloride 104 mmol/L (98-107); Creatinine, Serum 1.59 mg/dL (0.70-1.30); EST Glomerular Filtration Rate 46 mL/min (>60); Est Glom Filt Rate - Afr Amer 55 mL/min (>60); Globulin 3.5 g/dL (2.2-4.2); Glucose 133 mg/dL (74-106); Potassium 4.1 mmol/L (3.5-5.1); Protein, Total 7.1 g/dL (6.4-8.2); Sodium Level 141 mmol/L (136-145)
== END 2024-02-04 23:59 ==
LOC: BIMLAB 14:43
PROVIDERS: PCP Internal Medicine; Visit Provider Internal Medicine Cardiovascular Disease
DX: I48.11 Longstanding persistent atrial fibrillation (principal); Z79.01 Long term (current) use of 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s; R73.03 Prediabetes; M51.36 Other intervertebral disc degeneration, lumbar region; E78.5 Hyperlipidemia, unspecified
CPT/HCPCS: 36415; 80053; 83036; 85025; 85610

== ENCOUNTER 2024-02-14 09:04 | Outpatient (RCR) | payer MEDICARE, SELFPAY ==
[2024-02-14 12:19] LABS: International Normalized Ratio 2.6
[2024-02-14 13:12] LABS: AST(SGOT) 23 U/L (15-37); Alanine Aminotransfer ALT/SGPT 37 U/L (16-61); Albumin, Serum 3.6 g/dL (3.2-5.0); Alkaline Phosphatase 103 U/L (45-117); Cholesterol 84 mg/dL (200); Globulin 3.4 g/dL (2.2-4.2); High Density Lipoprotein 28 mg/dL; Triglycerides 92 mg/dL; Very Low Density Lipoprotein 18 mg/dL (5-40)
== END 2024-03-05 23:59 ==
LOC: BIMLAB 09:04
PROVIDERS: Physician Assistant Medical; PCP Internal Medicine; Visit Provider Internal Medicine Cardiovascular Disease
DX: I48.11 Longstanding persistent atrial fibrillation (principal); Z79.01 Long term (current) use of 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s; E78.00 Pure hypercholesterolemia, unspecified
CPT/HCPCS: 36415; 80061; 80076; 85610

== ENCOUNTER → 2024-02-22 | Outpatient (CLI) | payer MEDICARE, SELFPAY ==
--- NOTE | 2024-02-22 15:48 | CT_ITS ---
STUDY: CT ABDOMEN AND PELVIS WITH AND WITHOUT CONTRAST REASON FOR EXAM: Male, 73 years old. MICRO HEMATURIA RADIATION DOSAGE (If Supplied By Facility): CTDIvol = ( 28.34 ) mGy, DLP = ( 3701.99 ) mGycm TECHNIQUE: Transaxial images were obtained from the dome of the diaphragm to the symphysis pubis without oral contrast. IV 100mL Isovue-370 was administered. Sagittal and coronal images were reconstructed. Individualized dose optimization techniques were used for this CT. COMPARISON: None. FINDINGS: The visualized lung bases are unremarkable. The visualized portions of the heart are within normal limits. There is hepatomegaly with diffuse hepatic enlargement. There are multiple gallstones. Normal spleen. Normal pancreas. Normal bilateral adrenal glands. There are 3 cysts measuring up to 2.6 cm of the right kidney. There are 0.2 and 0.3 cm stones at the lower pole of the left kidney. Normal visualized stomach. Normal small intestine. Normal colon. The appendix is visualized and appears normal. There is diffuse atherosclerotic calcification of the abdominal aorta, without a demonstrated aneurysm. Normal inferior vena cava. Normal retroperitoneum. Normal urinary bladder. Prostate gland is enlarged with calcifications impressing upon the bladder. There is no free fluid in the abdomen or pelvis. Normal abdominal wall. There are diffuse degenerative changes of the visualized lumbar spine. CT/CT Abd/Pelvis W/WO Contrast IMPRESSION: Left renal stones. Right renal cysts. Enlarged prostate gland. No hydronephrosis. Hepatomegaly. Multiple gallstones. No biliary dilatation. Electronically Signed: Edy Ndiaye MD at 12:31 EDT ,
[2024-02-22 16:20] LABS: CREATININE FINGERSTICK 1.3 mg/dL (0.70-1.30)
== END | disposition home or self-care (01) ==
LOC: CT 15:46
PROVIDERS: PCP Internal Medicine; Referring Provider Urology; Visit Provider Urology
DX: R31.29 Other microscopic hematuria (principal)
CPT/HCPCS: 74178; Q9967

== ENCOUNTER 2024-03-19 14:42 | Outpatient (RCR) | payer MEDICARE, SELFPAY ==
[2024-03-19 17:08] LABS: International Normalized Ratio 2.7; Prothrombin Time (Protime)PT. 28.3 SECONDS (11.7-14.9)
== END 2024-04-05 23:59 ==
LOC: BIMLAB 14:42
PROVIDERS: PCP Internal Medicine; Visit Provider Internal Medicine Cardiovascular Disease
DX: I48.11 Longstanding persistent atrial fibrillation (principal); Z79.01 Long term (current) use of 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s
CPT/HCPCS: 36415; 85610

== ENCOUNTER 2024-04-15 15:00 | Outpatient (RCR) | payer MEDICARE, SELFPAY ==
--- NOTE | 2024-03-12 14:25 | HP.PTEVAL_ITS ---
Patient's Visit Information Visit Information Visit Information: NARCISO WINSTON is a 74 year old M referred to Physical Therapy by Dr. Kimmy Goddard DC with a diagnosis of Back pain, lumbar segmental dysfunction. Date of Evaluation: 03/06/24 Physical Therapist: Bull Baker DPT Visit Plan Frequency: 2x /Week Duration: 6 Weeks Plan: Start with prone progression. Add in DN to lumbar spine to calm symptoms. Progress to neutral spine core stability exercises. Subjective Subjective: Pt. is here today for his initial evaluation with diagnosis of back pain, lumbar segmental dysfunction. Pt. is known to this PT for a similar issues a few years ago. Pt. had been getting adjusted from chiro which helped, but is still having some issues. Pt reports no mech of injury. Pt. reports no pain with sitting, worse with standing. He has had PT previously with good results. Pt. has not done much exercises, but has had chiro. Pt. is able to do things around the house, but has avoiding walking longer distances. He reports no much radicular symptoms, no LE weakness and no pain down his leg. He is hopeful to get back to all household and recreational activities without limitations. Pain Lumbar spine: Pain Intensity (Out of 10): 4 Pain Intensity Range: 2 and 7 Objective Objective: POSTURE: Pt. has general flexed posture, anterior pelvic tilted pelvis. Sway back like posture. PALPATION: Pt. has tenderness along R side of SI joint R sided lumbar erector spinae, R multifidus. Pt. did not have much pain with spring testing of lumbar spine. Pt. does have marked stiffness throughout lumbar spine with spring testing., NEURO: normal sensation and DTR of BLEs. ROM: LUMBAR SPINE: flexion mod loss NE, ext mod loss NE, SB mod loss bilat NE, rotation mod bilat bilat NE. Pt. has marked tightness in B HS and B hip flexors. MMT: 5/5 throughout. Pt. reports no pain with testing. Core strength- poor. GAIT: pt. ambulates without AD. Pt. does have very stiff pattern with gait. Special Tests L/S Slump test left side: Negative L/S Slump test right side: Negative L/S Left Straight Leg Raise: Negative L/S Right Straight Leg Raise: Negative Lumbar Standing: Flexion - Mechanical Response: No effect Lumbar Standing: Flexion - Symptoms During Testing: No effect Lumbar Standing: Flexion - Symptoms After Testing: No effect Lumbar Standing: Extension - Mechanical Response: No effect Lumbar Standing: Extension - Symptoms During Testing: No effect Lumbar Standing: Extension - Symptoms After Testing: No effect Lumbar Standing: Right Side Glides - Mechanical Response: No effect Lumbar Standing: Right Side [place] - Symptoms During Testing: No effect Lumbar Standing: Right Side [place] - Symptoms After Testing: No effect Lumbar Standing: Left Side [place] - Mechanical Response: No effect Lumbar Standing: Left Side [place] - Symptoms During Testing: No effect Lumbar Standing: Left Side [place] - Symptoms After Testing: No effect Lumbar Lying: Flexion - Mechanical Response: No effect Lumbar Lying: Flexion - Symptoms During Testing: No effect Lumbar Lying: Flexion - Symptoms After Testing: No effect Lumbar Lying: Extension - Mechanical Response: No effect Lumbar Lying: Extension - Symptoms During Testing: Decreases Lumbar Lying: Extension - Symptoms After Testing: Better Balance/Special Test Scores Oswestry Low Back Score: 17 Goals Goal 1:: LTG: Pt. to be I with HEP. Goal Time Frame: 4-6 Weeks Goal 2:: LTG: Pt. to have increased lumbar ROM by 25% in all directions without increase in symptoms. Goal Time Frame: 4-6 Weeks Goal 3:: LTG: Pt. to have decreased pain to 0-2/10 pain with all walking and standing. Goal Time Frame: 4-6 Weeks Goal 4:: LTG: Pt. to have increased core strength to fair- allowing for increased stability with all functional mobility. Goal Time Frame: 4-6 Weeks Rehabilitation Potential Physical Therapy Diagnosis: Pt. has signs and symptoms consistent with back pain and lumbar segmental dysfunction. Pt. has marked lumbar hypomobility. He did have a positive response with prone and prone extension this date. I would like to work in PT on lumbar extension ROM, core stability and reducing his overall symptoms. Rehabilitation Potential: Excellent Anticipated Interventions Patient/Client Instruction: Educate patient on: Condition, Plan of Care, Risk Factors and Benefits of Fitness Program For the Purpose of:: To improve decision making, To facilitate caregiver knowledge, To improve self management, To prevent re-injury, To improve ability to perform tasks related to life management and To improve tolerance to ADL's Therapeutic Exercise to Include: Strength training, Power training, Endurance training, Body mechanics, Postural training, Flexibilty training, Passive ROM, Active ROM and Dynamic Lumbar Stabilization For the Purpose of:: To decrease pain, To decrease swelling/inflammation, To increase ROM, To improve nutrient delivery to tissue, To increase oxygenation perfusion, To improve muscle performance and motor function, To improve ability to perform ADL's and To increase tolerance to activity/condition/position Manual Therapy Techniques to Include: Mobilization, Functional dry needling and Soft tissue mobilization For the Purpose of:: To decrease pain, To decrease swelling/inflammation, To increase ROM, To improve nutrient delivery to tissue, To increase oxygenation perfusion, To improve gait and locomotor functions, To improve health of tissue, To decrease soft tissue restriction and To increase flexibility/ROM Text: Thank you for the opportunity to evaluate your patient. For Medicare and Medicare HMO plans, please review the plan of care and approve it. It will need to be FAXED BACK to us at [phone] for Medicare purposes. For Medicare only, by signing this I certify the plan of care. Please let me know if there are questions or concerns regarding this plan of care. Physician Signature: Date:
== END 2024-04-15 19:00 | disposition home or self-care (01) ==
LOC: PT 15:00
PROVIDERS: PCP Internal Medicine; Referring Provider Chiropractor; Visit Provider Chiropractor
DX: M99.05 Segmental and somatic dysfunction of pelvic region (principal); M99.03 Segmental and somatic dysfunction of lumbar region; M51.36 Other intervertebral disc degeneration, lumbar region; M41.9 Scoliosis, unspecified; M54.9 Dorsalgia, unspecified
CPT/HCPCS: 97110; 97140; 97161

== ENCOUNTER 2024-04-23 15:26 | Outpatient (RCR) | payer MEDICARE, SELFPAY ==
[2024-04-23 15:42] LABS: INR Fingerstick 2.2; Prothrombin Time Fingerstick 23.3 SEC (11.7-14.9)
== END 2024-05-05 23:59 ==
LOC: BIMLAB 15:26
PROVIDERS: PCP Internal Medicine; Visit Provider Internal Medicine Cardiovascular Disease
DX: I48.11 Longstanding persistent atrial fibrillation (principal); Z79.01 Long term (current) use of 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s
CPT/HCPCS: 36416; 85610

== ENCOUNTER → 2024-04-23 | Outpatient (CLI) | payer MEDICARE, SELFPAY | END | disposition home or self-care (01) | LOC: BIMLAB 15:01 | PROVIDERS: PCP Internal Medicine; Referring Provider Internal Medicine; Visit Provider Internal Medicine | DX: I48.11 Longstanding persistent atrial fibrillation (principal); Z79.01 Long term (current) use of 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s ==

== ENCOUNTER 2024-05-30 11:56 | Outpatient (RCR) | payer MEDICARE, SELFPAY ==
[2024-05-30 15:39] LABS: International Normalized Ratio 2.7; Prothrombin Time (Protime)PT. 28.3 SECONDS (11.7-14.9)
== END 2024-06-05 23:59 ==
LOC: BIMLAB 11:56
PROVIDERS: PCP Internal Medicine; Referring Provider Internal Medicine Cardiovascular Disease; Visit Provider Internal Medicine Cardiovascular Disease
DX: I48.11 Longstanding persistent atrial fibrillation (principal); Z79.01 Long term (current) use of 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s
CPT/HCPCS: 36415; 85610

== ENCOUNTER 2024-07-04 16:01 | Outpatient (RCR) | payer MEDICARE, SELFPAY ==
[2024-07-04 16:45] LABS: International Normalized Ratio 3.6; Prothrombin Time (Protime)PT. 35.4 SECONDS (11.7-14.9)
== END 2024-07-06 23:59 ==
LOC: BIMLAB 16:01
PROVIDERS: PCP Internal Medicine; Referring Provider Internal Medicine Cardiovascular Disease; Visit Provider Internal Medicine Cardiovascular Disease
DX: I48.11 Longstanding persistent atrial fibrillation (principal); Z79.01 Long term (current) use of 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s
CPT/HCPCS: 36415; 85610

== ENCOUNTER 2024-07-09 15:30 | Outpatient (CLI) | payer MEDICARE, SELFPAY ==
[2024-07-09 17:20] LABS: International Normalized Ratio 1.8
== END 2024-07-09 23:59 | disposition home or self-care (01) ==
LOC: BIMLAB 15:31
PROVIDERS: PCP Internal Medicine; Visit Provider Internal Medicine
DX: I48.11 Longstanding persistent atrial fibrillation (principal); Z79.01 Long term (current) use of 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s
CPT/HCPCS: 36415; 85610

== ENCOUNTER → 2024-07-18 | Outpatient (CLI) | payer MEDICARE, SELFPAY ==
[2024-07-18 16:36] LABS: Absolute Neutrophil Count 6.9 X10^3/uL (2.0-7.7); Basophil# 0.09 X10^3/uL; Basophil% 0.9 % (0-1); Eosinophil# 0.31 X10^3/uL; Eosinophils% 2.9 % (0-5); Hematocrit 45.6 % (40-54); Hemoglobin 14.9 g/dL (13.0-16.5); Lymphocyte % 19.9 % (19-41); Mean Corp Hgb Conc 32.7 g/dL (32-36); Mean Corpuscular Hgb 30.4 pg (27.0-32.0); Mean Corpuscular Volume 93.1 fL (80-94); Mean Platelet Vol. 12.1 fl (6.2-12.0); Monocyte# 1.06 X10^3/uL; NRBC Flagged by Analyzer 0 % (0-5); Neutrophil # 6.89 X10^3/uL (2.7-7.7); Neutrophil % 65.4 % (47-70); Platelet Count 152 K/mm3 (150-450); RBC Distribution Width CV 14.9 % (11.6-14.6); RBC Distribution Width SD 51.2 fl (35.1-43.9); White Blood Count 10.6 K/mm3 (4.4-11.0)
[2024-07-18 17:05] LABS: Anion Gap 8 (5-15); BUN 25 mg/dL (7-18); BUN/Creat Ratio 19.1 RATIO (10-20); Calcium,Total 9.9 mg/dL (8.5-10.1); Chloride 107 mmol/L (98-107); Creatinine, Serum 1.31 mg/dL (0.70-1.30); EST Glomerular Filtration Rate 57 mL/min (>60); Est Glom Filt Rate - Afr Amer 69 mL/min (>60); Glucose 128 mg/dL (74-106); PSA,Total - Annual Screen 1.73 ng/mL (0.00-4.00); Potassium 4.5 mmol/L (3.5-5.1); Sodium Level 140 mmol/L (136-145)
[2024-07-18 17:06] LABS: Hemoglobin A1c 5.9 % (3.8-5.6)
== END | disposition home or self-care (01) ==
LOC: BIMLAB 15:22
PROVIDERS: PCP Internal Medicine; Referring Provider Internal Medicine; Visit Provider Internal Medicine
DX: N40.0 Benign prostatic hyperplasia without lower urinary tract symptoms (principal); R73.03 Prediabetes
CPT/HCPCS: 36415; 80048; 83036; 84153; 85025; G0103

== ENCOUNTER 2024-07-26 15:47 | Outpatient (RCR) | payer MEDICARE, SELFPAY ==
[2024-07-26 17:10] LABS: International Normalized Ratio 2.3; Prothrombin Time (Protime)PT. 25.3 SECONDS (11.7-14.9)
== END 2024-08-05 23:59 ==
LOC: BIMLAB 15:47
PROVIDERS: PCP Internal Medicine; Referring Provider Internal Medicine Cardiovascular Disease; Visit Provider Internal Medicine Cardiovascular Disease
DX: I48.11 Longstanding persistent atrial fibrillation (principal); Z79.01 Long term (current) use of 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s
CPT/HCPCS: 36415; 85610

== ENCOUNTER 2024-08-29 11:55 | Outpatient (RCR) | payer MEDICARE, SELFPAY ==
[2024-08-29 16:16] LABS: International Normalized Ratio 2.5; Prothrombin Time (Protime)PT. 27.1 SECONDS (11.7-14.9)
== END 2024-09-05 23:59 ==
LOC: BIMLAB 11:55
PROVIDERS: PCP Internal Medicine; Referring Provider Internal Medicine Cardiovascular Disease; Visit Provider Internal Medicine Cardiovascular Disease
DX: I48.11 Longstanding persistent atrial fibrillation (principal); Z79.01 Long term (current) use of 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s
CPT/HCPCS: 36415; 85610

== ENCOUNTER 2024-09-05 10:45 | Outpatient (RCR) | payer MEDICARE, SELFPAY ==
[2024-08-29 10:25] VITALS: BP 112/68; PULSE 74; RESP 18; TEMP 35.9; BMI 42.3
--- NOTE | 2024-08-29 12:50 | PCM.WC.HP ---
History of Present Illness Date of Service: 08/29/24 Chief Complaint: Left Leg Wound History of Wound: Mr. Conway is a 74-year-old well-known to me. Referred to the wound center due to left leg wound sustained following an injury from his lawnmower. Seen at the office and had P21el Ag applied. He was advised to continue wound care at home which he states that he has done using Neosporin. Not consistently utilizing compression. Feels well at this time. No chills, fever or change in bowel habit reported. His other chronic conditions are stable. COUNTS INCLUDE 234 BEDS AT THE [facility] Medical History Wound of left lower extremity Osteoarthritis of right knee Effusion, right knee Right knee pain Segmental dysfunction of lumbar region Segmental dysfunction of cervical region Health care maintenance Morbid obesity Laceration of left lower extremity Elevated PSA Laceration of left leg Chronic fatigue Loss of hearing Alcohol use Arthritis High cholesterol Back pain Injury of head and neck Former smoker CPAP (continuous positive airway pressure) dependence PVD (peripheral vascular disease) Shortness of breath on exertion History of edema History of stress test Hypertension History of echocardiogram Cardiology follow-up encounter History of atrial fibrillation Borderline type 2 diabetes mellitus Colon cancer screening GI bleed BPH (benign prostatic hyperplasia) Gout Left bundle branch block (LBBB) Longstanding persistent atrial fibrillation Essential (primary) hypertension Segmental and somatic dysfunction of cervical region Segmental and somatic dysfunction of lumbar region Segmental and somatic dysfunction of pelvic region Segmental and somatic dysfunction of thoracic region Neuropathy Inferior vena caval thrombosis Tobacco use disorder, continuous Obstructive sleep apnea Venous insufficiency 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 current use of 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 Home Medications ?Medication ?Instructions ?Recorded ?Last Taken ?Type colchicine 0.6 mg tablet 0.3 mg PO PRN PRN BP 04/18/22 Unknown History tamsulosin 0.4 mg capsule 0.4 mg PO QHS #90 caps 07/04/23 Unknown Rx atorvastatin 10 mg tablet 10 mg PO QHS #90 tabs 11/21/23 Unknown Rx spironolactone 25 mg tablet 25 mg PO DAILY #90 tabs 11/21/23 Unknown Rx warfarin 4 mg tablet 4 mg PO DAILY #90 tabs 11/21/23 Unknown Rx finasteride 5 mg tablet 5 mg PO QDAY 01/17/24 Unknown History duloxetine 30 mg capsule,delayed 30 mg PO DAILY 04/11/24 Unknown History release (Cymbalta) allopurinol 300 mg tablet 300 mg PO DAILY #90 tabs 04/09/24 Unknown Rx lisinopril 20 mg tablet 20 mg PO DAILY #90 tabs 04/09/24 Unknown Rx diltiazem HCl 120 mg 120 mg PO DAILY #90 caps 05/07/24 Unknown Rx capsule,extended release 24 hr amitriptyline 25 mg tablet 25 mg PO QHS #90 tabs 08/19/24 Unknown Rx Allergy/AdvReac Type Severity Reaction Status Date / Time No Known Allergies Allergy Verified 08/29/24 10:19 Family History Father Parkinson's disease Mother Heart valve replacement surgery Brother Colon cancer Surgical History S/P eye surgery History of colonoscopy History of arthroscopic knee surgery Social History Smoking Status: Former smoker quit date: 09/06/17 alcohol intake: current alcohol intake frequency: a few times a week Alcohol type: beer substance use type: marijuana caffeine: Yes (Occasional) what type of physical activity do you participate in: bicycling frequency: other ROS Constitutional Constitutional: Denies body ache(s), change in weight, fatigue, frequent falls, headache(s), increased appetite, lethargy, malaise or night sweats Eyes Eyes: Denies bloody eye, blurry vision, change in eye color, change in vision, decreased night vision, discongugate gaze, double vision or dry eyes ENT HEENT: Denies dysphagia, ear discharge, epistaxis, facial pain, foreign body in nose, halitosis, headache(s) or hearing loss Cardiovascular Cardiovascular: Reports edema; Denies abdominal edema, clubbing, cold extremities, diaphoresis, dyspnea at rest or fatigue Respiratory/Chest Respiratory/Chest: Denies difficulty clearing secretions, dry cough, hemoptysis, hoarseness, inability to speak or mouth breathing Gastrointestinal Gastrointestinal: Denies change in bowel habits, chewing difficulty, coffee ground emesis, constipation, early satiety or excessive flatus Genitourinary Genitourinary: Denies abdominal discomfort, flank pain or low back pain Musculoskeletal Musculoskeletal: Denies deformity, difficulty walking, extremity pain, joint stiffness, loss of height, muscle weakness or myalgias Integumentary Integumentary: Reports skin ulcer; Denies changing lesions, erythema, hirsutism, jaundice, nail changes or pruritus Neurologic Neurologic: Denies behavior changes, burning sensations, confusion, disequilibrium, frequent falls or memory loss Psychiatric Psychiatric: Denies behavioral changes, difficulty concentrating, hallucinations, memory loss, mood swings, panic attacks or paranoia Endocrine Endocrinology: Denies cold intolerance, deepening of the voice, excessive sweating, increase in ring/shoe/hat size, palpitations or polydipsia Allergic/Immunologic Allergic/Immunologic: Denies itchy eyes, lip swelling, throat swelling, tongue swelling, wheezing or asthma Vital Signs Vital Signs Vital Signs: 08/29/24 10:25 Temperature 96.6 F L Temperature Source Temporal Pulse Rate 74 Respiratory Rate 18 Blood Pressure 112/68 Blood Pressure Mean 82 Blood Pressure Source Monitor Blood Pressure Position Sitting Blood Pressure Location Right Arm Oxygen Delivery Method Room Air Weight Weight: 330 lb Body Mass Index (BMI) 42.3 Physical Exam Const alert, oriented x3 and no apparent distress General Appearance: cooperative, comfortable and well kempt HEENT normocephalic, head/scalp atraumatic and hearing grossly normal bilaterally Neck full ROM and supple General: normal visual inspection Resp normal respiratory effort Effort and Inspection: able to speak in complete sentences Extremity General Extremity: edema Skin Wounds: wounds noted size Size: See clinical note, bed granulating well, drainage, margins well approximated, no odor and open Neuro oriented x3, CN's II-XII intact bilaterally, moves all extremities and no focal motor deficits Psych mental status grossly normal, thought process normal, cooperative and affect normal Debridement Note Debridement Note Wound debrided: Left lower extremity Type of Debridement: Excisional debridement Anesthesia Used: 5% Lidocaine Gel Depth: Down to and including healthy tissue and in the subcutaneous layer Percentage of wound debrided: 100 Instrument Used: 5mm curette Tissue Removed: Slough and devitalized tissue Severity: Fat Layer Exposed Amount of bleeding with debridement: Mild Bleeding Controlled with: Pressure Patient tolerated procedure: Patient tolerated procedure well Post-Debridement Measurements and Additional Note: Post-Debridement Measurements/Treatment LEONIE - Nurse 1 - General Ulcer Assessment Start: 08/29/24 10:18 Freq: Status: Active Protocol: MILANA Activity Type Activity Date Activity User E-sign Co-sign Detail Recorded Client Recorded Date Recorded By Document 08/29/24 10:25 DS [id number] 08/29/24 10:27 DS Edit Result 08/29/24 10:25 DS (1) [id number] 08/29/24 10:30 DS (1) Height => 6 ft 2 in Weight => 330 lb Weight in Pounds => 330.0 lbs Weight Measurement Method => Estimated by => Patient Body Mass Index (BMI) => 42.3 BMI Classification => Obese BSA - Jose Daniel => 2.69 Temperature (97.8 F-99.1 F) => 96.6 F L Temperature Source => Temporal Pulse Rate (60-100) => 74 Pulse Location => Monitor Respiratory Rate (12-18) => 18 Respiratory rate source => Observation Oxygen Delivery Method => Room Air Blood Pressure (90/60-120/80) => 112/68 Blood Pressure Mean => 82 Source => Monitor Position => Sitting Blood Pressure Location => Right Arm 08/29/24 10:25 - Today's Visit Information Type of service Initial Visit Arrival Mode Ambulatory Patient Identification Verified (Name & Yes ) Patient Requires Transmission-Based No Precautions Safety Precautions Fall Prevention Height and Weight Height 6 ft 2 in Weight 330 lb Weight in Pounds 330.0 lbs Weight Measurement Method Estimated by Patient Body Mass Index (BMI) 42.3 BMI Classification Obese BSA - Jose Daniel 2.69 Vital Signs Temperature (97.8 F-99.1 F) 96.6 F L Temperature Source Temporal Pulse Rate (60-100) 74 Pulse Location Monitor Respiratory Rate (12-18) 18 Respiratory rate source Observation Oxygen Delivery Method Room Air Blood Pressure (90/60-120/80) 112/68 Blood Pressure Mean 82 Source Monitor Position Sitting Blood Pressure Location Right Arm Pain Scale: 0-10 Numeric Is Patient Pain Free? No b/l feet -Description Aching -Intensity 4 -Duration (hours) Chronic -Pain Behavior No Change in Behavior -Alleviating Factors/Interventions None Communication Assessment Preferred language Bhutanese Perfect Binder Setter Required No Able to Read Yes Able to Write Yes Communication Tools None Right Hearing Abillity Normal Left Hearing Abillity Normal Visual Assistive Devices Glasses Teaching Assessment Preferences Verbal,Written, Demonstration Barriers to Learning None Readiness To Learn Excellent Willingness to Engage in Self Management High Activies Readiness to Engage in Self Management High Activities Anxiety Level Calm Cooperation Cooperative Perception Coherent Interest in Health Problem Asks Questions Education Importance Acknowledges Need Does Patient Smoke tobacco or other No substances Smoking Status Former smoker Is Patient Diabetic No Functional Assessment Recent Decline in Ability to Perform Denies Any Declines Culture/Pentecostal/Bark Fitter Cultural/Pentecostal Needs that may affect No Treatment Plan Teaching: Wound Center *Welcome to the Wound Center -Person Taught Patient -Teaching Method Discussion -Response to teaching Verbalize Understanding WC - Nurse 1 - General Ulcer Measurement Start: 08/29/24 10:18 Freq: Status: Active Protocol: Activity Type Activity Date Activity User E-sign Co-sign Detail Recorded Client Recorded Date Recorded By Document 08/29/24 10:30 DS [id number] 08/29/24 10:39 DS 08/29/24 10:30 Wound Center Nurse 1 1-left leg -Current Size (cm) - Length 1.5 -Current Size (cm) - Width 0.6 -Current Size (cm) - Depth 0.1 -Total Square Cm 0.90 -Date of Last Picture (Recall this 08/29/24 field) -Photo Taken Yes -Tunneling No -Undermining/Tunneling No -Circular Undermining No -Exudate Amt None Present -Wound Margin Distinct, Outline Attached -Necrosis Amt Large (67-100%) -Necrotic Tissue Type Eschar -Texture (Radha-wound Skin Appearance) Assessed -Moisture (Radha-wound Skin Appearance) Assessed -Color (Radha-wound Skin Appearance) Assessed -Temperature (Radha-wound Skin No Abnormality Appearance) (Pt Warm) -Tenderness on Palpation (Radha-wound No Skin Appearance) -Ulcer Cleansing Soap and Water -Anesthetic Used 5% Lidocaine Gel - Nurse 2 - General Ulcer CM Notes Start: 08/29/24 10:18 Freq: Status: Active Protocol: Activity Type Activity Date Activity User E-sign Co-sign Detail Recorded Client Recorded Date Recorded By Document 08/29/24 11:06 [id number] 08/29/24 11:13 08/29/24 11:06 Wound Center Nurse 2 -Time 11:11 -Correct Patient Yes -Correct Side, Site, Position Yes -Correct Procedure Yes -Procedure Performed Yes -Type of Procedure Debridement -Clinical Debridement Subcutaneous -Tissue Removed Epidermis -Post Debridement (cm) - Length 3.1 -Post Debridement (cm) - Width 0.8 -Post Debridement (cm) - Depth 0.2 -Total Square (Post) (cm) 2.48 -Area of Debridement (cm) - Length 3.1 -Area of Debridement (cm) - Width 0.8 -Total Square (Area) (cm) 2.48 -Tunneling No -Undermining/Tunneling No -Circular Undermining No -Wound/Ulcer Outcome Not Healed -Ulcer Cleansing Rinsed/ Irrigated with Saline -Foul Odor after Cleansing No -Bioengineered Tissue No -Bleeding Controlled with Pressure -Treatment Response Procedure Tolerated Well -Debridement - Subq, 1st 20sq cm Yes Pain Scale: 0-10 Numeric Is Patient Pain Free? Yes WC - Nurse 3 - General Ulcer D/C NN Start: 08/29/24 10:18 Freq: Status: Active Protocol: Activity Type Activity Date Activity User E-sign Co-sign Detail Recorded Client Recorded Date Recorded By Document 08/29/24 11:34 KW [id number] 08/29/24 11:34 KW 08/29/24 11:34 Wound Care Center Nurse 3 1-left leg -Primary Dressing Applied Mepilex Border, Promogran Tarsha Matter -Mepilex Border 1 -Promogran Tarsha Matter 1 Left -Multi-Layered Wrap Application Multi-Layer Comp - Left ($) Pain Scale: 0-10 Numeric Is Patient Pain Free? Yes Charges/Coding Visit Charges Office Visits / Consults: 00289 OV L3 Est 20min Procedures Integumentary [id number]: [id number] Soumya subq tissue 20 sq cm/< Assessment/Plan Assessment/Plan (1) Wound of left lower extremity: CODE(S): S81.802A - Unspecified open wound, left lower leg, initial encounter QUALIFIERS: Encounter type: subsequent encounter Qualified Code(s): S81.802D - Unspecified open wound, left lower leg, subsequent encounter PLAN: With fat layer exposed (2) Laceration of left lower extremity: CODE(S): S81.812A - Laceration without foreign body, left lower leg, initial encounter QUALIFIERS: Encounter type: subsequent encounter Qualified Code(s): S81.812D - Laceration without foreign body, left lower leg, subsequent encounter (3) Borderline type 2 diabetes mellitus: CODE(S): R73.03 - Prediabetes (4) Venous insufficiency: CODE(S): I87.2 - Venous insufficiency (chronic) (peripheral) PLAN: Plan Debridement done as documented above, procedure was well-tolerated. Better granulation noted today than at his initial visit in office. Cultures taken, will review. Promogran, cover with foam dressing. Due to significant edema, light 3M compression recommended. He was advised to call if he notes significant pain or swelling/discomfort to his left lower extremity, he voiced understanding. Follow-up for nurse visit on Monday and with me in a week. Get measurements for CircAid at his next visit. Increase Protein intake, vitamin C, D and zinc. Leg elevation and exercise as tolerated also recommended. Questions were answered and he was advised to let us know if he has any further questions or concerns, he voiced understanding. Gama disclaimer
--- NOTE | 2024-08-30 10:12 | WC ---
PHOTO 08/29/24
[2024-09-02 15:36] VITALS: BP 130/76; PULSE 88; RESP 16; TEMP 36.7; BMI 42.3
[2024-09-05 10:44] VITALS: BP 122/80; PULSE 78; RESP 18; TEMP 35.8; BMI 42.3
--- NOTE | 2024-09-05 11:12 | PCM.WC.PN ---
History of Present Illness Date of Service: 09/05/24 Chief Complaint: Left Leg Wound History of Wound: Mr. Conway is a 74-year-old well-known to me. Referred to the wound center due to left leg wound sustained following an injury from his lawnmower. Seen at the office and had Aquacel Ag applied. He was advised to continue wound care at home which he states that he has done using Neosporin. Not consistently utilizing compression. Feels well at this time. No chills, fever or change in bowel habit reported. His other chronic conditions are stable. Progress of Wound: No new concerns reported at this time. Did not reapply the 3M after nurse visit on Monday. He would like other forms of compression at this time. Some improvement noted. Objective Data Objective Data Vital Signs: Vital Signs Temp Pulse Resp BP O2 Del Method 96.4 F L 78 18 122/80 H Room Air 09/05/24 10:44 09/05/24 10:44 09/05/24 10:44 09/05/24 10:44 09/05/24 10:44 Oxygen Delivery Method Room Air Weight: 330 lb Body Mass Index (BMI) 42.3 Lab / Micro Data Micro: Microbiology 08/29/24 11:14 Wound - Leg, Left Gram Stain - Final 08/29/24 11:14 Wound - Leg, Left Wound Culture - Final Staphylococcus epidermidis 08/29/24 11:14 Wound - Leg, Left Anaerobic Culture - Final No anaerobic bacteria isolated. Charges/Coding Procedures Integumentary 111xxx-113xx: [id number] Soumya subq tissue 20 sq cm/< Physical Exam Const alert, oriented x3 and no apparent distress General Appearance: cooperative, comfortable and well kempt HEENT normocephalic, head/scalp atraumatic and hearing grossly normal bilaterally Neck full ROM and supple General: normal visual inspection Resp normal respiratory effort Effort and Inspection: able to speak in complete sentences Extremity General Extremity: edema Skin Wounds: wounds noted size Size: See clinical note, bed granulating well, drainage, margins well approximated, no odor and open Neuro oriented x3, CN's II-XII intact bilaterally, moves all extremities and no focal motor deficits Psych mental status grossly normal, thought process normal, cooperative and affect normal Debridement Note Debridement Note Wound debrided: Left lower extremity Type of Debridement: Excisional debridement Anesthesia Used: 5% Lidocaine Gel Depth: Down to and including healthy tissue and in the subcutaneous layer Percentage of wound debrided: 100 Instrument Used: 3mm curette Tissue Removed: Slough and devitalized tissue Severity: Fat Layer Exposed Amount of bleeding with debridement: Mild Bleeding Controlled with: Compression and gauze Patient tolerated procedure: Patient tolerated procedure well Post-Debridement Measurements and Additional Note: Post-Debridement Measurements/Treatment - Nurse 1 - General Ulcer Assessment Start: 08/29/24 10:18 Freq: Status: Active Protocol: MILANA Activity Type Activity Date Activity User E-sign Co-sign Detail Recorded Client Recorded Date Recorded By Document 08/29/24 10:25 DS [id number] 08/29/24 10:27 DS Edit Result 08/29/24 10:25 DS (1) [id number] 08/29/24 10:30 DS Document 09/02/24 15:36 BMF [id number] 09/02/24 15:38 BMF Document 09/05/24 10:44 KW [id number] 09/05/24 10:56 KW (1) Height => 6 ft 2 in Weight => 330 lb Weight in Pounds => 330.0 lbs Weight Measurement Method => Estimated by => Patient Body Mass Index (BMI) => 42.3 BMI Classification => Obese BSA - Jose Daniel => 2.69 Temperature (97.8 F-99.1 F) => 96.6 F L Temperature Source => Temporal Pulse Rate (60-100) => 74 Pulse Location => Monitor Respiratory Rate (12-18) => 18 Respiratory rate source => Observation Oxygen Delivery Method => Room Air Blood Pressure (90/60-120/80) => 112/68 Blood Pressure Mean (mm Hg) => 82 Source => Monitor Position => Sitting Blood Pressure Location => Right Arm 08/29/24 09/02/24 09/05/24 10:25 15:36 10:44 - Today's Visit Information Type of service Initial Visit Nurse-only Follow-up Visit Visit (Physician/BUSINESS DEVELOPMENT RECRUITER ) Arrival Mode Ambulatory Ambulatory Ambulatory Transfer Assistance None Patient Identification Verified (Name & Yes Yes Yes ) Patient Requires Transmission-Based No No Precautions Safety Precautions Fall Prevention Height and Weight Height 6 ft 2 in Weight 330 lb Weight in Pounds 330.0 lbs Weight Measurement Method Estimated by Patient Body Mass Index (BMI) 42.3 42.3 42.3 BMI Classification Obese Obese Obese BSA - Jose Daniel 2.69 Vital Signs Temperature (97.8 F-99.1 F) 96.6 F L 98.1 F 96.4 F L Temperature Source Temporal Temporal Temporal Pulse Rate (60-100) 74 88 78 Pulse Location Monitor Monitor Monitor Respiratory Rate (12-18) 18 16 18 Respiratory rate source Observation Observation Observation Oxygen Delivery Method Room Air Room Air Room Air Blood Pressure (90/60-120/80) 112/68 130/76 H 122/80 H Blood Pressure Mean (mm Hg) 82 94 94 Source Monitor Monitor Monitor Position Sitting Sitting Semi-Fowlers Blood Pressure Location Right Arm Left Forearm Right Arm History Since Last Visit- (Skip if this is Patient's initial visit) Have you changed medications since your No No last visit? Any new allergies or adverse reactions No No Had a fall/change in ADL's that may No No increase risk of falls Signs or symptoms of abuse and/or No No neglect since last visit Have you been in the hospital since your No No last visit? Has dressing in place as prescribed Yes Yes Has compression in place as prescribed No N/A Has offloadiing in place as prescribed N/A N/A Experienced any changes in pain level or No No management Left Footwear Regular Shoe Regular Shoe Right Footwear Regular Shoe Regular Shoe Other Footwear pt removed 3m to shower prior to visit Pain Scale: 0-10 Numeric Is Patient Pain Free? 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 No Able to Read Yes Able to Write Yes Communication Tools None Right Hearing Abillity Normal Left Hearing Abillity Normal Visual Assistive Devices Glasses Teaching Assessment Preferences Verbal,Written, Demonstration Barriers to Learning None Readiness To Learn Excellent Willingness to Engage in Self Management High Activies Readiness to Engage in Self Management High Activities Anxiety Level Calm Cooperation Cooperative Perception Coherent Interest in Health Problem Asks Questions Education Importance Acknowledges Need Does Patient Smoke tobacco or other No substances Smoking Status Former smoker Is Patient Diabetic No Functional Assessment Recent Decline in Ability to Perform Denies Any Declines 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 Cultural/Synagogue Needs that may affect No Treatment Plan Teaching: Wound Center *Welcome to the Wound Center -Person Taught Patient -Teaching Method Discussion -Response to teaching Verbalize Understanding WC - Nurse 1 - General Ulcer Measurement Start: 08/29/24 10:18 Freq: Status: Active Protocol: Activity Type Activity Date Activity User E-sign Co-sign Detail Recorded Client Recorded Date Recorded By Document 08/29/24 10:30 DS [id number] 08/29/24 10:39 DS Document 09/02/24 15:36 BMF [id number] 09/02/24 15:38 BMF Document 09/05/24 10:44 KW [id number] 09/05/24 10:56 KW 08/29/24 09/02/24 09/05/24 10:30 15:36 10:44 Wound Center Nurse 1 1-left leg -Current Size (cm) - Length 1.5 0.1 -Current Size (cm) - Width 0.6 0.1 -Current Size (cm) - Depth 0.1 0.1 -Total Square Cm 0.90 0.01 -Date of Last Picture (Recall this 08/29/24 field) -Photo Taken Yes -Tunneling No -Undermining/Tunneling No -Circular Undermining No -Exudate Amt None Present Medium -Exudate Type Serosanguineous -Wound Margin Distinct, Distinct, Outline Outline Attached Attached -Granulation Amt Medium (34-66%) -Granulation Quality Red -Necrosis Amt Large (67-100%) Medium (34-66%) -Necrotic Tissue Type Eschar Adherent Slough -Texture (Radha-wound Skin Appearance) Assessed Assessed -Moisture (Radha-wound Skin Appearance) Assessed Assessed -Color (Radha-wound Skin Appearance) Assessed Assessed -Temperature (Radha-wound Skin No Abnormality No Abnormality Appearance) (Pt Warm) (Pt Warm) -Tenderness on Palpation (Radha-wound No No Skin Appearance) -Ulcer Cleansing Soap and Water Soap and Water -Foul Odor after Cleansing No -Anesthetic Used 5% Lidocaine 5% Lidocaine Gel Gel Lower Limb Edema Present Yes Left Calf (cm) 42.6 45 Left Ankle (cm) 28.4 33.3 WC - Nurse 2 - General Ulcer CM Notes Start: 08/29/24 10:18 Freq: Status: Active Protocol: Activity Type Activity Date Activity User E-sign Co-sign Detail Recorded Client Recorded Date Recorded By Document 08/29/24 11:06 GM [id number] 08/29/24 11:13 Document 09/05/24 11:02 [id number] 09/05/24 11:12 08/29/24 09/05/24 11:06 11:02 Wound Center Nurse 2 1-left leg -Time 11:11 11:03 -Correct Patient Yes Yes -Correct Side, Site, Position Yes Yes -Correct Procedure Yes Yes -Procedure Performed Yes Yes -Type of Procedure Debridement Debridement -Clinical Debridement Subcutaneous Subcutaneous -Tissue Removed Epidermis Subcutaneous -Post Debridement (cm) - Length 3.1 0.6 -Post Debridement (cm) - Width 0.8 2.7 -Post Debridement (cm) - Depth 0.2 0.2 -Total Square (Post) (cm) 2.48 1.62 -Area of Debridement (cm) - Length 3.1 0.6 -Area of Debridement (cm) - Width 0.8 2.7 -Total Square (Area) (cm) 2.48 1.62 -Tunneling No No -Undermining/Tunneling No No -Circular Undermining No No -Wound/Ulcer Outcome Not Healed Not Healed -Ulcer Cleansing Rinsed/ Rinsed/ Irrigated with Irrigated with Saline Saline -Foul Odor after Cleansing No No -Bioengineered Tissue No No -Bleeding Controlled with Pressure Pressure -Treatment Response Procedure Procedure Tolerated Well Tolerated Well -Debridement - Subq, 1st 20sq cm Yes Yes Pain Scale: 0-10 Numeric Is Patient Pain Free? Yes Yes - Nurse 3 - General Ulcer D/C NN Start: 08/29/24 10:18 Freq: Status: Active Protocol: Activity Type Activity Date Activity User E-sign Co-sign Detail Recorded Client Recorded Date Recorded By Document 08/29/24 11:34 [id number] 08/29/24 11:34 Document 09/02/24 15:36 [email or web address] [id number] 09/02/24 15:38 [facility] 08/29/24 09/02/24 11:34 15:36 Wound Care Center Nurse 3 1-left leg -Ulcer Cleansing Rinsed/ Irrigated with Saline -Foul Odor after Cleansing No -Primary Dressing Applied Mepilex Border, Mepilex Border Promogran Tarsha Matter -Other Dressing promogran -Mepilex Border 1 2 -Promogran Tarsha Matter 1 Left -Multi-Layered Wrap Application Multi-Layer Comp - Left ($) -Other pt adamantly refused 3m wrap and offered tubigrip. will update cm and md. Treatment Response Procedure Tolerated Well Vital Signs Temperature (97.8 F-99.1 F) 98.1 F Temperature Source Temporal Pulse Rate (60-100) 88 Pulse Location Monitor Respiratory Rate (12-18) 16 Respiratory rate source Observation Oxygen Delivery Method Room Air Blood Pressure (90/60-120/80) 130/76 H Blood Pressure Mean (mm Hg) 94 Source Monitor Position Sitting Blood Pressure Location Left Forearm Pain Scale: 0-10 Numeric Is Patient Pain Free? Yes Yes WC - Visit Discharge Discharge Condition Stable Ambulatory Status Ambulatory Transportation Private Auto Notes: refused 3m and offered tubigrip. advised pt to elevate often. Assessment/Plan Assessment/Plan (1) Wound of left lower extremity: CODE(S): S81.802A - Unspecified open wound, left lower leg, initial encounter QUALIFIERS: Encounter type: subsequent encounter Qualified Code(s): S81.802D - Unspecified open wound, left lower leg, subsequent encounter PLAN: with fat layer exposed (2) Laceration of left lower extremity: CODE(S): S81.812A - Laceration without foreign body, left lower leg, initial encounter QUALIFIERS: Encounter type: subsequent encounter Qualified Code(s): S81.812D - Laceration without foreign body, left lower leg, subsequent encounter (3) Borderline type 2 diabetes mellitus: CODE(S): R73.03 - Prediabetes (4) Venous insufficiency: CODE(S): I87.2 - Venous insufficiency (chronic) (peripheral) PLAN: Plan Debridement done as documented above, procedure was well-tolerated. Some improvement noted however as above, not open to further 3M wraps. Cultures with no significant growth. Continue Promogran, cover with foam dressing, change daily. Double layer Tubigrip and Bharat wrap for edema management. Measurements taken for CircAid's. Increase Protein intake, vitamin C, D and zinc. Leg elevation and exercise as tolerated also recommended. His questions were answered and he was advised to let us know if he has any further questions or concerns, he voiced understanding. This note was generated with [employer] software. It may contain incorrect words, spelling, and punctuation that were not noted in checking the note before signing.
== END 2024-09-05 23:59 | disposition home or self-care (01) ==
LOC: WC 10:45
PROVIDERS: PCP Internal Medicine; Referring Provider Internal Medicine; Visit Provider Internal Medicine
DX: S81.812D Laceration without foreign body, left lower leg, subsequent encounter (principal); E78.00 Pure hypercholesterolemia, unspecified; I10 Essential (primary) hypertension; Z87.891 Personal history of nicotine dependence; R73.03 Prediabetes; I87.2 Venous insufficiency (chronic) (peripheral); F12.90 Cannabis use, unspecified, uncomplicated; G47.33 Obstructive sleep apnea (adult) (pediatric); Z99.89 Dependence on other enabling machines and devices; I73.9 Peripheral vascular disease, unspecified
CPT/HCPCS: 11042; 29581; 87070; 87075; 87077; 87186; 87205; 99212; 99213; G0463

== ENCOUNTER 2024-09-26 10:03 | Outpatient (RCR) | payer MEDICARE, SELFPAY ==
[2024-09-26 12:25] LABS: International Normalized Ratio 1.8; Prothrombin Time (Protime)PT. 20.8 SECONDS (11.7-14.9)
[2024-09-26 13:00] LABS: AST(SGOT) 16 U/L (15-37); Alanine Aminotransfer ALT/SGPT 29 U/L (16-61); Albumin, Serum 3.7 g/dL (3.2-5.0); Alkaline Phosphatase 96 U/L (45-117); Bilirubin, Direct 0.21 mg/dL (0.00-0.30); Cholesterol 89 mg/dL (200); Globulin 3.3 g/dL (2.2-4.2); High Density Lipoprotein 33 mg/dL; Triglycerides 86 mg/dL; Very Low Density Lipoprotein 17 mg/dL (5-40)
== END 2024-10-05 23:59 ==
LOC: BIMLAB 10:03
PROVIDERS: Physician Assistant Medical; PCP Internal Medicine; Referring Provider Internal Medicine Cardiovascular Disease; Visit Provider Internal Medicine Cardiovascular Disease
DX: I48.11 Longstanding persistent atrial fibrillation (principal); Z79.01 Long term (current) use of 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s; E78.00 Pure hypercholesterolemia, unspecified
CPT/HCPCS: 36415; 80061; 80076; 85610

== ENCOUNTER 2024-09-26 10:45 | Outpatient (RCR) | payer MEDICARE, SELFPAY ==
[2024-09-06 00:29] VITALS: BP 122/80; PULSE 78; RESP 18; TEMP 35.8; BMI 42.3
[2024-09-12 11:44] VITALS: BP 123/81; PULSE 87; RESP 18; TEMP 35.9; BMI 42.3
--- NOTE | 2024-09-12 12:05 | PCM.WC.PN ---
History of Present Illness Date of Service: 09/12/24 Chief Complaint: Left Leg Wound History of Wound: Mr. Conway is a 74-year-old well-known to me. Referred to the wound center due to left leg wound sustained following an injury from his lawnmower. Seen at the office and had Aquacel Ag applied. He was advised to continue wound care at home which he states that he has done using Neosporin. Not consistently utilizing compression. Feels well at this time. No chills, fever or change in bowel habit reported. His other chronic conditions are stable. Progress of Wound: No new concerns at this time. Wound remains the same. Did not utilize compression. Objective Data Objective Data Vital Signs: Vital Signs Temp Pulse Resp BP 96.7 F L 87 18 123/81 H 09/12/24 11:44 09/12/24 11:44 09/12/24 11:44 09/12/24 11:44 Weight: 330 lb Body Mass Index (BMI) 42.3 Charges/Coding Procedures Integumentary 111xxx-113xx: 48320 Soumya subq tissue 20 sq cm/< Physical Exam Const alert, oriented x3 and no apparent distress General Appearance: cooperative, comfortable and well kempt HEENT normocephalic, head/scalp atraumatic and hearing grossly normal bilaterally Neck full ROM and supple General: normal visual inspection Resp normal respiratory effort Effort and Inspection: able to speak in complete sentences Extremity General Extremity: edema Skin Wounds: wounds noted size Size: See clinical note, bed with slough, margins well approximated, no odor and open Neuro oriented x3, CN's II-XII intact bilaterally, moves all extremities and no focal motor deficits Psych mental status grossly normal, thought process normal, cooperative and affect normal Debridement Note Debridement Note Wound debrided: Left lower extremity Type of Debridement: Excisional debridement Anesthesia Used: 5% Lidocaine Gel Depth: Down to and including healthy tissue and in the subcutaneous layer Percentage of wound debrided: 100 Instrument Used: 3mm curette Tissue Removed: Slough and devitalized tissue Severity: Fat Layer Exposed Amount of bleeding with debridement: Mild Bleeding Controlled with: Pressure Patient tolerated procedure: Patient tolerated procedure well Post-Debridement Measurements and Additional Note: Post-Debridement Measurements/Treatment WC - Nurse 1 - General Ulcer Assessment Start: 09/12/24 11:44 Freq: Status: Active Protocol: MILANA Activity Type Activity Date Activity User E-sign Co-sign Detail Recorded Client Recorded Date Recorded By Document 09/12/24 11:44 RUPAL [id number] 09/12/24 11:45 RB 09/12/24 11:44 - Today's Visit Information Type of service Follow-up Visit (Physician/CUSTOMS INVESTIGATOR ) Arrival Mode Ambulatory Transfer Assistance None Patient Identification Verified (Name & Yes ) Patient Requires Transmission-Based No Precautions Height and Weight Body Mass Index (BMI) 42.3 BMI Classification Obese Vital Signs Temperature (97.8 F-99.1 F) 96.7 F L Temperature Source Temporal Pulse Rate (60-100) 87 Pulse Location Monitor Respiratory Rate (12-18) 18 Respiratory rate source Observation Blood Pressure (90/60-120/80) 123/81 H Blood Pressure Mean (mm Hg) 95 Source Monitor Position Semi-Fowlers Blood Pressure Location Left Arm History Since Last Visit- (Skip if this is Patient's initial visit) Have you changed medications since your No last visit? Any new allergies or adverse reactions No Had a fall/change in ADL's that may No increase risk of falls Signs or symptoms of abuse and/or No neglect since last visit Have you been in the hospital since your No last visit? Has dressing in place as prescribed Yes Has compression in place as prescribed Yes Has offloadiing in place as prescribed No Experienced any changes in pain level or No management Pain Scale: 0-10 Numeric Is Patient Pain Free? Yes - Nurse 1 - General Ulcer Measurement Start: 09/12/24 11:44 Freq: Status: Active Protocol: Activity Type Activity Date Activity User E-sign Co-sign Detail Recorded Client Recorded Date Recorded By Document 09/12/24 11:44 RUPAL [id number] 09/12/24 11:45 RB 09/12/24 11:44 Wound Center Nurse 1 1-left leg -Combined with other wound No -Current Size (cm) - Length 0.6 -Current Size (cm) - Width 2 -Current Size (cm) - Depth 0.2 -Total Square Cm 1.2 -Tunneling No -Undermining/Tunneling No -Circular Undermining No -Exudate Amt Medium -Exudate Type Serosanguineous -Wound Margin Thickened & Rolled Under -Granulation Amt Medium (34-66%) -Granulation Quality [place] -Slough/Fibrin Yes -Necrosis Amt Small (1-33%) -Necrotic Tissue Type Adherent Slough -Structure Exposed N/A -Texture (Radha-wound Skin Appearance) Assessed, Localized Edema -Moisture (Radha-wound Skin Appearance) Assessed -Color (Radha-wound Skin Appearance) Assessed -Temperature (Radha-wound Skin No Abnormality Appearance) (Pt Warm) -Tenderness on Palpation (Radha-wound No Skin Appearance) -Ulcer Cleansing Wound Cleanser -Foul Odor after Cleansing No -Anesthetic Used 5% Lidocaine Gel Lower Limb Edema Present Yes Left Calf (cm) 45 Left Ankle (cm) 30.5 WC - Nurse 2 - General Ulcer CM Notes Start: 09/12/24 11:44 Freq: Status: Active Protocol: Activity Type Activity Date Activity User E-sign Co-sign Detail Recorded Client Recorded Date Recorded By Document 09/12/24 11:49 [id number] 09/12/24 11:55 09/12/24 11:49 Wound Center Nurse 2 1-left leg -Time 11:49 -Correct Patient Yes -Correct Side, Site, Position Yes -Correct Procedure Yes -Procedure Performed Yes -Type of Procedure Debridement -Clinical Debridement Subcutaneous -Tissue Removed Subcutaneous -Post Debridement (cm) - Length 2.7 -Post Debridement (cm) - Width 0.6 -Post Debridement (cm) - Depth 0.2 -Total Square (Post) (cm) 1.62 -Area of Debridement (cm) - Length 2.7 -Area of Debridement (cm) - Width 0.6 -Total Square (Area) (cm) 1.62 -Tunneling No -Undermining/Tunneling No -Circular Undermining No -Wound/Ulcer Outcome Not Healed -Ulcer Cleansing Rinsed/ Irrigated with Saline -Foul Odor after Cleansing No -Bioengineered Tissue No -Bleeding Controlled with Pressure -Treatment Response Procedure Tolerated Well -Debridement - Subq, 1st 20sq cm Yes Pain Scale: 0-10 Numeric Is Patient Pain Free? Yes Assessment/Plan Assessment/Plan (1) Wound of left lower extremity: CODE(S): S81.802A - Unspecified open wound, left lower leg, initial encounter QUALIFIERS: Encounter type: subsequent encounter Qualified Code(s): S81.802D - Unspecified open wound, left lower leg, subsequent encounter PLAN: with fat layer exposed (2) Laceration of left lower extremity: CODE(S): S81.812A - Laceration without foreign body, left lower leg, initial encounter QUALIFIERS: Encounter type: subsequent encounter Qualified Code(s): S81.812D - Laceration without foreign body, left lower leg, subsequent encounter (3) Borderline type 2 diabetes mellitus: CODE(S): R73.03 - Prediabetes (4) Venous insufficiency: CODE(S): I87.2 - Venous insufficiency (chronic) (peripheral) PLAN: Plan Debridement done as documented above, procedure was well-tolerated. No change in size. Has remained the same as it did last week. As above, did not utilize compression. Yet to receive CircAid's. Now open to 3M wrap until his CircAid's arrive. Promogran, foam dressing and light 3M wrap for compression. Increase Protein intake, vitamin C, D and zinc. Leg elevation and exercise as tolerated also recommended. His questions were answered and he was advised to let us know if he has any further questions or concerns, he voiced understanding. Follow-up in a week. This note was generated with [employer] dictation software. It may contain incorrect words, spelling, and punctuation that were not noted in checking the note before signing.
[2024-09-19 10:46] VITALS: BP 137/67; PULSE 81; RESP 18; BMI 42.3
--- NOTE | 2024-09-19 11:56 | PN.PCM_ITS ---
History of Present Illness Date of Service: 09/19/24 Chief Complaint: Left Leg Wound History of Wound: Mr. Conway is a 74-year-old well-known to me. Referred to the wound center due to left leg wound sustained following an injury from his lawnmower. Seen at the office and had Aquacel Ag applied. He was advised to continue wound care at home which he states that he has done using Neosporin. Not consistently utilizing compression. Feels well at this time. No chills, fever or change in bowel habit reported. His other chronic conditions are stable. Progress of Wound: No new concerns reported at this time. He had 3M placed at his last visit and plan was for follow-up on Monday for a nurse visit however, he states that he took it off after 3 days because he could not leave it on for a week. He however states that he has been using Tubigrip's and Bharat wraps. Modest improvement since his last visit. Objective Data Objective Data Vital Signs: Vital Signs Temp Pulse Resp BP O2 Del Method 96.7 F L 81 18 137/67 H Room Air 09/12/24 11:44 09/19/24 10:46 09/19/24 10:46 09/19/24 10:46 09/19/24 10:46 Oxygen Delivery Method Room Air Weight: 330 lb Body Mass Index (BMI) 42.3 Charges/Coding Procedures Integumentary 111xxx-113xx: 92826 Soumya subq tissue 20 sq cm/< Physical Exam Const alert, oriented x3 and no apparent distress General Appearance: cooperative, comfortable and well kempt HEENT normocephalic, head/scalp atraumatic and hearing grossly normal bilaterally Neck full ROM and supple General: normal visual inspection Resp normal respiratory effort Effort and Inspection: able to speak in complete sentences Extremity General Extremity: edema Skin Wounds: wounds noted size Size: See clinical note, bed granulating well, margins well approximated, no odor and open Neuro oriented x3, CN's II-XII intact bilaterally, moves all extremities and no focal motor deficits Psych mental status grossly normal, thought process normal, cooperative and affect normal Debridement Note Debridement Note Wound debrided: Left lower extremity Type of Debridement: Excisional debridement Anesthesia Used: 5% Lidocaine Gel Depth: Down to and including healthy tissue and in the subcutaneous layer Percentage of wound debrided: 100 Instrument Used: 3mm curette Tissue Removed: Slough and devitalized tissue Severity: Fat Layer Exposed Amount of bleeding with debridement: Mild Bleeding Controlled with: Pressure Patient tolerated procedure: Patient tolerated procedure well Post-Debridement Measurements and Additional Note: Post-Debridement Measurements/Treatment - Nurse 1 - General Ulcer Assessment Start: 09/12/24 11:44 Freq: Status: Active Protocol: MILANA Activity Type Activity Date Activity User E-sign Co-sign Detail Recorded Client Recorded Date Recorded By Document 09/12/24 11:44 RB [id number] 09/12/24 11:45 RB Document 09/19/24 10:46 KW [id number] 09/19/24 10:53 KW 09/12/24 09/19/24 11:44 10:46 WC - Today's Visit Information Type of service Follow-up Visit Follow-up Visit (Physician/PLASTIC SURGERY COORDINATOR (Physician/PLASTIC SURGERY COORDINATOR ) ) Arrival Mode Ambulatory Ambulatory Transfer Assistance None Patient Identification Verified (Name & Yes Yes ) Patient Requires Transmission-Based No Precautions Height and Weight Body Mass Index (BMI) 42.3 42.3 BMI Classification Obese Obese Vital Signs Temperature (97.8 F-99.1 F) 96.7 F L Temperature Source Temporal Pulse Rate (60-100) 87 81 Pulse Location Monitor Monitor Respiratory Rate (12-18) 18 18 Respiratory rate source Observation Observation Oxygen Delivery Method Room Air Blood Pressure (90/60-120/80) 123/81 H 137/67 H Blood Pressure Mean (mm Hg) 95 90 Source Monitor Monitor Position Semi-Fowlers Sitting Blood Pressure Location Left Arm Left Arm History Since Last Visit- (Skip if this is Patient's initial visit) Have you changed medications since your No No last visit? Any new allergies or adverse reactions No No Had a fall/change in ADL's that may No No increase risk of falls Signs or symptoms of abuse and/or No No neglect since last visit Have you been in the hospital since your No No last visit? Has dressing in place as prescribed Yes Yes Has compression in place as prescribed Yes N/A Has offloadiing in place as prescribed No N/A Experienced any changes in pain level or No No management Left Footwear Regular Shoe Right Footwear Regular Shoe Pain Scale: 0-10 Numeric Is Patient Pain Free? Yes Yes - Nurse 1 - General Ulcer Measurement Start: 09/12/24 11:44 Freq: Status: Active Protocol: Activity Type Activity Date Activity User E-sign Co-sign Detail Recorded Client Recorded Date Recorded By Document 09/12/24 11:44 RB [id number] 09/12/24 11:45 RB Document 09/19/24 10:46 KW [id number] 09/19/24 10:53 KW 09/12/24 09/19/24 11:44 10:46 Wound Center Nurse 1 1-left leg -Combined with other wound No -Current Size (cm) - Length 0.6 2.5 -Current Size (cm) - Width 2 2.3 -Current Size (cm) - Depth 0.2 0.1 -Total Square Cm 1.2 5.75 -Tunneling No -Undermining/Tunneling No -Circular Undermining No -Exudate Amt Medium Small -Exudate Type Serosanguineous Serosanguineous -Wound Margin Thickened & Thickened Rolled Under -Granulation Amt Medium (34-66%) Medium (34-66%) -Granulation Quality [place] -Slough/Fibrin Yes -Necrosis Amt Small (1-33%) Small (1-33%) -Necrotic Tissue Type Adherent Slough Adherent Slough -Structure Exposed N/A -Texture (Radha-wound Skin Appearance) Assessed, Assessed Localized Edema -Moisture (Radha-wound Skin Appearance) Assessed Assessed, Maceration -Color (Radha-wound Skin Appearance) Assessed Assessed -Temperature (Radha-wound Skin No Abnormality No Abnormality Appearance) (Pt Warm) (Pt Warm) -Tenderness on Palpation (Radha-wound No No Skin Appearance) -Ulcer Cleansing Wound Cleanser -Foul Odor after Cleansing No -Anesthetic Used 5% Lidocaine 5% Lidocaine Gel Gel Lower Limb Edema Present Yes Left Calf (cm) 45 Left Ankle (cm) 30.5 WC - Nurse 2 - General Ulcer CM Notes Start: 09/12/24 11:44 Freq: Status: Active Protocol: Activity Type Activity Date Activity User E-sign Co-sign Detail Recorded Client Recorded Date Recorded By Document 09/12/24 11:49 GM [id number] 09/12/24 11:55 GM Document 09/19/24 11:48 [id number] 09/19/24 11:49 09/12/24 09/19/24 11:49 11:48 Wound Center Nurse 2 1-left leg -Time 11:49 11:48 -Correct Patient Yes Yes -Correct Side, Site, Position Yes Yes -Correct Procedure Yes Yes -Procedure Performed Yes Yes -Type of Procedure Debridement Debridement -Clinical Debridement Subcutaneous Subcutaneous -Tissue Removed Subcutaneous Subcutaneous -Post Debridement (cm) - Length 2.7 2.5 -Post Debridement (cm) - Width 0.6 0.5 -Post Debridement (cm) - Depth 0.2 0.2 -Total Square (Post) (cm) 1.62 1.25 -Area of Debridement (cm) - Length 2.7 2.5 -Area of Debridement (cm) - Width 0.6 0.5 -Total Square (Area) (cm) 1.62 1.25 -Tunneling No No -Undermining/Tunneling No No -Circular Undermining No No -Wound/Ulcer Outcome Not Healed Not Healed -Ulcer Cleansing Rinsed/ Rinsed/ Irrigated with Irrigated with Saline Saline -Foul Odor after Cleansing No No -Bioengineered Tissue No No -Bleeding Controlled with Pressure Pressure -Treatment Response Procedure Procedure Tolerated Well Tolerated Well -Debridement - Subq, 1st 20sq cm Yes Yes Pain Scale: 0-10 Numeric Is Patient Pain Free? Yes Yes - Nurse 3 - General Ulcer D/C NN Start: 09/12/24 11:44 Freq: Status: Active Protocol: Activity Type Activity Date Activity User E-sign Co-sign Detail Recorded Client Recorded Date Recorded By Document 09/12/24 12:10 [id number] 09/12/24 12:11 RB 09/12/24 12:10 Wound Care Center Nurse 3 1-left leg -Ulcer Cleansing Rinsed/ Irrigated with Saline -Primary Dressing Applied Mepilex Border, Promogran -Mepilex Border 1 -Promogran 1 Radha-Wound Care Lotion Left -Multi-Layered Wrap Application Multi-Layer Comp - Left ($) Treatment Response Procedure Tolerated Well Pain Scale: 0-10 Numeric Is Patient Pain Free? Yes - Visit Discharge Discharge Condition Stable Ambulatory Status Ambulatory,Cane Transportation Private Auto Medication Reconcilliation completed & No provided to patient/care provider Clinical Summary of Care Provided Yes Assessment/Plan Assessment/Plan (1) Wound of left lower extremity: CODE(S): S81.802A - Unspecified open wound, left lower leg, initial encounter QUALIFIERS: Encounter type: subsequent encounter Qualified Code(s): S81.802D - Unspecified open wound, left lower leg, subsequent encounter PLAN: with fat layer exposed (2) Laceration of left lower extremity: CODE(S): S81.812A - Laceration without foreign body, left lower leg, initial encounter QUALIFIERS: Encounter type: subsequent encounter Qualified Code(s): S81.812D - Laceration without foreign body, left lower leg, subsequent encounter (3) Borderline type 2 diabetes mellitus: CODE(S): R73.03 - Prediabetes (4) Venous insufficiency: CODE(S): I87.2 - Venous insufficiency (chronic) (peripheral) PLAN: Plan Debridement done as documented above, procedure was well-tolerated. Did somewhat better with compression this week. Left 3M wrap in place for 3 days and then he states that he has been using the double layer and Bharat wraps since then. Some improvement appreciated compared to his last couple of visits. He was encouraged to leave the 3M for at least 4 days, he states that he will try.... Continue Promogran, foam dressing and light 3M wrap for compression. If 3M wrap is taken off, Promogran daily, double layer to be an bharat wraps. Increase Protein intake, vitamin C, D and zinc. Leg elevation and exercise as tolerated also recommended. His questions were answered and he was advised to let us know if he has any further questions or concerns, he voiced understanding. Follow-up in a week. This note was generated with Anac[employer] software. It may contain incorrect words, spelling, and punctuation that were not noted in checking the note before signing.
[2024-09-26 10:49] VITALS: BP 121/77; PULSE 84; RESP 18; TEMP 36.2; BMI 42.3
--- NOTE | 2024-09-26 12:54 | PN.PCM_ITS ---
History of Present Illness Date of Service: 09/26/24 Chief Complaint: Left Leg Wound History of Wound: Mr. Conway is a 74-year-old well-known to me. Referred to the wound center due to left leg wound sustained following an injury from his lawnmower. Seen at the office and had Aquacel Ag applied. He was advised to continue wound care at home which he states that he has done using Neosporin. Not consistently utilizing compression. Feels well at this time. No chills, fever or change in bowel habit reported. His other chronic conditions are stable. Progress of Wound: No new concerns reported today, he states that he left the 3M until Monday and since then, has been using Tubigrip and Bharat wrap for compression. Yet to get his CircAid's. Typically takes of the Tubigrip and Bharat wrap at night. Some improvement noted today. Objective Data Objective Data Vital Signs: Vital Signs Temp Pulse Resp BP O2 Del Method 97.1 F L 84 18 121/77 H Room Air 09/26/24 10:49 09/26/24 10:49 09/26/24 10:49 09/26/24 10:49 09/26/24 10:49 Oxygen Delivery Method Room Air Weight: 330 lb Body Mass Index (BMI) 42.3 Charges/Coding Procedures Integumentary 111xxx-113xx: 46230 Soumya subq tissue 20 sq cm/< Physical Exam Const alert, oriented x3 and no apparent distress General Appearance: cooperative, comfortable and well kempt HEENT normocephalic, head/scalp atraumatic and hearing grossly normal bilaterally Neck full ROM and supple General: normal visual inspection Resp normal respiratory effort Effort and Inspection: able to speak in complete sentences Extremity General Extremity: edema Skin Wounds: wounds noted size Size: See clinical note, bed granulating well, margins well approximated, no odor and open Neuro oriented x3, CN's II-XII intact bilaterally, moves all extremities and no focal motor deficits Psych mental status grossly normal, thought process normal, cooperative and affect normal Debridement Note Debridement Note Wound debrided: Left lower extremity Type of Debridement: Excisional debridement Anesthesia Used: 5% Lidocaine Gel Depth: Down to and including healthy tissue and in the subcutaneous layer Percentage of wound debrided: 100 Instrument Used: 3mm curette Tissue Removed: Slough and devitalized tissue Severity: Fat Layer Exposed Bleeding Controlled with: Pressure Patient tolerated procedure: Patient tolerated procedure well Post-Debridement Measurements and Additional Note: Post-Debridement Measurements/Treatment WC - Nurse 1 - General Ulcer Assessment Start: 09/12/24 11:44 Freq: Status: Active Protocol: MILANA Activity Type Activity Date Activity User E-sign Co-sign Detail Recorded Client Recorded Date Recorded By Document 09/12/24 11:44 RB [id number] 09/12/24 11:45 RB Document 09/19/24 10:46 KW [id number] 09/19/24 10:53 KW Document 09/26/24 10:49 DS [id number] 09/26/24 10:50 DS 09/12/24 09/19/24 09/26/24 11:44 10:46 10:49 WC - Today's Visit Information Type of service Follow-up Visit Follow-up Visit Follow-up Visit (Physician/RUBBER CALENDER HELPER (Physician/RUBBER CALENDER HELPER (Physician/RUBBER CALENDER HELPER ) ) ) Arrival Mode Ambulatory Ambulatory Ambulatory Transfer Assistance None Patient Identification Verified (Name & Yes Yes Yes ) Patient Requires Transmission-Based No No Precautions Safety Precautions Fall Prevention Height and Weight Body Mass Index (BMI) 42.3 42.3 42.3 BMI Classification Obese Obese Obese Vital Signs Temperature (97.8 F-99.1 F) 96.7 F L 97.1 F L Temperature Source Temporal Temporal Pulse Rate (60-100) 87 81 84 Pulse Location Monitor Monitor Monitor Respiratory Rate (12-18) 18 18 18 Respiratory rate source Observation Observation Observation Oxygen Delivery Method Room Air Room Air Blood Pressure (90/60-120/80) 123/81 H 137/67 H 121/77 H Blood Pressure Mean (mm Hg) 95 90 91 Source Monitor Monitor Monitor Position Semi-Fowlers Sitting Sitting Blood Pressure Location Left Arm Left Arm Right Arm History Since Last Visit- (Skip if this is Patient's initial visit) Have you changed medications since your No No No last visit? Any new allergies or adverse reactions No No No Had a fall/change in ADL's that may No No No increase risk of falls Signs or symptoms of abuse and/or No No No neglect since last visit Have you been in the hospital since your No No No last visit? Has dressing in place as prescribed Yes Yes Yes Has compression in place as prescribed Yes N/A N/A Has offloadiing in place as prescribed No N/A N/A Experienced any changes in pain level or No No No management Left Footwear Regular Shoe Regular Shoe Right Footwear Regular Shoe Regular Shoe Pain Scale: 0-10 Numeric Is Patient Pain Free? Yes Yes Yes WC - Nurse 1 - General Ulcer Measurement Start: 09/12/24 11:44 Freq: Status: Active Protocol: Activity Type Activity Date Activity User E-sign Co-sign Detail Recorded Client Recorded Date Recorded By Document 09/12/24 11:44 RB [id number] 09/12/24 11:45 RB Document 09/19/24 10:46 KW [id number] 09/19/24 10:53 KW Document 09/26/24 10:50 DS [id number] 09/26/24 10:58 DS Edit Result 09/26/24 10:50 DS (1) [id number] 09/26/24 10:59 DS (1) Left Calf (cm) => 45 Left Ankle (cm) => 30.6 09/12/24 09/19/24 09/26/24 11:44 10:46 10:50 Wound Center Nurse 1 1-left leg -Combined with other wound No -Current Size (cm) - Length 0.6 2.5 2.1 -Current Size (cm) - Width 2 2.3 0.8 -Current Size (cm) - Depth 0.2 0.1 0.2 -Total Square Cm 1.2 5.75 1.68 -Photo Taken No -Tunneling No No -Undermining/Tunneling No No -Circular Undermining No No -Exudate Amt Medium Small -Exudate Type Serosanguineous Serosanguineous -Wound Margin Thickened & Thickened Distinct, Rolled Under Outline Attached -Granulation Amt Medium (34-66%) Medium (34-66%) Medium (34-66%) -Granulation Quality [place] -Slough/Fibrin Yes -Necrosis Amt Small (1-33%) Small (1-33%) Medium (34-66%) -Necrotic Tissue Type Adherent Slough Adherent Slough Adherent Slough -Structure Exposed N/A -Texture (Ardha-wound Skin Appearance) Assessed, Assessed Assessed Localized Edema -Moisture (Radha-wound Skin Appearance) Assessed Assessed, Assessed Maceration -Color (Radha-wound Skin Appearance) Assessed Assessed Assessed -Temperature (Radha-wound Skin No Abnormality No Abnormality No Abnormality Appearance) (Pt Warm) (Pt Warm) (Pt Warm) -Tenderness on Palpation (Radha-wound No No No Skin Appearance) -Ulcer Cleansing Wound Cleanser Soap and Water -Foul Odor after Cleansing No -Anesthetic Used 5% Lidocaine 5% Lidocaine 4% Lidocaine Gel Gel Solution Lower Limb Edema Present Yes Left Calf (cm) 45 45 Left Ankle (cm) 30.5 30.6 WC - Nurse 2 - General Ulcer CM Notes Start: 09/12/24 11:44 Freq: Status: Active Protocol: Activity Type Activity Date Activity User E-sign Co-sign Detail Recorded Client Recorded Date Recorded By Document 09/12/24 11:49 [id number] 09/12/24 11:55 Document 09/19/24 11:48 [id number] 09/19/24 11:49 Document 09/26/24 11:29 [id number] 09/26/24 11:31 09/12/24 09/19/24 09/26/24 11:49 11:48 11:29 Wound Center Nurse 2 1-left leg -Time 11:49 11:48 11:29 -Correct Patient Yes Yes Yes -Correct Side, Site, Position Yes Yes Yes -Correct Procedure Yes Yes Yes -Procedure Performed Yes Yes Yes -Type of Procedure Debridement Debridement Debridement -Clinical Debridement Subcutaneous Subcutaneous Subcutaneous -Tissue Removed Subcutaneous Subcutaneous Subcutaneous -Post Debridement (cm) - Length 2.7 2.5 2.3 -Post Debridement (cm) - Width 0.6 0.5 0.5 -Post Debridement (cm) - Depth 0.2 0.2 0.2 -Total Square (Post) (cm) 1.62 1.25 1.15 -Area of Debridement (cm) - Length 2.7 2.5 2.3 -Area of Debridement (cm) - Width 0.6 0.5 0.5 -Total Square (Area) (cm) 1.62 1.25 1.15 -Tunneling No No No -Undermining/Tunneling No No No -Circular Undermining No No No -Wound/Ulcer Outcome Not Healed Not Healed Not Healed -Ulcer Cleansing Rinsed/ Rinsed/ Rinsed/ Irrigated with Irrigated with Irrigated with Saline Saline Saline -Foul Odor after Cleansing No No No -Bioengineered Tissue No No No -Bleeding Controlled with Pressure Pressure Pressure -Treatment Response Procedure Procedure Tolerated Well Tolerated Well -Debridement - Subq, 1st 20sq cm Yes Yes Yes Pain Scale: 0-10 Numeric Is Patient Pain Free? Yes Yes Yes - Nurse 3 - General Ulcer D/C NN Start: 09/12/24 11:44 Freq: Status: Active Protocol: Activity Type Activity Date Activity User E-sign Co-sign Detail Recorded Client Recorded Date Recorded By Document 09/12/24 12:10 RB [id number] 09/12/24 12:11 RB Document 09/19/24 12:03 KW [id number] 09/19/24 12:03 KW Document 09/26/24 11:50 DL [id number] 09/26/24 11:51 DL 09/12/24 09/19/24 09/26/24 12:10 12:03 11:50 Wound Care Center Nurse 3 1-left leg -Ulcer Cleansing Rinsed/ Rinsed/ Irrigated with Irrigated with Saline Saline -Foul Odor after Cleansing No -Primary Dressing Applied Mepilex Border, Mepilex Border, Mepilex Border, Promogran Promogran Promogran Tarsha Matter Tarsha Matter -Mepilex Border 1 1 1 -Promogran 1 -Promogran Tarsha Matter 1 1 Radha-Wound Care Lotion Left -Multi-Layered Wrap Application Multi-Layer Multi-Layer Multi-Layer Comp - Left ($) Comp - Left ($) Comp - Left ($) Treatment Response Procedure Procedure Tolerated Well Tolerated Well Pain Scale: 0-10 Numeric Is Patient Pain Free? Yes Yes Yes - Visit Discharge Discharge Condition Stable Stable Ambulatory Status Ambulatory,Cane Ambulatory Transportation Private Auto Private Auto Medication Reconcilliation completed & No provided to patient/care provider Clinical Summary of Care Provided Yes Assessment/Plan Assessment/Plan (1) Wound of left lower extremity: CODE(S): S81.802A - Unspecified open wound, left lower leg, initial encounter QUALIFIERS: Encounter type: subsequent encounter Qualified Code(s): S81.802D - Unspecified open wound, left lower leg, subsequent encounter PLAN: with fat layer exposed (2) Laceration of left lower extremity: CODE(S): S81.812A - Laceration without foreign body, left lower leg, initial encounter QUALIFIERS: Encounter type: subsequent encounter Qualified Code(s): S81.812D - Laceration without foreign body, left lower leg, subsequent encounter (3) Borderline type 2 diabetes mellitus: CODE(S): R73.03 - Prediabetes (4) Venous insufficiency: CODE(S): I87.2 - Venous insufficiency (chronic) (peripheral) PLAN: Plan Debridement done as documented above, procedure was well-tolerated. As above, left the 3M wrap on a little longer. Some improvement noted. Continue Promogran, foam dressing and light 3M wrap for compression. If 3M wrap is taken off, Promogran daily, double layer Tubigrip's and bharat wraps for compression. Hopefully, should get his CircAid soon. Increase Protein intake, vitamin C, D and zinc. Leg elevation and exercise as tolerated also recommended. His questions were answered and he was advised to let us know if he has any further questions or concerns, he voiced understanding. Follow-up in 2 weeks due to the holiday. This note was generated with WonderHow[employer] dictation software. It may contain incorrect words, spelling, and punctuation that were not noted in checking the note before signing.
== END 2024-10-05 23:59 | disposition home or self-care (01) ==
LOC: WC 10:45
PROVIDERS: PCP Internal Medicine; Referring Provider Internal Medicine; Visit Provider Internal Medicine
DX: S81.802D Unspecified open wound, left lower leg, subsequent encounter (principal); I48.11 Longstanding persistent atrial fibrillation; S81.812D Laceration without foreign body, left lower leg, subsequent encounter; R73.03 Prediabetes; I87.2 Venous insufficiency (chronic) (peripheral); E78.00 Pure hypercholesterolemia, unspecified; Z79.01 Long term (current) use of 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s
CPT/HCPCS: 11042; 29581; 36415; 80061; 80076; 85610

== ENCOUNTER → 2024-09-30 | Outpatient (CLI) | payer MEDICARE, SELFPAY ==
--- NOTE | 2024-09-30 12:41 | ART_ITS ---
Reason For Study: Atherosclerosis Procedure A bilateral lower extremity continuous wave Doppler with analog waveform analysis and ankle brachial indexes. Left Segmental Pressures Left brachial= 112mmHg. Left posterior tibial artery = 77mmHg. Left dorsalis pedis artery = 90mmHg. Left digit = 32 mmHg. Right Segmental Pressures Right brachial= 123mmHg. Right posterior tibial artery = 68mmHg. Right dorsalis pedis artery = 86mmHg. Right digit = 37 mmHg. Indices The right ankle brachial index by the posterior tibial artery is 0.55. The right ankle brachial index by the dorsalis pedis is 0.70. The right digital-brachial index is 0.30. The left ankle brachial index by the posterior tibial artery is 0.63. The left ankle brachial index by the dorsalis pedis is 0.73. The left digital-brachial index is 0.26. VL/Ankle Brachial Index Interpretation Summary Resting ankle-brachial indices appear mildly abnormal bilaterally. Ordering Physician: Minh Jarquin Referring Physician: Carline Ramirez Performed By: Medina Carrera RDCS/RVT
--- NOTE | 2024-09-30 12:41 | ADU_ITS ---
Reason For Study: Atherosclerosis Right Velocities Left Velocities Ext. Iliac Artery, dist = 37 cm./sec. Ext Iliac Artery, dist = 69 cm./sec. Common Femoral Artery, mid = 45 cm./sec. Common Femoral Artery, mid = 108 cm./sec. Supf Femoral Artery, prox = 68 cm./sec. Supf. Femoral Artery, prox = 77 cm./sec. Supf Femoral Artery, mid = 90 cm./sec. Supf. Femoral Artery, mid = 83 cm./sec. Supf Femoral Artery, dist. = 76 cm./sec. Supf. Femoral Artery, dist = 73 cm./sec. Profunda Femoral Artery = 65 cm./sec. Profunda Femoral Artery = 44 cm./sec. Popliteal Artery, mid = 50 cm./sec. Popliteal Artery, mid = 48 cm./sec. Post. Tibial Artery, prox = 53 cm./sec. Post. Tibial Artery, prox = 71 cm./sec. Post. Tibial Artery, mid = 61 cm./sec. Post Tibial Artery, mid = 60 cm./sec. Post. Tibial Artery, dist = 93 cm./sec. Post Tibial Artery, dist. = 58 cm./sec. Peroneal Artery, prox = 67 cm./sec. Unable to visualize Lt PeroA Peroneal Artery, mid = 52 cm./sec. Lt SHOPFITTER mid measures 0.76cm x 0.83cm. Unable to visualize Rt PeroA distal. Ant.Tibial Artery, prox = 19 cm./sec. Ant. Tibial Artery, prox = 25 cm./sec. Ant Tibial Artery, mid = 27 cm./sec. Ant. Tibial Artery, mid = 61 cm./sec. Ant. Tibial Artery, distal = 39 cm./sec. Ant. Tibial Artery, dist = 32 cm./sec. Procedure Exam performed in department. /US Art Duplex Bilat Lower Ext Interpretation Summary Bilateral peroneal occlussion. Ordering Physician: Minh Jarquin Referring Physician: Carline Ramirez Performed By: Medina Carrera, KAYLA, RVT
== END | disposition home or self-care (01) ==
LOC: CVS 12:41
PROVIDERS: PCP Internal Medicine; Referring Provider Surgery Vascular Surgery; Visit Provider Surgery Vascular Surgery
DX: I87.8 Other specified disorders of veins (principal); I48.91 Unspecified atrial fibrillation; I70.213 Atherosclerosis of native arteries of extremities with intermittent claudication, bilateral legs; I83.893 Varicose veins of bilateral lower extremities with other complications; M19.90 Unspecified osteoarthritis, unspecified site; M79.89 Other specified soft tissue disorders; M79.606 Pain in leg, unspecified; G47.30 Sleep apnea, unspecified; I10 Essential (primary) hypertension; G62.9 Polyneuropathy, unspecified; Z87.891 Personal history of nicotine dependence
CPT/HCPCS: 93922; 93925

== ENCOUNTER → 2024-10-14 | Outpatient (CLI) | payer MEDICARE, SELFPAY ==
--- NOTE | 2024-10-14 07:40 | VDLE_ITS ---
Reason For Study: PVD RIGHT LEFT CFV is compressible, spontaneous, phasic, CFV is compressible, spontaneous, phasic, competent and demonstrates normal competent, and demonstrates normal augmentation. augmentation. FV is compressible, spontaneous, phasic, FV and Deep Fem are compressible at prox. competent and demonstrates normal FV is Dilated and NONCOMPRESSIBLE at mid and augmentation. dist vessel. Diminished flow is noted with POP V is compressible, spontaneous, phasic, color and pulsed wave doppler at distal competent and demonstrates normal vessel. augmentation. POP V is compressible, spontaneous, and T/P Trunk is compressible. phasic. PTV is compressible. SFJ is competent and measures 0.65 cm. RT PerV is compressible. GSV proximal thigh measures 0.73 x 0.76 cm. SFJ is INCOMPETENT and measures 0.65 cm. GSV at knee measures 0.53 x 0.55 cm. GSV proximal thigh measures 0.60 x 0.64 cm. GSV above knee is competent. GSV at knee measures 0.60 x 0.64 cm. GSV below knee is INCOMPETENT for greater GSV above knee is competent. than 0.5 seconds. GSV below knee is INCOMPETENT for greater SSV at junction is competent and measures than 0.5 seconds. 0.37 cm. SSV at junction is competent and measures SSV mid calf is competent and measures 0.35 0.42 cm. cm. SSV mid calf is competent and measures 0.40 x 0.41 cm. Procedure This is a venous duplex using B-mode, color flow and spectral Doppler. Exam performed in department. The exam was diagnostic. A preliminary report was called and/or faxed to Rosa @ [facility] / Dr Platt office. VL/Venous Duplex US - Joao Extrem Interpretation Summary Right leg no DVT. Left leg DVT femoral vein. Bilateral calf GSV reflux. Ordering Physician: Minh Jarquin Referring Physician: Carline Ramirez Performed By: Power Plasencia RVT
== END | disposition home or self-care (01) ==
PROVIDERS: PCP Internal Medicine; Referring Provider Surgery Vascular Surgery; Visit Provider Surgery Vascular Surgery
DX: I87.2 Venous insufficiency (chronic) (peripheral) (principal); I48.91 Unspecified atrial fibrillation; I87.8 Other specified disorders of veins; I70.213 Atherosclerosis of native arteries of extremities with intermittent claudication, bilateral legs; I83.893 Varicose veins of bilateral lower extremities with other complications; M19.90 Unspecified osteoarthritis, unspecified site; M79.89 Other specified soft tissue disorders; M79.606 Pain in leg, unspecified; G47.30 Sleep apnea, unspecified; I10 Essential (primary) hypertension; G62.9 Polyneuropathy, unspecified; Z87.891 Personal history of nicotine dependence
CPT/HCPCS: 93970

== ENCOUNTER 2024-10-16 14:21 | Outpatient (RCR) | payer MEDICARE, SELFPAY ==
[2024-10-16 14:41] LABS: INR Fingerstick 2.3; Prothrombin Time Fingerstick 25.1 SEC (11.7-14.9)
== END 2024-11-05 23:59 ==
LOC: BIMLAB 14:21
PROVIDERS: PCP Internal Medicine; Referring Provider Internal Medicine Cardiovascular Disease; Visit Provider Internal Medicine Cardiovascular Disease
DX: Z79.01 Long term (current) use of 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s
CPT/HCPCS: 36416; 85610

== ENCOUNTER 2024-10-31 10:45 | Outpatient (RCR) | payer MEDICARE, SELFPAY ==
[2024-10-06 00:45] VITALS: BP 122/80; PULSE 78; RESP 18; TEMP 35.8; BMI 42.3
[2024-10-10 10:29] VITALS: BP 116/78; PULSE 89; RESP 16; TEMP 35.9; BMI 42.3
--- NOTE | 2024-10-10 12:28 | PCM.WC.PN ---
History of Present Illness Date of Service: 10/10/24 Chief Complaint: Left Leg wound History of Wound: Mr. Conway is a 73-year-old well-known to me. Seen in the office yesterday and was advised that he come to the wound center for wound care. Wound breakdown following suturing at the ER on Monday. Slough noted during his office visit yesterday and the recommendation was made for him to come to the wound center. Did not dress wound as recommended yesterday. Some pain but not significant pain. No fever, chills or otherwise feeling of unwell. Progress of Wound: No new concerns reported at this time. Now has his CircAid's. He states that he has been using double layer Tubigrip's and doing dressing changes as recommended. Objective Data Objective Data Vital Signs: Vital Signs Temp Pulse Resp BP 96.6 F L 89 16 116/78 10/10/24 10:29 10/10/24 10:29 10/10/24 10:29 10/10/24 10:29 Weight: 330 lb Body Mass Index (BMI) 42.3 Charges/Coding Procedures Integumentary 111xxx-113xx: 71806 Soumya subq tissue 20 sq cm/< Physical Exam Const alert, oriented x3 and no apparent distress General Appearance: cooperative, comfortable and well kempt HEENT normocephalic, head/scalp atraumatic and hearing grossly normal bilaterally Neck full ROM and supple General: normal visual inspection Resp normal respiratory effort Effort and Inspection: able to speak in complete sentences Extremity General Extremity: edema Skin Wounds: wounds noted size Size: See clinical note, bed granulating well, margins well approximated, no odor and open Neuro oriented x3, CN's II-XII intact bilaterally, moves all extremities and no focal motor deficits Psych mental status grossly normal, thought process normal, cooperative and affect normal Debridement Note Debridement Note Wound debrided: Left lower extremity Type of Debridement: Excisional debridement Anesthesia Used: 5% Lidocaine Gel Depth: Down to and including healthy tissue and in the subcutaneous layer Percentage of wound debrided: 100 Instrument Used: 3mm curette Tissue Removed: Slough and devitalized tissue Severity: Fat Layer Exposed Amount of bleeding with debridement: Mild Bleeding Controlled with: Pressure Patient tolerated procedure: Patient tolerated procedure well Post-Debridement Measurements and Additional Note: Post-Debridement Measurements/Treatment WC - Nurse 1 - General Ulcer Assessment Start: 10/10/24 10:29 Freq: Status: Active Protocol: LEONIE.CATY Activity Type Activity Date Activity User E-sign Co-sign Detail Recorded Client Recorded Date Recorded By Document 10/10/24 10:29 SRINATH [id number] 10/10/24 10:35 SRINATH 10/10/24 10:29 - Today's Visit Information Type of service Follow-up Visit (Physician/DESKTOP PUBLISHING ASSOCIATE ) Arrival Mode Ambulatory Patient Identification Verified (Name & Yes ) Patient Requires Transmission-Based No Precautions Height and Weight Body Mass Index (BMI) 42.3 BMI Classification Obese Vital Signs Temperature (97.8 F-99.1 F) 96.6 F L Temperature Source Temporal Pulse Rate (60-100) 89 Pulse Location Monitor Respiratory Rate (12-18) 16 Respiratory rate source Observation Blood Pressure (90/60-120/80) 116/78 Blood Pressure Mean (mm Hg) 90 Source Monitor Position Semi-Fowlers Blood Pressure Location Left Arm History Since Last Visit- (Skip if this is Patient's initial visit) Have you changed medications since your No last visit? Any new allergies or adverse reactions No Had a fall/change in ADL's that may No increase risk of falls Signs or symptoms of abuse and/or No neglect since last visit Have you been in the hospital since your No last visit? Has dressing in place as prescribed Yes Has compression in place as prescribed No Has offloadiing in place as prescribed N/A Experienced any changes in pain level or No management Left Footwear Regular Shoe Right Footwear Regular Shoe Pain Scale: 0-10 Numeric Is Patient Pain Free? Yes - Nurse 1 - General Ulcer Measurement Start: 10/10/24 10:29 Freq: Status: Active Protocol: Activity Type Activity Date Activity User E-sign Co-sign Detail Recorded Client Recorded Date Recorded By Document 10/10/24 10:29 JF [id number] 10/10/24 10:35 SRINATH 10/10/24 10:29 Wound Center Nurse 1 1-left leg -Combined with other wound No -Current Size (cm) - Length 2.5 -Current Size (cm) - Width 0.4 -Current Size (cm) - Depth 0.1 -Total Square Cm 1.00 -Photo Taken Yes -Epithelialization Small 1-33% -Tunneling No -Undermining/Tunneling No -Circular Undermining No -Exudate Amt Small -Exudate Type Serosanguineous -Wound Margin Flat & Intact -Granulation Amt Medium (34-66%) -Granulation Quality Red -Slough/Fibrin Yes -Necrosis Amt Medium (34-66%) -Necrotic Tissue Type Adherent Slough -Structure Exposed N/A -Texture (Radha-wound Skin Appearance) Assessed, Localized Edema -Moisture (Radha-wound Skin Appearance) Assessed,Dry/ Scaly -Color (Radha-wound Skin Appearance) Assessed -Temperature (Radha-wound Skin No Abnormality Appearance) (Pt Warm) -Tenderness on Palpation (Radha-wound No Skin Appearance) -Ulcer Cleansing Rinsed/ Irrigated with Saline -Foul Odor after Cleansing No -Anesthetic Used 5% Lidocaine Gel Lower Limb Edema Present Yes Left Calf (cm) 45.8 Left Ankle (cm) 31.0 WC - Nurse 2 - General Ulcer CM Notes Start: 10/10/24 10:29 Freq: Status: Active Protocol: Activity Type Activity Date Activity User E-sign Co-sign Detail Recorded Client Recorded Date Recorded By Document 10/10/24 10:55 [id number] 10/10/24 10:59 10/10/24 10:55 Wound Center Nurse 2 1-left leg -Time 10:56 -Correct Patient Yes -Correct Side, Site, Position Yes -Correct Procedure Yes -Procedure Performed Yes -Type of Procedure Debridement -Clinical Debridement Subcutaneous -Tissue Removed Subcutaneous -Post Debridement (cm) - Length 2.5 -Post Debridement (cm) - Width 0.3 -Post Debridement (cm) - Depth 0.1 -Total Square (Post) (cm) 0.75 -Area of Debridement (cm) - Length 2.5 -Area of Debridement (cm) - Width 0.3 -Total Square (Area) (cm) 0.75 -Tunneling No -Undermining/Tunneling No -Circular Undermining No -Wound/Ulcer Outcome Not Healed -Ulcer Cleansing Rinsed/ Irrigated with Saline -Foul Odor after Cleansing No -Bioengineered Tissue No -Bleeding Controlled with Pressure -Treatment Response Procedure Tolerated Well -Debridement - Subq, 1st 20sq cm Yes Pain Scale: 0-10 Numeric Is Patient Pain Free? Yes WC - Nurse 3 - General Ulcer D/C NN Start: 10/10/24 10:29 Freq: Status: Active Protocol: Activity Type Activity Date Activity User E-sign Co-sign Detail Recorded Client Recorded Date Recorded By Document 10/10/24 11:11 RB [id number] 10/10/24 11:12 RB 10/10/24 11:11 Wound Care Center Nurse 3 1-left leg -Ulcer Cleansing Rinsed/ Irrigated with Saline -Primary Dressing Applied Mepilex Border -Other Dressing foam -Mepilex Border 1 Right -Other circaid Left -Other circaid Treatment Response Procedure Tolerated Well Pain Scale: 0-10 Numeric Is Patient Pain Free? Yes Teaching: Wound Center Compression Wraps & Stockings -Person Taught Patient -Teaching Method Discussion, Demonstration -Response to teaching Verbalize Understanding WC - Visit Discharge Discharge Condition Stable Ambulatory Status Ambulatory Transportation Private Auto Medication Reconcilliation completed & No provided to patient/care provider Clinical Summary of Care Provided Yes Assessment/Plan Assessment/Plan (1) Wound of left lower extremity: CODE(S): S81.802A - Unspecified open wound, left lower leg, initial encounter QUALIFIERS: Encounter type: subsequent encounter Qualified Code(s): S81.802D - Unspecified open wound, left lower leg, subsequent encounter PLAN: with fat layer exposed (2) Laceration of left lower extremity: CODE(S): S81.812A - Laceration without foreign body, left lower leg, initial encounter QUALIFIERS: Encounter type: subsequent encounter Qualified Code(s): S81.812D - Laceration without foreign body, left lower leg, subsequent encounter (3) Borderline type 2 diabetes mellitus: CODE(S): R73.03 - Prediabetes (4) Venous insufficiency: CODE(S): I87.2 - Venous insufficiency (chronic) (peripheral) PLAN: Plan Debridement done as documented above, procedure was well-tolerated. Stable. No significant change. As above, now has his CircAid's. Continue Promogran, change daily. Cover with Adaptic and foam dressing. Wear CircAid's daily, may take off at night. Leg elevation and exercise as tolerated. Increase Protein intake, vitamin C, D and zinc. His questions were answered and he was advised to let us know if he has any further questions or concerns, he voiced understanding. Follow-up in 2 weeks. This note was generated with [employer] software. It may contain incorrect words, spelling, and punctuation that were not noted in checking the note before signing.
--- NOTE | 2024-10-11 12:36 | WC ---
PHOTO 10/10/24 LEFT OLIVEROS
[2024-10-31 10:56] VITALS: BP 117/72; PULSE 80; RESP 16; TEMP 36; BMI 42.3
--- NOTE | 2024-10-31 12:03 | PN.PCM_ITS ---
History of Present Illness Date of Service: 10/31/24 Chief Complaint: Left Leg wound History of Wound: Mr. Conway is a 73-year-old well-known to me. Seen in the office yesterday and was advised that he come to the wound center for wound care. Wound breakdown following suturing at the ER on Monday. Slough noted during his office visit yesterday and the recommendation was made for him to come to the wound center. Did not dress wound as recommended yesterday. Some pain but not significant pain. No fever, chills or otherwise feeling of unwell. Progress of Wound: No new concerns reported at this time. Has been using his CircAid's consistently. There is improvement in wound size and lower extremity edema. Objective Data Objective Data Vital Signs: Vital Signs Temp Pulse Resp BP O2 Del Method 96.8 F L 80 16 117/72 Room Air 10/31/24 10:56 10/31/24 10:56 10/31/24 10:56 10/31/24 10:56 10/31/24 10:56 Oxygen Delivery Method Room Air Weight: 330 lb Body Mass Index (BMI) 42.3 Charges/Coding Procedures Integumentary 111xxx-113xx: 55421 Soumya subq tissue 20 sq cm/< Physical Exam Const alert, oriented x3 and no apparent distress General Appearance: cooperative, comfortable and well kempt HEENT normocephalic, head/scalp atraumatic and hearing grossly normal bilaterally Neck full ROM and supple General: normal visual inspection Resp normal respiratory effort Effort and Inspection: able to speak in complete sentences Extremity General Extremity: edema Skin Wounds: wounds noted size Size: See clinical note, bed granulating well, margins well approximated, no odor and open Neuro oriented x3, CN's II-XII intact bilaterally, moves all extremities and no focal motor deficits Psych mental status grossly normal, thought process normal, cooperative and affect normal Debridement Note Debridement Note Wound debrided: Left lower extremity Type of Debridement: Excisional debridement Anesthesia Used: 5% Lidocaine Gel Depth: Down to and including healthy tissue and in the subcutaneous layer Percentage of wound debrided: 100 Instrument Used: 3mm curette Tissue Removed: Slough and devitalized tissue Severity: Fat Layer Exposed Amount of bleeding with debridement: Mild Bleeding Controlled with: Pressure Patient tolerated procedure: Patient tolerated procedure well Post-Debridement Measurements and Additional Note: Post-Debridement Measurements/Treatment WC - Nurse 1 - General Ulcer Assessment Start: 10/10/24 10:29 Freq: Status: Active Protocol: MILANA Activity Type Activity Date Activity User E-sign Co-sign Detail Recorded Client Recorded Date Recorded By Document 10/10/24 10:29 SRINATH [id number] 10/10/24 10:35 SRINATH Document 10/31/24 10:56 REINALDO [id number] 10/31/24 11:06 KW 10/10/24 10/31/24 10:29 10:56 LEONIE - Today's Visit Information Type of service Follow-up Visit Follow-up Visit (Physician/MERCHANDISE SUPPORT ASSOCIATE (Physician/MERCHANDISE SUPPORT ASSOCIATE ) ) Arrival Mode Ambulatory Ambulatory Patient Identification Verified (Name & Yes Yes ) Patient Requires Transmission-Based No Precautions Height and Weight Body Mass Index (BMI) 42.3 42.3 BMI Classification Obese Obese Vital Signs Temperature (97.8 F-99.1 F) 96.6 F L 96.8 F L Temperature Source Temporal Temporal Pulse Rate (60-100) 89 80 Pulse Location Monitor Monitor Respiratory Rate (12-18) 16 16 Respiratory rate source Observation Observation Oxygen Delivery Method Room Air Blood Pressure (90/60-120/80) 116/78 117/72 Blood Pressure Mean (mm Hg) 90 87 Source Monitor Monitor Position Semi-Fowlers Semi-Fowlers Blood Pressure Location Left Arm Left Arm History Since Last Visit- (Skip if this is Patient's initial visit) Have you changed medications since your No No last visit? Any new allergies or adverse reactions No No Had a fall/change in ADL's that may No No increase risk of falls Signs or symptoms of abuse and/or No No neglect since last visit Have you been in the hospital since your No No last visit? Has dressing in place as prescribed Yes Yes Has compression in place as prescribed No No Has offloadiing in place as prescribed N/A N/A Experienced any changes in pain level or No No management Left Footwear Regular Shoe Regular Shoe Right Footwear Regular Shoe Regular Shoe Pain Scale: 0-10 Numeric Is Patient Pain Free? Yes Yes LEONIE - Nurse 1 - General Ulcer Measurement Start: 10/10/24 10:29 Freq: Status: Active Protocol: Activity Type Activity Date Activity User E-sign Co-sign Detail Recorded Client Recorded Date Recorded By Document 10/10/24 10:29 JF [id number] 10/10/24 10:35 JF Document 10/31/24 10:56 KW [id number] 10/31/24 11:06 KW 10/10/24 10/31/24 10:29 10:56 Wound Center Nurse 1 1-left leg -Combined with other wound No -Current Size (cm) - Length 2.5 1.2 -Current Size (cm) - Width 0.4 0.3 -Current Size (cm) - Depth 0.1 0.1 -Total Square Cm 1.00 0.36 -Photo Taken Yes -Epithelialization Small 1-33% -Tunneling No -Undermining/Tunneling No -Circular Undermining No -Exudate Amt Small None Present -Exudate Type Serosanguineous -Wound Margin Flat & Intact -Granulation Amt Medium (34-66%) Large (67-100%) -Granulation Quality [place] -Slough/Fibrin Yes -Necrosis Amt Medium (34-66%) -Necrotic Tissue Type Adherent Slough -Structure Exposed N/A -Texture (Radha-wound Skin Appearance) Assessed, Assessed Localized Edema -Moisture (Radha-wound Skin Appearance) Assessed,Dry/ Assessed,Dry/ Scaly Scaly -Color (Radha-wound Skin Appearance) Assessed Assessed -Temperature (Radha-wound Skin No Abnormality No Abnormality Appearance) (Pt Warm) (Pt Warm) -Tenderness on Palpation (Radha-wound No No Skin Appearance) -Ulcer Cleansing Rinsed/ Irrigated with Saline -Foul Odor after Cleansing No No -Anesthetic Used 5% Lidocaine 5% Lidocaine Gel Gel -Wound Comment(s) scabbed over Lower Limb Edema Present Yes Left Calf (cm) 45.8 Left Ankle (cm) 31.0 WC - Nurse 2 - General Ulcer CM Notes Start: 10/10/24 10:29 Freq: Status: Active Protocol: Activity Type Activity Date Activity User E-sign Co-sign Detail Recorded Client Recorded Date Recorded By Document 10/10/24 10:55 [id number] 10/10/24 10:59 Document 10/31/24 11:34 [id number] 10/31/24 11:36 10/10/24 10/31/24 10:55 11:34 Wound Center Nurse 2 1-left leg -Time 10:56 11:35 -Correct Patient Yes Yes -Correct Side, Site, Position Yes Yes -Correct Procedure Yes Yes -Procedure Performed Yes Yes -Type of Procedure Debridement Debridement -Clinical Debridement Subcutaneous Subcutaneous -Tissue Removed Subcutaneous Subcutaneous -Post Debridement (cm) - Length 2.5 1.2 -Post Debridement (cm) - Width 0.3 0.2 -Post Debridement (cm) - Depth 0.1 0.1 -Total Square (Post) (cm) 0.75 0.24 -Area of Debridement (cm) - Length 2.5 1.2 -Area of Debridement (cm) - Width 0.3 0.2 -Total Square (Area) (cm) 0.75 0.24 -Tunneling No No -Undermining/Tunneling No No -Circular Undermining No No -Wound/Ulcer Outcome Not Healed Not Healed -Ulcer Cleansing Rinsed/ Rinsed/ Irrigated with Irrigated with Saline Saline -Foul Odor after Cleansing No No -Bioengineered Tissue No No -Bleeding Controlled with Pressure Pressure -Treatment Response Procedure Procedure Tolerated Well Tolerated Well -Debridement - Subq, 1st 20sq cm Yes Yes Pain Scale: 0-10 Numeric Is Patient Pain Free? Yes Yes - Nurse 3 - General Ulcer D/C NN Start: 10/10/24 10:29 Freq: Status: Active Protocol: Activity Type Activity Date Activity User E-sign Co-sign Detail Recorded Client Recorded Date Recorded By Document 10/10/24 11:11 RB [id number] 10/10/24 11:12 RB Document 10/31/24 11:49 KW [id number] 10/31/24 11:50 10/10/24 10/31/24 11:11 11:49 Wound Care Center Nurse 3 1-left leg -Ulcer Cleansing Rinsed/ Irrigated with Saline -Primary Dressing Applied Mepilex Border Mepilex Border -Other Dressing foam pt own promogran -Mepilex Border 1 2 Right -Other circaid Left -Other circaid Treatment Response Procedure Tolerated Well Pain Scale: 0-10 Numeric Is Patient Pain Free? Yes Yes Teaching: Wound Center Compression Wraps & Stockings -Person Taught Patient -Teaching Method Discussion, Demonstration -Response to teaching Verbalize Understanding WC - Visit Discharge Discharge Condition Stable Stable Ambulatory Status Ambulatory Ambulatory Transportation Private Auto Private Auto Medication Reconcilliation completed & No No provided to patient/care provider Clinical Summary of Care Provided Yes Yes Assessment/Plan Assessment/Plan (1) Wound of left lower extremity: CODE(S): S81.802A - Unspecified open wound, left lower leg, initial encounter QUALIFIERS: Encounter type: subsequent encounter Qualified Code(s): S81.802D - Unspecified open wound, left lower leg, subsequent encounter PLAN: with fat layer exposed (2) Laceration of left lower extremity: CODE(S): S81.812A - Laceration without foreign body, left lower leg, initial encounter QUALIFIERS: Encounter type: subsequent encounter Qualified Code(s): S81.812D - Laceration without foreign body, left lower leg, subsequent encounter (3) Borderline type 2 diabetes mellitus: CODE(S): R73.03 - Prediabetes (4) Venous insufficiency: CODE(S): I87.2 - Venous insufficiency (chronic) (peripheral) PLAN: Plan Debridement done as documented above, procedure was well-tolerated. Good improvement since his last visit. Has been wearing CircAid's consistently. Continue Promogran, change daily. Cover with Adaptic and foam dressing. Wear CircAid's daily, may take off at night. Leg elevation and exercise as tolerated. Continue increased Protein intake, vitamin C, D and zinc. His questions were answered and he was advised to let us know if he has any further questions or concerns, he voiced understanding. Follow-up in 2 weeks. This note was generated with [employer] dictation software. It may contain incorrect words, spelling, and punctuation that were not noted in checking the note before signing.
== END 2024-11-05 23:59 | disposition home or self-care (01) ==
LOC: WC 10:45
PROVIDERS: PCP Internal Medicine; Referring Provider Internal Medicine; Visit Provider Internal Medicine
DX: I87.2 Venous insufficiency (chronic) (peripheral) (principal); S81.812A Laceration without foreign body, left lower leg, initial encounter; R73.03 Prediabetes; R60.0 Localized edema; X58.XXXA Exposure to other specified factors, initial encounter
CPT/HCPCS: 11042

== ENCOUNTER 2024-11-14 10:32 | Outpatient (RCR) | payer MEDICARE, SELFPAY ==
[2024-11-06 00:44] VITALS: BP 122/80; PULSE 78; RESP 18; TEMP 35.8; BMI 42.3
[2024-11-14 10:40] VITALS: RESP 16; TEMP 35.6; BMI 42.3
--- NOTE | 2024-11-14 14:02 | PCM.WC.PN ---
History of Present Illness Date of Service: 11/14/24 Chief Complaint: Left Leg wound History of Wound: Mr. Conway is a 73-year-old well-known to me. Seen in the office yesterday and was advised that he come to the wound center for wound care. Wound breakdown following suturing at the ER on Monday. Slough noted during his office visit yesterday and the recommendation was made for him to come to the wound center. Did not dress wound as recommended yesterday. Some pain but not significant pain. No fever, chills or otherwise feeling of unwell. Progress of Wound: Improving. Minimal area left. No new concerns reported. Has been utilizing his CircAid's consistently. Objective Data Objective Data Vital Signs: Vital Signs Temp Pulse Resp BP O2 Del Method 96.0 F L 78 16 122/80 H Room Air 11/14/24 10:40 11/06/24 00:44 11/14/24 10:40 11/06/24 00:44 11/14/24 10:40 Oxygen Delivery Method Room Air Weight: 330 lb Body Mass Index (BMI) 42.3 Charges/Coding Procedures Integumentary 111xxx-113xx: [id number] Soumya subq tissue 20 sq cm/< (Selective/superficial debridement done today.) Physical Exam Const alert, oriented x3 and no apparent distress General Appearance: cooperative, comfortable and well kempt HEENT normocephalic, head/scalp atraumatic and hearing grossly normal bilaterally Neck full ROM and supple General: normal visual inspection Resp normal respiratory effort Effort and Inspection: able to speak in complete sentences Extremity General Extremity: edema Skin Wounds: wounds noted size Size: See clinical note, bed granulating well, margins well approximated, no odor and open Neuro oriented x3, CN's II-XII intact bilaterally, moves all extremities and no focal motor deficits Psych mental status grossly normal, thought process normal, cooperative and affect normal Debridement Note Debridement Note Wound debrided: Left lower extremity Type of Debridement: Selective debridement Depth: Down to and including healthy tissue Percentage of wound debrided: 100 Tissue Removed: Devitalized tissue Severity: Limited To Skin Breakdown Amount of bleeding with debridement: Mild Bleeding Controlled with: Pressure Post-Debridement Measurements and Additional Note: Post-Debridement Measurements/Treatment LEONIE - Nurse 1 - General Ulcer Assessment Start: 11/14/24 10:40 Freq: Status: Active Protocol: MILANA Activity Type Activity Date Activity User E-sign Co-sign Detail Recorded Client Recorded Date Recorded By Document 11/14/24 10:40 KW [id number] 11/14/24 10:45 KW 11/14/24 10:40 WC - Today's Visit Information Type of service Follow-up Visit (Physician/[employer]ET[employer] COORDINATOR ) Arrival Mode Ambulatory Patient Identification Verified (Name & Yes ) Height and Weight Body Mass Index (BMI) 42.3 BMI Classification Obese Vital Signs Temperature (97.8 F-99.1 F) 96.0 F L Temperature Source Temporal Pulse Location Monitor Respiratory Rate (12-18) 16 Respiratory rate source Observation Oxygen Delivery Method Room Air Source Monitor Position Semi-Fowlers Blood Pressure Location Left Arm History Since Last Visit- (Skip if this is Patient's initial visit) Have you changed medications since your No last visit? Any new allergies or adverse reactions No Had a fall/change in ADL's that may No increase risk of falls Signs or symptoms of abuse and/or No neglect since last visit Have you been in the hospital since your No last visit? Has dressing in place as prescribed No Has compression in place as prescribed No Has offloadiing in place as prescribed N/A Experienced any changes in pain level or No management Left Footwear Regular Shoe Right Footwear Regular Shoe Pain Scale: 0-10 Numeric Is Patient Pain Free? Yes - Nurse 1 - General Ulcer Measurement Start: 11/14/24 10:40 Freq: Status: Active Protocol: Activity Type Activity Date Activity User E-sign Co-sign Detail Recorded Client Recorded Date Recorded By Document 11/14/24 10:40 KW [id number] 11/14/24 10:45 KW 11/14/24 10:40 Wound Center Nurse 1 1-left leg -Current Size (cm) - Length 0.1 -Current Size (cm) - Width 0.1 -Current Size (cm) - Depth 0 -Total Square Cm 0.01 -Date of Last Picture (Recall this 11/14/24 field) -Exudate Amt None Present -Texture (Radha-wound Skin Appearance) Assessed -Moisture (Radha-wound Skin Appearance) Assessed -Color (Radha-wound Skin Appearance) Assessed -Temperature (Radha-wound Skin No Abnormality Appearance) (Pt Warm) -Tenderness on Palpation (Radha-wound No Skin Appearance) - Nurse 2 - General Ulcer CM Notes Start: 11/14/24 10:40 Freq: Status: Active Protocol: Activity Type Activity Date Activity User E-sign Co-sign Detail Recorded Client Recorded Date Recorded By Document 11/14/24 10:58 [id number] 11/14/24 11:00 11/14/24 10:58 Wound Center Nurse 2 -Time 10:58 -Correct Patient Yes -Correct Side, Site, Position Yes -Correct Procedure Yes -Procedure Performed Yes -Type of Procedure Debridement -Clinical Debridement Epidermis / Dermis -Tissue Removed Epidermis -Post Debridement (cm) - Length 0.1 -Post Debridement (cm) - Width 0.1 -Post Debridement (cm) - Depth 0.1 -Total Square (Post) (cm) 0.01 -Area of Debridement (cm) - Length 0.1 -Area of Debridement (cm) - Width 0.1 -Total Square (Area) (cm) 0.01 -Tunneling No -Undermining/Tunneling No -Circular Undermining No -Wound/Ulcer Outcome Not Healed -Ulcer Cleansing Rinsed/ Irrigated with Saline -Foul Odor after Cleansing No -Bioengineered Tissue No -Bleeding Controlled with NA -Treatment Response Procedure Tolerated Well -Debridement - Open, 1st 20sq cm Yes Pain Scale: 0-10 Numeric Is Patient Pain Free? Yes - Nurse 3 - General Ulcer D/C NN Start: 11/14/24 10:40 Freq: Status: Active Protocol: Activity Type Activity Date Activity User E-sign Co-sign Detail Recorded Client Recorded Date Recorded By Document 11/14/24 11:05 [id number] 11/14/24 11:06 11/14/24 11:05 Wound Care Center Nurse 3 1-left leg -Ulcer Cleansing Not Cleansed -Foul Odor after Cleansing No -Primary Dressing Applied Mepilex Border, Promogran -Mepilex Border 1 -Promogran 1 Pain Scale: 0-10 Numeric Is Patient Pain Free? Yes - Visit Discharge Discharge Condition Stable Ambulatory Status Ambulatory Transportation Private Auto Assessment/Plan Assessment/Plan (1) Wound of left lower extremity: CODE(S): S81.802A - Unspecified open wound, left lower leg, initial encounter QUALIFIERS: Encounter type: subsequent encounter Qualified Code(s): S81.802D - Unspecified open wound, left lower leg, subsequent encounter PLAN: with fat layer exposed (2) Laceration of left lower extremity: CODE(S): S81.812A - Laceration without foreign body, left lower leg, initial encounter QUALIFIERS: Encounter type: subsequent encounter Qualified Code(s): S81.812D - Laceration without foreign body, left lower leg, subsequent encounter (3) Borderline type 2 diabetes mellitus: CODE(S): R73.03 - Prediabetes (4) Venous insufficiency: CODE(S): I87.2 - Venous insufficiency (chronic) (peripheral) PLAN: Plan Debridement done as documented above, procedure was well-tolerated. Continues to show good improvement. Minimal area left. Has been wearing CircAid's consistently. Continue Promogran, change daily. Cover with Adaptic and foam dressing. Wear CircAid's daily, may take off at night. Leg elevation and exercise as tolerated. Continue increased Protein intake, vitamin C, D and zinc. His questions were answered and he was advised to let us know if he has any further questions or concerns, he voiced understanding. Follow-up in 1 week. This note was generated with [employer] dictation software. It may contain incorrect words, spelling, and punctuation that were not noted in checking the note before signing.
== END 2024-12-04 13:12 | disposition home or self-care (01) ==
LOC: WC 10:32
PROVIDERS: PCP Internal Medicine; Referring Provider Internal Medicine; Visit Provider Internal Medicine
DX: I87.2 Venous insufficiency (chronic) (peripheral) (principal); R73.03 Prediabetes; S81.812A Laceration without foreign body, left lower leg, initial encounter; X58.XXXA Exposure to other specified factors, initial encounter
CPT/HCPCS: 97597

== ENCOUNTER 2024-11-29 15:27 | Outpatient (RCR) | payer MEDICARE, SELFPAY ==
[2024-11-14 15:13] LABS: International Normalized Ratio 1.8; Prothrombin Time (Protime)PT. 21.3 SECONDS (11.7-14.9)
[2024-11-29 17:22] LABS: International Normalized Ratio 2.9; Prothrombin Time (Protime)PT. 30.9 SECONDS (11.7-14.9)
== END 2024-12-06 23:59 ==
LOC: BIMLAB 15:27
PROVIDERS: PCP Internal Medicine; Referring Provider Internal Medicine Cardiovascular Disease; Visit Provider Internal Medicine Cardiovascular Disease
DX: I48.11 Longstanding persistent atrial fibrillation (principal); Z79.01 Long term (current) use of 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s
CPT/HCPCS: 36415; 85610

== ENCOUNTER 2025-01-15 13:34 | Outpatient (RCR) | payer MEDICARE, SELFPAY ==
[2025-01-15 15:16] LABS: Absolute Lymphocyte Count 1.67 X10^3/uL (0.83-4.51); Absolute Neutrophil Count 6.6 X10^3/uL (2.0-7.7); Basophil# 0.06 X10^3/uL; Basophil% 0.6 % (0-1); Eosinophil# 0.13 X10^3/uL; Eosinophils% 1.4 % (0-5); Hematocrit 46.1 % (40-54); Lymphocyte # 1.67 X10^3/ul (0.83-4.51); Lymphocyte % 17.8 % (19-41); Mean Corp Hgb Conc 32.5 g/dL (32-36); Mean Corpuscular Hgb 29.8 pg (27.0-32.0); Mean Corpuscular Volume 91.7 fL (80-94); Mean Platelet Vol. 11.6 fl (6.2-12.0); Monocyte# 0.87 X10^3/uL; Monocyte% 9.3 % (0-10); NRBC Flagged by Analyzer 0 % (0-5); Neutrophil # 6.56 X10^3/uL (2.7-7.7); Neutrophil % 69.7 % (47-70); Platelet Count 149 K/mm3 (150-450); RBC Distribution Width CV 15.6 % (11.6-14.6); RBC Distribution Width SD 52.3 fl (35.1-43.9); Red Blood Count 5.03 M/mm3 (4.6-6.2); White Blood Count 9.4 K/mm3 (4.4-11.0)
[2025-01-15 15:23] LABS: International Normalized Ratio 2.2
[2025-01-15 18:08] LABS: ALB/GLOB Ratio 1.5 RATIO (0.9-2.4); AST(SGOT) 19 U/L (<=37); Alanine Aminotransfer ALT/SGPT 22 U/L (<=46); Albumin, Serum 4.2 g/dL (3.4-4.8); Alkaline Phosphatase 95 U/L (40-129); Anion Gap 12 (5-15); BUN 20 mg/dL (4-19); BUN/Creat Ratio 14.8 RATIO (10-20); Calcium,Total 9.4 mg/dL (7.6-11.0); Carbon Dioxide 22.6 mmol/L (21.0-32.0); Chloride 105 mmol/L (98-108); Creatinine, Serum 1.37 mg/dL (0.70-1.20); EST Glomerular Filtration Rate 54 (>60); Globulin 2.8 g/dL (2.2-4.2); Glucose 128 mg/dL (70-99); Potassium 4.3 mmol/L (3.3-5.1); Sodium Level 139 mmol/L (133-145); Total Bilirubin 1.15 mg/dL (0.00-1.30); Uric Acid 5.8 mg/dL (3.5-7.2)
== END 2025-02-03 23:59 ==
LOC: BIMLAB 13:34
PROVIDERS: PCP Internal Medicine; Referring Provider Internal Medicine Cardiovascular Disease; Visit Provider Internal Medicine Cardiovascular Disease
DX: Z79.01 Long term (current) use of 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s; E78.5 Hyperlipidemia, unspecified; M1A.9XX0 Chronic gout, unspecified, without tophus (tophi); I10 Essential (primary) hypertension
CPT/HCPCS: 36415; 80053; 84550; 85025; 85610

== ENCOUNTER → 2025-01-27 | Outpatient (CLI) | payer MEDICARE, SELFPAY ==
--- NOTE | 2025-01-27 08:43 | VDLE_ITS ---
Reason For Study Reason For Study: CVI, DVT RIGHT LEFT GSV is normal. GSV is normal. CFV is compressible, spontaneous, phasic, competent CFV is compressible, spontaneous, phasic, competent, and demonstrates normal augmentation. and demonstrates normal augmentation. FV is compressible, spontaneous, phasic, competent Lt FV prox to distal is DILATED and NON COMPRESSIBLE and demonstrates normal augmentation. consistent with acute DVT POP V is compressible, spontaneous, phasic, competent Incidental finding: Lt SINGLE RESOURCE BOSS measures 0.79cm x 0.95cm. and demonstrates normal augmentation. POP V is compressible, spontaneous, phasic, competent T/P Trunk is compressible. and demonstrates normal augmentation. PTV is compressible. T/P Trunk is compressible. RT PerV is compressible. PTV is compressible. Procedure LT PerV is compressible. This is a venous duplex using B-mode, color flow and spectral Doppler. Exam performed in department. A preliminary report was called and/or faxed to [place]. VL/Venous Duplex US - Joao Extrem Interpretation Summary Acute deep vein thrombosis is noted in the left femoral vein. Ordering Physician: Minh Jarquin Referring Physician: Carline Ramirez Performed By: Medina Carrera, KAYLA, RVT
== END | disposition home or self-care (01) ==
LOC: CVS 08:43
PROVIDERS: PCP Internal Medicine; Referring Provider Surgery Vascular Surgery; Visit Provider Surgery Vascular Surgery
DX: I82.412 Acute embolism and thrombosis of left femoral vein (principal); I48.91 Unspecified atrial fibrillation; I70.213 Atherosclerosis of native arteries of extremities with intermittent claudication, bilateral legs; I87.2 Venous insufficiency (chronic) (peripheral); I87.8 Other specified disorders of veins; I83.893 Varicose veins of bilateral lower extremities with other complications; M19.90 Unspecified osteoarthritis, unspecified site; M79.89 Other specified soft tissue disorders; M79.606 Pain in leg, unspecified; G47.30 Sleep apnea, unspecified; I10 Essential (primary) hypertension; G62.9 Polyneuropathy, unspecified; Z87.891 Personal history of nicotine dependence
CPT/HCPCS: 93970

== ENCOUNTER 2025-02-12 11:34 | Outpatient (RCR) | payer MEDICARE, SELFPAY ==
[2025-02-12 13:33] LABS: INR Fingerstick 2.2; Prothrombin Time Fingerstick 23.9 SEC (11.7-14.9)
== END 2025-03-05 18:00 | disposition home or self-care (01) ==
LOC: LAB 11:34
PROVIDERS: PCP Internal Medicine; Referring Provider Internal Medicine Cardiovascular Disease; Visit Provider Internal Medicine Cardiovascular Disease
DX: Z79.01 Long term (current) use of 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s
CPT/HCPCS: 36416; 85610

== ENCOUNTER → 2025-03-06 | Outpatient (CLI) | payer MEDICARE, SELFPAY ==
[2025-03-06 17:52] LABS: PSA,Total- Diagnostic 2.02 ng/mL (0.00-4.00)
== END | disposition home or self-care (01) ==
LOC: BIMLAB 15:21
PROVIDERS: PCP Internal Medicine; Referring Provider Nurse Practitioner; Visit Provider Nurse Practitioner
DX: R97.20 Elevated prostate specific antigen [PSA] (principal)
CPT/HCPCS: 36415; 84153

== ENCOUNTER 2025-03-28 12:42 | Outpatient (RCR) | payer MEDICARE, SELFPAY ==
[2025-03-12 12:47] LABS: International Normalized Ratio 1.7; Prothrombin Time (Protime)PT. 20.3 SECONDS (11.7-14.9)
[2025-03-12 13:41] LABS: AST(SGOT) 19 U/L (<=37); Alanine Aminotransfer ALT/SGPT 37 U/L (<=46); Albumin, Serum 4.1 g/dL (3.4-4.8); Alkaline Phosphatase 93 U/L (40-129); Bilirubin, Direct 0.44 mg/dL (0.00-0.30); Cholesterol 95 mg/dL (<=200); High Density Lipoprotein 36 mg/dL; Low Density Lipoprotein Calc. 45 mg/dL; Total Bilirubin 0.92 mg/dL (0.00-1.30); Triglycerides 67 mg/dL; Very Low Density Lipoprotein 13 mg/dL (5-40); cholesterol:hdl ratio screen 2.62
[2025-03-28 12:55] LABS: INR Fingerstick 2.3; Prothrombin Time Fingerstick 24.6 SEC (11.7-14.9)
== END 2025-04-05 23:59 ==
LOC: BIMLAB 12:42
PROVIDERS: Nurse Practitioner Gerontology; PCP Internal Medicine; Referring Provider Internal Medicine Cardiovascular Disease; Visit Provider Internal Medicine Cardiovascular Disease
DX: I48.11 Longstanding persistent atrial fibrillation (principal); Z79.01 Long term (current) use of 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s; E78.00 Pure hypercholesterolemia, unspecified
CPT/HCPCS: 36415; 36416; 80061; 80076; 85610

== ENCOUNTER 2025-04-28 14:24 | Outpatient (RCR) | payer MEDICARE, SELFPAY ==
[2025-04-28 14:39] LABS: INR Fingerstick 1.8; Prothrombin Time Fingerstick 20.2 SEC (11.7-14.9)
== END 2025-04-28 18:00 | disposition home or self-care (01) ==
LOC: LAB 14:24
PROVIDERS: PCP Internal Medicine; Referring Provider Internal Medicine Cardiovascular Disease; Visit Provider Internal Medicine Cardiovascular Disease
DX: Z79.01 Long term (current) use of 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s
CPT/HCPCS: 36416; 85610

== ENCOUNTER → 2025-04-28 | Outpatient (CLI) | payer MEDICARE, SELFPAY ==
--- NOTE | 2025-04-28 14:00 | VDLE_ITS ---
Reason For Study Reason For Study: Swelling, Known Lt FV DVT RIGHT LEFT CFV is compressible, spontaneous, phasic, competent GSV is normal. and demonstrates normal augmentation. CFV is compressible, spontaneous, phasic, competent, Procedure and demonstrates normal augmentation. This is a venous duplex using B-mode, color flow and Lt FV prox to distal is DILATED and NON COMPRESSIBLE. spectral Doppler. POP V is compressible, spontaneous, phasic, competent Exam performed in department. and demonstrates normal augmentation. A preliminary report was called and/or faxed to T/P Trunk is compressible. Faustina MORE. PTV is compressible. LT PerV is compressible. VL/Venous Duplex US, Unilateral Interpretation Summary Acute deep vein thrombosis noted in left femoral vein. Less extensive and dilat ed than previous study Ordering Physician: Faustina Griffin Referring Physician: Carline Ramirez Performed By: Medina Carrera, KAYLA, RVT
== END | disposition home or self-care (01) ==
LOC: CVS 13:54
PROVIDERS: PCP Internal Medicine; Referring Provider Physician Assistant; Visit Provider Physician Assistant
DX: I87.2 Venous insufficiency (chronic) (peripheral) (principal); I82.409 Acute embolism and thrombosis of unspecified deep veins of unspecified lower extremity
CPT/HCPCS: 93971

== ENCOUNTER 2025-05-12 15:11 | Outpatient (RCR) | payer MEDICARE, SELFPAY ==
[2025-05-12 17:16] LABS: Prothrombin Time (Protime)PT. 25.8 SECONDS (11.7-14.9)
== END 2025-06-05 23:59 ==
LOC: BIMLAB 15:11
PROVIDERS: PCP Internal Medicine; Referring Provider Internal Medicine Cardiovascular Disease; Visit Provider Internal Medicine Cardiovascular Disease
DX: Z79.01 Long term (current) use of 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s
CPT/HCPCS: 36415; 85610

== ENCOUNTER 2025-06-11 15:35 | Outpatient (RCR) | payer MEDICARE, SELFPAY ==
[2025-06-11 16:58] LABS: Prothrombin Time (Protime)PT. 26.6 SECONDS (11.7-14.9)
== END 2025-07-06 23:59 ==
LOC: BIMLAB 15:35
PROVIDERS: PCP Internal Medicine; Referring Provider Internal Medicine Cardiovascular Disease; Visit Provider Internal Medicine Cardiovascular Disease
DX: Z79.01 Long term (current) use of 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s
CPT/HCPCS: 36415; 85610

== ENCOUNTER 2025-06-24 17:46 | Outpatient (CLI) | payer MEDICARE, SELFPAY ==
--- NOTE | 2025-06-24 17:50 | CT_ITS ---
PROCEDURE: CTA ABD W/RUNOFF W/WO CONTRAST 06/24/2025 REASON FOR EXAM: WORSENING PAIN, NEW LLE WOUND TECHNIQUE: One or more dose reduction techniques were used (e.g., Automated exposure control, adjustment of the mA and/or kV according to patient size, use of iterative reconstruction technique). CTA ABD W/RUNOFF W/WO CONTRAST Multiplanar Sagittal and Coronal images were obtained. 3D and or MIPS post processing was performed CONTRAST: Isovue-300 VOLUME: 100 mL RADIATION DOSE SUMMARY: CTDlvol: 10.35 mGy DLP: 1946.82 mGycm COMPARISON: Prior study dated August 12, 2020. FINDINGS: Aorta: Minimal calcific plaque throughout the abdominal aorta. Iliac Arteries: Atherosclerotic calcific plaques of both common and external iliac arteries. Focal tight stenosis in the proximal right external iliac artery. Celiac: Normal. SMA: Normal. JOSE : Normal. Right Renal: Unremarkable Left Renal: Unremarkable Lower Extremity Runoff (Bilateral): Common Femoral Arteries: Mild calcific plaques bilaterally. Superficial Femoral Arteries: Scattered non stenotic calcific plaques of the right superficial femoral artery. Scattered non stenotic plaques throughout the left superficial femoral artery. Profunda Femoris Arteries: Unremarkable Popliteal Arteries: Both popliteal arteries are widely patent. Scattered calcific plaques. Tibial and Peroneal Arteries: Three-vessel runoff in the left lower extremity. Mildly stenotic calcific plaques in the distal portion of the tibioperoneal trunk. Poor runoff in the right anterior tibial artery. Distal Runoff: Three-vessel runoff in the left lower extremity. Two-vessel runoff in the right lower extremity. Extravascular Findings: Fatty infiltration of the liver. Multiple small gallstones. Right renal cyst. CT/CTA Abd w/Runoff W/WO Contrast IMPRESSION: Three-vessel runoff in the left lower extremity. Two-vessel runoff in the right lower extremity. Reading Location: [facility]
== END 2025-06-24 23:59 | disposition home or self-care (01) ==
LOC: CT 17:47
PROVIDERS: PCP Internal Medicine; Referring Provider Physician Assistant; Visit Provider Physician Assistant
DX: I70.25 Atherosclerosis of native arteries of other extremities with ulceration (principal); L97.929 Non-pressure chronic ulcer of unspecified part of left lower leg with unspecified severity
CPT/HCPCS: 75635; Q9967

== ENCOUNTER 2025-07-09 16:00 | Outpatient (RCR) | payer MEDICARE, SELFPAY ==
[2025-07-09 16:11] LABS: INR Fingerstick 2.4
== END 2025-08-05 18:00 | disposition home or self-care (01) ==
LOC: LAB 16:00
PROVIDERS: PCP Internal Medicine; Referring Provider Internal Medicine Cardiovascular Disease; Visit Provider Internal Medicine Cardiovascular Disease
DX: Z79.01 Long term (current) use of 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s
CPT/HCPCS: 36416; 85610

== ENCOUNTER → 2025-07-22 | Outpatient (CLI) | payer MEDICARE, SELFPAY ==
[2025-07-22 12:21] LABS: Prothrombin Time (Protime)PT. 25.6 SECONDS (11.7-14.9)
[2025-07-22 12:36] LABS: Hematocrit 47.2 % (40-54); Hemoglobin 15.4 g/dL (13.0-16.5); Immature Granulocytes Count 0.060 X10^3/uL (0.0-0.0); Mean Corp Hgb Conc 32.6 g/dL (32-36); Mean Corpuscular Volume 92.5 fL (80-94); Mean Platelet Vol. 12.5 fl (6.2-12.0); NRBC Flagged by Analyzer 0 % (0-5); Platelet Count 156 K/mm3 (150-450); RBC Distribution Width CV 14.1 % (11.6-14.6); RBC Distribution Width SD 47.8 fl (35.1-43.9); Red Blood Count 5.10 M/mm3 (4.6-6.2); White Blood Count 9.0 K/mm3 (4.4-11.0)
[2025-07-22 12:43] LABS: AST(SGOT) 18 U/L (<=37); Alanine Aminotransfer ALT/SGPT 18 U/L (<=46); Albumin, Serum 4.1 g/dL (3.4-4.8); Alkaline Phosphatase 88 U/L (40-129); Anion Gap 12 (5-15); BUN 20 mg/dL (4-19); BUN/Creat Ratio 16.3 RATIO (10-20); Calcium,Total 9.3 mg/dL (7.6-11.0); Carbon Dioxide 21.6 mmol/L (21.0-32.0); Chloride 104 mmol/L (98-108); Globulin 2.9 g/dL (2.2-4.2); Glucose 108 mg/dL (70-99); Potassium 4.2 mmol/L (3.3-5.1)
[2025-07-25 14:09] LABS: Testosterone, % Free 2.01 % (1.50-4.20); Testosterone, Free 7.96 ng/dL (5.00-21.00)
== END | disposition home or self-care (01) ==
LOC: BIMLAB 09:53
PROVIDERS: Internal Medicine Cardiovascular Disease; PCP Internal Medicine; Referring Provider Internal Medicine; Visit Provider Internal Medicine
DX: Z79.01 Long term (current) use of 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s (principal); I10 Essential (primary) hypertension; E78.5 Hyperlipidemia, unspecified; R53.83 Other fatigue
CPT/HCPCS: 36415; 80053; 84402; 84403; 84439; 84443; 85025; 85610

== ENCOUNTER → 2025-08-04 | Outpatient (CLI) | payer MEDICARE, SELFPAY ==
--- OUTSIDE RECORDS SUMMARY | 2024-08-12 18:45 | XMS RPT_ITS ---
Author Name Auto Generated Organization [facility] Care Team Providers Care Film Laboratory Technician Name Role Phone JACQUELINE ROMANO Primary Care Unavailable PROBLEMS No Problem Records Found PROCEDURES No Procedure Records Found RESULTS PROGRESS Observed: 08/12/2024 6:53 PM Status: COMPLETED Source: [facility] HNO ID: [id number] Author: DANK JOHNSON APRN.DROP FORGE OPERATOR Service: ? Author Type: Nurse Practitioner Type: Progress Notes Filed: 08/12/2024 19:37 Note Text: Subjective HPI Nontoxic-appearing male presents urgent care chief complaint leg injury. Patient states earlier today he hit his leg on the hitch on his mower. Presents today for evaluation. No OTC medications. Did not wash wound prior to arrival. Tetanus shot within 5 years. History of A-fib. On blood thinners. Has lower leg edema. Past medical history prescription medications allergies reviewed. .Patient presents with: Laceration: Cut on lower left leg happened earlier today PAST MEDICAL HISTORY Diagnosis Date Atrial fibrillation (HCC) Diverticulosis Gout Hemorrhoids History of colon polyps HTN (hypertension) Marijuana use Neuropathy Onychomycosis LEONA (obstructive sleep apnea) Sebaceous cyst Skin cancer Sleep apnea Tobacco use PAST SURGICAL HISTORY Procedure Laterality Date COLONOSCOPY 2014 polyps COLONOSCOPY 03/05/2019 Diverticulosis, Tubular adenomas. 5 year recall COLONSCOPY SCREENING HIGH RISK PAST SURGICAL HISTORY OF Left arthroscopic knee repair PAST SURGICAL HISTORY OF Right arthroscopic knee repair PAST SURGICAL HISTORY OF Right achilles tendon SURG TX ANAL FISTULA INTERSPHINCTERIC 05/31/16 posterior fistula TONSILLECTOMY HX ALLERGIES Patient has no known allergies. MEDICATIONS amitriptyline (ELAVIL) 25 mg tablet Oral for 90 Days atorvastatin (LIPITOR) 10 mg tablet Oral for 90 Days tamsulosin (FLOMAX) 0.4 mg Oral for 90 Days lisinopril (ZESTRIL, PRINIVIL) 20 mg tablet spironolactone (ALDACTONE) 25 mg tablet Take 25 mg by mouth once daily. CPAP allopurinol (ZYLOPRIM) 100 mg tablet Take 100 mg by mouth once daily. sertraline (ZOLOFT) 50 mg tablet Take 50 mg by mouth once daily. warfarin (COUMADIN) 2.5 mg tablet Take 2.5 mg by mouth once daily. dilTIAZem CD (CARDIZEM CD, CARTIA XT) 120 mg 24 hr capsule finasteride (PROSCAR) 5 mg tablet Oral for 90 Days baclofen (LIORESAL) 10 mg tablet Take 10 mg by mouth daily at bedtime. (Patient not taking: Reported on 06/11/2024) oxyCODONE-acetaminophen (PERCOCET) 5-325 mg tablet Take 1 tablet by mouth every 4 hours as needed. (Patient not taking: Reported on 03/05/2019 ) dibucaine (NUPERCAINAL) 1 % oint As directed as needed (Patient not taking: Reported on 03/05/2019 ) metoprolol succinate ER (TOPROL XL) 100 mg Tb24 Take 100 mg by mouth once daily. (Patient not taking: Reported on 06/11/2024) amLODIPine (NORVASC) 10 mg tablet Take 10 mg by mouth once daily. (Patient not taking: Reported on 08/12/2024) hydrochlorothiazide (HYDRODIURIL, ESIDRIX) 25 mg tablet Take 25 mg by mouth once daily. terbinafine HCl (LAMISIL) 250 mg tablet Take 250 mg by mouth once daily. (Patient not taking: Reported on 06/11/2024) hydrocortisone (PROCTOSOL HC) 2.5 % rectal cream by RECTAL route as needed. (Patient not taking: Reported on 08/12/2024) FAMILY HISTORY Problem Relation Age of Onset Colon Cancer Brother Prostate Cancer Father Social History Tobacco Use Smoking status: Every Day Current packs/day: 0.25 Average packs/day: 0.3 packs/day for 30.0 years (7.5 ttl pk-yrs) Types: Cigarettes Smokeless tobacco: Never Tobacco comments: up to 10 cigarrettes per day Substance Use Topics Alcohol use: Yes Comment: 3-4 beers per week Drug use: Yes Comment: marijuana - social BP 100/58 Pulse 64 Temp 36.7 ?C (98 ?F) Resp 21 Wt (!) 152.3 kg (335 lb 12.2 oz) SpO2 98% BMI 43.11 kg/m? Review of Systems Constitutional: Negative for chills, fever and malaise/fatigue. Musculoskeletal: Negative for back pain, falls, joint pain, myalgias and neck pain. Neurological: Negative for dizziness, loss of consciousness, weakness and headaches. Objective Physical Exam Constitutional: General: He is not in acute distress. Appearance: He is not toxic-appearing. HENT: Head: Normocephalic. Nose: Nose normal. Eyes: Pupils: Pupils are equal, round, and reactive to light. Cardiovascular: Rate and Rhythm: Normal rate. Pulmonary: Effort: Pulmonary effort is normal. No respiratory distress. Musculoskeletal: Cervical back: Normal range of motion. Skin: General: Skin is warm and dry. Comments: 3 cm x 5 mm superficial wound noted to highlighted area. Hemostasis achieved. Floor wound noted in bloodless field. Wound approximately 3 mm deep. Neurological: General: No focal deficit present. Mental Status: He is alert. Verbal's contain consent obtained. 1 cc of lidocaine used anesthetize wound. Area cleansed with antimicrobial scrub.. Wound copiously irrigated. No bone or foreign body involvement noted. Zip stitch used to bring wound edges together. Nonadhesive dressing applied. Tolerated well. ASSESSMENT/PLAN: 1. Laceration of left lower extremity, initial encounter - ICD9: 894.0, ICD10: S81.812A Diagnosed with leg laceration. Wound approximation achieved. Follow-up with PCP 72 hours wound reevaluation. Red flags for prompt ER evaluation discussed. Wound care discussed. Patient was educated on supportive therapies. Patient will follow up with primary care provider as needed. Patient was instructed to immediately proceed to emergency room for any new, worsening, or symptoms lasting longer than anticipated. The patient's clinical presentation is otherwise unremarkable at this time. Based on exam and clinical finding, the patient is stable for discharge. Plan of care was discussed with patient. Patient verbalizes understanding and agrees to plan of care. This note was generated using [email or web address] software. It may contain errors in wording, punctuation, or spelling. Dank Johnson APRN.DROP FORGE OPERATOR CNOV Observed: 08/12/2024 6:45 PM Status: COMPLETED Source: [facility] Office Visit (WSTR) TISHNARCISO Cruz ([id number]) 1950 M Date Time Provider Department 08/12/24 6:45 PM DANK JOHNSON [facility] During your visit today, we recorded the following information about you: Temperature Pulse Respiration Blood pressure 98 degrees 64/minute 21/minute 100/58 Weight 152.3 kg Dank Johnson, ELECTRONICS INSPECTOR.DROP FORGE OPERATOR 08/12/2024 7:37 PM Signed Subjective HPI Nontoxic-appearing male presents urgent care chief complaint leg injury. Patient states earlier today he hit his leg on the hitch on his mower. Presents today for evaluation. No OTC medications. Did not wash wound prior to arrival. Tetanus shot within 5 years. History of A-fib. On blood thinners. Has lower leg edema. Past medical history prescription medications allergies reviewed. .Patient presents with: Laceration: Cut on lower left leg happened earlier today PAST MEDICAL HISTORY Diagnosis Date Atrial fibrillation (HCC) Diverticulosis Gout Hemorrhoids History of colon polyps HTN (hypertension) Marijuana use Neuropathy Onychomycosis LEONA (obstructive sleep apnea) Sebaceous cyst Skin cancer Sleep apnea Tobacco use PAST SURGICAL HISTORY Procedure Laterality Date COLONOSCOPY 2014 polyps COLONOSCOPY 03/05/2019 Diverticulosis, Tubular adenomas. 5 year recall COLONSCOPY SCREENING HIGH RISK PAST SURGICAL HISTORY OF Left arthroscopic knee repair PAST SURGICAL HISTORY OF Right arthroscopic knee repair PAST SURGICAL HISTORY OF Right achilles tendon SURG TX ANAL FISTULA INTERSPHINCTERIC 05/31/16 posterior fistula TONSILLECTOMY HX ALLERGIES Patient has no known allergies. MEDICATIONS amitriptyline (ELAVIL) 25 mg tablet Oral for 90 Days atorvastatin (LIPITOR) 10 mg tablet Oral for 90 Days tamsulosin (FLOMAX) 0.4 mg Oral for 90 Days lisinopril (ZESTRIL, PRINIVIL) 20 mg tablet spironolactone (ALDACTONE) 25 mg tablet Take 25 mg by mouth once daily. CPAP allopurinol (ZYLOPRIM) 100 mg tablet Take 100 mg by mouth once daily. sertraline (ZOLOFT) 50 mg tablet Take 50 mg by mouth once daily. warfarin (COUMADIN) 2.5 mg tablet Take 2.5 mg by mouth once daily. dilTIAZem CD (CARDIZEM CD, CARTIA XT) 120 mg 24 hr capsule finasteride (PROSCAR) 5 mg tablet Oral for 90 Days baclofen (LIORESAL) 10 mg tablet Take 10 mg by mouth daily at bedtime. (Patient not taking: Reported on 06/11/2024) oxyCODONE-acetaminophen (PERCOCET) 5-325 mg tablet Take 1 tablet by mouth every 4 hours as needed. (Patient not taking: Reported on 03/05/2019 ) dibucaine (NUPERCAINAL) 1 % oint As directed as needed (Patient not taking: Reported on 03/05/2019 ) metoprolol succinate ER (TOPROL XL) 100 mg Tb24 Take 100 mg by mouth once daily. (Patient not taking: Reported on 06/11/2024) amLODIPine (NORVASC) 10 mg tablet Take 10 mg by mouth once daily. (Patient not taking: Reported on 08/12/2024) hydrochlorothiazide (HYDRODIURIL, ESIDRIX) 25 mg tablet Take 25 mg by mouth once daily. terbinafine HCl (LAMISIL) 250 mg tablet Take 250 mg by mouth once daily. (Patient not taking: Reported on 06/11/2024) hydrocortisone (PROCTOSOL HC) 2.5 % rectal cream by RECTAL route as needed. (Patient not taking: Reported on 08/12/2024) FAMILY HISTORY Problem Relation Age of Onset Colon Cancer Brother Prostate Cancer Father Social History Tobacco Use Smoking status: Every Day Current packs/day: 0.25 Average packs/day: 0.3 packs/day for 30.0 years (7.5 ttl pk-yrs) Types: Cigarettes Smokeless tobacco: Never Tobacco comments: up to 10 cigarrettes per day Substance Use Topics Alcohol use: Yes Comment: 3-4 beers per week Drug use: Yes Comment: marijuana - social BP 100/58 Pulse 64 Temp 36.7 ?C (98 ?F) Resp 21 Wt (!) 152.3 kg (335 lb 12.2 oz) SpO2 98% BMI 43.11 kg/m? Review of Systems Constitutional: Negative for chills, fever and malaise/fatigue. Musculoskeletal: Negative for back pain, falls, joint pain, myalgias and neck pain. Neurological: Negative for dizziness, loss of consciousness, weakness and headaches. Objective Physical Exam Constitutional: General: He is not in acute distress. Appearance: He is not toxic-appearing. HENT: Head: Normocephalic. Nose: Nose normal. Eyes: Pupils: Pupils are equal, round, and reactive to light. Cardiovascular: Rate and Rhythm: Normal rate. Pulmonary: Effort: Pulmonary effort is normal. No respiratory distress. Musculoskeletal: Cervical back: Normal range of motion. Skin: General: Skin is warm and dry. Comments: 3 cm x 5 mm superficial wound noted to highlighted area. Hemostasis achieved. Floor wound noted in bloodless field. Wound approximately 3 mm deep. Neurological: General: No focal deficit present. Mental Status: He is alert. Verbal's contain consent obtained. 1 cc of lidocaine used anesthetize wound. Area cleansed with antimicrobial scrub.. Wound copiously irrigated. No bone or foreign body involvement noted. Zip stitch used to bring wound edges together. Nonadhesive dressing applied. Tolerated well. ASSESSMENT/PLAN: 1. Laceration of left lower extremity, initial encounter - ICD9: 894.0, ICD10: S81.812A Diagnosed with leg laceration. Wound approximation achieved. Follow-up with PCP 72 hours wound reevaluation. Red flags for prompt ER evaluation discussed. Wound care discussed. Patient was educated on supportive therapies. Patient will follow up with primary care provider as needed. Patient was instructed to immediately proceed to emergency room for any new, worsening, or symptoms lasting longer than anticipated. The patient's clinical presentation is otherwise unremarkable at this time. Based on exam and clinical finding, the patient is stable for discharge. Plan of care was discussed with patient. Patient verbalizes understanding and agrees to plan of care. This note was generated using [email or web address] software. It may contain errors in wording, punctuation, or spelling. Dank Johnson APRN.DROP FORGE OPERATOR Allergies As of Date: 08/12/2024 (No Known Allergies) Date Reviewed: 08/12/2024 Reviewed by: Dank Johnson APRN.DROP FORGE OPERATOR - Fully Assessed Reason for Visit: Laceration [1747] Cmt: Cut on lower left leg happened earlier today Primary Visit Diagnosis:Laceration of left lower extremity, initial encounter [S81.812A] Prescriptions as of 08/12/2024 - amitriptyline (ELAVIL) 25 mg tablet Oral for 90 Days - atorvastatin (LIPITOR) 10 mg tablet Oral for 90 Days - dilTIAZem CD (CARDIZEM CD, CARTIA XT) 120 mg 24 hr capsule - finasteride (PROSCAR) 5 mg tablet Oral for 90 Days - tamsulosin (FLOMAX) 0.4 mg Oral for 90 Days - baclofen (LIORESAL) 10 mg tablet Take 10 mg by mouth daily at bedtime. - lisinopril (ZESTRIL, PRINIVIL) 20 mg tablet - spironolactone (ALDACTONE) 25 mg tablet Take 25 mg by mouth once daily. - oxyCODONE-acetaminophen (PERCOCET) 5-325 mg tablet Take 1 tablet by mouth every 4 hours as needed. - dibucaine (NUPERCAINAL) 1 % oint As directed as needed - CPAP - allopurinol (ZYLOPRIM) 100 mg tablet Take 100 mg by mouth once daily. - sertraline (ZOLOFT) 50 mg tablet Take 50 mg by mouth once daily. - metoprolol succinate ER (TOPROL XL) 100 mg Tb24 Take 100 mg by mouth once daily. - amLODIPine (NORVASC) 10 mg tablet Take 10 mg by mouth once daily. - warfarin (COUMADIN) 2.5 mg tablet Take 2.5 mg by mouth once daily. - hydrochlorothiazide (HYDRODIURIL, ESIDRIX) 25 mg tablet Take 25 mg by mouth once daily. - terbinafine HCl (LAMISIL) 250 mg tablet Take 250 mg by mouth once daily. - hydrocortisone (PROCTOSOL HC) 2.5 % rectal cream by RECTAL route as needed. 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] 05/18/2016 Atrial fibrillation (HCC) [I48.91] 05/18/2016 Essential hypertension [I10] 05/24/2016 Gout [M10.9] 05/24/2016 LEONA (obstructive sleep apnea) [G47.33] 05/24/2016 Marijuana use [F12.90] 05/24/2016 Level of Service: OFFICE/OUTPATIENT ESTABLISHED LOW [facility] 20 MIN [90992] Encounter Status:Closed by DANK JOHNSON on 08/12/24 ALLERGIES DATE TYPE / CODE NAME / CODE REACTION SEVERITY SOURCE Drug Class/[id number](SNO MED CT) NO KNOWN ALLERGIES [facility] ENCOUNTERS ADMIT/DISCHARGE ACCOUNT NUMBER ADMITTING ENCOUNTER CLASS LOC ATION SOURCE 08/12/2024/ [id number] [facility] PAYERS ENCOUNTER GUARANTOR PAYER SUBSCRIBER SOURCE 08/12/2024 Primary Insurance:[employer] MEDICARE PPOPolicy Number: [id number] Date:[id number] Name:Elda HOOKOB: [id number] [place] [address] [facility]
--- NOTE | 2025-08-04 15:40 | RAD_ITS ---
PROCEDURE: CERV SPINE 2 OR 3 VIEWS 08/04/2025 REASON FOR EXAM: CHRONIC NECK PAIN TECHNIQUE: Procedure Code: RADSPCL Modality: DX Procedure: CERV SPINE 2 OR 3 VIEWS FINDINGS: No evidence of acute fracture or dislocation. [id number] discogenic degenerative changes of the mid/lower cervical spine. Straightening of the normal cervical lordosis. Vertebral body heights are maintained. RAD/Cerv Spine 2 or 3 Views IMPRESSION: Spondylosis. Disclaimer: Reading Location: [id number]
== END | disposition home or self-care (01) ==
LOC: RAD 15:31
PROVIDERS: PCP Internal Medicine; Referring Provider Internal Medicine; Visit Provider Internal Medicine
DX: M54.2 Cervicalgia (principal); G89.29 Other chronic pain
CPT/HCPCS: 72040

== ENCOUNTER 2025-08-21 15:30 | Outpatient (RCR) | payer MEDICARE, SELFPAY ==
[2025-08-21 15:49] LABS: INR Fingerstick 2.4
== END 2025-08-21 18:00 | disposition home or self-care (01) ==
LOC: LAB 15:30
PROVIDERS: PCP Internal Medicine; Referring Provider Internal Medicine Cardiovascular Disease; Visit Provider Internal Medicine Cardiovascular Disease
DX: Z79.01 Long term (current) use of 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s
CPT/HCPCS: 36416; 85610

== ENCOUNTER 2025-09-29 13:32 | Outpatient (RCR) | payer MEDICARE, SELFPAY ==
[2025-09-29 14:45] LABS: INR Fingerstick 2.2
== END 2025-10-04 18:00 | disposition home or self-care (01) ==
LOC: LAB 13:32
PROVIDERS: PCP Internal Medicine; Referring Provider Internal Medicine Cardiovascular Disease; Visit Provider Internal Medicine Cardiovascular Disease
DX: Z79.01 Long term (current) use of 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s (principal)
CPT/HCPCS: 36416; 85610

== ENCOUNTER → 2025-09-29 | Outpatient (CLI) | payer MEDICARE, SELFPAY ==
--- NOTE | 2025-09-29 13:36 | ART_ITS ---
Reason For Study Reason For Study: Claudication Procedure A bilateral lower extremity continuous wave Doppler with analog waveform analysis,segmental pressures,and ankle brachial indexes with exercise. Left Segmental Pressures Left brachial= 103mmHg. Left calf = 113mmHg. Left posterior tibial artery = 63mmHg. Left dorsalis pedis artery = 78mmHg. Left digit = 29 mmHg. The left dorsalis pedis waveforms are monophasic. The left posterior tibial artery waveforms are monophasic. Right Segmental Pressures Right brachial= 107mmHg. Right low thigh = 124mmHg. Right calf = 93mmHg. Right posterior tibial artery = 56mmHg. Right dorsalis pedis artery = 67mmHg. The right dorsalis pedis waveforms are monophasic. The right posterior tibial artery waveforms are monophasic. Indices The right ankle brachial index by the dorsalis pedis is 0.63. The right ankle brachial index by the posterior tibial artery is 0.52. The left ankle brachial index by the dorsalis pedis is 0.73. The left ankle brachial index by the posterior tibial artery is 0.59. The left digital-brachial index is 0.27. VL/Lower Ext Art Exam w/ Exercise Interpretation Summary Right lower extremity exhibits normal response to exercise. Left lower extremit y exhibits normal response to exercise. Right FANI 0.63, moderate arterial insufficiency. Doppler/PVR waveforms and segm ental pressures reveal distal SFA, infrapopliteal disease. Right lower extremity exhibits no change in response to exercise. Left FANI 0.73, moderate arterial insufficiency. Doppler/PVR waveforms and segme ntal pressures reveal infrapopliteal disease. Left lower extremity exhibits no change in response to exercise Ordering Physician: Faustina Griffin Referring Physician: Carline Ramirez Performed By: Olga Bergman RVT and Student
== END | disposition home or self-care (01) ==
LOC: CVS 13:35
PROVIDERS: PCP Internal Medicine; Referring Provider Physician Assistant; Visit Provider Physician Assistant
DX: I73.9 Peripheral vascular disease, unspecified (principal)
CPT/HCPCS: 93924

== ENCOUNTER 2025-10-28 15:29 | Outpatient (RCR) | payer MEDICARE, SELFPAY ==
[2025-10-20 16:52] LABS: AST(SGOT) 17 U/L (<=37); Alanine Aminotransfer ALT/SGPT 18 U/L (<=46); Albumin, Serum 4.2 g/dL (3.4-4.8); Alkaline Phosphatase 93 U/L (40-129); Bilirubin, Direct 0.31 mg/dL (0.00-0.30); Globulin 2.6 g/dL (2.2-4.2)
[2025-10-20 17:16] LABS: Vitamin B12 532 pg/mL (180-914)
[2025-10-20 17:43] LABS: Cholesterol 104 mg/dL (<=200); Low Density Lipoprotein Calc. 52 mg/dL; Triglycerides 97 mg/dL; Very Low Density Lipoprotein 19 mg/dL (5-40); cholesterol:hdl ratio screen 3.14
[2025-10-20 17:59] LABS: Anion Gap 12 (5-15); BUN 25 mg/dL (4-19); BUN/Creat Ratio 18.8 RATIO (10-20); Calcium,Total 9.5 mg/dL (7.6-11.0); Carbon Dioxide 24.5 mmol/L (21.0-32.0); Chloride 102 mmol/L (98-108); Glucose 114 mg/dL (70-99); Potassium 4.5 mmol/L (3.3-5.1)
[2025-10-28 15:38] LABS: INR Fingerstick 2.1
== END 2025-10-28 18:00 | disposition home or self-care (01) ==
LOC: LAB 15:29
PROVIDERS: Physician Assistant Medical; PCP Internal Medicine; Referring Provider Internal Medicine Cardiovascular Disease; Visit Provider Internal Medicine Cardiovascular Disease
DX: Z79.01 Long term (current) use of 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s (principal); I10 Essential (primary) hypertension; E78.00 Pure hypercholesterolemia, unspecified; R73.03 Prediabetes; G62.9 Polyneuropathy, unspecified
CPT/HCPCS: 36415; 36416; 80048; 80061; 80076; 82607; 83036; 85610